=== PATIENT | female | born 1945 | race African-American/Black ===

== ENCOUNTER → 2016-08-07 | Outpatient (CLI) | payer MEDICARE | LOC: WI 11:05 | PROVIDERS: ATTEND Family Medicine | DX: Z12.31 Encounter for screening mammogram for malignant neoplasm of breast (principal) | CPT/HCPCS: 77067; G0202 ==

== ENCOUNTER → 2017-09-06 | Outpatient (CLI) | payer MEDICARE ==
--- NOTE | 2017-09-06 14:35 | WOMENS IMAGING REPORT ---
EXAM DESCRIPTION: 3D SCREENING MAMMO BILAT COMPLETED DATE/TIME: 09/06/2017 10:18 am REASON FOR STUDY: ROUTINE SCREENING;Z12.31 Z12.31 ENCNTR SCREEN MAMMOGRAM FOR MALIGNANT NEOPLASM OF AMRIT COMPARISON: Multiple since 2008 TECHNIQUE: Standard craniocaudal and mediolateral oblique views of each breast recorded using digita l acquisition and breast tomosynthesis. LIMITATIONS: None. FINDINGS: No masses, calcifications or architectural distortion. No areas of suspicion. Read with the assistance of CAD. .[facility] - R2 Cenova Version 1.3 .[facility] - R2 Cenova Version 1.3 .[facility] - R2 Cenova Version 2.4 .[facility] - R2 Cenova Version 2.4 .[facility] - R2 Commercial Teller Version 9.2 IMPRESSION: NORMAL MAMMOGRAM. BIRADS 1. BREAST DENSITY: b. There are scattered areas of fibroglandular density. BIRAD: 1 NEGATIVE RECOMMENDATION: ROUTINE SCREENING Please continue yearly bilateral screening tomosynthesis in September 2018 COMMENT: The patient has been notified of the results by letter per [place] requirements. Additional no tification policies are in place for contacting patient with suspicious or incomplete findings. Quality ID #[id number]: The [employer] recommends an annual screening mammogram for women aged 40 years or over. This facility utilizes a reminder system to ensure that all patients receive reminder letters, and/or direct phone calls for appointments. This includes reminders for routine scr eening mammograms, diagnostic mammograms, or other Breast Imaging Interventions when appropriate. Th is patient will be placed in the appropriate reminder system. The [employer] (ACR) has developed recommendations for screening MRI of the breast s in certain patient populations, to be used in conjunction with mammography. Breast MRI surveillanc e may be appropriate for women with more than 20% lifetime risk of developing breast cancer as deter mined by genetic testing, significant family history of the disease, or history of mantle radiation f or Hodgkins Disease. ACR Practice Guidelines 2008. DBT Technology DBT is a type of tomographic mammography. With conventional mammography, overlapping breast tissue ma y make lesions difficult to detect, even with good compression. DBT uses an x-ray tube that rotates a round the breast, taking images at different angles. These images are then combined to create thin sl ices of the breast that the radiologist can view as a 3D reconstruction. The [employer] unit can perform full-field digital mammograms (2D imaging); or DBT (3D imaging); or both, in a combination mode that quickly performs both the mammogram and the tomosynthesis scan while the breast is still compressed. PQRS 6045F: Fluoroscopic imaging is not utilized for breast tomosynthesis. TECHNICAL DOCUMENTATION: FINDING NUMBER: (1) ASSESSMENT: (1) JOB ID: [id number] [employer]- All Rights Reserved Reading location - IP/workstation name: [facility]
== END ==
LOC: WI 09:33
PROVIDERS: ATTEND Family Medicine
DX: Z12.31 Encounter for screening mammogram for malignant neoplasm of breast (principal)
CPT/HCPCS: 77063; 77067

== ENCOUNTER → 2019-03-25 | Outpatient (CLI) | payer MEDICARE ==
[2019-03-25 12:18] LABS: ABSOLUTE LYMPHOCYTES (AUTO) 0.6 10^3/uL (0.5-4.7); ABSOLUTE MONOCYTES (AUTO) 0.4 10^3/uL (0.1-1.4); ABSOLUTE NEUT (AUTO) 4.4 10^3/uL (1.7-8.2); BASOPHILS % (AUTO) 0.6 % (0-2); EOSINOPHILS % (AUTO) 0.6 % (0-6); HEMATOCRIT 34.8 % (36.0-47.0); HEMOGLOBIN 10.9 g/dL (12.0-15.5); LYMPHOCYTES % (AUTO) 10.6 % (13-45); MEAN CORPUSCULAR HGB CONC 31.2 g/dL (32.0-36.0); MEAN CORPUSCULAR VOLUME 83 fl (80-97); MONOCYTES % (AUTO) 6.9 % (3-13); PLATELET COUNT 210 10^3/uL (150-450); RED BLOOD COUNT 4.18 10^6/uL (3.72-5.28); RED CELL DISTRIBUTION WIDTH 18.7 % (11.5-14.0); SEGMENTED NEUTROPHILS % (AUTO) 81.3 % (42-78); TOTAL CELLS COUNTED % (AUTO) 100 %; WHITE BLOOD COUNT 5.5 10^3/uL (4.0-10.5)
[2019-03-25 12:39] LABS: ALBUMIN 3.3 g/dL (3.5-5.0); ALKALINE PHOSPHATASE 80 U/L (38-126); ANION GAP 12 (5-19); ASPARTATE AMINO TRANSFERASE 21 U/L (14-36); BILIRUBIN,DIRECT 0.4 mg/dL (0.0-0.4); BILIRUBIN,TOTAL 1.1 mg/dL (0.2-1.3); BLOOD UREA NITROGEN 58 mg/dL (7-20); CALCIUM 8.7 mg/dL (8.4-10.2); CARBON DIOXIDE 25 mmol/L (22-30); CHLORIDE 97 mmol/L (98-107); CHOLESTEROL 89.53 mg/dL (0-200); IRON(TIBC) 34.7 ug/dL (37-170); POTASSIUM 4.2 mmol/L (3.6-5.0); TOTAL PROTEIN 7.2 g/dL (6.3-8.2); TRIGLYCERIDES 82 mg/dL (<150)
[2019-03-25 14:09] LABS: GLUCOSE 553 mg/dL (75-110)
[2019-03-25 14:42] LABS: DIRECT LDL 56 mg/dL (<100)
== END ==
LOC: OD 10:43
PROVIDERS: ATTEND Family Medicine
DX: N18.9 Chronic kidney disease, unspecified (principal); E11.9 Type 2 diabetes mellitus without complications; E78.5 Hyperlipidemia, unspecified; D63.1 Anemia in chronic kidney disease
CPT/HCPCS: 36415; 80053; 80061; 82728; 83036; 83540; 83550; 85025

== ENCOUNTER → 2019-03-30 | Outpatient (CLI) | payer MEDICARE ==
[2019-03-30 09:41] LABS: ANION GAP 9 (5-19); BLOOD UREA NITROGEN 61 mg/dL (7-20); CALCIUM 9.1 mg/dL (8.4-10.2); CARBON DIOXIDE 31 mmol/L (22-30); CHLORIDE 103 mmol/L (98-107); GLUCOSE 159 mg/dL (75-110); POTASSIUM 4.5 mmol/L (3.6-5.0)
== END ==
LOC: OD 08:21
PROVIDERS: ATTEND Family Medicine
DX: N18.9 Chronic kidney disease, unspecified (principal)
CPT/HCPCS: 36415; 80048

== ENCOUNTER 2019-05-03 09:57 | Inpatient (IN) | payer MEDICARE ==
--- NOTE | 2019-05-03 10:24 | ER Document Report ---
ED General - General Chief Complaint: Abnormal Lab Results Stated Complaint: ABNORMAL LABS Time Seen by Provider: 05/03/19 10:06 Primary Care Provider: LISA BARON MD [Primary Care Provider] - Follow up as needed Notes: HPI: Patient is a 73-year-old female that presents today by EMS from [facility] secondary to an elevated reported creatinine. They did provide a liter of fluid prior to transfer. Patient herself denies any and all pain including a lack of headache, chest pain, abdominal pain, back pain, or dysuria. No fevers, vomiting, or diarrhea. History of chronic atrial fibrillation. ROS: See HPI All other review of systems reviewed and otherwise negative Reviewed vital signs and nursing note as charted by RN. PHYSICAL EXAM: CONSTITUTIONAL: Alert and oriented and responds appropriately to questions including year month and day. Well-appearing; well-nourished HEAD: Normocephalic; atraumatic EYES: Sclerae non-icteric ENT: Normal nose; no rhinorrhea; moist mucous membranes; pharynx without lesions noted NECK: Supple without meningismus; non-tender; no cervical lymphadenopathy, no masses CARD: Regular rate and rhythm; no murmurs; symmetric distal pulses RESP: Normal chest excursion without splinting or tachypnea; breath sounds clear and equal bilaterally; no wheezes, no rhonchi, no rales ABD/GI: Normal bowel sounds; non-distended; soft, non-tender; no palpable organomegaly or masses BACK: The back appears normal and is non-tender to palpation EXT: Normal ROM in all joints; non-tender to palpation SKIN: Patient has bilateral lower leg blisters/ulcerations without any obvious erythema. 1+ pitting edema to bilateral shins NEURO: CN 2-12 intact; 5/5 bilateral upper and lower extremity strength with sensation intact to light touch PSYCH: The patient's mood and manner are appropriate. Grooming and personal hygiene are appropriate. TRAVEL OUTSIDE OF THE [place] IN LAST 30 DAYS: No - Related Data Allergies/Adverse Reactions: No Known Allergies Allergy (Verified 01/10/12 14:35) Past Medical History - Social History Smoking Status: Unknown if Ever Smoked Family History: Reviewed & Not Pertinent - Past Medical History Cardiac Medical History: Reports: Hx Atrial Fibrillation, Hx Congestive Heart Failure, Hx Coronary Artery Disease, Hx Hypercholesterolemia, Hx Hypertension Pulmonary Medical History: Reports: Hx Pneumonia Endocrine Medical History: Reports: Hx Diabetes Mellitus Type 2 Renal/ Medical History: Reports: Hx Renal Insufficiency GI Medical History: Reports: Hx Colonoscopy Musculoskeletal Medical History: Reports Hx Arthritis Skin Medical History: Reports Hx Cellulitis Psychiatric Medical History: Reports: Hx Anxiety Denies: Hx Depression Past Surgical History: Reports: Hx Appendectomy, Hx Hysterectomy - Immunizations Hx Diphtheria, Pertussis, Tetanus Vaccination: Yes Hx Pneumococcal Vaccination: 02/03/10 Physical Exam - Vital signs Vitals: Resp 17 05/03/19 10:04 Course - Re-evaluation Re-evalutation: 05/03/19 10:23 Given the history and physical we will obtain basic labs including a general chemistry as well as urine analysis. Vital signs as recorded with a heart rate around 110. Heart rate is irregularly irregular. 05/03/19 10:25 It appears that the patient has a baseline creatinine around 2.5. On April 25 it was 3.8 with a BUN of 87. 05/03/19 10:33 During his previous admission around 8 days ago the patient was found to have an elevated creatinine and BUN. Patient has a history of heart failure. She also had bilateral lower extremity ulcers. Cultures grew out MRSA that was sensitive to doxycycline. Patient was diuresed secondary to increasing weight gain. Patient did have a recent echo by Dr. Grant an outpatient with the combined systolic and diastolic heart failure with EF is 40%. 05/03/19 11:27 Labs as recorded. Potassium as recorded. I do not believe that the patient requires transfer for dialysis. Patient will be admitted to the hospitalist service for management of fluid overload and diuretics. Patient supposedly did receive a liter and a half of fluid prior to transfer. - Vital Signs Vital signs: Temp Pulse Resp BP Pulse Ox 98.1 F 16 124/70 99 05/03/19 10:32 05/03/19 10:32 05/03/19 10:32 05/03/19 10:32 - Laboratory Result Diagrams: 05/03/19 10:22 05/03/19 10:22 Laboratory results interpreted by me: 05/03/19 05/03/19 05/03/19 10:22 10:22 10:22 Hgb 10.8 L Hct 34.2 L MCH 25.9 L MCHC 31.5 L RDW 19.9 H Dolores % (Auto) 14.4 H BUN 126 H Creatinine 4.69 H Est GFR ( Amer) 11 L Est GFR (MDRD) Non-Af 9 L Glucose 131 H Direct Bilirubin 0.9 H AST 60 H Albumin 3.2 L Urine Protein 30 H Urine Blood SMALL H Discharge - Discharge Clinical Impression: Acute renal failure Qualifiers: Acute renal failure type: unspecified Qualified Code(s): N17.9 - Acute kidney failure, unspecified Condition: Fair Disposition: ADMITTED INPATIENT Admitting Provider: John Unit Admitted: IMCU Referrals: LISA BARON MD [Primary Care Provider] - Follow up as needed
[2019-05-03 10:43] LABS: ABSOLUTE BASOPHILS # (AUTO) 0.1 10^3/uL (0.0-0.2); ABSOLUTE EOSINOPHILS # (AUTO) 0.1 10^3/uL (0.0-0.6); ABSOLUTE LYMPHOCYTES (AUTO) 0.9 10^3/uL (0.5-4.7); ABSOLUTE MONOCYTES (AUTO) 0.7 10^3/uL (0.1-1.4); ABSOLUTE NEUT (AUTO) 3.3 10^3/uL (1.7-8.2); BASOPHILS % (AUTO) 1.1 % (0-2); EOSINOPHILS % (AUTO) 1.1 % (0-6); HEMATOCRIT 34.2 % (36.0-47.0); HEMOGLOBIN 10.8 g/dL (12.0-15.5); LYMPHOCYTES % (AUTO) 17.2 % (13-45); MEAN CORPUSCULAR HEMOGLOBIN 25.9 pg (27.0-33.4); MEAN CORPUSCULAR HGB CONC 31.5 g/dL (32.0-36.0); MEAN CORPUSCULAR VOLUME 82 fl (80-97); MONOCYTES % (AUTO) 14.4 % (3-13); PLATELET COUNT 166 10^3/uL (150-450); RED BLOOD COUNT 4.17 10^6/uL (3.72-5.28); RED CELL DISTRIBUTION WIDTH 19.9 % (11.5-14.0); SEGMENTED NEUTROPHILS % (AUTO) 66.2 % (42-78); TOTAL CELLS COUNTED % (AUTO) 100 %
[2019-05-03 10:52] LABS: AMORPHOUS SEDIMENT,URINE TRACE /HPF; APPEARANCE,URINE SLIGHTLY-CLOUDY; BILIRUBIN,URINE NEGATIVE (NEGATIVE); COLOR,URINE YELLOW; GLUCOSE, URINE NEGATIVE (NEGATIVE); KETONES,URINE NEGATIVE (NEGATIVE); LEUKOCYTE ESTERASE,URINE NEGATIVE (NEGATIVE); NITRITE,URINE NEGATIVE (NEGATIVE); PROTEIN,URINE 30 mg/dL (NEGATIVE); UROBILINOGEN,URINE NEGATIVE mg/dL (<2.0)
[2019-05-03 10:54] LABS: ALBUMIN 3.2 g/dL (3.5-5.0); ALKALINE PHOSPHATASE 73 U/L (38-126); ANION GAP 13 (5-19); ASPARTATE AMINO TRANSFERASE 60 U/L (14-36); BILIRUBIN,DIRECT 0.9 mg/dL (0.0-0.4); BILIRUBIN,TOTAL 1.1 mg/dL (0.2-1.3); CALCIUM 8.7 mg/dL (8.4-10.2); CARBON DIOXIDE 27 mmol/L (22-30); CHLORIDE 103 mmol/L (98-107); GLUCOSE 131 mg/dL (75-110); POTASSIUM 4.7 mmol/L (3.6-5.0); TOTAL PROTEIN 7.6 g/dL (6.3-8.2)
[2019-05-03 11:03] LABS: BLOOD UREA NITROGEN 126 mg/dL (7-20)
[2019-05-03] MEDS ORDERED: NORMAL SALINE 1000 ML 1,000 ML IV ONE (11:31)
[2019-05-03] MEDS ORDERED: INFLUENZA QUAD (6MOS+) 2019-20 VAC 0.5 ML SYR IM ONE (14:03)
--- NOTE | 2019-05-03 19:11 | PDOC H&P ---
History of Present Illness Admission Date/PCP: 05/03/19 11:35 LISA BARON MD History of Present Illness: NISH NOLAND is a 73 year old female patient of Dr. Baron who was transferred from local SNF to the ED for worsening renal function indices on her recent laboratory test and lack of IV access for hydration. Patient was receiving IV fluid infusion via subcutaneous process as per nursing staff. Patient denied any associated symptoms except expressed needle like discomfort and pain in her feet and legs tonight. She denied any chest pain or difficulty with breathing. No nausea, vomiting, abdominal pain, diarrhea, tarry or bloody stool. No fever, chills, headache, dizziness, nasal or sinus congestion. She was advised hospitalization due to worsening creatinine and BUN level. her morbidities are as listed below. Past Medical History Cardiac Medical History: Reports: Atrial Fibrillation, Congestive Heart Failure, Coronary Artery Disease, Hyperlipidema, Hypertension Pulmonary Medical History: Reports: Pneumonia Endocrine Medical History: Reports: Diabetes Mellitus Type 2 Musculoskeltal Medical History: Reports: Arthritis Psychiatric Medical History: Denies: Depression Hematology: Reports: Anemia Past Surgical History Past Surgical History: Reports: Appendectomy, Hysterectomy Social History Smoking Status: Never Smoker Frequency of Alcohol Use: None Hx Recreational Drug Use: No Drugs: None Hx Prescription Drug Abuse: No - Advance Directive Resuscitation Status: Full Code Family History Family History: Reviewed & Not Pertinent Parental Family History Reviewed: Yes Children Family History Reviewed: Yes Sibling(s) Family History Reviewed.: Yes Medication/Allergy Home Medications: Atorvastatin Calcium [Lipitor 40 mg Tablet] 40 mg PO QHS 04/14/19 Isosorbide Mononitrate [Imdur 30 mg Tablet.er] 30 mg PO DAILY 04/14/19 Lisinopril [Prinivil 5 mg Tablet] 5 mg PO QHS 04/14/19 Omeprazole 40 mg PO DAILY 04/23/19 Apixaban [Eliquis 5 mg Tablet] 5 mg PO BID 05/03/19 Bumetanide 2 mg PO BID 05/03/19 Carvedilol [Coreg 12.5 mg Tablet] 37.5 mg PO Q12 05/03/19 Insulin Glargine,Hum.rec.anlog [Lantus Insulin 100 Unit/mL Insulin Pen] 15 - 20 units SUBCUT QHS 05/03/19 Insulin Lispro Protamin/Lispro [Humalog Mix 50-50 100 unit/mL] 0 unit SUBCUT .SLIDING SCALE 05/03/19 Allergies/Adverse Reactions: No Known Allergies Allergy (Verified 01/10/12 14:35) Review of Systems Constitutional: ABSENT: chills, fever(s), headache(s), weight gain, weight loss Eyes: PRESENT: visual disturbances Ears: PRESENT: hearing changes Nose, Mouth, and Throat: ABSENT: as per HPI, headache(s), mouth pain, sore throat, vertigo, other Cardiovascular: ABSENT: as per HPI, chest pain, dyspnea on exertion, edema, orthropnea, palpitations, other Respiratory: ABSENT: cough, hemoptysis Gastrointestinal: ABSENT: abdominal pain, constipation, diarrhea, hematemesis, hematochezia, nausea, vomiting Genitourinary: ABSENT: dysuria, hematuria Musculoskeletal: ABSENT: joint swelling Neurological: ABSENT: abnormal gait, abnormal speech, confusion, dizziness, focal weakness, syncope Psychiatric: ABSENT: anxiety, depression, homidical ideation, suicidal ideation Endocrine: ABSENT: cold intolerance, heat intolerance, polydipsia, polyuria Hematologic/Lymphatic: ABSENT: easy bleeding, easy bruising, lymphadenopathy Allergic/Immunologic: ABSENT: seasonal rhinorrhea Physical Exam Vital Signs: Temp Pulse Resp BP Pulse Ox 97.9 F 100 18 117/72 100 05/03/19 15:07 05/03/19 15:07 05/03/19 15:07 05/03/19 15:07 05/03/19 15:07 Intake & Output 05/02/19 05/03/19 05/04/19 06:59 06:59 06:59 Weight 90.718 kg General appearance: PRESENT: mild distress - from pain in her legs Head exam: PRESENT: atraumatic, normocephalic Eye exam: PRESENT: conjunctiva pink, EOMI, PERRLA. ABSENT: scleral icterus Ear exam: PRESENT: normal external ear exam Mouth exam: PRESENT: dry mucosa - fairly dry Respiratory exam: PRESENT: clear to auscultation conor, decreased breath sounds - at lung bases Cardiovascular exam: PRESENT: irregular rhythm, +S1, +S2. ABSENT: diastolic murmur, systolic murmur Vascular exam: ABSENT: pallor GI/Abdominal exam: PRESENT: normal bowel sounds, soft. ABSENT: distended, guarding, mass, organolmegaly, rebound, tenderness Rectal exam: PRESENT: deferred Extremities exam: PRESENT: pedal edema - 1+ bilaterally Musculoskeletal exam: PRESENT: deformity Neurological exam: PRESENT: altered - occasional confusion, awake Psychiatric exam: PRESENT: appropriate affect, normal mood. ABSENT: homicidal ideation, suicidal ideation Skin exam: PRESENT: dry, warm, other - multiple superficial ulcers on lower extremities Results Laboratory Results: 05/03/19 10:22 05/03/19 10:22 05/03/19 05/03/19 05/03/19 10:22 10:22 10:22 WBC 5.0 RBC 4.17 Hgb 10.8 L Hct 34.2 L MCV 82 MCH 25.9 L MCHC 31.5 L RDW 19.9 H Plt Count 166 Seg Neutrophils % 66.2 Sodium 143.1 Potassium 4.7 Chloride 103 Carbon Dioxide 27 Anion Gap 13 BUN 126 H Creatinine 4.69 H Est GFR ( Amer) 11 L Glucose 131 H Calcium 8.7 Total Bilirubin 1.1 AST 60 H Alkaline Phosphatase 73 Total Protein 7.6 Albumin 3.2 L Urine Color YELLOW Urine Appearance SLIGHTLY-CLOUDY Urine pH 5.0 Ur Specific [place] 1.010 Urine Protein 30 H Urine Glucose (UA) NEGATIVE Urine Ketones NEGATIVE Urine Blood SMALL H Urine Nitrite NEGATIVE Ur Leukocyte Esterase NEGATIVE Urine WBC (Auto) 5 Urine RBC (Auto) 1 Assessment & Plan - Diagnosis (1) Acute on chronic kidney failure Qualifiers: Acute renal failure type: unspecified Chronic kidney disease stage: stage 4 (severe) Qualified Code(s): N17.9 - Acute kidney failure, unspecified; N18.4 - Chronic kidney disease, stage 4 (severe) Is this a current diagnosis for this admission?: Yes Plan: See covering attending physician orders for details about care plan. (2) Hyponatremia with excess extracellular fluid volume Is this a current diagnosis for this admission?: Yes Plan: See covering attending physician orders for details about care plan. (3) Chronic kidney disease, stage IV (severe) Is this a current diagnosis for this admission?: Yes Plan: See covering attending physician orders for details about care plan. 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 (5) Diabetic neuropathy Qualifiers: Diabetes mellitus type: type 2 Diabetes mellitus complication detail: diabetic polyneuropathy Qualified Code(s): E11.42 - Type 2 diabetes mellitus with diabetic polyneuropathy Is this a current diagnosis for this admission?: Yes Plan: See covering attending physician orders for details about care plan. (6) Hypertension Qualifiers: Hypertension type: essential hypertension Qualified Code(s): I10 - Essential (primary) hypertension Is this a current diagnosis for this admission?: Yes Plan: See covering attending physician orders for details about care plan. (7) Chronic atrial fibrillation Is this a current diagnosis for this admission?: Yes Plan: See covering attending physician orders for details about care plan. - Time Time Spent: 50 to 70 Minutes Medications reviewed and adjusted accordingly: Yes Anticipated discharge: SNF Within: Other - Inpatient Certification Based on my medical assessment, after consideration of the patient's comorbidities, presenting symptoms, or acuity I expect that the services needed warrant INPATIENT care.: Yes I certify that my determination is in accordance with my understanding of Medicare's requirements for reasonable and necessary INPATIENT services [42 CFR 412.3e].: Yes Medical Necessity: Significant Comorbidiites Make Outpatient Treatment Too Risky, Need Close Monitoring Due to Risk of Patient Decompensation, Need For IV Fluids, Need For Continuous Telemetry Monitoring, Risk of Complication if Not Cared For in Hospital, Risk of Diagnosis Which Will Require Inpatient Eval/Care/Monitoring Post Hospital Care: D/C Communications Officer Documentation - Plan Summary Plan Summary: See covering attending physician orders for details about care plan.
[2019-05-03] MEDS ORDERED: INSULIN GLARGINE,HUM.REC.ANLOG 1,000 UNIT/10 ML VIAL (PYX) SUBCUT PRN (19:30)
[2019-05-03] MEDS: ATORVASTATIN CALCIUM 40 MG TABLET PO SCH (21:06)
[2019-05-03] MEDS: ISOSORBIDE MONONITRATE 30 MG TAB.ER.24H PO SCH (21:06)
[2019-05-03] MEDS: CARVEDILOL 12.5 MG TABLET PO SCH (21:06)
[2019-05-03] MEDS: GABAPENTIN 100 MG CAPSULE PO SCH (21:06)
[2019-05-03] MEDS: INSULIN GLARGINE,HUM.REC.ANLOG 1,000 UNIT/10 ML VIAL SUBCUT SCH (22:48)
[2019-05-03] MEDS: DILTIAZEM HCL 30 MG TABLET PO SCH (23:04)
[2019-05-04] MEDS: DILTIAZEM HCL 30 MG TABLET PO SCH ×2 (05:34→11:05)
[2019-05-04 06:35] LABS: ABSOLUTE MONOCYTES (AUTO) 0.7 10^3/uL (0.1-1.4); BASOPHILS % (AUTO) 0.9 % (0-2); EOSINOPHILS % (AUTO) 0.8 % (0-6); HEMATOCRIT 32.4 % (36.0-47.0); HEMOGLOBIN 10.4 g/dL (12.0-15.5); LYMPHOCYTES % (AUTO) 20.7 % (13-45); MEAN CORPUSCULAR HEMOGLOBIN 25.6 pg (27.0-33.4); MEAN CORPUSCULAR HGB CONC 32.1 g/dL (32.0-36.0); MEAN CORPUSCULAR VOLUME 80 fl (80-97); MONOCYTES % (AUTO) 14.4 % (3-13); PLATELET COUNT 146 10^3/uL (150-450); RED BLOOD COUNT 4.06 10^6/uL (3.72-5.28); RED CELL DISTRIBUTION WIDTH 19.8 % (11.5-14.0); SEGMENTED NEUTROPHILS % (AUTO) 63.2 % (42-78); TOTAL CELLS COUNTED % (AUTO) 100 %; WHITE BLOOD COUNT 4.7 10^3/uL (4.0-10.5)
[2019-05-04] MEDS: APIXABAN 5 MG TABLET PO SCH ×2 (09:07→17:29)
[2019-05-04] MEDS: CARVEDILOL 12.5 MG TABLET PO SCH ×2 (09:07→22:20)
[2019-05-04 09:30] LABS: ALBUMIN 2.9 g/dL (3.5-5.0); ALKALINE PHOSPHATASE 77 U/L (38-126); ANION GAP 16 (5-19); ASPARTATE AMINO TRANSFERASE 49 U/L (14-36); BILIRUBIN,DIRECT 0.9 mg/dL (0.0-0.4); BILIRUBIN,TOTAL 1.1 mg/dL (0.2-1.3); CALCIUM 8.3 mg/dL (8.4-10.2); CARBON DIOXIDE 23 mmol/L (22-30); CHLORIDE 102 mmol/L (98-107); GLUCOSE 315 mg/dL (75-110); POTASSIUM 4.3 mmol/L (3.6-5.0); TOTAL PROTEIN 7.1 g/dL (6.3-8.2)
[2019-05-04 09:42] LABS: BLOOD UREA NITROGEN 121 mg/dL (7-20)
[2019-05-04] MEDS ORDERED: GLUCAGON,HUMAN RECOMB 1 MG INJ IM PRN (13:35)
[2019-05-04] MEDS ORDERED: DEXTROSE 50%-WATER 25 GM/50 ML DISP.SYRIN IV PRN ×2 (13:35)
[2019-05-04] MEDS ORDERED: DEXTROSE 40% GEL 15 GM TUBE PO PRN ×2 (13:35)
[2019-05-04] MEDS: DILTIAZEM HCL 60 MG TABLET PO SCH ×2 (14:36→22:19)
[2019-05-04] MEDS: INSULIN LISPRO 100 UNIT/ML 3 ML VIAL SUBCUT SCH ×2 (16:52→22:18)
[2019-05-04] MEDS: ATORVASTATIN CALCIUM 40 MG TABLET PO SCH (22:19)
[2019-05-04] MEDS: GABAPENTIN 100 MG CAPSULE PO SCH (22:19)
[2019-05-04] MEDS: ISOSORBIDE MONONITRATE 30 MG TAB.ER.24H PO SCH (22:19)
[2019-05-04] MEDS: INSULIN GLARGINE,HUM.REC.ANLOG 1,000 UNIT/10 ML VIAL SUBCUT SCH (22:26)
[2019-05-05] MEDS: DILTIAZEM HCL 60 MG TABLET PO SCH ×3 (05:52→22:53)
[2019-05-05] MEDS: CARVEDILOL 12.5 MG TABLET PO SCH ×2 (09:37→22:53)
[2019-05-05] MEDS: INSULIN LISPRO 100 UNIT/ML 3 ML VIAL SUBCUT SCH ×4 (09:37→22:54)
[2019-05-05] MEDS: APIXABAN 5 MG TABLET PO SCH ×2 (09:57→17:15)
--- NOTE | 2019-05-05 10:01 | PDOC PROGRESS REPORT ---
Subjective Progress Note for:: 05/04/19 Subjective:: Patient denied any chest pain or difficulty with breathing. No fever or chills. No nausea, vomiting, or abdominal pain. Reason For Visit: ACUTE RENAL FAILURE Physical Exam Vital Signs: Temp Pulse Resp BP Pulse Ox 97.4 F 91 18 123/66 100 05/04/19 07:05 05/04/19 07:05 05/04/19 07:05 05/04/19 07:05 05/04/19 07:05 Intake & Output 05/03/19 05/04/19 05/05/19 06:59 06:59 06:59 Intake Total 640 1000 Output Total 700 Balance -60 1000 Weight 105.7 kg General appearance: PRESENT: no acute distress, obese Head exam: PRESENT: atraumatic, normocephalic Eye exam: PRESENT: conjunctiva pink, scleral icterus Ear exam: PRESENT: normal external ear exam Mouth exam: PRESENT: moist Respiratory exam: PRESENT: clear to auscultation conor, decreased breath sounds - at lung bases Cardiovascular exam: PRESENT: RRR. ABSENT: diastolic murmur, rubs, systolic murmur Vascular exam: ABSENT: pallor GI/Abdominal exam: PRESENT: normal bowel sounds, soft. ABSENT: distended, guarding, mass, organolmegaly, rebound, tenderness Extremities exam: PRESENT: pedal edema - 1+ Neurological exam: PRESENT: alert, awake, oriented to person, oriented to place, oriented to time, oriented to situation, CN II-XII grossly intact. ABSENT: motor sensory deficit Psychiatric exam: PRESENT: appropriate affect, normal mood. ABSENT: homicidal ideation, suicidal ideation Skin exam: PRESENT: dry, warm, other - multiple dry superficial on legs Results Laboratory Results: 05/04/19 05:43 05/04/19 08:13 05/04/19 05/04/19 05/04/19 05:43 05:43 08:13 WBC 4.7 RBC 4.06 Hgb 10.4 L Hct 32.4 L MCV 80 MCH 25.6 L MCHC 32.1 RDW 19.8 H Plt Count 146 L Seg Neutrophils % 63.2 Sodium Cancelled 141.2 Potassium Cancelled 4.3 Chloride Cancelled 102 Carbon Dioxide Cancelled 23 Anion Gap Cancelled 16 BUN Cancelled 121 H Creatinine Cancelled 4.62 H Est GFR ( Amer) Cancelled 11 L Est GFR (Non-Af Amer) Cancelled Glucose Cancelled 315 H Calcium Cancelled 8.3 L Total Bilirubin Cancelled 1.1 AST Cancelled 49 H Alkaline Phosphatase Cancelled 77 Total Protein Cancelled 7.1 Albumin Cancelled 2.9 L Assessment & Plan - Diagnosis (1) Acute on chronic kidney failure Qualifiers: Acute renal failure type: unspecified Chronic kidney disease stage: stage 4 (severe) Qualified Code(s): N17.9 - Acute kidney failure, unspecified; N18.4 - Chronic kidney disease, stage 4 (severe) Is this a current diagnosis for this admission?: Yes (2) Hyponatremia with excess extracellular fluid volume Is this a current diagnosis for this admission?: Yes (3) Chronic kidney disease, stage IV (severe) Is this a current diagnosis for this admission?: Yes (4) Type 2 diabetes mellitus Qualifiers: Diabetes mellitus ux developer designer insulin use: with ux developer designer use Chronic kidney disease stage: stage 4 (severe) Is this a current diagnosis for this admission?: Yes (5) Diabetic neuropathy Qualifiers: Diabetes mellitus type: type 2 Diabetes mellitus complication detail: diabetic polyneuropathy Qualified Code(s): E11.42 - Type 2 diabetes mellitus with diabetic polyneuropathy Is this a current diagnosis for this admission?: Yes (6) Hypertension Qualifiers: Hypertension type: essential hypertension Qualified Code(s): I10 - Essential (primary) hypertension Is this a current diagnosis for this admission?: Yes (7) Chronic atrial fibrillation Is this a current diagnosis for this admission?: Yes Plan: Increase Cardizem to 60mg p.o q8 hours. Continue beta tess therapy. - Time Time Spent with patient: 35 or more minutes Level of Care: IMCU Medications reviewed and adjusted accordingly: Yes Anticipated discharge: Home with Homehealth Within: Other - Inpatient Certification Based on my medical assessment, after consideration of the patient's comorbidities, presenting symptoms, or acuity I expect that the services needed warrant INPATIENT care.: Yes I certify that my determination is in accordance with my understanding of Medicare's requirements for reasonable and necessary INPATIENT services [42 CFR 412.3e].: Yes Medical Necessity: Significant Comorbidiites Make Outpatient Treatment Too Risky, Need Close Monitoring Due to Risk of Patient Decompensation, Need For IV Fluids, Need For Continuous Telemetry Monitoring, Risk of Complication if Not Cared For in Hospital, Risk of Diagnosis Which Will Require Inpatient E linda/Care/Monitoring Post Hospital Care: D/C Remote Sensing Research Scientist Documentation - Plan Summary Plan Summary: See covering attending physician orders about details of care plan
[2019-05-05] MEDS ORDERED: NORMAL SALINE 1000 ML 1,000 ML IV PRN (10:09)
--- NOTE | 2019-05-05 10:16 | PDOC PROGRESS REPORT ---
Subjective Progress Note for:: 05/05/19 Subjective:: Patient denied any chest pain or difficulty with breathing. No fever or chills. No nausea, vomiting, or abdominal pain. Her cardaic monitor continue to reveal atrial fibrillation with controlled heart rate. Her carvedilol and Cardizem were not administered this morning due to low blood pressure. Reason For Visit: ACUTE RENAL FAILURE Physical Exam Vital Signs: Temp Pulse Resp BP Pulse Ox 97.2 F 82 20 86/60 L 90/60 repeat 98 05/05/19 07:54 05/05/19 07:54 05/05/19 08:00 05/05/19 07:54 05/05/19 07:54 Intake & Output 05/04/19 05/05/19 05/06/19 06:59 06:59 06:59 Intake Total 640 2205 Output Total 700 1025 Balance -60 1180 Weight 105.7 kg 104.8 kg Physical Exam: General appearance: PRESENT: no acute distress, obese Head exam: PRESENT: atraumatic, normocephalic Eye exam: PRESENT: conjunctiva pink, pallor, scleral icterus Ear exam: PRESENT: normal external ear exam Mouth exam: PRESENT: moist Respiratory exam: PRESENT: clear to auscultation conor, decreased breath sounds - at lung bases Cardiovascular exam: PRESENT: Irregularly irregular ABSENT: diastolic murmur, rubs, systolic murmur GI/Abdominal exam: PRESENT: normal bowel sounds, soft. ABSENT: distended, guarding, mass, organomegaly, rebound, tenderness Extremities exam: PRESENT: pedal edema - 1+ Neurological exam: PRESENT: alert, awake, oriented to person, oriented to place, oriented to time, oriented to situation, CN II-XII grossly intact. ABSENT: motor sensory deficit Psychiatric exam: PRESENT: appropriate affect, normal mood. ABSENT: homicidal ideation, suicidal ideation Skin exam: PRESENT: dry, warm, other - multiple dry superficial on legs Results Laboratory Results: 05/04/19 05:43 05/04/19 08:13 Assessment & Plan - Diagnosis (1) Acute on chronic kidney failure Qualifiers: Acute renal failure type: unspecified Chronic kidney disease stage: stage 4 (severe) Qualified Code(s): N17.9 - Acute kidney failure, unspecified; N18.4 - Chronic kidney disease, stage 4 (severe) Is this a current diagnosis for this admission?: Yes (2) Hyponatremia with excess extracellular fluid volume Is this a current diagnosis for this admission?: Yes (3) Chronic kidney disease, stage IV (severe) Is this a current diagnosis for this admission?: Yes (4) Type 2 diabetes mellitus 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 Chronic kidney disease stage: stage 4 (severe) Is this a current diagnosis for this admission?: Yes (5) Diabetic neuropathy Qualifiers: Diabetes mellitus type: type 2 Diabetes mellitus complication detail: diabetic polyneuropathy Qualified Code(s): E11.42 - Type 2 diabetes mellitus with diabetic polyneuropathy Is this a current diagnosis for this admission?: Yes (6) Hypertension Qualifiers: Hypertension type: essential hypertension Qualified Code(s): I10 - Essential (primary) hypertension Is this a current diagnosis for this admission?: Yes (7) Chronic atrial fibrillation Is this a current diagnosis for this admission?: Yes - Time Time Spent with patient: 35 or more minutes Level of Care: IMCU Medications reviewed and adjusted accordingly: Yes Anticipated discharge: SNF Within: Other - Inpatient Certification Based on my medical assessment, after consideration of the patient's comor bidities, presenting symptoms, or acuity I expect that the services needed warrant INPATIENT care.: Yes I certify that my determination is in accordance with my understanding of Medicare's requirements for reasonable and necessary INPATIENT services [42 CFR 412.3e].: Yes Medical Necessity: Significant Comorbidiites Make Outpatient Treatment Too Risky, Need Close Monitoring Due to Risk of Patient Decompensation, Need For IV Fluids, Need For Continuous Telemetry Monitoring, Risk of Complication if Not Cared For in Hospital, Risk of Diagnosis Which Will Require Inpatient Eval/Care/Monitoring Post Hospital Care: D/C Adzing And Boring Machine Feeder Documentation - Plan Summary Plan Summary: Decrease Carvedilol to 25 mg p.o bid. Start on IV N/S at 75 ml / hour x 1 liter. Continue on all other current medication management.
[2019-05-05 11:05] LABS: ABSOLUTE LYMPHOCYTES (AUTO) 0.9 10^3/uL (0.5-4.7); ABSOLUTE MONOCYTES (AUTO) 0.7 10^3/uL (0.1-1.4); ABSOLUTE NEUT (AUTO) 3.1 10^3/uL (1.7-8.2); BASOPHILS % (AUTO) 0.8 % (0-2); EOSINOPHILS % (AUTO) 0.9 % (0-6); HEMATOCRIT 32.4 % (36.0-47.0); HEMOGLOBIN 10.3 g/dL (12.0-15.5); MEAN CORPUSCULAR HEMOGLOBIN 25.3 pg (27.0-33.4); MEAN CORPUSCULAR HGB CONC 31.7 g/dL (32.0-36.0); MEAN CORPUSCULAR VOLUME 80 fl (80-97); MONOCYTES % (AUTO) 15.6 % (3-13); PLATELET COUNT 134 10^3/uL (150-450); RED BLOOD COUNT 4.06 10^6/uL (3.72-5.28); RED CELL DISTRIBUTION WIDTH 19.7 % (11.5-14.0); SEGMENTED NEUTROPHILS % (AUTO) 64.7 % (42-78); TOTAL CELLS COUNTED % (AUTO) 100 %; WHITE BLOOD COUNT 4.7 10^3/uL (4.0-10.5)
[2019-05-05 11:33] LABS: ALBUMIN 2.8 g/dL (3.5-5.0); ALKALINE PHOSPHATASE 75 U/L (38-126); ANION GAP 17 (5-19); ASPARTATE AMINO TRANSFERASE 43 U/L (14-36); BILIRUBIN,DIRECT 0.8 mg/dL (0.0-0.4); CALCIUM 8.4 mg/dL (8.4-10.2); CARBON DIOXIDE 24 mmol/L (22-30); CHLORIDE 101 mmol/L (98-107); GLUCOSE 145 mg/dL (75-110); PHOSPHORUS 5.7 mg/dL (2.5-4.5); POTASSIUM 3.8 mmol/L (3.6-5.0); TOTAL PROTEIN 7.1 g/dL (6.3-8.2)
[2019-05-05 11:40] LABS: BLOOD UREA NITROGEN 125 mg/dL (7-20)
[2019-05-05] MEDS: GABAPENTIN 100 MG CAPSULE PO SCH (22:52)
[2019-05-05] MEDS: ATORVASTATIN CALCIUM 40 MG TABLET PO SCH (22:52)
[2019-05-05] MEDS: ISOSORBIDE MONONITRATE 30 MG TAB.ER.24H PO SCH (22:53)
[2019-05-05] MEDS: INSULIN GLARGINE,HUM.REC.ANLOG 1,000 UNIT/10 ML VIAL SUBCUT SCH (22:54)
[2019-05-06] MEDS: DILTIAZEM HCL 60 MG TABLET PO SCH ×3 (05:41→22:28)
[2019-05-06] MEDS: CARVEDILOL 12.5 MG TABLET PO SCH ×2 (11:01→22:29)
[2019-05-06] MEDS: APIXABAN 5 MG TABLET PO SCH ×2 (11:01→17:07)
[2019-05-06] MEDS: ACETAMINOPHEN 325 MG TABLET PO PRN (15:05)
[2019-05-06] MEDS: INSULIN LISPRO 100 UNIT/ML 3 ML VIAL SUBCUT SCH ×3 (15:07→22:29)
--- NOTE | 2019-05-06 18:35 | PDOC PROGRESS REPORT ---
Subjective Progress Note for:: 05/06/19 Subjective:: No chest pain or difficulty with breathing. No fever or chills. No nausea, vomiting, or abdominal pain. Reason For Visit: ACUTE RENAL FAILURE Physical Exam Vital Signs: Temp Pulse Resp BP Pulse Ox 97.9 F 75 20 110/67 97 05/06/19 16:54 05/06/19 16:54 05/06/19 16:54 05/06/19 16:54 05/06/19 16:54 Intake & Output 05/05/19 05/06/19 05/07/19 06:59 06:59 06:59 Intake Total 2205 1720 358 Output Total 1025 600 150 Balance 1180 1120 208 Weight 104.8 kg 106 kg General appearance: PRESENT: no acute distress Head exam: PRESENT: atraumatic, normocephalic Eye exam: PRESENT: conjunctiva pink. ABSENT: scleral icterus Ear exam: PRESENT: normal external ear exam Mouth exam: PRESENT: moist Respiratory exam: PRESENT: decreased breath sounds - at lung bases Cardiovascular exam: PRESENT: RRR. ABSENT: diastolic murmur, rubs, systolic murmur Vascular exam: ABSENT: pallor GI/Abdominal exam: PRESENT: normal bowel sounds, soft. ABSENT: distended, guarding, mass, organolmegaly, rebound, tenderness Extremities exam: PRESENT: pedal edema Musculoskeletal exam: PRESENT: ambulatory Neurological exam: PRESENT: alert, awake, oriented to person, oriented to place, oriented to time, oriented to situation, CN II-XII grossly intact. ABSENT: motor sensory deficit Psychiatric exam: PRESENT: appropriate affect, normal mood. ABSENT: homicidal ideation, suicidal ideation Skin exam: PRESENT: warm Results Laboratory Results: 05/05/19 10:40 05/05/19 10:40 Assessment & Plan - Diagnosis (1) Acute on chronic kidney failure Qualifiers: Acute renal failure type: unspecified Chronic kidney disease stage: stage 4 (severe) Qualified Code(s): N17.9 - Acute kidney failure, unspecified; N18.4 - Chronic kidney disease, stage 4 (severe) Is this a current diagnosis for this admission?: Yes (2) Hyponatremia with excess extracellular fluid volume Is this a current diagnosis for this admission?: Yes (3) Chronic kidney disease, stage IV (severe) Is this a current diagnosis for this admission?: Yes (4) Type 2 diabetes mellitus Qualifiers: 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 home use Chronic kidney disease stage: stage 4 (severe) Is this a current diagnosis for this admission?: Yes (5) Diabetic neuropathy Qualifiers: Diabetes mellitus type: type 2 Diabetes mellitus complication detail: diabetic polyneuropathy Qualified Code(s): E11.42 - Type 2 diabetes mellitus with diabetic polyneuropathy Is this a current diagnosis for this admission?: Yes (6) Hypertension Qualifiers: Hypertension type: essential hypertension Qualified Code(s): I10 - Essential (primary) hypertension Is this a current diagnosis for this admission?: Yes (7) Chronic atrial fibrillation Is this a current diagnosis for this admission?: Yes - Time Time Spent with patient: 25-34 minutes Level of Care: IMCU Medications reviewed and adjusted accordingly: Yes Anticipated discharge: Home with Homehealth Within: Other - Inpatient Certification I certify that my determination is in accordance with my understanding of Medic are's requirements for reasonable and necessary INPATIENT services [42 CFR 412.3e].: Yes Medical Necessity: Significant Comorbidiites Make Outpatient Treatment Too Risky, Need Close Monitoring Due to Risk of Patient Decompensation, Need For Continuous Telemetry Monitoring, Risk of Complication if Not Cared For in Hospital, Risk of Diagnosis Which Will Require Inpatient Eval/Care/Monitoring Post Hospital Care: D/C Province Archivist Documentation - Plan Summary Plan Summary: Continue on current medication management.
[2019-05-06] MEDS: ATORVASTATIN CALCIUM 40 MG TABLET PO SCH (22:28)
[2019-05-06] MEDS: GABAPENTIN 100 MG CAPSULE PO SCH (22:28)
[2019-05-06] MEDS: INSULIN GLARGINE,HUM.REC.ANLOG 1,000 UNIT/10 ML VIAL SUBCUT SCH (22:29)
[2019-05-06] MEDS: ISOSORBIDE MONONITRATE 30 MG TAB.ER.24H PO SCH (22:29)
[2019-05-07] MEDS: DILTIAZEM HCL 60 MG TABLET PO SCH ×3 (05:12→21:48)
--- NOTE | 2019-05-07 09:16 | PDOC PROGRESS REPORT ---
Subjective Progress Note for:: 05/07/19 Subjective:: Patient was admitted because of the acute renal failure with the most likely worsening due to the diuretics Patient's diuretics currently hold giving 1 L IV fluid Patient's denied any chest pain denied any shortness of the breath Reason For Visit: ACUTE RENAL FAILURE Physical Exam Vital Signs: Temp Pulse Resp BP Pulse Ox 97.3 F 73 16 95/58 L 100 05/07/19 07:47 05/07/19 07:47 05/07/19 07:47 05/07/19 07:47 05/07/19 07:47 Intake & Output 05/06/19 05/07/19 05/08/19 06:59 06:59 06:59 Intake Total 1720 1163 Output Total 600 625 Balance 1120 538 Weight 106 kg 109.1 kg General appearance: PRESENT: no acute distress, well-developed, well-nourished Head exam: PRESENT: atraumatic, normocephalic Eye exam: PRESENT: conjunctiva pink, EOMI, PERRLA. ABSENT: scleral icterus Ear exam: PRESENT: normal external ear exam Mouth exam: PRESENT: moist, tongue midline Neck exam: PRESENT: full ROM. ABSENT: carotid bruit, JVD, lymphadenopathy, thyromegaly Cardiovascular exam: PRESENT: RRR. ABSENT: diastolic murmur, rubs, systolic murmur Pulses: PRESENT: normal dorsalis pedis pul, +2 pedal pulses bilateral Vascular exam: PRESENT: normal capillary refill GI/Abdominal exam: PRESENT: normal bowel sounds, soft. ABSENT: distended, guarding, mass, organolmegaly, rebound, tenderness Rectal exam: PRESENT: deferred Additional comments: Patient have a bilateral mild leg swelling with chronic wound Neurological exam: PRESENT: alert, awake, oriented to person, oriented to place, oriented to time, oriented to situation, CN II-XII grossly intact. ABSENT: motor sensory deficit Psychiatric exam: PRESENT: appropriate affect, normal mood. ABSENT: homicidal ideation, suicidal ideation Skin exam: PRESENT: dry, intact, warm. ABSENT: cyanosis, rash Results Laboratory Results: 05/05/19 10:40 05/05/19 10:40 Assessment & Plan - Diagnosis (1) Acute on chronic kidney failure Qualifiers: Acute renal failure type: unspecified Chronic kidney disease stage: stage 4 (severe) Qualified Code(s): N17.9 - Acute kidney failure, unspecified; N18.4 - Chronic kidney disease, stage 4 (severe) Is this a current diagnosis for this admission?: Yes Plan: Currently hold the diuretics will consult the Dr. Mcclure for further evaluate may be consider the Lasix again (2) Chronic atrial fibrillation Is this a current diagnosis for this admission?: Yes Plan: Due to the chronic kidney disease we will cut down the Eliquis dose 2.5 mg twice a day (3) Congestive heart failure Qualifiers: Heart failure type: combined systolic and diastolic Heart failure chronicity: acute on chronic Qualified Code(s): I50.43 - Acute on chronic combined systolic (congestive) and diastolic (congestive) heart failure Is this a current diagnosis for this admission?: Yes Plan: Consider the Lasix 40 mg twice a day (4) Diabetic neuropathy Qualifiers: Diabetes mellitus type: type 2 Diabetes mellitus complication detail: diabetic polyneuropathy Qualified Code(s): E11.42 - Type 2 diabetes mellitus with diabetic polyneuropathy Is this a current diagnosis for this admission?: Yes (5) Hypertension Qualifiers: Hypertension type: essential hypertension Qualified Code(s): I10 - Es sential (primary) hypertension Is this a current diagnosis for this admission?: Yes Plan: Currently all stable (6) Lower extremity ulceration Qualifiers: Laterality: unspecified laterality Is this a current diagnosis for this admission?: Yes Plan: Continues to local dressing change patient had MRSA in the wound finish the doxycycline (7) Type 2 diabetes mellitus Qualifiers: 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
[2019-05-07] MEDS: APIXABAN 2.5 MG TABLET PO SCH ×2 (10:16→17:12)
[2019-05-07] MEDS: CARVEDILOL 12.5 MG TABLET PO SCH ×2 (10:16→21:48)
[2019-05-07] MEDS: INSULIN LISPRO 100 UNIT/ML 3 ML VIAL SUBCUT SCH ×4 (10:16→21:52)
--- NOTE | 2019-05-07 12:13 | PDOC CONSULTATION ---
Consultation Consult Date: 05/07/19 Provider Consulted: Jose AVENDAÑO Consult reason:: HEIKE on CKD 4 History of Present Illness Admission Date/PCP: 05/03/19 11:35 LISA BARON MD History of Present Illness: NISH NOLAND is a 73 year old female With a past medical history that is significant for complicated diabetes mellitus, hypertension, atrial fibrillation, history of mental retardation of unknown etiology was [facility] and access. She apparently was over diuresed at the [facility] and the plan was to initiate IV fluid hydration but had difficulty to access. Patient currently has been given IV fluids. Patient currently denies any history of chest pain or shortness of breath or abdominal pains. Also got a diagnosis of MRSA ulcers of both lower extremities and apparently has been followed at the wound clinic. There is no apparent history of any diarrhea. She denies orthostasis. She is mentally challenged and unable to answer questions appropriately. Therefore all of her little history I could gather from her was unreliable. Chart review was done and discussions done were done with the treating nurse. Labs and medications were reviewed. Past Medical History Cardiac Medical History: Reports: Atrial Fibrillation, CHF-Diastolic, CHF- Systolic, Coronary Artery Disease, Hyperlipidemia, Hypertension-primary Pulmonary Medical History: Reports: Pneumonia Endocrine Medical History: Reports: Diabetes Mellitus Type 2 Renal/ Medical History: Reports: Chronic Kidney Disease Stage IV Denies: Hematuria Musculoskeltal Medical History: Reports: Arthritis Psychiatric Medical History: Denies: Depression Past Surgical History Past Surgical History: Reports: Appendectomy, Hysterectomy Social History Smoking Status: Never Smoker Frequency of Alcohol Use: None Hx Recreational Drug Use: No Drugs: None Hx Prescription Drug Abuse: No - Advance Directive Resuscitation Status: Full Code Family History Parental Family History Reviewed: No Children Family History Reviewed: No Sibling(s) Family History Reviewed.: No Medication/Allergy Home Medications: Atorvastatin Calcium [Lipitor 40 mg Tablet] 40 mg PO QHS 04/14/19 Isosorbide Mononitrate [Imdur 30 mg Tablet.er] 30 mg PO DAILY 04/14/19 Lisinopril [Prinivil 5 mg Tablet] 5 mg PO QHS 04/14/19 Omeprazole 40 mg PO DAILY 04/23/19 Apixaban [Eliquis 5 mg Tablet] 5 mg PO BID 05/03/19 Bumetanide 2 mg PO BID 05/03/19 Carvedilol [Coreg 12.5 mg Tablet] 37.5 mg PO Q12 05/03/19 Insulin Glargine,Hum.rec.anlog [Lantus Insulin 100 Unit/mL Insulin Pen] 15 - 20 units SUBCUT QHS 05/03/19 Insulin Lispro Protamin/Lispro [Humalog Mix 50-50 100 unit/mL] 0 unit SUBCUT .SLIDING SCALE 05/03/19 Allergies/Adverse Reactions: No Known Allergies Allergy (Verified 01/10/12 14:35) Review of Systems Constitutional: PRESENT: fatigue, weakness. ABSENT: anorexia, chills, fever(s), headache(s), night sweats Nose, Mouth, and Throat: ABSENT: mouth pain, sore throat Cardiovascular: PRESENT: edema. ABSENT: orthropnea, palpitations Gastrointestinal: ABSENT: abdominal pain, bloating, coffee ground emesis, constipation, heartburn, hematemesis, nausea, vomiting Genitourinary: ABSENT: dysuria, hematuria Musculoskeletal: ABSENT: deformity, joint swelling Integumentary: ABSENT: erythema, lesions, pruritus, rash Neurological: ABSENT: abnormal movements, abnormal speech, convulsions, focal weakness, frequent falls, lack of coordination Hematologic/Lymphatic: ABSENT: easy bruising, lymphadenopathy Physical Exam Vital Signs: Temp Pulse Resp BP Pulse Ox 97.3 F 73 16 95/58 L 100 05/07/19 07:47 05/07/19 07:47 05/07/19 07:47 05/07/19 07:47 05/07/19 07:47 Intake & Output 05/06/19 05/07/19 05/08/19 06:59 06:59 06:59 Intake Total 1720 1163 Output Total 600 625 Balance 1120 538 Weight 106 kg 109.1 kg General appearance: PRESENT: no acute distress Eye exam: PRESENT: EOMI, PERRLA. ABSENT: scleral icterus Ear exam: PRESENT: normal external ear exam Mouth exam: PRESENT: moist, neck supple Neck exam: ABSENT: lymphadenopathy, meningismus, tenderness, thyromegaly, tra cheal deviation Respiratory exam: PRESENT: clear to auscultation conor, decreased breath sounds. ABSENT: crackles Cardiovascular exam: PRESENT: +S1, +S2 GI/Abdominal exam: PRESENT: normal bowel sounds, soft. ABSENT: organomegaly, tenderness Extremities exam: PRESENT: +1 edema Neurological exam: PRESENT: alert, awake, other - No asterixis.. ABSENT: oriented to person, oriented to place Psychiatric exam: PRESENT: appropriate affect Skin exam: PRESENT: mottled - Skin of lower both lower extremities indicative of venous stasis along with some covered up ulcers. No erythema around it.. ABSENT: cyanosis, erythema, rash Results Laboratory Results: 05/05/19 10:40 05/05/19 10:40 Assessment & Plan - Diagnosis (1) Acute on chronic kidney failure Qualifiers: Acute renal failure type: unspecified Chronic kidney disease stage: stage 4 (severe) Qualified Code(s): N17.9 - Acute kidney failure, unspecified; N18.4 - Chronic kidney disease, stage 4 (severe) Is this a current diagnosis for this admission?: Yes Plan: Nonoliguric. Patient clinically fluid overloaded. Start IV diuresis. Patient is got underlying diabetic nephropathy. No recent imaging studies done which will order. Apparent indications for initiation of renal replacement therapy. (2) Chronic atrial fibrillation Is this a current diagnosis for this admission?: Yes Plan: Presently rate controlled. (3) Chronic kidney disease, stage IV (severe) Is this a current diagnosis for this admission?: Yes Plan: I believe that her base creatinine is around 3 indicative of CKD stage IV. Underlying diabetic nephropathy. Poorly controlled. Patient has got mental challenges which makes it even more difficult to get everything in order. (4) Congestive heart failure Qualifiers: Heart failure type: combined systolic and diastolic Heart failure chronicity: acute on chronic Qualified Code(s): I50.43 - Acute on chronic combined systolic (congestive) and diastolic (congestive) heart failure Is this a current diagnosis for this admission?: Yes Plan: Looks like she might have some decompensation. However patient unclear about her history. Will initiate diuresis. She might benefit from getting an echocardiogram as she did not see anyone done in the last few years. (5) Hypertension Qualifiers: Hypertension type: essential hypertension Qualified Code(s): I10 - Essential (primary) hypertension Is this a current diagnosis for this admission?: Yes Plan: Currently hypotensive. Will cut back on Coreg. (6) Type 2 diabetes mellitus Qualifiers: Diabetes mellitus half-way insulin use: with director long term care use Chronic kidney disease stage: stage 4 (severe) Is this a current diagnosis for this admission?: Yes Plan: Needs tight control. (7) Proteinuria due to type 2 diabetes mellitus Plan: Secondary to diabetic nephropathy.Last time when I saw her she had nephrotic syndrome but her current urine analysis is not indicative of that. Will re- analyze this. (8) Diabetic foot ulcers Plan: Chronic. History of MRSA. Currently I am not sure if it is actively infected as its all covered up. Her low albumin of 2.8 is also conducive to persistence of these ulcers.
[2019-05-07] MEDS: FUROSEMIDE INJ/PF 20 MG/2 ML SDV IV SCH ×2 (13:59→21:46)
--- NOTE | 2019-05-07 14:20 | RADIOLOGY REPORT (SQ) ---
EXAM DESCRIPTION: U/S RETROPERITON (RENAL/AORTA) COMPLETED DATE/TIME: 05/07/2019 12:53 pm REASON FOR STUDY: HEIKE on CKD 4 COMPARISON: 12/13/2010 TECHNIQUE: Dynamic and static grayscale images acquired of the kidneys and bladder and recorded on P ACS. Additional selected color Doppler and spectral images recorded. LIMITATIONS: None. FINDINGS: RIGHT KIDNEY: Normal size. Normal echogenicity. No solid or suspicious masses. No hydronep hrosis. No calcifications. LEFT KIDNEY: Normal size. Normal echogenicity. No solid or suspicious masses. No hydronephrosis. No calcifications. BLADDER: Decompressed by Contreras catheter. OTHER FINDINGS: No other significant finding. IMPRESSION: No hydronephrosis or significant renal findings. Bladder decompressed by Contreras catheter . TECHNICAL DOCUMENTATION: JOB ID: [id number] [place]-72 2010 [employer]- All Rights Reserved Reading location - IP/workstation name: [email or web address]
[2019-05-07] MEDS: ATORVASTATIN CALCIUM 40 MG TABLET PO SCH (21:47)
[2019-05-07] MEDS: ISOSORBIDE MONONITRATE 30 MG TAB.ER.24H PO SCH (21:48)
[2019-05-07] MEDS: GABAPENTIN 100 MG CAPSULE PO SCH (21:48)
[2019-05-07] MEDS: INSULIN GLARGINE,HUM.REC.ANLOG 1,000 UNIT/10 ML VIAL SUBCUT SCH (21:49)
[2019-05-08] MEDS: DILTIAZEM HCL 60 MG TABLET PO SCH ×3 (05:37→23:39)
[2019-05-08 06:29] LABS: ABSOLUTE BASOPHILS # (AUTO) 0.1 10^3/uL (0.0-0.2); ABSOLUTE EOSINOPHILS # (AUTO) 0.1 10^3/uL (0.0-0.6); ABSOLUTE LYMPHOCYTES (AUTO) 0.8 10^3/uL (0.5-4.7); ABSOLUTE MONOCYTES (AUTO) 0.7 10^3/uL (0.1-1.4); ABSOLUTE NEUT (AUTO) 3.4 10^3/uL (1.7-8.2); BASOPHILS % (AUTO) 2.1 % (0-2); EOSINOPHILS % (AUTO) 1.4 % (0-6); HEMATOCRIT 31.1 % (36.0-47.0); MEAN CORPUSCULAR HEMOGLOBIN 25.4 pg (27.0-33.4); MEAN CORPUSCULAR HGB CONC 32.1 g/dL (32.0-36.0); MEAN CORPUSCULAR VOLUME 79 fl (80-97); MONOCYTES % (AUTO) 13.8 % (3-13); PLATELET COUNT 130 10^3/uL (150-450); RED BLOOD COUNT 3.93 10^6/uL (3.72-5.28); RED CELL DISTRIBUTION WIDTH 19.2 % (11.5-14.0); SEGMENTED NEUTROPHILS % (AUTO) 66.7 % (42-78); TOTAL CELLS COUNTED % (AUTO) 100 %; WHITE BLOOD COUNT 5.1 10^3/uL (4.0-10.5)
[2019-05-08 06:49] LABS: ANION GAP 10 (5-19); CALCIUM 8.3 mg/dL (8.4-10.2); CARBON DIOXIDE 24 mmol/L (22-30); CHLORIDE 107 mmol/L (98-107); POTASSIUM 4.1 mmol/L (3.6-5.0)
[2019-05-08 07:00] LABS: BLOOD UREA NITROGEN 126 mg/dL (7-20)
[2019-05-08 07:02] LABS: GLUCOSE 52 mg/dL (75-110)
--- NOTE | 2019-05-08 09:12 | PDOC PROGRESS REPORT ---
Subjective Progress Note for:: 05/08/19 Subjective:: Patient is currently doing fair Denied any chest pain denied any shortness of the breath Since her urine output is still low started Lasix [address] Mcclure Reason For Visit: ACUTE RENAL FAILURE Physical Exam Vital Signs: Temp Pulse Resp BP Pulse Ox 97.3 F 76 18 91/58 L 98 05/08/19 08:14 05/08/19 08:14 05/08/19 08:14 05/08/19 08:14 05/08/19 08:14 Intake & Output 05/07/19 05/08/19 05/09/19 06:59 06:59 06:59 Intake Total 1163 970 Output Total 625 400 Balance 538 570 Weight 109.1 kg 109.1 kg General appearance: PRESENT: no acute distress, well-developed, well-nourished Head exam: PRESENT: atraumatic, normocephalic Eye exam: PRESENT: conjunctiva pink, EOMI, PERRLA. ABSENT: scleral icterus Ear exam: PRESENT: normal external ear exam Mouth exam: PRESENT: moist, tongue midline Neck exam: PRESENT: full ROM. ABSENT: carotid bruit, JVD, lymphadenopathy, thyromegaly Respiratory exam: PRESENT: clear to auscultation conor Cardiovascular exam: PRESENT: RRR. ABSENT: diastolic murmur, rubs, systolic murmur Pulses: PRESENT: normal dorsalis pedis pul, +2 pedal pulses bilateral Vascular exam: PRESENT: normal capillary refill GI/Abdominal exam: PRESENT: normal bowel sounds, soft. ABSENT: distended, guarding, mass, organolmegaly, rebound, tenderness Rectal exam: PRESENT: deferred Extremities exam: PRESENT: pedal edema Additional comments: Chronic leg ulcers with a dressing is present Neurological exam: PRESENT: alert, awake, oriented to person, oriented to place, oriented to time, oriented to situation, CN II-XII grossly intact. ABSENT: motor sensory deficit Psychiatric exam: PRESENT: appropriate affect, normal mood. ABSENT: homicidal ideation, suicidal ideation Skin exam: PRESENT: dry, intact, warm. ABSENT: cyanosis, rash Results Laboratory Results: 05/08/19 06:18 05/08/19 06:18 05/08/19 05/08/19 05/08/19 06:18 06:18 06:18 WBC 5.1 RBC 3.93 Hgb 10.0 L Hct 31.1 L MCV 79 L MCH 25.4 L MCHC 32.1 RDW 19.2 H Plt Count 130 L Seg Neutrophils % 66.7 Sodium 140.8 Potassium 4.1 Chloride 107 Carbon Dioxide 24 Anion Gap 10 BUN 126 H Creatinine 3.80 H Est GFR ( Amer) 14 L Glucose 52 L Calcium 8.3 L PTH Intact 466.9 H Impressions: Renal Ultrasound 05/07/19 00:00 IMPRESSION: No hydronephrosis or significant renal findings. Bladder decompressed by Contreras catheter. Assessment & Plan - Diagnosis (1) Acute on chronic kidney failure Qualifiers: Acute renal failure type: unspecified Chronic kidney disease stage: stage 4 (severe) Qualified Code(s): N17.9 - Acute kidney failure, unspecified; N18.4 - Chronic kidney disease, stage 4 (severe) Is this a current diagnosis for this admission?: Yes Plan: Currently all stable continues the current medications follow-up with the Dr. Mcclure increase the Lasix 40 mg twice a day (2) Chronic atrial fibrillation Is this a current diagnosis for this admission?: Yes Plan: Continues the Eliquis (3) Congestive heart failure Qualifiers: Heart failure type: combined systolic and diastolic Heart failure ch ronicity: acute on chronic Qualified Code(s): I50.43 - Acute on chronic combined systolic (congestive) and diastolic (congestive) heart failure Is this a current diagnosis for this admission?: Yes Plan: Increase the Lasix 40 mg IV twice a day (4) Diabetic neuropathy Qualifiers: Diabetes mellitus type: type 2 Diabetes mellitus complication detail: diabetic polyneuropathy Qualified Code(s): E11.42 - Type 2 diabetes mellitus with diabetic polyneuropathy Is this a current diagnosis for this admission?: Yes (5) Hypertension Qualifiers: Hypertension type: essential hypertension Qualified Code(s): I10 - E ssential (primary) hypertension Is this a current diagnosis for this admission?: Yes (6) Lower extremity ulceration Qualifiers: Laterality: unspecified laterality Is this a current diagnosis for this admission?: Yes Plan: Continues to local dressing change patient had MRSA in the wound finish the doxycycline (7) Type 2 diabetes mellitus Qualifiers: Diabetes mellitus care home insulin use: with care home use Chronic kidney disease stage: stage 4 (severe) Is this a current diagnosis for this admission?: Yes - Time Time Spent with patient: 15-24 minutes Level of Care: IMCU Medications reviewed and adjusted accordingly: Yes Anticipated discharge: SNF Within: Other - Plan Summary Plan Summary: Increase the Lasix Continues the physical therapy
[2019-05-08] MEDS: INSULIN LISPRO 100 UNIT/ML 3 ML VIAL SUBCUT SCH ×4 (09:36→23:24)
[2019-05-08] MEDS: FUROSEMIDE INJ/PF 20 MG/2 ML SDV IV SCH ×3 (09:52→23:30)
[2019-05-08] MEDS: CARVEDILOL 12.5 MG TABLET PO SCH ×2 (09:53→23:34)
[2019-05-08] MEDS: APIXABAN 2.5 MG TABLET PO SCH ×2 (09:53→17:33)
--- NOTE | 2019-05-08 12:20 | PDOC PROGRESS REPORT ---
Subjective Progress Note for:: 05/08/19 Reason For Visit: Patient seen this morning. She is doing about the same. She denies any history of chest pain or shortness of breath or fever or chills. Labs and medications were reviewed. Discussions were done with Dr. Lopez who tells me that patient has had an outpatient echocardiogram done recently with Dr. Grant/cardiology which had shown she had biventricular failure with an LV ejection fraction around 45%. Physical Exam Vital Signs: Temp Pulse Resp BP Pulse Ox 97.5 F 65 18 115/72 91 L 05/08/19 11:42 05/08/19 11:42 05/08/19 11:42 05/08/19 11:42 05/08/19 11:42 Intake & Output 05/07/19 05/08/19 05/09/19 06:59 06:59 06:59 Intake Total 1163 970 Output Total 625 400 Balance 538 570 Weight 109.1 kg 109.1 kg General appearance: PRESENT: no acute distress Respiratory exam: PRESENT: clear to auscultation conor, decreased breath sounds. ABSENT: crackles Cardiovascular exam: PRESENT: +S1, +S2 GI/Abdominal exam: PRESENT: normal bowel sounds, soft. ABSENT: organomegaly, tenderness Extremities exam: PRESENT: +1 edema Neurological exam: PRESENT: alert, awake, oriented to person, oriented to place Psychiatric exam: PRESENT: depressed Skin exam: PRESENT: mottled - Changes of venous stasis in both lower extremities.. ABSENT: cyanosis, dry, petechiae, rash Results Laboratory Results: 05/08/19 06:18 05/08/19 06:18 05/08/19 05/08/19 05/08/19 06:18 06:18 06:18 WBC 5.1 RBC 3.93 Hgb 10.0 L Hct 31.1 L MCV 79 L MCH 25.4 L MCHC 32.1 RDW 19.2 H Plt Count 130 L Seg Neutrophils % 66.7 Sodium 140.8 Potassium 4.1 Chloride 107 Carbon Dioxide 24 Anion Gap 10 BUN 126 H Creatinine 3.80 H Est GFR ( Amer) 14 L Glucose 52 L Calcium 8.3 L PTH Intact 466.9 H Impressions: Renal Ultrasound 05/07/19 00:00 IMPRESSION: No hydronephrosis or significant renal findings. Bladder decompressed by Contreras catheter. Assessment & Plan - Diagnosis (1) Acute on chronic kidney failure Qualifiers: Acute renal failure type: unspecified Chronic kidney disease stage: stage 4 (severe) Qualified Code(s): N17.9 - Acute kidney failure, unspecified; N18.4 - Chronic kidney disease, stage 4 (severe) Is this a current diagnosis for this admission?: Yes Plan: Today's creatinine is 3.8/4.6 yesterday. Her baseline CKD stage IV is with a creatinine of around 3. She still got signs of fluid overload. Will increase her intravenous diuretic regimen.Also starting on Midodrin. (2) Chronic atrial fibrillation Is this a current diagnosis for this admission?: Yes Plan: Rate controlled. (3) Chronic kidney disease, stage IV (severe) Is this a current diagnosis for this admission?: Yes Plan: Underlying diabetic nephropathy stage IV with base creatinine of 3. Presently she is showing decompensation along with acute on chronic congestive heart failure. Will increase Lasix as mentioned earlier. See other changes mentioned earlier. (4) Congestive heart failure Qualifiers: Heart failure type: combined systolic and diastolic Heart failure chronicity: acute on chronic Qualified Code(s): I50.43 - Acute on chronic combined systolic (congestive) and diastolic (congestive) heart failure Is this a current diagnosis for this admission?: Yes Plan: Decompensated. Increase IV Lasix. Monitor. (5) Hypertension Qualifiers: Hypertension type: essential hypertension Qualified Code(s): I10 - Essential (primary) hypertension Is this a current diagnosis for this admission?: Yes Plan: Presently low normal. However she is on medications for atrial fibrillation in the form of Coreg/Cardizem. Will cut back on Coreg dosing. Monitor. (6) Type 2 diabetes mellitus Qualifiers: Diabetes mellitus half-way insulin use: with half-way use Chronic kidney disease stage: stage 4 (severe) Is this a current diagnosis for this admission?: Yes Plan: Advised tight control. (7) Proteinuria due to type 2 diabetes mellitus Plan: UPC has not yet been done. (8) Diabetic foot ulcers Plan: As per Dr. Lopez.
[2019-05-08] MEDS: MIDODRINE HCL 5 MG TABLET PO SCH ×2 (14:24→17:32)
[2019-05-08] MEDS: ATORVASTATIN CALCIUM 40 MG TABLET PO SCH (23:31)
[2019-05-08] MEDS: GABAPENTIN 100 MG CAPSULE PO SCH (23:31)
[2019-05-08] MEDS: ISOSORBIDE MONONITRATE 30 MG TAB.ER.24H PO SCH (23:31)
[2019-05-08] MEDS: INSULIN GLARGINE,HUM.REC.ANLOG 1,000 UNIT/10 ML VIAL SUBCUT SCH (23:37)
[2019-05-09] MEDS: DILTIAZEM HCL 60 MG TABLET PO SCH ×3 (05:27→22:17)
[2019-05-09 05:46] LABS: ANION GAP 11 (5-19); CALCIUM 8.3 mg/dL (8.4-10.2); CARBON DIOXIDE 25 mmol/L (22-30); CHLORIDE 105 mmol/L (98-107); GLUCOSE 204 mg/dL (75-110); POTASSIUM 4.4 mmol/L (3.6-5.0)
[2019-05-09 05:57] LABS: BLOOD UREA NITROGEN 124 mg/dL (7-20)
[2019-05-09] MEDS: INSULIN LISPRO 100 UNIT/ML 3 ML VIAL SUBCUT SCH ×4 (08:22→22:11)
[2019-05-09] MEDS: MIDODRINE HCL 5 MG TABLET PO SCH ×3 (09:46→17:00)
[2019-05-09] MEDS: FUROSEMIDE INJ/PF 20 MG/2 ML SDV IV SCH ×2 (09:46→22:10)
[2019-05-09] MEDS: CARVEDILOL 12.5 MG TABLET PO SCH ×2 (09:46→22:16)
[2019-05-09] MEDS: APIXABAN 2.5 MG TABLET PO SCH ×2 (09:46→17:01)
--- NOTE | 2019-05-09 10:41 | PDOC PROGRESS REPORT ---
Subjective Progress Note for:: 05/09/19 Subjective:: Patient is currently doing fair Is denied any chest pain no short of breath Urine output is all stable Reason For Visit: ACUTE RENAL FAILURE Physical Exam Vital Signs: Temp Pulse Resp BP Pulse Ox 98.3 F 74 16 114/67 99 05/09/19 08:07 05/09/19 08:07 05/09/19 08:07 05/09/19 08:07 05/09/19 08:07 Intake & Output 05/08/19 05/09/19 05/10/19 06:59 06:59 06:59 Intake Total 970 975 440 Output Total 400 1100 Balance 570 -125 440 Weight 109.1 kg 109 kg General appearance: PRESENT: no acute distress, well-developed, well-nourished Head exam: PRESENT: atraumatic, normocephalic Eye exam: PRESENT: conjunctiva pink, EOMI, PERRLA. ABSENT: scleral icterus Ear exam: PRESENT: normal external ear exam Mouth exam: PRESENT: moist, tongue midline Neck exam: PRESENT: full ROM. ABSENT: carotid bruit, JVD, lymphadenopathy, thyromegaly Respiratory exam: PRESENT: clear to auscultation conor Cardiovascular exam: PRESENT: RRR. ABSENT: diastolic murmur, rubs, systolic murmur Vascular exam: PRESENT: normal capillary refill GI/Abdominal exam: PRESENT: normal bowel sounds, soft. ABSENT: distended, guarding, mass, organolmegaly, rebound, tenderness Rectal exam: PRESENT: deferred Extremities exam: PRESENT: pedal edema Musculoskeletal exam: PRESENT: ambulatory Neurological exam: PRESENT: alert, awake, oriented to person, oriented to place, oriented to time, oriented to situation, CN II-XII grossly intact. ABSENT: motor sensory deficit Psychiatric exam: PRESENT: appropriate affect, normal mood. ABSENT: homicidal ideation, suicidal ideation Skin exam: PRESENT: dry, intact, warm. ABSENT: cyanosis, rash Results Laboratory Results: 05/08/19 06:18 05/09/19 04:28 05/09/19 04:28 Sodium 141.4 Potassium 4.4 Chloride 105 Carbon Dioxide 25 Anion Gap 11 BUN 124 H Creatinine 3.62 H Est GFR ( Amer) 15 L Glucose 204 H Calcium 8.3 L Impressions: Renal Ultrasound 05/07/19 00:00 IMPRESSION: No hydronephrosis or significant renal findings. Bladder decompressed by Contreras catheter. Assessment & Plan - Diagnosis (1) Acute on chronic kidney failure Qualifiers: Acute renal failure type: unspecified Chronic kidney disease stage: stage 4 (severe) Qualified Code(s): N17.9 - Acute kidney failure, unspecified; N18.4 - Chronic kidney disease, stage 4 (severe) Is this a current diagnosis for this admission?: Yes (2) Chronic atrial fibrillation Is this a current diagnosis for this admission?: Yes (3) Congestive heart failure Qualifiers: Heart failure type: combined systolic and diastolic Heart failure chronicity: acute on chronic Qualified Code(s): I50.43 - Acute on chronic combined systolic (congestive) and diastolic (congestive) heart failure Is this a current diagnosis for this admission?: Yes (4) Diabetic neuropathy Qualifiers: Diabetes mellitus type: type 2 Diabetes mellitus complication detail: diabetic polyneuropathy Qualified Code(s): E11.42 - Type 2 diabetes mellitus with diabetic polyneuropathy Is this a current diagnosis for this admission?: Yes (5) Hypertension Qualifiers: Hypertension type: essential hypertension Qualified Code(s): I10 - Essential (primary) hypertension Is this a current diagnosis for this admission?: Yes (6) Lower extremity ulceration Qualifiers: Laterality: unspecified laterality Is this a current diagnosis for this admission?: Yes (7) Type 2 diabetes mellitus Qualifiers: Diabetes mellitus [facility] insulin use: with long goods drier use Chronic kidney disease stage: stage 4 (severe) Is this a current diagnosis for this admission?: Yes - Time Time Spent with patient: 15-24 minutes Level of Care: IMCU Medications reviewed and adjusted accordingly: Yes Anticipated discharge: SNF Within: Other - Plan Summary Plan Summary: Continues to current medications
[2019-05-09] MEDS ORDERED: CARVEDILOL 6.25 MG TABLET ONE (22:14)
[2019-05-09] MEDS: ATORVASTATIN CALCIUM 40 MG TABLET PO SCH (22:17)
[2019-05-09] MEDS: GABAPENTIN 100 MG CAPSULE PO SCH (22:17)
[2019-05-09] MEDS: ISOSORBIDE MONONITRATE 30 MG TAB.ER.24H PO SCH (22:17)
[2019-05-09] MEDS: INSULIN GLARGINE,HUM.REC.ANLOG 1,000 UNIT/10 ML VIAL SUBCUT SCH (23:17)
[2019-05-10 04:32] LABS: ANION GAP 11 (5-19); CALCIUM 8.4 mg/dL (8.4-10.2); CARBON DIOXIDE 26 mmol/L (22-30); CHLORIDE 104 mmol/L (98-107); GLUCOSE 220 mg/dL (75-110); POTASSIUM 4.3 mmol/L (3.6-5.0)
[2019-05-10 04:39] LABS: BLOOD UREA NITROGEN 118 mg/dL (7-20)
[2019-05-10] MEDS: DILTIAZEM HCL 60 MG TABLET PO SCH ×3 (05:29→22:47)
[2019-05-10] MEDS: INSULIN LISPRO 100 UNIT/ML 3 ML VIAL SUBCUT SCH ×4 (09:12→22:47)
[2019-05-10] MEDS: MIDODRINE HCL 5 MG TABLET PO SCH ×3 (09:13→17:07)
[2019-05-10] MEDS: APIXABAN 2.5 MG TABLET PO SCH ×2 (09:13→17:07)
[2019-05-10] MEDS: CARVEDILOL 12.5 MG TABLET PO SCH ×2 (09:13→22:47)
[2019-05-10] MEDS: FUROSEMIDE INJ/PF 20 MG/2 ML SDV IV SCH ×2 (09:13→22:46)
--- NOTE | 2019-05-10 10:07 | PDOC PROGRESS REPORT ---
Subjective Progress Note for:: 05/10/19 Subjective:: Patient is currently doing fair Is denied any chest pain no short of breath Urine output is all stable Reason For Visit: ACUTE RENAL FAILURE Physical Exam Vital Signs: Temp Pulse Resp BP Pulse Ox 98.4 F 79 16 114/40 L 98 05/10/19 07:20 05/10/19 07:20 05/10/19 07:20 05/10/19 07:20 05/10/19 07:20 Intake & Output 05/09/19 05/10/19 05/11/19 06:59 06:59 06:59 Intake Total 975 1155 Output Total 1100 1375 Balance -125 -220 Weight 109 kg 110 kg General appearance: PRESENT: no acute distress, well-developed, well-nourished Head exam: PRESENT: atraumatic, normocephalic Eye exam: PRESENT: conjunctiva pink, EOMI, PERRLA. ABSENT: scleral icterus Ear exam: PRESENT: normal external ear exam Mouth exam: PRESENT: moist, tongue midline Neck exam: PRESENT: full ROM. ABSENT: carotid bruit, JVD, lymphadenopathy, thyromegaly Respiratory exam: PRESENT: clear to auscultation conor Cardiovascular exam: PRESENT: RRR. ABSENT: diastolic murmur, rubs, systolic murmur Pulses: PRESENT: normal dorsalis pedis pul, +2 pedal pulses bilateral Vascular exam: PRESENT: normal capillary refill GI/Abdominal exam: PRESENT: normal bowel sounds, soft. ABSENT: distended, guard ing, mass, organolmegaly, rebound, tenderness Rectal exam: PRESENT: deferred Musculoskeletal exam: PRESENT: ambulatory Neurological exam: PRESENT: alert, awake, oriented to person, oriented to place, oriented to time, oriented to situation, CN II-XII grossly intact. ABSENT: motor sensory deficit Psychiatric exam: PRESENT: appropriate affect, normal mood. ABSENT: homicidal ideation, suicidal ideation Skin exam: PRESENT: dry, intact, warm. ABSENT: cyanosis, rash Results Laboratory Results: 05/08/19 06:18 05/10/19 03:52 05/10/19 03:52 Sodium 141.0 Potassium 4.3 Chloride 104 Carbon Dioxide 26 Anion Gap 11 BUN 118 H Creatinine 3.27 H Est GFR ( Amer) 17 L Glucose 220 H Calcium 8.4 Impressions: Renal Ultrasound 05/07/19 00:00 IMPRESSION: No hydronephrosis or significant renal findings. Bladder decompressed by Contreras catheter. Assessment & Plan - Diagnosis (1) Acute on chronic kidney failure Qualifiers: Acute renal failure type: unspecified Chronic kidney disease stage: stage 4 (severe) Qualified Code(s): N17.9 - Acute kidney failure, unspecified; N18.4 - Chronic kidney disease, stage 4 (severe) Is this a current diagnosis for this admission?: Yes (2) Chronic atrial fibrillation Is this a current diagnosis for this admission?: Yes (3) Congestive heart failure Qualifiers: Heart failure type: combined systolic and diastolic Heart failure chronicity: acute on chronic Qualified Code(s): I50.43 - Acute on chronic combined systolic (congestive) and diastolic (congestive) heart failure Is this a current diagnosis for this admission?: Yes (4) Diabetic neuropathy Qualifiers: Diabetes mellitus type: type 2 Diabetes mellitus complication detail: diabetic polyneuropathy Qualified Code(s): E11.42 - Type 2 diabetes mellitus with diabetic polyneuropathy Is this a current diagnosis for this admission?: Yes (5) Hypertension Qualifiers: Hypertension type: essential hypertension Qualified Code(s): I10 - Essential (primary) hypertension Is this a current diagnosis for this admission?: Yes (6) Lower extremity ulceration Qualifiers: Laterality: unspecified laterality Is this a current diagnosis for this admission?: Yes (7) Type 2 diabetes mellitus Qualifiers: Diabetes mellitus superintendent container terminal insulin use: with chcf use Chronic kidney disease stage: stage 4 (severe) Is this a current diagnosis for this admission?: Yes - Time Time Spent with patient: 15-24 minutes Level of Care: IMCU Medications reviewed and adjusted accordingly: Yes Anticipated discharge: SNF Within: Other - Plan Summary Plan Summary: Continues current medications
[2019-05-10] MEDS: ATORVASTATIN CALCIUM 40 MG TABLET PO SCH (22:47)
[2019-05-10] MEDS: ISOSORBIDE MONONITRATE 30 MG TAB.ER.24H PO SCH (22:47)
[2019-05-10] MEDS: GABAPENTIN 100 MG CAPSULE PO SCH (22:47)
[2019-05-10] MEDS: INSULIN GLARGINE,HUM.REC.ANLOG 1,000 UNIT/10 ML VIAL SUBCUT SCH (22:50)
[2019-05-11] MEDS: DILTIAZEM HCL 60 MG TABLET PO SCH ×3 (05:29→21:04)
[2019-05-11] MEDS: INSULIN LISPRO 100 UNIT/ML 3 ML VIAL SUBCUT SCH ×4 (08:22→22:33)
--- NOTE | 2019-05-11 08:34 | PDOC PROGRESS REPORT ---
Subjective Progress Note for:: 05/11/19 Subjective:: Patient is currently doing fair Patient's denied any chest pain no short of breath Patient's blood pressure is stable currently on midron Reason For Visit: ACUTE RENAL FAILURE Physical Exam Vital Signs: Temp Pulse Resp BP Pulse Ox 98.3 F 79 16 102/63 99 05/11/19 07:53 05/11/19 07:53 05/11/19 07:53 05/11/19 07:53 05/11/19 07:53 Intake & Output 05/10/19 05/11/19 05/12/19 06:59 06:59 06:59 Intake Total 1155 1000 Output Total 1375 1610 Balance -220 -610 Weight 110 kg 109.5 kg General appearance: PRESENT: no acute distress, well-developed, well-nourished Head exam: PRESENT: atraumatic, normocephalic Eye exam: PRESENT: conjunctiva pink, EOMI, PERRLA. ABSENT: scleral icterus Ear exam: PRESENT: normal external ear exam Mouth exam: PRESENT: moist, tongue midline Neck exam: PRESENT: full ROM. ABSENT: carotid bruit, JVD, lymphadenopathy, thyromegaly Respiratory exam: PRESENT: clear to auscultation conor Cardiovascular exam: PRESENT: RRR. ABSENT: diastolic murmur, rubs, systolic murmur Pulses: PRESENT: normal dorsalis pedis pul, +2 pedal pulses bilateral Vascular exam: PRESENT: normal capillary refill GI/Abdominal exam: PRESENT: normal bowel sounds, soft. ABSENT: distended, guarding, mass, organolmegaly, rebound, tenderness Rectal exam: PRESENT: deferred Neurological exam: PRESENT: alert, awake, oriented to person, oriented to place, oriented to time, oriented to situation, CN II-XII grossly intact. ABSENT: motor sensory deficit Psychiatric exam: PRESENT: appropriate affect, normal mood. ABSENT: homicidal ideation, suicidal ideation Skin exam: PRESENT: dry, intact, warm. ABSENT: cyanosis, rash Results Laboratory Results: 05/08/19 06:18 05/10/19 03:52 Impressions: Renal Ultrasound 05/07/19 00:00 IMPRESSION: No hydronephrosis or significant renal findings. Bladder decompressed by Contreras catheter. Assessment & Plan - Diagnosis (1) Acute on chronic kidney failure Qualifiers: Acute renal failure type: unspecified Chronic kidney disease stage: stage 4 (severe) Qualified Code(s): N17.9 - Acute kidney failure, unspecified; N18.4 - Chronic kidney disease, stage 4 (severe) Is this a current diagnosis for this admission?: Yes (2) Chronic atrial fibrillation Is this a current diagnosis for this admission?: Yes (3) Congestive heart failure Qualifiers: Heart failure type: combined systolic and diastolic Heart failure chronicity: acute on chronic Qualified Code(s): I50.43 - Acute on chronic combined systolic (congestive) and diastolic (congestive) heart failure Is this a current diagnosis for this admission?: Yes (4) Diabetic neuropathy Qualifiers: Diabetes mellitus type: type 2 Diabetes mellitus complication detail: diabetic polyneuropathy Qualified Code(s): E11.42 - Type 2 diabetes mellitus with diabetic polyneuropathy Is this a current diagnosis for this admission?: Yes (5) Hypertension Qualifiers: Hypertension type: essential hypertension Qualified Code(s): I10 - Essential (primary) hypertension Is this a current diagnosis for this admission?: Yes (6) Lower extremity ulceration Qualifiers: Laterality: unspecified laterality Is this a current diagnosis for this admission?: Yes (7) Type 2 diabetes mellitus Qualifiers: Diabetes mellitus adjunct faculty for medical terminology insulin use: with adjunct faculty for medical terminology use Chronic kidney disease stage: stage 4 (severe) Is this a current diagnosis for this admission?: Yes - Time Time Spent with patient: 15-24 minutes Level of Care: IMCU Medications reviewed and adjusted accordingly: Yes Anticipated discharge: SNF Within: Other - Plan Summary Plan Summary: Continues to current medications Switch IV to the p.o. Lasix
[2019-05-11 09:32] LABS: ANION GAP 8 (5-19); BLOOD UREA NITROGEN 111 mg/dL (7-20); CALCIUM 8.5 mg/dL (8.4-10.2); CARBON DIOXIDE 29 mmol/L (22-30); CHLORIDE 105 mmol/L (98-107); GLUCOSE 126 mg/dL (75-110); POTASSIUM 3.9 mmol/L (3.6-5.0)
[2019-05-11] MEDS: FUROSEMIDE 40 MG TABLET PO SCH ×2 (10:13→17:26)
[2019-05-11] MEDS: APIXABAN 2.5 MG TABLET PO SCH ×2 (10:13→17:26)
[2019-05-11] MEDS: MIDODRINE HCL 5 MG TABLET PO SCH ×3 (10:13→17:26)
[2019-05-11] MEDS: CARVEDILOL 12.5 MG TABLET PO SCH ×2 (10:13→21:04)
[2019-05-11] MEDS: ACETAMINOPHEN 325 MG TABLET PO PRN (11:09)
--- NOTE | 2019-05-11 18:23 | PDOC PROGRESS REPORT ---
Subjective Progress Note for:: 05/11/19 Subjective:: Patient appears to be doing well. She tells me that she feels good and denies any chest pains no shortness of breath. The only complaint she had is some leg pains which is almost chronic. He is making adequate amount of urine output around 1610 mL for the past 24 hours. She has no other new complaints. Reason For Visit: ACUTE RENAL FAILURE Physical Exam Vital Signs: Temp Pulse Resp BP Pulse Ox 98.3 F 79 16 102/63 99 05/11/19 07:53 05/11/19 07:53 05/11/19 07:53 05/11/19 07:53 05/11/19 07:53 Intake & Output 05/10/19 05/11/19 05/12/19 06:59 06:59 06:59 Intake Total 1155 1000 Output Total 1375 1610 Balance -220 -610 Weight 110 kg 109.5 kg Exam: General appearance: PRESENT: no acute distress, cooperative, well-developed, well-nourished Head exam: PRESENT: atraumatic, normocephalic Eye exam: PRESENT: conjunctiva pink, PERRLA. ABSENT: scleral icterus Neck exam: ABSENT: JVD Respiratory exam: PRESENT: Normal breath sounds. ABSENT: crackles, rales, rhonchi, unlabored, wheezes Cardiovascular exam: PRESENT: Irregularly irregular rate rhythm -+S1, +S2. ABSENT: diastolic murmur, systolic murmur GI/Abdominal exam: PRESENT: normal bowel sounds, soft. ABSENT: guarding, mass, tenderness Extremities exam: Grade 1 bilateral lower extremity pitting edema which seems to be improved Neurological exam: PRESENT: alert, awake, oriented to person, place and time. Skin exam: PRESENT: dry, warm, multiple leg ulcers both small ones and significantly bigger lesions on both lower extremities. Cardiovascular exam: PRESENT: +S1, +S2 GI/Abdominal exam: PRESENT: normal bowel sounds, soft. ABSENT: organomegaly, tenderness Results Laboratory Results: 05/08/19 06:18 05/11/19 08:49 05/11/19 08:49 Sodium 142.3 Potassium 3.9 Chloride 105 Carbon Dioxide 29 Anion Gap 8 BUN 111 H Creatinine 2.83 H Est GFR ( Amer) 20 L Glucose 126 H Calcium 8.5 Impressions: Renal Ultrasound 05/07/19 00:00 IMPRESSION: No hydronephrosis or significant renal findings. Bladder decompressed by Contreras catheter. Assessment & Plan - Diagnosis (1) Acute kidney injury superimposed on chronic kidney disease Is this a current diagnosis for this admission?: Yes Plan: Most likely secondary to acute prerenal factors including CHF decompensation and admission. Patient's kidney function is currently improving with diuresis. She is currently nonoliguric. Diuretics now switched to oral Lasix 40 mg twice daily. Her baseline kidney function of lately is around creatinine of 2.5-2.7 so current creatinine of 2.83 is almost at baseline. No need of renal replacement therapy. Continue current management. (2) Chronic kidney disease, stage IV (severe) Is this a current diagnosis for this admission?: Yes Plan: Likely secondary to a combination of cardiorenal syndrome and diabetic nephropathy. (3) Congestive heart failure Qualifiers: Heart failure type: combined systolic and diastolic Heart failure chronicity: acute on chronic Qualified Code(s): I50.43 - Acute on chronic combined systolic (congestive) and diastolic (congestive) heart failure Is this a current diagnosis for this admission?: Yes Plan: Clinically now improved. Biventricular heart failure. Most recent LVEF was 45% with an echocardiogram done outside the hospital care of Dr. Grant, [employer] lead teacher. (4) Diabetic nephropathy Is this a current diagnosis for this admission?: Yes Plan: Check urine protein/creatinine ratio. (5) Chronic atrial fibrillation Is this a current diagnosis for this admission?: Yes Plan: Rate controlled. (6) Hypertension Qualifiers: Hypertension type: essential hypertension Qualified Code(s): I10 - Essential (primary) hypertension Is this a current diagnosis for this admission?: Yes Plan: Currently controlled. Patient also on midodrine. (7) Lower extremity ulceration Qualifiers: Laterality: unspecified laterality Is this a current diagnosis for this admission?: Yes (8) Type 2 diabetes mellitus Qualifiers: Diabetes mellitus intermediate designer insulin use: with intermediate designer use Chronic kidney disease stage: stage 4 (severe) Is this a current diagnosis for this admission?: Yes - Time Time with patient: 15-25 minutes
[2019-05-11 20:28] LABS: UR PRO/CREAT RATIO RESULT 0.7 mg/mg (0.0-0.2); URINE CREATININE 43.5 mg/dL (15-278); URINE PROTEIN 29.7 mg/dL (<12)
[2019-05-11] MEDS: GABAPENTIN 100 MG CAPSULE PO SCH (21:04)
[2019-05-11] MEDS: ATORVASTATIN CALCIUM 40 MG TABLET PO SCH (21:05)
[2019-05-11] MEDS: ISOSORBIDE MONONITRATE 30 MG TAB.ER.24H PO SCH (21:05)
[2019-05-11] MEDS: INSULIN GLARGINE,HUM.REC.ANLOG 1,000 UNIT/10 ML VIAL SUBCUT SCH (22:34)
[2019-05-12 05:17] LABS: ABSOLUTE EOSINOPHILS # (AUTO) 0.1 10^3/uL (0.0-0.6); ABSOLUTE LYMPHOCYTES (AUTO) 0.8 10^3/uL (0.5-4.7); ABSOLUTE MONOCYTES (AUTO) 0.7 10^3/uL (0.1-1.4); ABSOLUTE NEUT (AUTO) 3.7 10^3/uL (1.7-8.2); BASOPHILS % (AUTO) 0.9 % (0-2); HEMATOCRIT 31.5 % (36.0-47.0); HEMOGLOBIN 10.2 g/dL (12.0-15.5); LYMPHOCYTES % (AUTO) 14.9 % (13-45); MEAN CORPUSCULAR HEMOGLOBIN 25.6 pg (27.0-33.4); MEAN CORPUSCULAR HGB CONC 32.4 g/dL (32.0-36.0); MEAN CORPUSCULAR VOLUME 79 fl (80-97); MONOCYTES % (AUTO) 13.2 % (3-13); PLATELET COUNT 152 10^3/uL (150-450); RED BLOOD COUNT 3.99 10^6/uL (3.72-5.28); RED CELL DISTRIBUTION WIDTH 19.7 % (11.5-14.0); TOTAL CELLS COUNTED % (AUTO) 100 %; WHITE BLOOD COUNT 5.4 10^3/uL (4.0-10.5)
[2019-05-12] MEDS: DILTIAZEM HCL 60 MG TABLET PO SCH (05:37)
[2019-05-12 05:39] LABS: ANION GAP 11 (5-19); BLOOD UREA NITROGEN 109 mg/dL (7-20); CALCIUM 8.6 mg/dL (8.4-10.2); CARBON DIOXIDE 28 mmol/L (22-30); CHLORIDE 105 mmol/L (98-107); GLUCOSE 127 mg/dL (75-110); POTASSIUM 4.2 mmol/L (3.6-5.0)
[2019-05-12] MEDS ORDERED: METOPROLOL TARTRATE 25 MG TABLET PO SCH (08:00)
--- NOTE | 2019-05-12 08:43 | PDOC PROGRESS REPORT ---
Subjective Progress Note for:: 05/12/19 Subjective:: Patient is currently doing better As per discussed with the patient's cardiology and suggested dilitzem is not a good choice for the patient's and suggest borderline low pressure and discontinue dilitezam Patient is otherwise doing well And any chest pain no short of breath Reason For Visit: ACUTE RENAL FAILURE Physical Exam Vital Signs: Temp Pulse Resp BP Pulse Ox 98.1 F 78 12 119/66 98 05/12/19 07:10 05/12/19 07:10 05/12/19 07:10 05/12/19 07:10 05/12/19 07:10 Intake & Output 05/11/19 05/12/19 05/13/19 06:59 06:59 06:59 Intake Total 1000 790 Output Total 1610 1380 Balance -610 -590 Weight 109.5 kg 78.5 kg General appearance: PRESENT: no acute distress, well-developed, well-nourished Head exam: PRESENT: atraumatic, normocephalic Eye exam: PRESENT: conjunctiva pink, EOMI, PERRLA. ABSENT: scleral icterus Ear exam: PRESENT: normal external ear exam Mouth exam: PRESENT: moist, tongue midline Neck exam: PRESENT: full ROM. ABSENT: carotid bruit, JVD, lymphadenopathy, thyromegaly Respiratory exam: PRESENT: clear to auscultation conor Cardiovascular exam: PRESENT: RRR. ABSENT: diastolic murmur, rubs, systolic murmur Pulses: PRESENT: normal dorsalis pedis pul, +2 pedal pulses bilateral Vascular exam: PRESENT: normal capillary refill GI/Abdominal exam: PRESENT: normal bowel sounds, soft. ABSENT: distended, guarding, mass, organolmegaly, rebound, tenderness Rectal exam: PRESENT: deferred Extremities exam: PRESENT: pedal edema Musculoskeletal exam: PRESENT: ambulatory Neurological exam: PRESENT: alert, awake, oriented to person, oriented to place, oriented to time, oriented to situation, CN II-XII grossly intact. ABSENT: motor sensory deficit Psychiatric exam: PRESENT: appropriate affect, normal mood. ABSENT: homicidal ideation, suicidal ideation Skin exam: PRESENT: dry, intact, warm. ABSENT: cyanosis, rash Results Laboratory Results: 05/12/19 05:05 05/12/19 05:05 05/11/19 05/12/19 05/12/19 08:49 05:05 05:05 WBC 5.4 RBC 3.99 Hgb 10.2 L Hct 31.5 L MCV 79 L MCH 25.6 L MCHC 32.4 RDW 19.7 H Plt Count 152 Seg Neutrophils % 69.0 Sodium 142.3 144.1 Potassium 3.9 4.2 Chloride 105 105 Carbon Dioxide 29 28 Anion Gap 8 11 BUN 111 H 109 H Creatinine 2.83 H 2.51 H Est GFR ( Amer) 20 L 23 L Glucose 126 H 127 H Calcium 8.5 8.6 Impressions: Renal Ultrasound 05/07/19 00:00 IMPRESSION: No hydronephrosis or significant renal findings. Bladder decompressed by Contreras catheter. Assessment & Plan - Diagnosis (1) Acute on chronic kidney failure Qualifiers: Acute renal failure type: unspecified Chronic kidney disease stage: stage 4 (severe) Qualified Code(s): N17.9 - Acute kidney failure, unspecified; N18.4 - Chronic kidney disease, stage 4 (severe) Is this a current diagnosis for this admission?: Yes Plan: Currently back to the baseline (2) Chronic atrial fibrillation Is this a current diagnosis for this admission?: Yes Plan: As per discussed with the cardiology will DC the Cardizem start on the low pr essure 25 mg twice a day and discontinues the Coreg (3) Congestive heart failure Qualifiers: Heart failure type: combined systolic and diastolic Heart failure chronicity: acute on chronic Qualified Code(s): I50.43 - Acute on chronic combined systolic (congestive) and diastolic (congestive) heart failure Is this a current diagnosis for this admission?: Yes Plan: Continues to Lasix 40 mg p.o. twice a day (4) Diabetic neuropathy Qualifiers: Diabetes mellitus type: type 2 Diabetes mellitus complication detail: diabetic polyneuropathy Qualified Code(s): E11.42 - Type 2 diabetes mellitus with diabetic polyneuropathy Is this a current diagnosis for this admission?: Yes (5) Hypertension Qualifiers: Hypertension type: essential hypertension Qualified Code(s): I10 - Essential (primary) hypertension Is this a current diagnosis for this admission?: Yes (6) Lower extremity ulceration Qualifiers: Laterality: unspecified laterality Is this a current diagnosis for this admission?: Yes (7) Type 2 diabetes mellitus Qualifiers: Diabetes mellitus alf insulin use: with alf use Chronic kidney disease stage: stage 4 (severe) Is this a current diagnosis for this admission?: Yes - Time Time Spent with patient: 15-24 minutes Level of Care: IMCU Medications reviewed and adjusted accordingly: Yes Anticipated discharge: SNF Within: within 24 hours - Plan Summary Plan Summary: While changing the medications we will watch for next 24 hours and hopefully if he remains stable discharge tomorrow
[2019-05-12] MEDS: INSULIN LISPRO 100 UNIT/ML 3 ML VIAL SUBCUT SCH ×4 (08:48→22:03)
[2019-05-12] MEDS: METOPROLOL TARTRATE 25 MG TABLET PO SCH ×2 (08:55→22:04)
[2019-05-12] MEDS: APIXABAN 2.5 MG TABLET PO SCH ×2 (09:03→17:13)
[2019-05-12] MEDS: FUROSEMIDE 40 MG TABLET PO SCH ×2 (09:03→17:13)
[2019-05-12] MEDS: MIDODRINE HCL 5 MG TABLET PO SCH ×3 (09:51→17:13)
--- NOTE | 2019-05-12 17:19 | PDOC PROGRESS REPORT ---
Subjective Progress Note for:: 05/12/19 Subjective:: Patient continues to do well without any new complaints today. She continues to make adequate amount of urine output. Reason For Visit: ACUTE RENAL FAILURE Physical Exam Vital Signs: Temp Pulse Resp BP Pulse Ox 98.1 F 78 12 119/66 98 05/12/19 07:10 05/12/19 07:10 05/12/19 07:10 05/12/19 07:10 05/12/19 07:10 Intake & Output 05/11/19 05/12/19 05/13/19 06:59 06:59 06:59 Intake Total 1000 790 Output Total 1610 1380 Balance -610 -590 Weight 109.5 kg 78.5 kg Exam: General appearance: PRESENT: no acute distress, cooperative, well-developed, well-nourished Head exam: PRESENT: atraumatic, normocephalic Eye exam: PRESENT: conjunctiva slightly pale, PERRLA. ABSENT: scleral icterus Neck exam: ABSENT: JVD Respiratory exam: PRESENT: Normal breath sounds. ABSENT: crackles, rales, rhonchi, unlabored, wheezes Cardiovascular exam: PRESENT: Regular rate rhythm -+S1, +S2. ABSENT: diastolic murmur, systolic murmur GI/Abdominal exam: PRESENT: normal bowel sounds, soft. ABSENT: guarding, mass, tenderness Extremities exam: Grade 1 bilateral lower extremity pitting edema Neurological exam: PRESENT: alert, awake, oriented to person, place and time. Skin exam: PRESENT: dry, warm, multiple skin ulcers on both lower extremities Cardiovascular exam: PRESENT: +S1, +S2 GI/Abdominal exam: PRESENT: normal bowel sounds, soft. ABSENT: organomegaly, tenderness Results Laboratory Results: 05/12/19 05:05 05/12/19 05:05 05/12/19 05/12/19 05:05 05:05 WBC 5.4 RBC 3.99 Hgb 10.2 L Hct 31.5 L MCV 79 L MCH 25.6 L MCHC 32.4 RDW 19.7 H Plt Count 152 Seg Neutrophils % 69.0 Sodium 144.1 Potassium 4.2 Chloride 105 Carbon Dioxide 28 Anion Gap 11 BUN 109 H Creatinine 2.51 H Est GFR ( Amer) 23 L Glucose 127 H Calcium 8.6 Impressions: Renal Ultrasound 05/07/19 00:00 IMPRESSION: No hydronephrosis or significant renal findings. Bladder decompressed by Contreras catheter. Assessment & Plan - Diagnosis (1) Acute kidney injury superimposed on chronic kidney disease Is this a current diagnosis for this admission?: Yes Plan: Most likely secondary to acute prerenal factors including CHF decompensation on admission. Patient's kidney function is currently improving with diuresis. She is currently nonoliguric. Diuretics now switched to oral Lasix 40 mg twice daily. Her baseline kidney function of lately is around creatinine of 2.5-2.7 so current creatinine of 2.51 is at baseline. No need of renal replacement therapy. Continue current management. (2) Chronic kidney disease, stage IV (severe) Is this a current diagnosis for this admission?: Yes Plan: Likely secondary to a combination of cardiorenal syndrome and diabetic nephropathy. The disproportionate elevation of BUN compared to the creatinine is consistent with cardiorenal syndrome. (3) Congestive heart failure Qualifiers: Heart failure type: combined systolic and diastolic Heart failure chronicity: acute on chronic Qualified Code(s): I50.43 - Acute on chronic combined systolic (congestive) and diastolic (congestive) heart failure Is this a current diagnosis for this admission?: Yes Plan: Clinically now improved. Biventricular heart failure. 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 (4) Diabetic nephropathy Is this a current diagnosis for this admission?: Yes Plan: Urine protein to creatinine ratio is 0.7. (5) Chronic atrial fibrillation Is this a current diagnosis for this admission?: Yes Plan: Rate controlled. (6) Hypertension Qualifiers: Hypertension type: essential hypertension Qualified Code(s): I10 - Essential (primary) hypertension Is this a current diagnosis for this admission?: Yes Plan: Currently controlled. Patient also on midodrine. (7) Lower extremity ulceration Qualifiers: Laterality: unspecified laterality Is this a current diagnosis for this admission?: Yes Plan: Slowly improving. (8) Type 2 diabetes mellitus Qualifiers: Diabetes mellitus long term care pharmacist insulin use: with long-term use Chronic kidney disease stage: stage 4 (severe) Is this a current diagnosis for this admission?: Yes - Notes Notes: No further intervention from nephrology standpoint. I will sign off at this time. Please call us if we can be of additional help. - Time Time with patient: 15-25 minutes
--- NOTE | 2019-05-12 18:11 | PDOC CONSULTATION ---
Consultation Consult Date: 05/12/19 Provider Consulted: NITIN SALDIVAR Consult reason:: CHF History of Present Illness Admission Date/PCP: 05/03/19 11:35 LISA BARON MD History of Present Illness: NISH NOLAND is a 73 year old female 1. CHF systolic 2. Mitral regurgitation 3. Atrial fibrillation 4. CKD 5. Edema 6. Systemic anti-coagulation 73 year old female with CHF know to me and follows in office. Recent hospital stay for [facility] and was treated with IV diuretics and improved. Discharged to SNF. Now admitted back with worsening renal function. No complains this AM-feels better. Denies chest pain. No dyspnea. Past Medical History Cardiac Medical History: Reports: Atrial Fibrillation, Congestive Heart Failure, Coronary Artery Disease, Hyperlipidema, Hypertension Pulmonary Medical History: Reports: Pneumonia Endocrine Medical History: Reports: Diabetes Mellitus Type 2 Musculoskeltal Medical History: Reports: Arthritis Psychiatric Medical History: Denies: Depression Hematology: Reports: Anemia Past Surgical History Past Surgical History: Reports: Appendectomy, Hysterectomy Social History Smoking Status: Never Smoker Frequency of Alcohol Use: None Hx Recreational Drug Use: No Drugs: None Hx Prescription Drug Abuse: No - Advance Directive Resuscitation Status: Full Code Family History Family History: Reviewed & Not Pertinent Parental Family History Reviewed: No Children Family History Reviewed: NA Sibling(s) Family History Reviewed.: NA Medication/Allergy Home Medications: Atorvastatin Calcium [Lipitor 40 mg Tablet] 40 mg PO QHS 04/14/19 Isosorbide Mononitrate [Imdur 30 mg Tablet.er] 30 mg PO DAILY 04/14/19 Lisinopril [Prinivil 5 mg Tablet] 5 mg PO QHS 04/14/19 Omeprazole 40 mg PO DAILY 04/23/19 Apixaban [Eliquis 5 mg Tablet] 5 mg PO BID 05/03/19 Bumetanide 2 mg PO BID 05/03/19 Carvedilol [Coreg 12.5 mg Tablet] 37.5 mg PO Q12 05/03/19 Insulin Glargine,Hum.rec.anlog [Lantus Insulin 100 Unit/mL Insulin Pen] 15 - 20 units SUBCUT QHS 05/03/19 Insulin Lispro Protamin/Lispro [Humalog Mix 50-50 100 unit/mL] 0 unit SUBCUT .SLIDING SCALE 05/03/19 Allergies/Adverse Reactions: No Known Allergies Allergy (Verified 01/10/12 14:35) Review of Systems Ears: PRESENT: as per HPI Cardiovascular: PRESENT: chest pain - None Respiratory: PRESENT: dyspnea - Much improved Physical Exam Vital Signs: Temp Pulse Resp BP Pulse Ox 98.7 F 104 H 18 158/90 H 99 05/12/19 16:00 05/12/19 16:00 05/12/19 16:00 05/12/19 16:00 05/12/19 16:00 Intake & Output 05/11/19 05/12/19 05/13/19 06:59 06:59 06:59 Intake Total 1000 790 Output Total 1610 1380 300 Balance -610 -590 -300 Weight 109.5 kg 78.5 kg 79 kg General appearance: PRESENT: no acute distress, cooperative, obese Head exam: PRESENT: atraumatic, normocephalic Eye exam: PRESENT: conjunctiva pink, EOMI Respiratory exam: PRESENT: crackles, decreased breath sounds, unlabored Cardiovascular exam: PRESENT: irregular rhythm, +S1, +S2 Pulses: PRESENT: normal radial pulses GI/Abdominal exam: PRESENT: soft Rectal exam: PRESENT: deferred Neurological exam: PRESENT: alert, oriented to person, oriented to place, oriented to time, oriented to situation Psychiatric exam: PRESENT: appropriate affect Skin exam: PRESENT: dry, skin tears - Lower extremity edema+ Results Laboratory Results: 05/12/19 05:05 05/12/19 05:05 05/12/19 05/12/19 05:05 05:05 WBC 5.4 RBC 3.99 Hgb 10.2 L Hct 31.5 L MCV 79 L MCH 25.6 L MCHC 32.4 RDW 19.7 H Plt Count 152 Seg Neutrophils % 69.0 Sodium 144.1 Potassium 4.2 Chloride 105 Carbon Dioxide 28 Anion Gap 11 BUN 109 H Creatinine 2.51 H Est GFR ( Amer) 23 L Glucose 127 H Calcium 8.6 Impressions: Renal Ultrasound 05/07/19 00:00 IMPRESSION: No hydronephrosis or significant renal findings. Bladder decompressed by Contreras catheter. 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 she is not overly decompensated Would continue present therapy Would recommend switching to Metoprolol instead of Carvedilol( lower BP) Watch I/O (2) Renal failure (ARF), acute on chronic Qualifiers: Acute renal failure type: unspecified Chronic kidney disease stage: stage 3 (moderate) Qualified Code(s): N17.9 - Acute kidney failure, unspecified; N18.3 - Chronic kidney disease, stage 3 (moderate) Plan: Appreciate nephrology input (3) Atrial fibrillation Qualifiers: Atrial fibrillation type: unspecified chronic Qualified Code(s): I48.20 - Chronic atrial fibrillation, unspecified; I48.2 - Chronic atrial fibrillation Plan: Asymptomatic Rate controlled Continue apixaban rate control strategy
[2019-05-12] MEDS: ATORVASTATIN CALCIUM 40 MG TABLET PO SCH (21:57)
[2019-05-12] MEDS: ISOSORBIDE MONONITRATE 30 MG TAB.ER.24H PO SCH (21:57)
[2019-05-12] MEDS: GABAPENTIN 100 MG CAPSULE PO SCH (21:58)
[2019-05-12] MEDS: INSULIN GLARGINE,HUM.REC.ANLOG 1,000 UNIT/10 ML VIAL SUBCUT SCH (22:04)
[2019-05-13 04:31] LABS: ANION GAP 9 (5-19); BLOOD UREA NITROGEN 100 mg/dL (7-20); CALCIUM 8.6 mg/dL (8.4-10.2); CARBON DIOXIDE 29 mmol/L (22-30); CHLORIDE 107 mmol/L (98-107); GLUCOSE 157 mg/dL (75-110); POTASSIUM 4.2 mmol/L (3.6-5.0)
--- NOTE | 2019-05-13 09:08 | PDOC TRANSFER SUMMARY ---
Impression - Admit/DC Date/PCP Admission Date/Primary Care Provider: 05/03/19 11:35 LISA BARON MD Discharge Date: 05/13/19 - Discharge Diagnosis (1) Acute on chronic kidney failure Is this a current diagnosis for this admission?: Yes (2) Chronic atrial fibrillation Is this a current diagnosis for this admission?: Yes (3) Congestive heart failure Is this a current diagnosis for this admission?: Yes (4) Diabetic neuropathy Is this a current diagnosis for this admission?: Yes (5) Hypertension Is this a current diagnosis for this admission?: Yes (6) Lower extremity ulceration Is this a current diagnosis for this admission?: Yes (7) Type 2 diabetes mellitus Is this a current diagnosis for this admission?: Yes - Additional Information Resuscitation Status: Full Code Discharge Diet: Diabetic Discharge Activity: Activity As Tolerated Referrals: LISA BARON MD [Primary Care Provider] - Follow up as needed (f/u with dr burns in 1 wk) Prescriptions: Apixaban [Eliquis 2.5 mg Tablet] 2.5 mg PO BID #60 tablet Insulin Lispro [Humalog Insulin (Lispro) 100 unit/mL] 0 - 12 unit SUBCUT ACHS #1 unit Insulin Glargine,Hum.rec.anlog [Lantus Insulin 100 Unit/1 ml 10 ml] 20 unit SUBCUT QHS #30 unit Furosemide [Lasix 40 mg Tablet] 40 mg PO BID #60 tablet Metoprolol Tartrate [Lopressor 25 mg Tablet] 25 mg PO Q12 #60 tablet Midodrine HCl [Proamatine 5 mg Tablet] 5 mg PO TID #90 tablet Home Medications: Atorvastatin Calcium [Lipitor 40 mg Tablet] 40 mg PO QHS 04/14/19 Isosorbide Mononitrate [Imdur 30 mg Tablet.er] 30 mg PO DAILY 04/14/19 Omeprazole 40 mg PO DAILY 04/23/19 Apixaban [Eliquis 2.5 mg Tablet] 2.5 mg PO BID #60 tablet 05/13/19 Furosemide [Lasix 40 mg Tablet] 40 mg PO BID #60 tablet 05/13/19 Insulin Glargine,Hum.rec.anlog [Lantus Insulin 100 Unit/1 ml 10 ml] 20 unit SUBCUT QHS #30 unit 05/13/19 Insulin Lispro [Humalog Insulin (Lispro) 100 unit/mL] 0 - 12 unit SUBCUT ACHS #1 unit 05/13/19 Lisinopril [Prinivil 5 mg Tablet] 2.5 mg PO QHS #30 05/13/19 Metoprolol Tartrate [Lopressor 25 mg Tablet] 25 mg PO Q12 #60 tablet 05/13/19 Midodrine HCl [Proamatine 5 mg Tablet] 5 mg PO TID #90 tablet 05/13/19 History of Present Illiness History of Present Illness: NISH NOLAND is a 73 year old female This is a 73-year-old female admitting in the hospital for acute renal failure heart failure's patient's admitting in the IMCU seen by the nephrology and cardiology Hospital Course Hospital Course: This is a 73-year-old female's with a significant history of the type 2 diabetes with nephropathy with a chronic kidney disease stage IV with a congestive heart failure with the combined not a candidate for defibrillator multiple other medical complications from the diabetes developing the cardiorenal syndromes admitted because of the worsening the kidney functions the creatinine goes up to 4 Patient's diuretics was hold given some IV fluid and patient restart the Lasix 40 mg IV twice a day Since responds very well patient's creatinine go to the baseline 2.5 range and patient's BUN is 100 range which suggesting the cardiorenal syndromes Patient readjust some of the medications With the cardiology and nephrology not a very good prognosis due to the ongoing cardiorenal syndromes discuss with the son regarding the patient's current conditions understand very well Continues to dressing changeThe both leg ulcers currently all stable Check the Chem-7 and CBC in 1 week Follow-up with the nephrology and cardiology as scheduled appointment in 2 weeks Check daily weight Physical Exam Vital Signs: Temp Pulse Resp BP Pulse Ox 98.1 F 95 13 147/83 H 99 05/13/19 08:00 05/13/19 08:00 05/13/19 08:00 05/13/19 08:00 05/13/19 08:00 Intake & Output 05/12/19 05/13/19 05/14/19 06:59 06:59 06:59 Intake Total 790 Output Total 1380 1550 Balance -590 -1550 Weight 78.5 kg 107.3 kg General appearance: PRESENT: no acute distress, well-developed, well-nourished Head exam: PRESENT: atraumatic, normocephalic Eye exam: PRESENT: conjunctiva pink, EOMI, PERRLA. ABSENT: scleral icterus Ear exam: PRESENT: normal external ear exam Mouth exam: PRESENT: moist, tongue midline Neck exam: ABSENT: carotid bruit, JVD, lymphadenopathy, thyromegaly Respiratory exam: PRESENT: clear to auscultation conor. ABSENT: rales, rhonchi, wheezes Cardiovascular exam: PRESENT: RRR. ABSENT: diastolic murmur, rubs, systolic murmur Pulses: PRESENT: normal dorsalis pedis pul Vascular exam: PRESENT: normal capillary refill GI/Abdominal exam: PRESENT: normal bowel sounds, soft. ABSENT: distended, guarding, mass, organolmegaly, rebound, tenderness Rectal exam: PRESENT: deferred Extremities exam: PRESENT: full ROM, pedal edema. ABSENT: calf tenderness, clubbing Neurological exam: PRESENT: alert, awake, oriented to person, oriented to place, oriented to time, oriented to situation, CN II-XII grossly intact. ABSENT: motor sensory deficit Psychiatric exam: PRESENT: appropriate affect, normal mood. ABSENT: homicidal ideation, suicidal ideation Skin exam: PRESENT: dry, intact, warm. ABSENT: cyanosis, rash Results Laboratory Results: WBC 5.4 10^3/uL (4.0-10.5) 05/12/19 05:05 RBC 3.99 10^6/uL (3.72-5.28) 05/12/19 05:05 Hgb 10.2 g/dL (12.0-15.5) L 05/12/19 05:05 Hct 31.5 % (36.0-47.0) L 05/12/19 05:05 MCV 79 fl (80-97) L 05/12/19 05:05 MCH 25.6 pg (27.0-33.4) L 05/12/19 05:05 MCHC 32.4 g/dL (32.0-36.0) 05/12/19 05:05 RDW 19.7 % (11.5-14.0) H 05/12/19 05:05 Plt Count 152 10^3/uL (150-450) 05/12/19 05:05 Lymph % (Auto) 14.9 % (13-45) 05/12/19 05:05 [place] % (Auto) 13.2 % (3-13) H 05/12/19 05:05 Eos % (Auto) 2.0 % (0-6) 05/12/19 05:05 Baso % (Auto) 0.9 % (0-2) 05/12/19 05:05 Absolute Neuts (auto) 3.7 10^3/uL (1.7-8.2) 05/12/19 05:05 Absolute Lymphs (auto) 0.8 10^3/uL (0.5-4.7) 05/12/19 05:05 Absolute Monos (auto) 0.7 10^3/uL (0.1-1.4) 05/12/19 05:05 Absolute Eos (auto) 0.1 10^3/uL (0.0-0.6) 05/12/19 05:05 Absolute Basos (auto) 0.0 10^3/uL (0.0-0.2) 05/12/19 05:05 Seg Neutrophils % 69.0 % (42-78) 05/12/19 05:05 Sodium 145.0 mmol/L (137-145) 05/13/19 04:03 Potassium 4.2 mmol/L (3.6-5.0) 05/13/19 04:03 Chloride 107 mmol/L (98-107) 05/13/19 04:03 Carbon Dioxide 29 mmol/L (22-30) 05/13/19 04:03 Anion Gap 9 (5-19) 05/13/19 04:03 BUN 100 mg/dL (7-20) H 05/13/19 04:03 Creatinine 2.28 mg/dL (0.52-1.25) H 05/13/19 04:03 Est GFR ( Amer) 25 (>60) L 05/13/19 04:03 Est GFR (Non-Af Amer) Cancelled 05/04/19 05:43 Est GFR (MDRD) Non-Af 21 (>60) L 05/13/19 04:03 Glucose 157 mg/dL (75-110) H 05/13/19 04:03 POC Glucose 103 mg/dL (70-110) 05/13/19 08:19 Calcium 8.6 mg/dL (8.4-10.2) 05/13/19 04:03 Phosphorus 5.7 mg/dL (2.5-4.5) H 05/05/19 10:40 Magnesium 1.7 mg/dL (1.6-2.3) 05/05/19 10:40 Total Bilirubin 1.0 mg/dL (0.2-1.3) 05/05/19 10:40 Direct Bilirubin 0.8 mg/dL (0.0-0.4) H 05/05/19 10:40 Neonat Total Bilirubin Not Reportable 05/05/19 10:40 Neonat Direct Bilirubin Not Reportable 05/05/19 10:40 Neonat Indirect Bili Not Reportable 05/05/19 10:40 AST 43 U/L (14-36) H 05/05/19 10:40 ALT 29 U/L (<35) 05/05/19 10:40 Alkaline Phosphatase 75 U/L (38-126) 05/05/19 10:40 Total Protein 7.1 g/dL (6.3-8.2) 05/05/19 10:40 Albumin 2.8 g/dL (3.5-5.0) L 05/05/19 10:40 EGFR Cancelled 05/04/19 05:43 PTH Intact 466.9 pg/mL (10.0-65.0) H 05/08/19 06:18 Urine Color YELLOW 05/03/19 10:22 Urine Appearance SLIGHTLY-CLOUDY 05/03/19 10:22 Urine pH 5.0 (5.0-9.0) 05/03/19 10:22 Ur Specific [place] 1.010 05/03/19 10:22 Urine Protein 30 mg/dL (NEGATIVE) H 05/03/19 10:22 Urine Glucose (UA) NEGATIVE mg/dL (NEGATIVE) 05/03/19 10:22 Urine Ketones NEGATIVE mg/dL (NEGATIVE) 05/03/19 10:22 Urine Blood SMALL (NEGATIVE) H 05/03/19 10:22 Urine Nitrite NEGATIVE (NEGATIVE) 05/03/19 10:22 Urine Bilirubin NEGATIVE (NEGATIVE) 05/03/19 10:22 Urine Urobilinogen NEGATIVE mg/dL (<2.0) 05/03/19 10:22 Ur Leukocyte Esterase NEGATIVE (NEGATIVE) 05/03/19 10:22 Urine WBC (Auto) 5 /HPF 05/03/19 10:22 Urine RBC (Auto) 1 /HPF 05/03/19 10:22 Urine Bacteria (Auto) TRACE /HPF 05/03/19 10:22 Squamous Epi Cells Auto 1 /HPF 05/03/19 10:22 Amorphous Sediment Auto TRACE /HPF 05/03/19 10:22 Urine Creatinine 43.5 mg/dL (15-278) 05/11/19 19:10 Protein/Creatinin Ratio 0.7 mg/mg (0.0-0.2) H 05/11/19 19:10 Urine Total Protein 29.7 mg/dL (<12) H 05/11/19 19:10 Urine Ascorbic Acid NEGATIVE (NEGATIVE) 05/03/19 10:22 POC Stool Occult Blood NEGATIVE (NEGATIVE) 05/03/19 12:03 Impressions: Renal Ultrasound 05/07/19 00:00 IMPRESSION: No hydronephrosis or significant renal findings. Bladder decompressed by Contreras catheter. Plan Time Spent: Greater than 30 Minutes - Check daily weight CBC and Chem-7 in 1 week and check the Chem-7 every 2 weeks after that Follow-up with the nephrology and cardiology Stroke Is this a Stroke Patient?: No Acute Heart Failure - Is this a Heart Failure Patient?: No
[2019-05-13] MEDS: INSULIN LISPRO 100 UNIT/ML 3 ML VIAL SUBCUT SCH (10:09)
[2019-05-13] MEDS: METOPROLOL TARTRATE 25 MG TABLET PO SCH (10:10)
[2019-05-13] MEDS: APIXABAN 2.5 MG TABLET PO SCH (10:10)
[2019-05-13] MEDS: MIDODRINE HCL 5 MG TABLET PO SCH (10:10)
[2019-05-13] MEDS: FUROSEMIDE 40 MG TABLET PO SCH (10:10)
[2019-05-13 12:31] VITALS: BP 146/87
== END 2019-05-13 12:30 | DRG 682 ==
LOC: ER 09:57 → EH 11:35 → 3N 14:00 → ICU 05-12 02:27
PROVIDERS: ADMIT Family Medicine; ATTEND Family Medicine
DX: N17.9 Acute kidney failure, unspecified (principal); I50.43 Acute on chronic combined systolic (congestive) and diastolic (congestive) heart failure; I13.0 Hypertensive heart and chronic kidney disease with heart failure and stage 1 through stage 4 chronic kidney disease, or unspecified chronic kidney disease; I48.20 Chronic atrial fibrillation, unspecified; E87.1 Hypo-osmolality and hyponatremia; L97.909 Non-pressure chronic ulcer of unspecified part of unspecified lower leg with unspecified severity; N18.4 Chronic kidney disease, stage 4 (severe); E11.42 Type 2 diabetes mellitus with diabetic polyneuropathy; I25.10 Atherosclerotic heart disease of native coronary artery without angina pectoris; E78.00 Pure hypercholesterolemia, unspecified; E11.621 Type 2 diabetes mellitus with foot ulcer; L97.509 Non-pressure chronic ulcer of other part of unspecified foot with unspecified severity; F41.9 Anxiety disorder, unspecified; Z79.01 Long term (current) use of anticoagulants; Z79.4 Long term (current) use of insulin; Z79.899 Other long term (current) drug therapy
CPT/HCPCS: 36415; 76770; 80048; 80053; 81001; 82570; 82962; 83735; 83970; 84100; 84156; 85025; 99284; J1815; J1940; J3490; J7030

== ENCOUNTER 2019-05-22 16:12 | Inpatient (IN) | payer MEDICARE ==
[2019-05-22] MEDS ORDERED: NORMAL SALINE 1000 ML 1,000 ML IV ONE (18:15)
[2019-05-22] MEDS ORDERED: ONDANSETRON HCL INJ/PF 4 MG/2 ML SDV IV ONE (18:17)
--- NOTE | 2019-05-22 18:19 | ER Document Report ---
ED GI/ - General Chief Complaint: Abdominal Pain Stated Complaint: ABDOMINAL PAIN Time Seen by Provider: 05/22/19 17:31 Primary Care Provider: LISA LOPEZ MD [Primary Care Provider] - Follow up as needed Mode of Arrival: Ambulatory Information source: Patient Notes: 73-year-old woman presents to the emergency department with a complaint of abdominal pain with associated nausea and vomiting and diarrhea which began on Saturday, 2 days ago. She states that her abdomen was swollen yesterday and she is having severe lower abdominal pain at times. Patient was seen by her primary care doctor and told to come to the emergency department because of worsening renal disease. Presently denies nausea, has not eaten today. She denies known fever or hematemesis/hematochezia. TRAVEL OUTSIDE OF THE [place] IN LAST 30 DAYS: No - Related Data Allergies/Adverse Reactions: No Known Allergies Allergy (Verified 01/10/12 14:35) Past Medical History - General Information source: Patient - Fl this is Dr. Garcia and I just called PICU who is someone [place] or [place] he has been - Social History Smoking Status: Never Smoker Family History: Reviewed & Not Pertinent Patient has suicidal ideation: No Patient has homicidal ideation: No - Past Medical History Cardiac Medical History: Reports: Hx Atrial Fibrillation, Hx Congestive Heart Failure, Hx Coronary Artery Disease, Hx Hypercholesterolemia, Hx Hypertension Pulmonary Medical History: Reports: Hx Pneumonia Endocrine Medical History: Reports: Hx Diabetes Mellitus Type 2 Renal/ Medical History: Reports: Hx Renal Insufficiency GI Medical History: Reports: Hx Colonoscopy Musculoskeletal Medical History: Reports Hx Arthritis Skin Medical History: Reports Hx Cellulitis Psychiatric Medical History: Reports: Hx Anxiety Denies: Hx Depression Past Surgical History: Reports: Hx Appendectomy, Hx Hysterectomy - Immunizations Hx Diphtheria, Pertussis, Tetanus Vaccination: Yes Hx Pneumococcal Vaccination: 02/03/10 Review of Systems - Review of Systems Notes: Constitutional: Negative for fever. HENT: Negative for sore throat. Eyes: Negative for visual changes. Cardiovascular: Negative for chest pain. Respiratory: Negative for shortness of breath. Gastrointestinal: + abdominal pain, +vomiting,+diarrhea. Genitourinary: Negative for dysuria. Musculoskeletal: Negative for back pain. Skin: Negative for rash. Neurological: Negative for headaches, weakness or numbness. 10 point ROS negative except as marked above and in HPI. Physical Exam - Vital signs Vitals: Temp Pulse Resp BP Pulse Ox 97.6 F 122 H 20 141/75 H 97 05/22/19 16:24 05/22/19 16:24 05/22/19 16:24 05/22/19 16:24 05/22/19 16:24 - Notes Notes: PHYSICAL EXAMINATION: Physical Exam: General: Overweight female in no acute distress HEENT: NC/AT, pupils equal round and reactive to light, MM moist,nares clear, Neck: supple, no adenopathy, no masses. Lungs: clear, no wheezing, no rales no rhonchi CVS: Regular rate and rhythm no murmur gallop or rub Abdomen: Soft active tenderness in the suprapubic, lower abdominal region, no masses, no hepatosplenomegaly Ext: 2+ edema bilateral lower extremity Neuro: Alert and responsive, moving all 4 extremities on command, cranial nerves intact. Skin: Intact no open lesions, no rash PSYCH: Normal mood, normal affect. Course - Re-evaluation Re-evalutation: 05/23/19 00:40 Patient noted to have significant urinary tract infection and worsening renal function, ceftriaxone 1 g IV, contacted the hospitalist regarding admission, apparently the CT scan had not been dictated by the radiologist. 05/23/19 02:40 CT scan results reveals stranding around the bladder suggestive of cystitis, mild diverticulosis, and ascites and anasarca suggestive of volume overload and one third spacing of fluid. 05/23/19 02:53 Dr. Lincoln, was contacted and will admit the patient to the hospital for fu rther evaluation and treatment. - Vital Signs Vital signs: Temp Pulse Resp BP Pulse Ox 97.6 F 122 H 16 105/73 97 05/22/19 18:24 05/22/19 16:24 05/23/19 02:01 05/23/19 02:01 05/23/19 02:01 - Laboratory Result Diagrams: 05/22/19 19:22 05/22/19 19:22 Laboratory results interpreted by me: 05/22/19 05/22/19 05/23/19 19:22 19:22 00:15 Hgb 11.2 L MCH 25.0 L MCHC 30.9 L RDW 21.7 H BUN 96 H Creatinine 4.47 H Est GFR ( Amer) 12 L Est GFR (MDRD) Non-Af 10 L Total Bilirubin 1.5 H Direct Bilirubin 1.1 H AST 280 H Alkaline Phosphatase 146 H Albumin 3.1 L Lipase 520.4 H Urine Protein 100 H Urine Blood MODERATE H Urine Urobilinogen 2.0 H Ur Leukocyte Esterase MODERATE H I have reviewed laboratory data and used this information for the treatment decisions regarding the patient. I got to cover - Diagnostic Test Radiology reviewed: Pending, Image reviewed, Reports reviewed - CT of the abdomen and pelvis without contrast reveals a small amount of ascites noted in the pelvis there is fat stranding around the bladder raising the question of cystitis, a josie radiologist complete a dictation of that CT scan with the exception of some ascites and some mild amount of anasarca suggested likely volume and stranding around the bladder suggestive of cystitis is also a thin callus septic gram around the left ventricle apex which he thought may represent a old myocardial infarction with 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 Garcia in the emergency department and I need to speak with whoever is covering for Dr. Lopez or Dr. Lopez himself she will hold every minute feels like a year now (she is developed new ST depressions that she did have 1 previous one but there is no ST elevation do not have the old ones Critical Care Note - Critical Care Note Total time excluding time spent on procedures (mins): 60 - Critical care time spent obtaining history from patient or surrogate, discussions with consultants, development of treatment plan with patient or surrogate, evaluation of patient's response to treatment, examination of patient, ordering and performing treatments and interventions, ordering and review of laboratory studies, re- evaluation of patient's condition, ordering and review of radiographic studies and review of old charts Discharge - Discharge Clinical Impression: Acute on chronic kidney failure Qualifiers: Acute renal failure type: unspecified Chronic kidney disease stage: stage 4 (severe) Qualified Code(s): N17.9 - Acute kidney failure, unspecified UTI (urinary tract infection) Qualifiers: Urinary tract infection type: acute cystitis Hematuria presence: with hematuria Qualified Code(s): N30.01 - Acute cystitis with hematuria Condition: Fair Disposition: ADMITTED INPATIENT Admitting Provider: [facility] Unit Admitted: Telemetry Referrals: LISA LOPEZ MD [Primary Care Provider] - Follow up as needed
[2019-05-22 18:54] LABS: C DIFFICILE GDH NEGATIVE (NEGATIVE)
[2019-05-22 19:42] LABS: ABSOLUTE MONOCYTES (AUTO) 0.7 10^3/uL (0.1-1.4); ABSOLUTE NEUT (AUTO) 3.8 10^3/uL (1.7-8.2); BASOPHILS % (AUTO) 0.6 % (0-2); EOSINOPHILS % (AUTO) 0.3 % (0-6); HEMATOCRIT 36.3 % (36.0-47.0); HEMOGLOBIN 11.2 g/dL (12.0-15.5); LYMPHOCYTES % (AUTO) 17.5 % (13-45); MEAN CORPUSCULAR HGB CONC 30.9 g/dL (32.0-36.0); MEAN CORPUSCULAR VOLUME 81 fl (80-97); MONOCYTES % (AUTO) 12.4 % (3-13); PLATELET COUNT 239 10^3/uL (150-450); RED BLOOD COUNT 4.48 10^6/uL (3.72-5.28); RED CELL DISTRIBUTION WIDTH 21.7 % (11.5-14.0); SEGMENTED NEUTROPHILS % (AUTO) 69.2 % (42-78); TOTAL CELLS COUNTED % (AUTO) 100 %; WHITE BLOOD COUNT 5.5 10^3/uL (4.0-10.5)
[2019-05-22 20:17] LABS: ALBUMIN 3.1 g/dL (3.5-5.0); ALKALINE PHOSPHATASE 146 U/L (38-126); ANION GAP 14 (5-19); ASPARTATE AMINO TRANSFERASE 280 U/L (14-36); BILIRUBIN,DIRECT 1.1 mg/dL (0.0-0.4); BILIRUBIN,TOTAL 1.5 mg/dL (0.2-1.3); BLOOD UREA NITROGEN 96 mg/dL (7-20); CALCIUM 9.1 mg/dL (8.4-10.2); CARBON DIOXIDE 22 mmol/L (22-30); CHLORIDE 104 mmol/L (98-107); GLUCOSE 98 mg/dL (75-110); POTASSIUM 4.4 mmol/L (3.6-5.0); TOTAL PROTEIN 7.9 g/dL (6.3-8.2)
[2019-05-23 00:37] LABS: APPEARANCE,URINE TURBID; BILIRUBIN,URINE NEGATIVE (NEGATIVE); COLOR,URINE AMBER; GLUCOSE, URINE NEGATIVE (NEGATIVE); KETONES,URINE NEGATIVE (NEGATIVE); LEUKOCYTE ESTERASE,URINE MODERATE (NEGATIVE); NITRITE,URINE NEGATIVE (NEGATIVE); PROTEIN,URINE 100 mg/dL (NEGATIVE); URINE SPECIFIC GRAVITY 1.012
[2019-05-23] MEDS ORDERED: CEFTRIAXONE INJ 1000 MG VIAL IV ONE (01:01)
[2019-05-23] MEDS ORDERED: FAMOTIDINE INJ/PF 20 MG/2 ML SDV IV ONE (01:03)
[2019-05-23] MEDS ORDERED: NALBUPHINE HCL INJ 10 MG/1 ML AMPULE INJ ONE (01:04)
--- NOTE | 2019-05-23 02:27 | RADIOLOGY REPORT (SQ) ---
CT abdomen and pelvis without contrast on 05/22/2019 at 8:51 PM CLINICAL INDICATION: Left lower quadrant pain TECHNIQUE: Multiple axial images are obtained throughout the abdomen and pelvis without the administration of contrast. This exam was performed according to our departmental dose-optimization program, which includes automated exposure control, adjustment of the mA and/or kV according to patient size and/or use of iterative reconstruction technique. Total DLP is 1074.68 mGy*cm. COMPARISON: CT chest and upper abdomen from 01/10/2012 FINDINGS: Abdomen: There is elevation of the right hemidiaphragm. Cardiomegaly is noted. Anasarca is noted in the subcutaneous tissues. There is minimal bibasilar atelectasis. 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 There are no renal or ureteral stones and no hydronephrosis. Vascular calcifications are noted. The unenhanced solid abdominal organs are unremarkable. There is no abdominal adenopathy. Small amount of ascites is noted in the abdomen. There is relative diffuse stranding in the abdomen likely related to the ascites. There is no free air in the abdomen. The abdominal portion of the GI tract is unremarkable. Pelvis: Small amount of ascites is noted in the pelvis. There is fat stranding around the bladder raising question of cystitis, recommend correlation with urinalysis. There is a rounded air and fluid collection adjacent to the superior bladder seen on axial images 77 through 84 and seen well on sagittal image 54. This could be bladder diverticula containing air. Would recommend follow-up exam with IV contrast with delayed imaging to better evaluate if this communicates with the bladder versus this possibly being a abscess or unusual small bowel diverticulum. The patient is status post hysterectomy. There is no pelvic adenopathy. There is mild diverticulosis. The pelvic portion of the GI tract including the appendix is otherwise unremarkable. Degenerative changes are noted in the spine. IMPRESSION: 1. 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 2. Ascites and anasarca suggesting some volume overload and/or third spacing. 3. Rounded air and fluid collection in the mid pelvis that may communicate with the bladder and could represent a bladder diverticulum but is indeterminate on this exam. Would recommend follow-up enhanced examination to better evaluate this finding as above. 4. Stranding around the bladder suggesting cystitis, recommend correlation with urinalysis. 5. Mild diverticulosis.
[2019-05-23 07:32] LABS: ABSOLUTE BASOPHILS # (AUTO) 0.1 10^3/uL (0.0-0.2); ABSOLUTE LYMPHOCYTES (AUTO) 0.6 10^3/uL (0.5-4.7); ABSOLUTE MONOCYTES (AUTO) 0.5 10^3/uL (0.1-1.4); ABSOLUTE NEUT (AUTO) 2.9 10^3/uL (1.7-8.2); BASOPHILS % (AUTO) 1.9 % (0-2); EOSINOPHILS % (AUTO) 0.3 % (0-6); HEMATOCRIT 35.4 % (36.0-47.0); HEMOGLOBIN 11.2 g/dL (12.0-15.5); LYMPHOCYTES % (AUTO) 15.7 % (13-45); MEAN CORPUSCULAR HEMOGLOBIN 25.5 pg (27.0-33.4); MEAN CORPUSCULAR HGB CONC 31.7 g/dL (32.0-36.0); MEAN CORPUSCULAR VOLUME 81 fl (80-97); MONOCYTES % (AUTO) 11.9 % (3-13); PLATELET COUNT 209 10^3/uL (150-450); RED BLOOD COUNT 4.39 10^6/uL (3.72-5.28); RED CELL DISTRIBUTION WIDTH 21.1 % (11.5-14.0); SEGMENTED NEUTROPHILS % (AUTO) 70.2 % (42-78); TOTAL CELLS COUNTED % (AUTO) 100 %; WHITE BLOOD COUNT 4.1 10^3/uL (4.0-10.5)
[2019-05-23] MEDS: NORMAL SALINE 1000 ML 1,000 ML IV PRN ×2 (08:57→15:23)
[2019-05-23] MEDS ORDERED: INSULIN LISPRO 100 UNIT/ML 3 ML VIAL SUBCUT SCH (13:30)
[2019-05-23] MEDS ORDERED: ONDANSETRON 4 MG TAB.RAPDIS PO PRN (13:30)
[2019-05-23] MEDS: MIDODRINE HCL 5 MG TABLET PO SCH ×2 (13:49→21:52)
[2019-05-23] MEDS: APIXABAN 5 MG TABLET PO SCH ×2 (14:17→17:09)
[2019-05-23] MEDS ORDERED: DEXTROSE 50%-WATER 25 GM/50 ML DISP.SYRIN IV PRN ×2 (14:21)
[2019-05-23] MEDS ORDERED: GLUCAGON,HUMAN RECOMB 1 MG INJ IM PRN (14:21)
[2019-05-23] MEDS ORDERED: DEXTROSE 40% GEL 15 GM TUBE PO PRN ×2 (14:21)
--- NOTE | 2019-05-23 14:44 | PDOC H&P ---
History of Present Illness Admission Date/PCP: 05/23/19 03:02 LISA BARON MD Patient complains of: Abdominal pain, nausea, vomiting History of Present Illness: NISH NOLAND is a 73 year old female patient of Dr.Swetang Baron who presented to the ED with abdominal pain, nausea, vomiting, and intermittent diarrhea. She reported onset of her symptoms about three days prior to her presentation. She was seen at her PCP office earlier in the day and instructed to come to the ED for further evaluation. she reported worsening lower abdominal pain and diarrhea on the day of her presentation. She denied any significant [id number], hematochezia, fever but claimed feeling unusually cold. No diaphoresis. No chest pain, palpitation, or difficulty with breathing. Her initial evaluation in the ED was significant for acute worsening of her renal indices and abnormal CT scan suggestive of cystitis, diverticulosis and excessive body fluid. She was advised hospitalization for further evaluation and management. her morbidities are as listed below. Past Medical History Cardiac Medical History: Reports: Atrial Fibrillation, Congestive Heart Failure, Coronary Artery Disease, Hyperlipidema, Hypertension Pulmonary Medical History: Reports: Pneumonia Endocrine Medical History: Reports: Diabetes Mellitus Type 2 Musculoskeltal Medical History: Reports: Arthritis Psychiatric Medical History: Denies: Depression Hematology: Reports: Anemia Past Surgical History Past Surgical History: Reports: Appendectomy, Hysterectomy Social History Smoking Status: Never Smoker Electronic Cigarette use?: No Frequency of Alcohol Use: None Hx Recreational Drug Use: No Drugs: None Hx Prescription Drug Abuse: No - Advance Directive Resuscitation Status: Full Code Family History Family History: Reviewed & Not Pertinent Parental Family History Reviewed: Yes Children Family History Reviewed: Yes Sibling(s) Family History Reviewed.: Yes Medication/Allergy Home Medications: Atorvastatin Calcium [Lipitor 40 mg Tablet] 40 mg PO QHS 04/14/19 Isosorbide Mononitrate [Imdur 30 mg Tablet.er] 30 mg PO DAILY 04/14/19 Apixaban [Eliquis 5 mg Tablet] 5 mg PO BID 05/23/19 Furosemide [Lasix 40 mg Tablet] 40 mg PO BID 05/23/19 Insulin Glargine,Hum.rec.anlog [Lantus Insulin 100 Unit/1 ml 10 ml] 20 unit SUBCUT QHS 05/23/19 Insulin Lispro [Humalog Insulin 100 Unit/1 ml 3 ml Vial] 0 unit SUBCUT .SLD SCALE 05/23/19 Lisinopril [Prinivil 5 mg Tablet] 2.5 mg PO QHS 05/23/19 Metoprolol Tartrate [Lopressor 25 mg Tablet] 25 mg PO Q12 05/23/19 Midodrine HCl [Proamatine 5 Mg Tablet] 5 mg PO Q8 05/23/19 Omeprazole 40 mg PO DAILY 05/23/19 Ondansetron HCl [Zofran 4 mg Tablet] 4 mg PO Q8HP PRN 05/23/19 Allergies/Adverse Reactions: No Known Allergies Allergy (Verified 01/10/12 14:35) Review of Systems Constitutional: PRESENT: chills Nose, Mouth, and Throat: ABSENT: headache(s), mouth pain, sore throat, vertigo Cardiovascular: ABSENT: chest pain, dyspnea on exertion, edema, orthropnea, palpitations Respiratory: ABSENT: cough, hemoptysis Gastrointestinal: PRESENT: abdominal pain, diarrhea, nausea, vomiting. ABSENT: bloating, dysphagia, hematemesis, hematochezia Genitourinary: ABSENT: dysuria, hematuria Musculoskeletal: ABSENT: joint swelling Integumentary: PRESENT: wounds - multiple chronic nonhealing wounds on legs.. ABSENT: rash Neurological: ABSENT: abnormal gait, abnormal speech, confusion, dizziness, focal weakness, syncope Psychiatric: ABSENT: anxiety, depression, homidical ideation, suicidal ideation Endocrine: ABSENT: cold intolerance, heat intolerance, menstrual abnormalities, polydipsia, polyuria Hematologic/Lymphatic: ABSENT: easy bleeding, easy bruising, lymphadenopathy Allergic/Immunologic: ABSENT: seasonal rhinorrhea Physical Exam Vital Signs: Temp Pulse Resp BP Pulse Ox 98.1 F 95 17 108/66 100 05/23/19 11:01 05/23/19 11:01 05/23/19 11:01 05/23/19 11:01 05/23/19 11:01 Intake & Output 05/22/19 05/23/19 05/24/19 06:59 06:59 06:59 Intake Total 1000 Balance 1000 Weight 111.3 kg General appearance: PRESENT: no acute distress, obese Head exam: PRESENT: atraumatic, normocephalic Eye exam: PRESENT: conjunctiva pink, EOMI, PERRLA. ABSENT: scleral icterus Ear exam: PRESENT: normal external ear exam Mouth exam: PRESENT: moist Respiratory exam: PRESENT: clear to auscultation conor, decreased breath sounds - at lung bases Cardiovascular exam: PRESENT: irregular rhythm, +S1, +S2. ABSENT: diastolic murmur, rubs, systolic murmur Vascular exam: ABSENT: pallor GI/Abdominal exam: PRESENT: tenderness - LLQ and suprapubic regions 6to deep palpation Rectal exam: PRESENT: deferred Extremities exam: ABSENT: pedal edema Neurological exam: PRESENT: alert, awake, oriented to person, oriented to place, oriented to time, oriented to situation, CN II-XII grossly intact. ABSENT: motor sensory deficit Psychiatric exam: PRESENT: appropriate affect, normal mood. ABSENT: homicidal ideation, suicidal ideation Skin exam: PRESENT: dry, warm, other - multiple scab chronic wounds on legs Results Laboratory Results: 05/23/19 07:08 05/22/19 19:22 05/22/19 05/22/19 05/23/19 19:22 19:22 00:15 WBC 5.5 RBC 4.48 Hgb 11.2 L Hct 36.3 MCV 81 MCH 25.0 L MCHC 30.9 L RDW 21.7 H Plt Count 239 Seg Neutrophils % 69.2 Sodium 140.4 Potassium 4.4 Chloride 104 Carbon Dioxide 22 Anion Gap 14 BUN 96 H Creatinine 4.47 H Est GFR ( Amer) 12 L Glucose 98 Calcium 9.1 Total Bilirubin 1.5 H AST 280 H Alkaline Phosphatase 146 H Total Protein 7.9 Albumin 3.1 L Lipase 520.4 H Urine Color CED Urine Appearance TURBID Urine pH 5.0 Ur Specific [place] 1.012 Urine Protein 100 H Urine Glucose (UA) NEGATIVE Urine Ketones NEGATIVE Urine Blood MODERATE H Urine Nitrite NEGATIVE Ur Leukocyte Esterase MODERATE H Urine WBC (Auto) 60 Urine RBC (Auto) >182 05/23/19 07:08 WBC 4.1 RBC 4.39 Hgb 11.2 L Hct 35.4 L MCV 81 MCH 25.5 L MCHC 31.7 L RDW 21.1 H Plt Count 209 Seg Neutrophils % 70.2 Sodium Potassium Chloride Carbon Dioxide Anion Gap BUN Creatinine Est GFR ( Amer) Glucose Calcium Total Bilirubin AST Alkaline Phosphatase Total Protein Albumin Lipase Urine Color Urine Appearance Urine pH Ur Specific [place] Urine Protein Urine Glucose (UA) Urine Ketones Urine Blood Urine Nitrite Ur Leukocyte Esterase Urine WBC (Auto) Urine RBC (Auto) Assessment & Plan - Diagnosis (1) Acute on chronic kidney failure Qualifiers: Acute renal failure type: unspecified Chronic kidney disease stage: stage 4 (severe) Qualified Code(s): N17.9 - Acute kidney failure, unspecified; N18.4 - Chronic kidney disease, stage 4 (severe) Is this a current diagnosis for this admission?: Yes Plan: See covering attending physician orders for details about care plan. (2) UTI (urinary tract infection) Qualifiers: Urinary tract infection type: acute cystitis Hematuria presence: with hematuria Qualified Code(s): N30.01 - Acute cystitis with hematuria Is this a current diagnosis for this admission?: Yes Plan: See covering attending physician orders for details about care plan. (3) Chronic atrial fibrillation Is this a current diagnosis for this admission?: Yes Plan: See covering attending physician orders for details about care plan. (4) Chronic kidney disease, stage IV (severe) Is this a current diagnosis for this admission?: Yes Plan: See covering attending physician orders for details about care plan. (5) Type 2 diabetes mellitus Qualifiers: Diabetes mellitus half-way insulin use: with terminal operations manager use Chronic kidney disease stage: stage 4 (severe) Is this a current diagnosis for this admission?: Yes Plan: See covering attending physician orders for details about care plan. (6) Diabetic foot ulcers Is this a current diagnosis for this admission?: Yes (7) Hypertension Qualifiers: Hypertension type: essential hypertension Qualified Code(s): I10 - Essential (primary) hypertension Is this a current diagnosis for this admission?: Yes - Time Time Spent: 50 to 70 Minutes Medications reviewed and adjusted accordingly: Yes Anticipated discharge: Home with Homehealth Within: Other - Inpatient Certification Based on my medical assessment, after consideration of the patient's comorbidities, presenting symptoms, or acuity I expect that the services needed warrant INPATIENT care.: Yes I certify that my determination is in accordance with my understanding of Medicare's requirements for reasonable and necessary INPATIENT services [42 CFR 412.3e].: Yes Medical Necessity: Significant Comorbidiites Make Outpatient Treatment Too Risky, Need Close Monitoring Due to Risk of Patient Decompensation, Need For IV Fluids, Need For Continuous Telemetry Monitoring, Need for IV Antibiotics, Risk of Complication if Not Cared For in Hospital Post Hospital Care: D/C Hand Carver Documentation - Plan Summary Plan Summary: See covering attending physician orders for details about care plan.
[2019-05-23] MEDS: METOPROLOL TARTRATE 25 MG TABLET PO SCH ×2 (15:22→21:50)
[2019-05-23] MEDS: CEFTRIAXONE 1 GM/D5W RTU 1 GM/50 ML RTUPB IV SCH (15:23)
[2019-05-23] MEDS: INSULIN LISPRO 100 UNIT/ML 3 ML VIAL SUBCUT SCH ×2 (16:54→21:45)
[2019-05-23] MEDS: FUROSEMIDE 40 MG TABLET PO SCH (17:09)
[2019-05-23] MEDS ORDERED: APIXABAN 5 MG TABLET PO SCH (18:00)
[2019-05-23 21:12] LABS: ANION GAP 16 (5-19); BLOOD UREA NITROGEN 95 mg/dL (7-20); CALCIUM 8.5 mg/dL (8.4-10.2); CARBON DIOXIDE 19 mmol/L (22-30); CHLORIDE 104 mmol/L (98-107); GLUCOSE 135 mg/dL (75-110); POTASSIUM 4.5 mmol/L (3.6-5.0)
[2019-05-23] MEDS: INSULIN GLARGINE,HUM.REC.ANLOG 1,000 UNIT/10 ML VIAL SUBCUT SCH (21:48)
[2019-05-23] MEDS: ATORVASTATIN CALCIUM 40 MG TABLET PO SCH (21:50)
[2019-05-23] MEDS ORDERED: LISINOPRIL 5 MG TABLET PO SCH (22:00)
[2019-05-23] MEDS ORDERED: METOPROLOL TARTRATE 25 MG TABLET PO SCH (22:00)
[2019-05-24] MEDS: NORMAL SALINE 1000 ML 1,000 ML IV PRN ×2 (02:40→14:30)
[2019-05-24] MEDS: MIDODRINE HCL 5 MG TABLET PO SCH ×3 (06:40→22:05)
[2019-05-24] MEDS: INSULIN LISPRO 100 UNIT/ML 3 ML VIAL SUBCUT SCH ×4 (08:13→22:06)
[2019-05-24] MEDS: CEFTRIAXONE 1 GM/D5W RTU 1 GM/50 ML RTUPB IV SCH (09:20)
[2019-05-24] MEDS: ISOSORBIDE MONONITRATE 30 MG TAB.ER.24H PO SCH (09:23)
[2019-05-24] MEDS: APIXABAN 5 MG TABLET PO SCH ×2 (09:24→17:32)
[2019-05-24] MEDS: METOPROLOL TARTRATE 25 MG TABLET PO SCH ×2 (09:24→22:04)
[2019-05-24] MEDS: FUROSEMIDE 40 MG TABLET PO SCH (09:24)
[2019-05-24] MEDS: PANTOPRAZOLE SODIUM 40 MG TABLET.DR PO SCH (09:24)
[2019-05-24] MEDS: DILTIAZEM HCL/D5W 125 MG/125 ML RTUINJ IV PRN (11:53)
[2019-05-24] MEDS: DILTIAZEM HCL/D5W 125 MG/125 ML RTUINJ IV ONE ×2 (11:53→12:19)
--- NOTE | 2019-05-24 17:28 | PDOC PROGRESS REPORT ---
Subjective Progress Note for:: 05/24/19 Subjective:: Patient remain in atrial fibrillation with rapid ventricular rate with episodes of short run of V.tach. She is currently on IV Cardizem infusion for rate management. She denied any chest pain or difficulty with breathing. Patient reported ongoing diarrhea and several episodes so far today. No nausea, vomiting, or abdominal pain. Reason For Visit: ACUTE ON CHRONIC KIDNEY FAILURE,UTI Physical Exam Vital Signs: Temp Pulse Resp BP Pulse Ox 97.4 F 84 17 128/82 H 81 L 05/24/19 11:27 05/24/19 16:00 05/24/19 11:27 05/24/19 16:00 05/24/19 15:44 Intake & Output 05/23/19 05/24/19 05/25/19 06:59 06:59 06:59 Intake Total 1000 2673 1670 Output Total 100 Balance 1000 2573 1670 Weight 111.3 kg 114.3 kg Results Laboratory Results: 05/23/19 07:08 05/23/19 20:40 05/23/19 20:40 Sodium 139.0 Potassium 4.5 Chloride 104 Carbon Dioxide 19 L Anion Gap 16 BUN 95 H Creatinine 4.52 H Est GFR ( Amer) 12 L Glucose 135 H Calcium 8.5 Magnesium 2.1 Assessment & Plan - Diagnosis (1) Acute on chronic kidney failure Qualifiers: Acute renal failure type: unspecified Chronic kidney disease stage: stage 4 (severe) Qualified Code(s): N17.9 - Acute kidney failure, unspecified; N18.4 - Chronic kidney disease, stage 4 (severe) Is this a current diagnosis for this admission?: Yes (2) UTI (urinary tract infection) Qualifiers: Urinary tract infection type: acute cystitis Hematuria presence: with hematuria Qualified Code(s): N30.01 - Acute cystitis with hematuria Is this a current diagnosis for this admission?: Yes (3) Chronic atrial fibrillation Is this a current diagnosis for this admission?: Yes (4) Chronic kidney disease, stage IV (severe) Is this a current diagnosis for this admission?: Yes (5) Type 2 diabetes mellitus Qualifiers: Diabetes mellitus snf insulin use: with intermediate teacher use Chronic kidney disease stage: stage 4 (severe) Is this a current diagnosis for this admission?: Yes (6) Diabetic foot ulcers Is this a current diagnosis for this admission?: Yes (7) Hypertension Qualifiers: Hypertension type: essential hypertension Qualified Code(s): I10 - E ssential (primary) hypertension Is this a current diagnosis for this admission?: Yes (8) Diarrhea Qualifiers: Diarrhea type: unspecified type Qualified Code(s): R19.7 - Diarrhea, unspecified Is this a current diagnosis for this admission?: Yes Plan: Obtain stool C.dificile toxin titer if stool character suggest possible colitis in view of her antibiotic therapy. - Time Time Spent with patient: 25-34 minutes Level of Care: IMCU Medications reviewed and adjusted accordingly: Yes Anticipated discharge: Home with Homehealth Within: Other - Inpatient Certification Based on my medical assessment, after consideration of the patient's comorbidities, presenting symptoms, or acuity I expect that the services needed warrant INPATIENT care.: Yes I certify that my determination is in accordance with my understanding of Medicare's requirements for reasonable and necessary INPATIENT services [42 CFR 412.3e].: Yes Medical Necessity: Significant Comorbidiites Make Outpatient Treatment Too Risky, Need Close Monitoring Due to Risk of Patient Decompensation, Need For IV Fluids, Need For Continuous Telemetry Monitoring, Need for IV Antibiotics, Risk of Complication if Not Cared For in Hospital, Risk of Diagnosis Which Will Require Inpatient Eval/Care/Monitoring Post Hospital Care: D/C Stock Controller Documentation - Plan Summary Plan Summary: Continue all current medication management. Obtain urine culture.
[2019-05-24] MEDS: INSULIN GLARGINE,HUM.REC.ANLOG 1,000 UNIT/10 ML VIAL SUBCUT SCH (22:03)
[2019-05-24] MEDS: ATORVASTATIN CALCIUM 40 MG TABLET PO SCH (22:04)
[2019-05-25] MEDS: NORMAL SALINE 1000 ML 1,000 ML IV PRN (02:04)
[2019-05-25] MEDS: MIDODRINE HCL 5 MG TABLET PO SCH ×3 (05:50→21:55)
[2019-05-25 07:01] LABS: ANION GAP 16 (5-19); BLOOD UREA NITROGEN 96 mg/dL (7-20); CALCIUM 8.2 mg/dL (8.4-10.2); CARBON DIOXIDE 20 mmol/L (22-30); CHLORIDE 105 mmol/L (98-107); GLUCOSE 144 mg/dL (75-110); PHOSPHORUS 5.2 mg/dL (2.5-4.5)
[2019-05-25] MEDS: ISOSORBIDE MONONITRATE 30 MG TAB.ER.24H PO SCH (10:44)
[2019-05-25] MEDS: INSULIN LISPRO 100 UNIT/ML 3 ML VIAL SUBCUT SCH ×4 (10:44→21:54)
[2019-05-25] MEDS: APIXABAN 5 MG TABLET PO SCH (10:44)
[2019-05-25] MEDS: PANTOPRAZOLE SODIUM 40 MG TABLET.DR PO SCH (10:44)
[2019-05-25] MEDS: CEFTRIAXONE 1 GM/D5W RTU 1 GM/50 ML RTUPB IV SCH (10:44)
[2019-05-25] MEDS: METOPROLOL TARTRATE 25 MG TABLET PO SCH ×2 (10:45→21:55)
[2019-05-25] MEDS: DILTIAZEM HCL/D5W 125 MG/125 ML RTUINJ IV PRN (10:57)
--- NOTE | 2019-05-25 12:26 | PDOC PROGRESS REPORT ---
Subjective Progress Note for:: 05/25/19 Subjective:: Patient was admitted for the UTI and the CT scan of the abdomen pelvis shows some fluid and some questionable fluid around the left ventricular area Patient have a renal failure on top of chronic kidney disease with a history of the combined systolic and diastolic heart failure with developing the cardiorenal syndromes Patient is feeling better patient was started on IV antibiotics denied any chest pain no short of breath Reason For Visit: ACUTE ON CHRONIC KIDNEY FAILURE,UTI Physical Exam Vital Signs: Temp Pulse Resp BP Pulse Ox 97.9 F 76 18 152/89 H 100 05/25/19 07:52 05/25/19 11:00 05/25/19 07:52 05/25/19 11:00 05/25/19 07:52 Intake & Output 05/24/19 05/25/19 05/26/19 06:59 06:59 06:59 Intake Total 2673 2890 115 Output Total 100 150 Balance 2573 2740 115 Weight 114.3 kg 116 kg General appearance: PRESENT: no acute distress, well-developed, well-nourished Head exam: PRESENT: atraumatic, normocephalic Eye exam: PRESENT: conjunctiva pink, EOMI, PERRLA. ABSENT: scleral icterus Ear exam: PRESENT: normal external ear exam Mouth exam: PRESENT: moist, tongue midline Neck exam: PRESENT: full ROM. ABSENT: carotid bruit, JVD, lymphadenopathy, thyromegaly Respiratory exam: PRESENT: clear to auscultation conor Cardiovascular exam: PRESENT: RRR. ABSENT: diastolic murmur, rubs, systolic murmur Vascular exam: PRESENT: normal capillary refill GI/Abdominal exam: PRESENT: normal bowel sounds, soft. ABSENT: distended, guarding, mass, organolmegaly, rebound, tenderness Rectal exam: PRESENT: deferred Extremities exam: PRESENT: pedal edema Neurological exam: PRESENT: alert, awake, oriented to person, oriented to place, oriented to time, oriented to situation, CN II-XII grossly intact. ABSENT: motor sensory deficit Psychiatric exam: PRESENT: appropriate affect, normal mood. ABSENT: homicidal ideation, suicidal ideation Skin exam: PRESENT: dry, intact, warm. ABSENT: cyanosis, rash Results Laboratory Results: 05/23/19 07:08 05/25/19 06:20 05/25/19 06:20 Sodium 140.5 Potassium 4.0 Chloride 105 Carbon Dioxide 20 L Anion Gap 16 BUN 96 H Creatinine 4.66 H Est GFR ( Amer) 11 L Glucose 144 H Calcium 8.2 L Phosphorus 5.2 H Magnesium 1.9 Assessment & Plan - Diagnosis (1) Acute on chronic kidney failure Qualifiers: Acute renal failure type: unspecified Chronic kidney disease stage: stage 4 (severe) Qualified Code(s): N17.9 - Acute kidney failure, unspecified; N18.4 - Chronic kidney disease, stage 4 (severe) Is this a current diagnosis for this admission?: Yes Plan: We consult the nephrology with ongoing problems with a [id number] with a cardiorenal syndromes (2) Diarrhea Qualifiers: Diarrhea type: unspecified type Qualified Code(s): R19.7 - Diarrhea, unspecified Is this a current diagnosis for this admission?: Yes Plan: We will check the stool for the C. difficile start the patient on probiotics (3) UTI (urinary tract infection) Qualifiers: Urinary tract infection type: acute cystitis Hematuria presence: with hematuria Qualified Code(s): N30.01 - Acute cystitis with hematuria Is this a current diagnosis for this admission?: Yes Plan: Continues to IV antibiotic (4) Atrial fibrillation Qualifiers: Atrial fibrillation type: unspecified chronic Qualified Code(s): I48.20 - Chronic atrial fibrillation, unspecified; I48.2 - Chronic atrial fibrillation Is this a current diagnosis for this admission?: Yes Plan: Patient is currently on metoprolol and Cardizem drips I think will try to wean off from Cardizem drips consult the cardiology (5) Congestive heart failure Qualifiers: Heart failure type: combined systolic and diastolic Heart failure chronicity: acute on chronic Qualified Code(s): I50.43 - Acute on chronic combined systolic (congestive) and diastolic (congestive) heart failure Is this a current diagnosis for this admission?: Yes (6) Diabetic foot ulcers Is this a current diagnosis for this admission?: No (7) Diabetic nephropathy Qualifiers: Diabetes mellitus type: type 2 Qualified Code(s): E11.21 - Type 2 diabetes mellitus with diabetic nephropathy Is this a current diagnosis for this admission?: Yes (8) Hypertension Qualifiers: Hypertension type: essential hypertension Qualified Code(s): I10 - Essential (primary) hypertension Is this a current diagnosis for this admission?: Yes - Time Time Spent with patient: 25-34 minutes Level of Care: IMCU Medications reviewed and adjusted accordingly: Yes Anticipated discharge: Other Within: Other - Plan Summary Plan Summary: With ongoing recurrent admissions will ask nephrology consults for further evaluation also cardiology consult Placed the Contreras catheter in Check stool for C. difficile At the probiotics
[2019-05-25] MEDS ORDERED: APIXABAN 5 MG TABLET PO SCH (18:00)
--- NOTE | 2019-05-25 18:36 | PDOC CONSULTATION ---
Consultation Consult Date: 05/25/19 Provider Consulted: CAROLINE SINGH Consult reason:: I was asked to see te patient due to worseing kidney function. History of Present Illness Admission Date/PCP: 05/23/19 03:02 LISA BARON MD History of Present Illness: NISH NOLAND is a 73 year old -[place] lady with history of chronic kidney disease stage IV, biventricular congestive heart failure, coronary artery disease, paroxysmal atrial fibrillation, diabetes mellitus type 2 who was ad mitted on May 23, 2019 due to 3-day history of abdominal pain, nausea, vomiting and intermittent diarrhea. Patient is currently at [facility] after being transferred there from last hospitalization on May 13, 2019. Initial evaluation in the emergency room revealed a CT scan finding done without contrast on admission showing possibility of left ventricular aneurysm, fat stranding in the bladder with possibility of cystitis, ascites, and bladder diverticula. Patient's labs also showed a BUN of 96, creatinine of 4.47. On May 13, 2019 her kidney function indicate a BUN of 100, creatinine of 2.28 with EGFR of 25. Today she has a BUN of 96, creatinine of 4.66 with EGFR of 11. Her baseline creatinine for the last couple of months ranges anywhere between 2.5-3+. Patient's urine output is not quantified due to the patient being incontinent. Currently the patient is still having intermittent diarrhea, last episode was last night according to the patient. She has decreased oral intake of both solids and fluids. She also has leg swelling which she did not think is worse. She denies any shortness of breath, chest pains, nor dysuria. Currently she is being given IV fluids. She was also started on IV antibiotics. Past Medical History Cardiac Medical History: Reports: Atrial Fibrillation, CHF-Diastolic, CHF- Systolic, Coronary Artery Disease, Hyperlipidemia, Hypertension-primary Pulmonary Medical History: Reports: Pneumonia Endocrine Medical History: Reports: Diabetes Mellitus Type 2 Renal/ Medical History: Reports: Chronic Kidney Disease Stage IV Musculoskeltal Medical History: Reports: Arthritis Infectious Medical History: Reports: Methicillin-resist Staph Aureus Hematology Medical History: Reports Anemia of Chronic Kidney Disease Past Surgical History Past Surgical History: Reports: Appendectomy, Hysterectomy Social History Information Source: Patient, [facility] Records Smoking Status: Never Smoker Electronic Cigarette use?: No Frequency of Alcohol Use: None Hx Recreational Drug Use: No Drugs: None Hx Prescription Drug Abuse: No - Advance Directive Resuscitation Status: Full Code Family History Family History: DM - Paternal and maternal grandmothers., Hypertension - Mother and sister, Malignancy - Breast on mother and sister Parental Family History Reviewed: Yes Children Family History Reviewed: Yes Sibling(s) Family History Reviewed.: Yes Medication/Allergy Home Medications: Atorvastatin Calcium [Lipitor 40 mg Tablet] 40 mg PO QHS 04/14/19 Isosorbide Mononitrate [Imdur 30 mg Tablet.er] 30 mg PO DAILY 04/14/19 Apixaban [Eliquis 5 mg Tablet] 5 mg PO BID 05/23/19 Furosemide [Lasix 40 mg Tablet] 40 mg PO BID 05/23/19 Insulin Glargine,Hum.rec.anlog [Lantus Insulin 100 Unit/1 ml 10 ml] 20 unit SUBCUT QHS 05/23/19 Insulin Lispro [Humalog Insulin 100 Unit/1 ml 3 ml Vial] 0 unit SUBCUT .SLD SCALE 05/23/19 Lisinopril [Prinivil 5 mg Tablet] 2.5 mg PO QHS 05/23/19 Metoprolol Tartrate [Lopressor 25 mg Tablet] 25 mg PO Q12 05/23/19 Midodrine HCl [Proamatine 5 Mg Tablet] 5 mg PO Q8 05/23/19 Omeprazole 40 mg PO DAILY 05/23/19 Ondansetron HCl [Zofran 4 mg Tablet] 4 mg PO Q8HP PRN 05/23/19 Allergies/Adverse Reactions: No Known Allergies Allergy (Verified 01/10/12 14:35) Review of Systems All systems: reviewed and no additional remarkable complaints except as stated Review of Systems: Constitutional: ABSENT: chills, fatigue, fever(s), headache(s), weight gain, weight loss Eyes: ABSENT: visual disturbances Ears: ABSENT: hearing changes Cardiovascular: ABSENT: chest pain, orthropnea, palpitations; dyspnea on exert ion and edema Respiratory: ABSENT: cough, dyspnea, hemoptysis Gastrointestinal: ABSENT: abdominal pain, constipation, hematemesis, hematochezia, nausea, vomiting: Admits diarrhea Genitourinary: ABSENT: dysuria, hematuria Musculoskeletal: ABSENT: joint swelling Integumentary: ABSENT: rash, wounds Neurological: ABSENT: abnormal gait, abnormal speech, confusion, dizziness, focal weakness, numbness, syncope Psychiatric: ABSENT: anxiety, depression Endocrine: ABSENT: cold intolerance, heat intolerance, polydipsia, polyuria Hematologic/Lymphatic: ABSENT: easy bleeding, easy bruising, lymphadenopathy Physical Exam Vital Signs: Temp Pulse Resp BP Pulse Ox 97.9 F 76 18 152/89 H 100 05/25/19 07:52 05/25/19 11:00 05/25/19 07:52 05/25/19 11:00 05/25/19 07:52 Intake & Output 05/24/19 05/25/19 05/26/19 06:59 06:59 06:59 Intake Total 2673 2890 115 Output Total 100 150 Balance 2573 2740 115 Weight 114.3 kg 116 kg Exam: General appearance: No acute distress, cooperative, well-developed, well- nourished Head exam: PRESENT: atraumatic, normocephalic Eye exam: PRESENT: Conjunctiva slightly pale, EOMI, PERRLA. ABSENT: conjunctival injection, scleral icterus Mouth exam: PRESENT: moist, neck supple, tongue midline Neck exam: PRESENT: full ROM. ABSENT: carotid bruit, JVD, lymphadenopathy, thyromegaly Respiratory exam: PRESENT: Diminished to auscultation bilaterally. ABSENT: rales, rhonchi, stridor, wheezes Cardiovascular exam: PRESENT: RRR, +S1, +S2. ABSENT: systolic murmur Pulses: PRESENT: normal radial pulses, normal dorsalis pedis pulses GI/Abdominal exam: PRESENT: normal bowel sounds, soft. ABSENT: guarding, mass, tenderness Rectal exam: Deferred Extremities exam: PRESENT: full ROM. Grade 2 bilateral lower extremity pitting edema ABSENT: calf tenderness Musculoskeletal: PRESENT: full ROM. ABSENT: deformity Neurological exam: PRESENT: alert, Awake, Oriented to person, Oriented to place, Oriented to time, reflexes normal, CN II-XII grossly intact. ABSENT: motor sensory deficit Psychiatric exam: PRESENT: appropriate affect, normal mood. ABSENT: homicidal ideation, suicidal ideation Skin exam: PRESENT: intact, dry, warm. ABSENT: rash Results Laboratory Results: 05/23/19 07:08 05/25/19 06:20 05/25/19 06:20 Sodium 140.5 Potassium 4.0 Chloride 105 Carbon Dioxide 20 L Anion Gap 16 BUN 96 H Creatinine 4.66 H Est GFR ( Amer) 11 L Glucose 144 H Calcium 8.2 L Phosphorus 5.2 H Magnesium 1.9 Assessment & Plan - Diagnosis (1) Acute gastroenteritis Is this a current diagnosis for this admission?: Yes Plan: She has C. difficile negative. She is being cautious IV fluids since admission. (2) Acute cystitis Is this a current diagnosis for this admission?: Yes Plan: CT scan showed bladder fat stranding. On IV ceftriaxone. (3) Acute kidney injury superimposed on chronic kidney disease Is this a current diagnosis for this admission?: Yes Plan: Most likely secondary to acute intravascular volume depletion causing prerenal azotemia on top of her underlying chronic kidney disease. Agree with cautious IV hydration but not to cause fluid overload. Strict I/O by inserting Contreras catheter. Avoid nephrotoxic medications. At this time the patient does not need any urgent acute renal replacement therapy. However as the patient is having these recurrent episodes of acute worsening of kidney function, if her kidney function does not improve she might need to be initiated with renal replacement therapy. I have discussed this with the patient during the last hospitalizations and reiterated to the patient that we may need to do this. Patient indicated that if needed she would agree for dialysis. Continue to monitor kidney function and electrolytes. (4) Anemia in chronic kidney disease (CKD) Is this a current diagnosis for this admission?: Yes (5) Hyperphosphatemia Is this a current diagnosis for this admission?: Yes Plan: Low phosphorus diet. Patient does not require phosphorus binder at this time. (6) Congestive heart failure Qualifiers: Heart failure type: combined systolic and diastolic Heart failure chronicity: acute on chronic Qualified Code(s): I50.43 - Acute on chronic combined systolic (congestive) and diastolic (congestive) heart failure Is this a current diagnosis for this admission?: Yes Plan: Patient appears to be compensated clinically at this point. (7) Chronic atrial fibrillation Is this a current diagnosis for this admission?: Yes (8) Chronic kidney disease, stage IV (severe) Is this a current diagnosis for this admission?: Yes Plan: Secondary to diabetic nephropathy with proteinuria. Patient's kidney function has been progressively declining. 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 (11) Hypertension Qualifiers: Hypertension type: essential hypertension Qualified Code(s): I10 - Mejia schaeffer (primary) hypertension Is this a current diagnosis for this admission?: Yes Plan: Currently controlled. - Notes Notes: Thank you very much for this consultation. We will follow the patient with you. - Time Time Spent: 50 to 70 Minutes
[2019-05-25] MEDS: APIXABAN 2.5 MG TABLET PO SCH (18:46)
[2019-05-25] MEDS: INSULIN GLARGINE,HUM.REC.ANLOG 1,000 UNIT/10 ML VIAL SUBCUT SCH (21:52)
[2019-05-25] MEDS: ATORVASTATIN CALCIUM 40 MG TABLET PO SCH (21:55)
--- NOTE | 2019-05-26 01:52 | Operative Report ---
Bedside Procedure - History of Present Illness History of Present Illness: NISH NOLAND is a 73 year old female admitted with HEIKE on CKD, UTI, and known systolic/diastolic heart failure developing cardiorenal syndrome. She has been on a Diltiazem infusion for management of her A-fib though she has been known to have difficult IV access and the patient herself has reportedly pulled out multiple IV's this admission. The patient needs her IV Diltiazem infusion therapy to be resumed and I have been asked to evaluate for IV access by the RN given the surgeon is not available for central line placement until later in the morning due to operative cases. Procedure: Peripheral IV insertion by Provider Proceduralist: MONTSERRAT Sheridan Anesthesia: none EBL: 3 mL Complications: none Findings: difficult IV access with successful placement of IV utilizing ultrasound While maintaining aseptic technique, ultrasonography was utilized to visualize an 18 gauge angiocatheter enter the left cephalic vein with a flash of blood. The needle was removed from the catheter and a slow drip of non-pulsatile dark blood was observed coming from the catheter. The IV cannula was confirmed to be in the cephalic vein in two views. The tourniquet was released, IV extension tubing with a cap was hooked up directly to the IV, the site was again cleaned with more alcohol solution, and a sterile occlusive transparent dressing was applied by a RN upon the skin drying. The IV aspirates and flushes blood easily. Patient tolerated the procedure well. Recommend soft mitts to bilateral upper extremities to protect IV and avoid further delays in her Diltiazem therapy, though will defer to Hospitalist team managing her care. Discussed this with FLORIDA Magdaleno. CPT code for billin Indication for Procedure: No IV access, difficult IV access Date: 05/26/19 - 00:30 AM Provider: BALDO RANKIN
[2019-05-26] MEDS: MIDODRINE HCL 5 MG TABLET PO SCH ×3 (06:18→22:35)
[2019-05-26 06:27] LABS: ABSOLUTE LYMPHOCYTES (AUTO) 0.7 10^3/uL (0.5-4.7); ABSOLUTE NEUT (AUTO) 4.1 10^3/uL (1.7-8.2); BASOPHILS % (AUTO) 0.5 % (0-2); EOSINOPHILS % (AUTO) 0.3 % (0-6); HEMATOCRIT 33.4 % (36.0-47.0); HEMOGLOBIN 10.5 g/dL (12.0-15.5); LYMPHOCYTES % (AUTO) 11.4 % (13-45); MEAN CORPUSCULAR HGB CONC 31.4 g/dL (32.0-36.0); MEAN CORPUSCULAR VOLUME 80 fl (80-97); MONOCYTES % (AUTO) 17.7 % (3-13); PLATELET COUNT 225 10^3/uL (150-450); RED BLOOD COUNT 4.19 10^6/uL (3.72-5.28); RED CELL DISTRIBUTION WIDTH 21.1 % (11.5-14.0); SEGMENTED NEUTROPHILS % (AUTO) 70.1 % (42-78); TOTAL CELLS COUNTED % (AUTO) 100 %; WHITE BLOOD COUNT 5.9 10^3/uL (4.0-10.5)
[2019-05-26 06:47] LABS: ANION GAP 18 (5-19); BLOOD UREA NITROGEN 92 mg/dL (7-20); CALCIUM 8.3 mg/dL (8.4-10.2); CARBON DIOXIDE 17 mmol/L (22-30); CHLORIDE 105 mmol/L (98-107); GLUCOSE 125 mg/dL (75-110); POTASSIUM 3.9 mmol/L (3.6-5.0)
[2019-05-26] MEDS: INSULIN LISPRO 100 UNIT/ML 3 ML VIAL SUBCUT SCH ×4 (09:40→22:33)
[2019-05-26] MEDS: APIXABAN 2.5 MG TABLET PO SCH ×2 (09:45→17:31)
[2019-05-26] MEDS: SODIUM BICARBONATE 650 MG TABLET PO SCH ×2 (09:45→22:35)
[2019-05-26] MEDS: ISOSORBIDE MONONITRATE 30 MG TAB.ER.24H PO SCH (09:45)
[2019-05-26] MEDS: CEFTRIAXONE 1 GM/D5W RTU 1 GM/50 ML RTUPB IV SCH ×2 (09:45→15:50)
[2019-05-26] MEDS: METOPROLOL TARTRATE 50 MG TABLET PO SCH ×2 (09:45→22:35)
[2019-05-26] MEDS: PANTOPRAZOLE SODIUM 40 MG TABLET.DR PO SCH (09:45)
[2019-05-26] MEDS ORDERED: METOPROLOL TARTRATE 25 MG TABLET PO SCH (10:00)
--- NOTE | 2019-05-26 12:44 | PDOC PROGRESS REPORT ---
Subjective Progress Note for:: 05/26/19 Subjective:: Patient is lying comfortably in her bed. She states that she is doing fine and has no complaints. She made only about 555 mL of urine for the past 24 hours since we placed her Contreras catheter. She does not appear to be short of breath. Her Cardizem drip is been discontinued. Reason For Visit: ACUTE ON CHRONIC KIDNEY FAILURE,UTI Physical Exam Vital Signs: Temp Pulse Resp BP Pulse Ox 98.2 F 106 H 16 125/77 99 05/26/19 09:23 05/26/19 09:23 05/26/19 07:27 05/26/19 09:29 05/26/19 07:27 Intake & Output 05/25/19 05/26/19 05/27/19 06:59 06:59 06:59 Intake Total 2890 1705 125 Output Total 150 555 Balance 2740 1150 125 Weight 116 kg 116.6 kg Exam: General appearance: PRESENT: no acute distress, cooperative, well-developed, well-nourished Head exam: PRESENT: atraumatic, normocephalic Eye exam: PRESENT: conjunctiva slightly pale, PERRLA. ABSENT: scleral icterus Neck exam: ABSENT: JVD Respiratory exam: PRESENT: Diminished breath sounds. ABSENT: crackles, rales, rhonchi, unlabored, wheezes Cardiovascular exam: PRESENT: Regular rate rhythm -+S1, +S2. ABSENT: diastolic murmur, systolic murmur GI/Abdominal exam: PRESENT: normal bowel sounds, soft. ABSENT: guarding, mass, tenderness Extremities exam: Grade 2 bilateral lower extremity pitting edema Neurological exam: PRESENT: alert, awake, oriented to person, place and time. Skin exam: PRESENT: dry, warm, Results Laboratory Results: 05/26/19 05:51 05/26/19 05:51 05/26/19 05/26/19 05:51 05:51 WBC 5.9 RBC 4.19 Hgb 10.5 L Hct 33.4 L MCV 80 MCH 25.0 L MCHC 31.4 L RDW 21.1 H Plt Count 225 Seg Neutrophils % 70.1 Sodium 139.7 Potassium 3.9 Chloride 105 Carbon Dioxide 17 L Anion Gap 18 BUN 92 H Creatinine 4.49 H Est GFR ( Amer) 12 L Glucose 125 H Calcium 8.3 L Assessment & Plan - Diagnosis (1) Acute gastroenteritis Is this a current diagnosis for this admission?: Yes Plan: Resolving. (2) Acute cystitis Is this a current diagnosis for this admission?: Yes Plan: Urine culture is positive for gram-positive cocci in chains. Patient is on ceftriaxone. (3) Acute kidney injury superimposed on chronic kidney disease Is this a current diagnosis for this admission?: Yes Plan: Patient is nonoliguric but urine output is not as much as expected. Her creatinine is slightly better but not significantly improved GFR. There is no indication for urgent renal placement therapy however if we do not see any renal recovery in the next couple of days, we may need to consider diet. Patient has been progressively deteriorating for the last couple of months in terms of her kidney function with difficult to control volume status despite diuretics for the last couple of hospitalizations. Continue to monitor your kidney function. Strict intake and output to be recorded. Continue current management. I will reevaluate for possible initiation of renal replacement therapy the next couple of days. (4) Anemia in chronic kidney disease (CKD) Is this a current diagnosis for this admission?: Yes Plan: I will check the patient's iron panel. (5) Hyperphosphatemia Is this a current diagnosis for this admission?: Yes Plan: Phosphorus is currently 5.2 and does not need phosphorus binders yet. (6) Chronic kidney disease-mineral and bone disorder Is this a current diagnosis for this admission?: Yes Plan: Intact PTH on May 08 was 466.9. Will start calcitriol 0.25 mcg daily. (7) Congestive heart failure Qualifiers: Heart failure type: combined systolic and diastolic Heart failure chronicity: acute on chronic Qualified Code(s): I50.43 - Acute on chronic combined systolic (congestive) and diastolic (congestive) heart failure Is this a current diagnosis for this admission?: Yes Plan: Biventricular heart failure. Currently clinically compensated. (8) Chronic atrial fibrillation Is this a current diagnosis for this admission?: Yes Plan: With controlled ventricular response. On Eliquis. (9) Chronic kidney disease, stage IV (severe) Is this a current diagnosis for this admission?: Yes Plan: Patient has progressive duration of kidney function for the last couple months. She has baseline diabetic nephropathy with proteinuria and cardiorenal syndrome. (10) Diabetic nephropathy Qualifiers: Diabetes mellitus type: type 2 Qualified Code(s): E11.21 - Type 2 diabetes mellitus with diabetic nephropathy Is this a current diagnosis for this admission?: Yes (11) Type 2 diabetes mellitus Qualifiers: Diabetes mellitus prison insulin use: with terminal gauger use Chronic kidney disease stage: stage 4 (severe) Is this a current diagnosis for this admission?: Yes Plan: Currently controlled. (12) Hypertension Qualifiers: Hypertension type: essential hypertension Qualified Code(s): I10 - Essential (primary) hypertension Is this a current diagnosis for this admission?: Yes Plan: Controlled. - Notes Notes: Discussed with Dr. Lopez. - Time Time with patient: Greater than 35 minutes
--- NOTE | 2019-05-26 13:12 | PDOC PROGRESS REPORT ---
Subjective Progress Note for:: 05/26/19 Subjective:: Patient is currently doing fair Is denied any chest pain no short of breath Patient's no diarrhea anymore Reason For Visit: ACUTE ON CHRONIC KIDNEY FAILURE,UTI Physical Exam Vital Signs: Temp Pulse Resp BP Pulse Ox 97.8 F 90 16 148/83 H 98 05/26/19 11:27 05/26/19 11:27 05/26/19 11:27 05/26/19 11:27 05/26/19 11:27 Intake & Output 05/25/19 05/26/19 05/27/19 06:59 06:59 06:59 Intake Total 2890 1705 125 Output Total 150 555 Balance 2740 1150 125 Weight 116 kg 116.6 kg General appearance: PRESENT: no acute distress, well-developed, well-nourished Head exam: PRESENT: atraumatic, normocephalic Eye exam: PRESENT: conjunctiva pink, EOMI, PERRLA. ABSENT: scleral icterus Ear exam: PRESENT: normal external ear exam Mouth exam: PRESENT: moist, tongue midline Neck exam: PRESENT: full ROM. ABSENT: carotid bruit, JVD, lymphadenopathy, thyromegaly Respiratory exam: PRESENT: clear to auscultation conor Cardiovascular exam: PRESENT: RRR. ABSENT: diastolic murmur, rubs, systolic murmur Vascular exam: PRESENT: normal capillary refill GI/Abdominal exam: PRESENT: normal bowel sounds, soft. ABSENT: distended, guarding, mass, organolmegaly, rebound, tenderness Rectal exam: PRESENT: deferred Extremities exam: PRESENT: pedal edema Neurological exam: PRESENT: alert, awake, oriented to person, oriented to place, oriented to time, oriented to situation, CN II-XII grossly intact. ABSENT: motor sensory deficit Psychiatric exam: PRESENT: appropriate affect, normal mood. ABSENT: homicidal ideation, suicidal ideation Skin exam: PRESENT: dry, intact, warm. ABSENT: cyanosis, rash Results Laboratory Results: 05/26/19 05:51 05/26/19 05:51 05/26/19 05/26/19 05:51 05:51 WBC 5.9 RBC 4.19 Hgb 10.5 L Hct 33.4 L MCV 80 MCH 25.0 L MCHC 31.4 L RDW 21.1 H Plt Count 225 Seg Neutrophils % 70.1 Sodium 139.7 Potassium 3.9 Chloride 105 Carbon Dioxide 17 L Anion Gap 18 BUN 92 H Creatinine 4.49 H Est GFR ( Amer) 12 L Glucose 125 H Calcium 8.3 L Assessment & Plan - Diagnosis (1) Acute on chronic kidney failure Qualifiers: Acute renal failure type: unspecified Chronic kidney disease stage: stage 4 (severe) Qualified Code(s): N17.9 - Acute kidney failure, unspecified; N18.4 - Chronic kidney disease, stage 4 (severe) Is this a current diagnosis for this admission?: Yes Plan: Discussed with the nephrology regarding the patient's current conditions with the patient start developing a cardiorenal syndromes as per discussed with the cardiology suggest most likely patient entered with the dialysis Dr. Perkins is been to discussed with the patient and the son (2) Diarrhea Qualifiers: Diarrhea type: unspecified type Qualified Code(s): R19.7 - Diarrhea, unspecified Is this a current diagnosis for this admission?: Yes Plan: Patient's C. difficile is negative's currently all stable (3) UTI (urinary tract infection) Qualifiers: Urinary tract infection type: acute cystitis Hematuria presence: with hematuria Qualified Code(s): N30.01 - Acute cystitis with hematuria Is this a current diagnosis for this admission?: Yes Plan: Continues to IV antibiotic (4) Atrial fibrillation Qualifiers: Atrial fibrillation type: unspecified chronic Qualified Code(s): I48.20 - Chronic atrial fibrillation, unspecified; I48.2 - Chronic atrial fibrillation Is this a current diagnosis for this admission?: Yes Plan: Will increase the metoprolol 50 mg p.o. twice a day as per discussed with the cardiology currently weaned off from the Cardize's (5) Congestive heart failure Qualifiers: Heart failure type: combined systolic and diastolic Heart failure chronicity: acute on chronic Qualified Code(s): I50.43 - Acute on chronic combined systolic (congestive) and diastolic (congestive) heart failure Is this a current diagnosis for this admission?: Yes Plan: Continues to Lasix 40 mg p.o. twice a day with a combined heart failure with a cardiorenal syndromes patients probably end up with the dialysis (6) Diabetic foot ulcers Is this a current diagnosis for this admission?: No (7) Diabetic nephropathy Qualifiers: Diabetes mellitus type: type 2 Qualified Code(s): E11.21 - Type 2 diabetes mellitus with diabetic nephropathy Is this a current diagnosis for this admission?: Yes (8) Hypertension Qualifiers: Hypertension type: essential hypertension Qualified Code(s): I10 - Esse ntial (primary) hypertension Is this a current diagnosis for this admission?: Yes Plan: Currently all stable - Time Time Spent with patient: 15-24 minutes Level of Care: IMCU Medications reviewed and adjusted accordingly: Yes Anticipated discharge: SNF Within: Other - Plan Summary Plan Summary: Continues to current medications see MD orders
[2019-05-26] MEDS: CALCITRIOL 0.25 MCG CAPSULE PO SCH (13:39)
[2019-05-26 14:07] LABS: ABSOLUTE RETICS # 0.077 10^6/uL (0.028-0.122); RETICULOCYTE COUNT (AUTO) 1.88 % (0.66-2.85)
[2019-05-26 14:24] LABS: IRON(TIBC) 23.3 ug/dL (37-170)
--- NOTE | 2019-05-26 15:34 | PDOC CONSULTATION ---
Consultation Consult Date: 05/26/19 Attending physician:: LISA BARON Provider Consulted: NITIN SALDIVAR Consult reason:: Congestive heart failure History of Present Illness Admission Date/PCP: 05/23/19 03:02 LISA BARON MD History of Present Illness: NISH NOLAND is a 73 year old female With the following active problems 1. Congestive heart failure-chronic systolic as well as diastolic 2. Systemic hypertension 3. Coronary artery disease 4. Old myocardial infarction 5. Dyslipidemia 6. Atrial fibrillation 7. Medication noncompliance 8. Chronic kidney disease 9. Systemic anticoagulation-apixaban 73-year-old lady who is known to me from the office and I have been following for chronic congestive heart failure both systolic as well as diastolic. Isidoro ruff has had prior myocardial infarction with mildly to moderately diminished ejection fraction but on most recent echocardiograms patient's ejection fraction was estimated at approximately 40%. She has been continued on medical therapy with suboptimal results. She has had multiple recent hospitalizations for bilateral lower extremity edema and cellulitis as well as decompensated congestive heart failure. For the most part her atrial fibrillation is rate controlled. She is asymptomatic from atrial fibrillation and has been maintained on systemic anticoagulation which she has tolerated pretty well. Lately it appears that she has been getting more refractory to diuretic therapy and has had frequent hospitalizations for decompensated congestive heart failure. I suspect that her renal function is declining. Her urine output is also declined lately. I did review today she reports no symptoms. She had some diarrhea which appears to have gotten better. She does not smoke cigarettes. Past Medical History Cardiac Medical History: Reports: Atrial Fibrillation, Congestive Heart Failure, Coronary Artery Disease, Hyperlipidema, Hypertension Pulmonary Medical History: Reports: Pneumonia Endocrine Medical History: Reports: Diabetes Mellitus Type 2 Musculoskeltal Medical History: Reports: Arthritis Psychiatric Medical History: Denies: Depression Hematology: Reports: Anemia Infectious Medical History: Reports: Methicillin-Resistant Staph Aureus Past Surgical History Past Surgical History: Reports: Appendectomy, Hysterectomy Social History Smoking Status: Never Smoker Electronic Cigarette use?: No Frequency of Alcohol Use: None Hx Recreational Drug Use: No Drugs: None Hx Prescription Drug Abuse: No - Advance Directive Resuscitation Status: Full Code Family History Family History: Reviewed & Not Pertinent Parental Family History Reviewed: No - No familial illnesses Children Family History Reviewed: NA Sibling(s) Family History Reviewed.: NA Medication/Allergy Home Medications: Atorvastatin Calcium [Lipitor 40 mg Tablet] 40 mg PO QHS 04/14/19 Isosorbide Mononitrate [Imdur 30 mg Tablet.er] 30 mg PO DAILY 04/14/19 Apixaban [Eliquis 5 mg Tablet] 5 mg PO BID 05/23/19 Furosemide [Lasix 40 mg Tablet] 40 mg PO BID 05/23/19 Insulin Glargine,Hum.rec.anlog [Lantus Insulin 100 Unit/1 ml 10 ml] 20 unit SUBCUT QHS 05/23/19 Insulin Lispro [Humalog Insulin 100 Unit/1 ml 3 ml Vial] 0 unit SUBCUT .SLD SCALE 05/23/19 Lisinopril [Prinivil 5 mg Tablet] 2.5 mg PO QHS 05/23/19 Metoprolol Tartrate [Lopressor 25 mg Tablet] 25 mg PO Q12 05/23/19 Midodrine HCl [Proamatine 5 Mg Tablet] 5 mg PO Q8 05/23/19 Omeprazole 40 mg PO DAILY 05/23/19 Ondansetron HCl [Zofran 4 mg Tablet] 4 mg PO Q8HP PRN 05/23/19 Allergies/Adverse Reactions: No Known Allergies Allergy (Verified 01/10/12 14:35) Review of Systems Constitutional: PRESENT: as per HPI Cardiovascular: PRESENT: as per HPI, dyspnea on exertion, edema Genitourinary: PRESENT: other - Decrease in urine output Physical Exam Vital Signs: Temp Pulse Resp BP Pulse Ox 97.8 F 89 16 148/83 H 98 05/26/19 11:27 05/26/19 14:00 05/26/19 11:27 05/26/19 11:27 05/26/19 11:27 Intake & Output 05/25/19 05/26/19 05/27/19 06:59 06:59 06:59 Intake Total 2890 1705 125 Output Total 150 555 Balance 2740 1150 125 Weight 116 kg 116.6 kg Results Laboratory Results: 05/26/19 05:51 05/26/19 05:51 05/26/19 05/26/19 05/26/19 05:51 05:51 05:51 WBC 5.9 RBC 4.19 Hgb 10.5 L Hct 33.4 L MCV 80 MCH 25.0 L MCHC 31.4 L RDW 21.1 H Plt Count 225 Seg Neutrophils % 70.1 Retic Count (auto) 1.88 Sodium 139.7 Potassium 3.9 Chloride 105 Carbon Dioxide 17 L Anion Gap 18 BUN 92 H Creatinine 4.49 H Est GFR ( Amer) 12 L Glucose 125 H Calcium 8.3 L Assessment & Plan - Diagnosis (1) Congestive heart failure Qualifiers: Heart failure type: combined systolic and diastolic Heart failure chronicity: acute on chronic Qualified Code(s): I50.43 - Acute on chronic combined systolic (congestive) and diastolic (congestive) heart failure Is this a current diagnosis for this admission?: Yes Plan: Chronic congestive heart failure-mixed systolic as well as diastolic dysfunction. Patient was fairly compensated but lately has had frequent hospitalizations due to decompensated systolic congestive heart failure. Her LV function is mildly reduced. She has been on guideline directed medical t herapy Due to declining renal function diuretic response has been poor Would be reasonable to watch urine output. Appreciate nephrology input and following (2) Atrial fibrillation Qualifiers: Atrial fibrillation type: unspecified chronic Qualified Code(s): I48.20 - Chronic atrial fibrillation, unspecified; I48.2 - Chronic atrial fibrillation Is this a current diagnosis for this admission?: Yes Plan: Rate controlled. Asymptomatic Continue systemic anticoagulation due to increased risk of CVA. (3) Chronic kidney disease, stage IV (severe) Is this a current diagnosis for this admission?: Yes Plan: Appreciate nephrology input Anasarca and volume overload Suboptimal response to diuretic therapy.
[2019-05-26] MEDS: INSULIN GLARGINE,HUM.REC.ANLOG 1,000 UNIT/10 ML VIAL SUBCUT SCH (22:34)
[2019-05-26] MEDS: ATORVASTATIN CALCIUM 40 MG TABLET PO SCH (22:35)
[2019-05-27] MEDS: MIDODRINE HCL 5 MG TABLET PO SCH ×3 (05:17→22:09)
[2019-05-27 05:37] LABS: ABSOLUTE LYMPHOCYTES (AUTO) 0.5 10^3/uL (0.5-4.7); ABSOLUTE MONOCYTES (AUTO) 1.1 10^3/uL (0.1-1.4); ABSOLUTE NEUT (AUTO) 4.5 10^3/uL (1.7-8.2); BASOPHILS % (AUTO) 0.4 % (0-2); EOSINOPHILS % (AUTO) 0.2 % (0-6); HEMATOCRIT 33.2 % (36.0-47.0); HEMOGLOBIN 10.5 g/dL (12.0-15.5); LYMPHOCYTES % (AUTO) 7.9 % (13-45); MEAN CORPUSCULAR HGB CONC 31.5 g/dL (32.0-36.0); MEAN CORPUSCULAR VOLUME 79 fl (80-97); MONOCYTES % (AUTO) 17.9 % (3-13); PLATELET COUNT 224 10^3/uL (150-450); RED BLOOD COUNT 4.19 10^6/uL (3.72-5.28); RED CELL DISTRIBUTION WIDTH 20.9 % (11.5-14.0); SEGMENTED NEUTROPHILS % (AUTO) 73.6 % (42-78); TOTAL CELLS COUNTED % (AUTO) 100 %; WHITE BLOOD COUNT 6.1 10^3/uL (4.0-10.5)
[2019-05-27 05:59] LABS: ANION GAP 14 (5-19); BLOOD UREA NITROGEN 95 mg/dL (7-20); CALCIUM 8.1 mg/dL (8.4-10.2); CARBON DIOXIDE 18 mmol/L (22-30); CHLORIDE 107 mmol/L (98-107); GLUCOSE 155 mg/dL (75-110)
--- NOTE | 2019-05-27 07:50 | XCELERA REPORT ---
[address] [address] Transthoracic Echocardiogram Report Name: NISH NOLAND Age: 73 yrs Gender: Female : 1945 Patient Status: Inpatient Patient Location: [address] [place] [address] Study Date: 05/26/2019 01:59 PM History: CHF Height: 66 in Weight: 255 lb BSA: 2.2 m2 Procedure: A complete two-dimensional transthoracic echocardiogram was performed (2D, M-mode, spectral and color flow Doppler). The study was technically difficult with many images being suboptimal in quality. Reason For Study: CHF History: CHF. Obesity. Diabetes. Dyslipidemia. CAD. Ordering Physician: LISA BARON Performed By: Bernice Ortega Interpretation Summary Study performed by NF and JS The study was technically difficult with many images being suboptimal in quality. Left ventricular systolic function is mildly reduced. The Ejection Fraction estimate is 40-45% Rothsay is thinned akinetic. and echogenic The right ventricular systolic function is mildly reduced. There is a trace amount of mitral regurgitation There is a trace amount of aortic regurgitation There is a mild to moderate amount of tricuspid regurgitation There is mild to moderate pulmonary hypertension by echo There is no pericardial effusion. MMode/2D Measurements & Calculations RVDd: 2.6 cm LVIDd: 4.1 cm FS: 25.1 % Ao root diam: 2.6 cm IVSd: 1.1 cm LVIDs: 3.0 cm EDV(Teich): 72.4 ml Ao root area: 5.2 cm2 LVPWd: 1.0 cm ESV(Teich): 36.1 ml LA dimension: 3.9 cm EF(Teich): 50.1 % Doppler Measurements & Calculations MV E max mode: MV P1/2t max mdoe: Ao V2 max: LV V1 max P.1 cm/sec 89.2 cm/sec 102.8 cm/sec 1.9 mmHg MV P1/2t: 41.1 msec Ao max PG: LV V1 max: MVA(P1/2t): 5.4 cm2 4.2 mmHg 68.3 cm/sec MV dec slope: 635.5 cm/sec2 MV dec time: 0.18 sec PA V2 max: PI end-d mode: TR max mode: RAP systole: 51.7 cm/sec 137.1 cm/sec 263.3 cm/sec 10.0 mmHg PA max P.1 mmHg TR max P.7 mmHg RVSP(TR): 37.7 mmHg MV P1/2t-pr_phl: 41.1 msec Left Ventricle The left ventricle is mildly to moderately dilated. Rothsay is thinned akinetic. and echogenic. There is moderate to severe concentric left ventricular hypertrophy. Left ventricular systolic function is mildly reduced. The Ejection Fraction estimate is 40-45%. LV diastolic function could not be adequately assessed. There is distal anterior wall akinesis. There is distal septal wall akinesis. There is apical wall akinesis. Right Ventricle The right ventricle is moderately dilated. The right ventricular systolic function is mildly reduced. Atria The right atrium is mild to moderately dilated. The left atrium is mildly dilated. Mitral Valve The mitral valve leaflets are sclerotic, but show no functional abnormalities. There is a trace amount of mitral regurgitation. Aortic Valve The aortic valve is calcified. The aortic valve is sclerotic, but shows no functional abnormality. The aortic valve opens well. The aortic valve is trileaflet. There is no aortic valve stenosis. There is a trace amount of aortic regurgitation. Tricuspid Valve The tricuspid valve is not well visualized, but is grossly normal. There is no tricuspid stenosis. There is a mild to moderate amount of tricuspid regurgitation. There is mild to moderate pulmonary hypertension by echo. Pulmonic Valve The pulmonic valve is not well visualized. There is a mild amount of pulmonic regurgitation. Great Vessels The aortic root is normal size. The inferior vena cava appeared dilated and decreased < 50% with respiration (RAP 15-20 mmHg). Effusions There is no pericardial effusion. : LISA BARON Anil
[2019-05-27] MEDS: INSULIN LISPRO 100 UNIT/ML 3 ML VIAL SUBCUT SCH ×4 (08:43→22:00)
--- NOTE | 2019-05-27 09:39 | PDOC PROGRESS REPORT ---
Subjective Progress Note for:: 05/27/19 Subjective:: Patient is currently doing fair Patient's denied any chest pain no short of breath Patient is probably need a dialysis and discussed with the son and waiting for the nephrology to evaluate Reason For Visit: ACUTE ON CHRONIC KIDNEY FAILURE,UTI Physical Exam Vital Signs: Temp Pulse Resp BP Pulse Ox 98.1 F 84 18 121/57 L 100 05/27/19 07:08 05/27/19 07:08 05/27/19 07:08 05/27/19 07:08 05/27/19 07:08 Intake & Output 05/26/19 05/27/19 05/28/19 06:59 06:59 06:59 Intake Total 1705 707 Output Total 555 475 Balance 1150 232 Weight 116.6 kg 118.9 kg General appearance: PRESENT: no acute distress, well-developed, well-nourished Head exam: PRESENT: atraumatic, normocephalic Eye exam: PRESENT: conjunctiva pink, EOMI, PERRLA. ABSENT: scleral icterus Ear exam: PRESENT: normal external ear exam Mouth exam: PRESENT: moist, tongue midline Neck exam: PRESENT: full ROM. ABSENT: carotid bruit, JVD, lymphadenopathy, thyromegaly Respiratory exam: PRESENT: clear to auscultation conor Cardiovascular exam: PRESENT: RRR. ABSENT: diastolic murmur, rubs, systolic murmur Pulses: PRESENT: normal dorsalis pedis pul, +2 pedal pulses bilateral Vascular exam: PRESENT: normal capillary refill GI/Abdominal exam: PRESENT: normal bowel sounds, soft. ABSENT: distended, g uarding, mass, organolmegaly, rebound, tenderness Rectal exam: PRESENT: deferred Extremities exam: PRESENT: pedal edema Neurological exam: PRESENT: alert, awake, oriented to person, oriented to place, oriented to time, oriented to situation, CN II-XII grossly intact. ABSENT: motor sensory deficit Psychiatric exam: PRESENT: appropriate affect, normal mood. ABSENT: homicidal ideation, suicidal ideation Skin exam: PRESENT: dry, intact, warm. ABSENT: cyanosis, rash Results Laboratory Results: 05/27/19 05:12 05/27/19 05:12 05/26/19 05/26/19 05/27/19 05:51 05:51 05:12 WBC RBC Hgb Hct MCV MCH MCHC RDW Plt Count Seg Neutrophils % Retic Count (auto) 1.88 Sodium 138.5 Potassium 4.0 Chloride 107 Carbon Dioxide 18 L Anion Gap 14 BUN 95 H Creatinine 4.59 H Est GFR ( Amer) 11 L Glucose 155 H Calcium 8.1 L Iron 23.3 L TIBC 297 % Saturation 8 Ferritin 51.00 Vitamin B12 > 1000.0 H Folate 14.10 05/27/19 05:12 WBC 6.1 RBC 4.19 Hgb 10.5 L Hct 33.2 L MCV 79 L MCH 25.0 L MCHC 31.5 L RDW 20.9 H Plt Count 224 Seg Neutrophils % 73.6 Retic Count (auto) Sodium Potassium Chloride Carbon Dioxide Anion Gap BUN Creatinine Est GFR ( Amer) Glucose Calcium Iron TIBC % Saturation Ferritin Vitamin B12 Folate 05/25/19 17:50 Contreras Catheter Urine Culture - Final Enterococcus Faecium (Group D) Assessment & Plan - Diagnosis (1) Acute on chronic kidney failure Qualifiers: Acute renal failure type: unspecified Chronic kidney disease stage: stage 4 (severe) Qualified Code(s): N17.9 - Acute kidney failure, unspecified; N18.4 - Chronic kidney disease, stage 4 (severe) Is this a current diagnosis for this admission?: Yes (2) Diarrhea Qualifiers: Diarrhea type: unspecified type Qualified Code(s): R19.7 - Diarrhea, unspecified Is this a current diagnosis for this admission?: Yes (3) UTI (urinary tract infection) Qualifiers: Urinary tract infection type: acute cystitis Hematuria presence: with hematuria Qualified Code(s): N30.01 - Acute cystitis with hematuria Is this a current diagnosis for this admission?: Yes (4) Atrial fibrillation Qualifiers: Atrial fibrillation type: unspecified chronic Qualified Code(s): I48.20 - Chronic atrial fibrillation, unspecified; I48.2 - Chronic atrial fibrillation Is this a current diagnosis for this admission?: Yes (5) Congestive heart failure Qualifiers: Heart failure type: combined systolic and diastolic Heart failure chronicity: acute on chronic Qualified Code(s): I50.43 - Acute on chronic combined systolic (congestive) and diastolic (congestive) heart failure Is this a current diagnosis for this admission?: Yes (6) Diabetic foot ulcers Is this a current diagnosis for this admission?: No (7) Diabetic nephropathy Qualifiers: Diabetes mellitus type: type 2 Qualified Code(s): E11.21 - Type 2 diabetes mellitus with diabetic nephropathy Is this a current diagnosis for this admission?: Yes (8) Hypertension Qualifiers: Hypertension type: essential hypertension Qualified Code(s): I10 - Essential (primary) hypertension Is this a current diagnosis for this admission?: Yes - Time Time Spent with patient: 15-24 minutes Level of Care: IMCU Medications reviewed and adjusted accordingly: Yes Anticipated discharge: SNF Within: Other - Plan Summary Plan Summary: Will waiting for the nephrology for the dialysis as per discussed with the patient understand very well Patient's urine cultures enterococcus which is sensitive to the vancomycin and Zyvox will discuss with the nephrology about that
[2019-05-27] MEDS: CEFTRIAXONE 1 GM/D5W RTU 1 GM/50 ML RTUPB IV SCH (10:06)
[2019-05-27] MEDS: APIXABAN 2.5 MG TABLET PO SCH ×2 (10:12→17:45)
[2019-05-27] MEDS ORDERED: NORMAL SALINE 1000 ML 1,000 ML IV PRN (10:12)
[2019-05-27] MEDS ORDERED: IRON SUCROSE COMPLEX INJ/PF 100 MG/5 ML SDV IV PRN (10:12)
[2019-05-27] MEDS ORDERED: TUBERCULIN,PURIF.PROT.DERIV. 5 TU/0.1 ML TEST 1 ML VIAL ID ONE ×2 (10:12→12:00)
[2019-05-27] MEDS ORDERED: HEPARIN SOD (PORCINE) 1,000 UNIT/ML 10 ML VIAL IV PRN (10:12)
[2019-05-27] MEDS: PANTOPRAZOLE SODIUM 40 MG TABLET.DR PO SCH (10:41)
[2019-05-27] MEDS: CALCITRIOL 0.25 MCG CAPSULE PO SCH (10:41)
[2019-05-27] MEDS: METOPROLOL TARTRATE 50 MG TABLET PO SCH ×2 (10:41→22:08)
[2019-05-27] MEDS: SODIUM BICARBONATE 650 MG TABLET PO SCH ×2 (10:41→22:09)
[2019-05-27] MEDS: ISOSORBIDE MONONITRATE 30 MG TAB.ER.24H PO SCH (10:41)
--- NOTE | 2019-05-27 10:59 | PDOC PROGRESS REPORT ---
Subjective Progress Note for:: 05/27/19 Subjective:: 10:20 AM. Patient is clinically not improving. She still has some shortness of breath. She complains of some cough with some frothy sputum. She also has a little bit of nausea this morning but denies any more diarrhea. She said she is eating good though. Her urine output remains to be minimal with urine output of 475 mL for the past 24 hours. Patient's kidney function is not showing any renal recovery as well. She remains to have mild metabolic acidosis. She has generalized fluid retention including persistent lower extremity edema, subcutaneous edema and ascites. Due to the above I think the patient warrants initiation of renal replacement therapy. I discussed again with the patient the benefits and risk of doing hemodialysis treatment today. The risks include but not limited to infection, bleeding, arrhythmia and cardiac arrest during dialysis treatment. Patient understood and agreed to proceeding. I also called and spoke to her son Mr. Nura Vaughn at [phone] today. Discussed the above and the need for initiation of renal replacement therapy and he indicates that if his mother is agreeable to undergo the procedure that he is also agreeing with it. He will also inform his other brother Pankaj regarding the plan. I called and spoke to Dr. Lopez as well and he is agreeable with the plan. I then went ahead and called Dr. Wilkinson to place a temporary trialysis catheter for dialysis today which he agreed to do. 1:28PM. Patient has successful placement of temporary dialysis catheter by Dr. Wilkinson this noon time. Her daughter came this afternoon so I discussed with her again the plan for dialysis treatment and the future plan for possibly chronic dialysis as an outpatient. She is in agreement with the plan as well. I am seeing the patient during initiation of dialysis this afternoon. Patient is very comfortable. Her vitals are acceptable. She will be monitored throughout dialysis treatment. Reason For Visit: ACUTE ON CHRONIC KIDNEY FAILURE,UTI Physical Exam Vital Signs: Temp Pulse Resp BP Pulse Ox 98.1 F 84 18 121/57 L 100 05/27/19 07:08 05/27/19 07:08 05/27/19 07:08 05/27/19 07:08 05/27/19 07:08 Intake & Output 05/26/19 05/27/19 05/28/19 06:59 06:59 06:59 Intake Total 1705 707 Output Total 555 475 Balance 1150 232 Weight 116.6 kg 118.9 kg Vitals currently at initiation of dialysis: Blood pressure 155/78, heart rate of 89. Exam: General appearance: PRESENT: no acute distress, cooperative, well-developed, well-nourished Head exam: PRESENT: atraumatic, normocephalic, face appears bloated Eye exam: PRESENT: conjunctiva pale, PERRLA. ABSENT: scleral icterus Neck exam: ABSENT: JVD Respiratory exam: PRESENT: Diminished breath sounds. ABSENT: crackles, rales, rhonchi, unlabored, wheezes Cardiovascular exam: PRESENT: Irregularly irregular rate rhythm -+S1, +S2. ABSENT: diastolic murmur, systolic murmur GI/Abdominal exam: PRESENT: normal bowel sounds, soft. Mild subcutaneous edema ABSENT: guarding, mass, tenderness Extremities exam: Persistent grade 2 bilateral lower extremity tight pitting edema Neurological exam: PRESENT: alert, awake, oriented to person, place and time. Skin exam: PRESENT: dry, warm, Results Laboratory Results: 05/27/19 05:12 05/27/19 05:12 05/26/19 05/26/19 05/27/19 05:51 05:51 05:12 WBC RBC Hgb Hct MCV MCH MCHC RDW Plt Count Seg Neutrophils % Retic Count (auto) 1.88 Sodium 138.5 Potassium 4.0 Chloride 107 Carbon Dioxide 18 L Anion Gap 14 BUN 95 H Creatinine 4.59 H Est GFR ( Amer) 11 L Glucose 155 H Calcium 8.1 L Iron 23.3 L TIBC 297 % Saturation 8 Ferritin 51.00 Vitamin B12 > 1000.0 H Folate 14.10 05/27/19 05:12 WBC 6.1 RBC 4.19 Hgb 10.5 L Hct 33.2 L MCV 79 L MCH 25.0 L MCHC 31.5 L RDW 20.9 H Plt Count 224 Seg Neutrophils % 73.6 Retic Count (auto) Sodium Potassium Chloride Carbon Dioxide Anion Gap BUN Creatinine Est GFR ( Amer) Glucose Calcium Iron TIBC % Saturation Ferritin Vitamin B12 Folate 05/25/19 17:50 Contreras Catheter Urine Culture - Final Enterococcus Faecium (Group D) Assessment & Plan - Diagnosis (1) Acute kidney injury superimposed on chronic kidney disease Is this a current diagnosis for this admission?: Yes Plan: Patient is nonoliguric but urine output is not as much as expected. Her kidney function is not showing any renal recovery at all. Patient has been progressively deteriorating for the last couple of months in terms of her kidney function with difficult to control volume status despite diuretics for the last couple of hospitalizations. As a stated above I think the patient needs to be initiated on renal replacement therapy. Benefits and risks explained to the patient and she agreed to proceed. I consulted Dr. Wilkinson, vascular surgery to place a temporary dialysis catheter today. I am arranging for her first dialysis treatment today. We will do dialysis today for 2.0 hours, using the patient's temporary dialysis catheter, with 2 potassium bath, blood flow rate of 250 mL per minute, dialysate flow rate of 500 mL per minute, ultrafiltration 1 to 1.5 L as tolerated, no heparin and no Procrit. Patient desk monitor throughout dialysis treatment. Adjust treatment accordingly. Discussed treatment plan with our fito lysis nurse. (2) Acute cystitis Is this a current diagnosis for this admission?: Yes Plan: Urine culture is showing Enterococcus faecium sensitive to only vancomycin and linezolid and resistant to ceftriaxone. Discontinue ceftriaxone. Will start IV vancomycin post hemodialysis. (3) Anemia in chronic kidney disease (CKD) Is this a current diagnosis for this admission?: Yes Plan: Patient's iron indicis also revealed iron deficiency anemia. (4) Iron deficiency anemia Is this a current diagnosis for this admission?: Yes Plan: Her iron is 23.3, T sat of 8 and ferritin of only 51. Vitamin B12 is greater than thousand. We will start the patient on IV Venofer during dialysis treatment. (5) Acute gastroenteritis Is this a current diagnosis for this admission?: Yes Plan: Resolved. (6) Hyperphosphatemia Is this a current diagnosis for this admission?: Yes Plan: Phosphorus is currently 5.2 and does not need phosphorus binders yet. (7) Chronic kidney disease-mineral and bone disorder Is this a current diagnosis for this admission?: Yes Plan: Intact PTH on May 08 was 466.9. Will start calcitriol 0.25 mcg daily. (8) Congestive heart failure Qualifiers: Heart failure type: combined systolic and diastolic Heart failure chronicity: acute on chronic Qualified Code(s): I50.43 - Acute on chronic combined systolic (congestive) and diastolic (congestive) heart failure Is this a current diagnosis for this admission?: Yes Plan: Biventricular heart failure. Currently clinically compensated. (9) Chronic atrial fibrillation Is this a current diagnosis for this admission?: Yes Plan: With controlled ventricular response. On Eliquis. (10) Chronic kidney disease, stage IV (severe) Is this a current diagnosis for this admission?: Yes Plan: Patient has progressive duration of kidney function for the last couple months. She has baseline diabetic nephropathy with proteinuria and cardiorenal syndrome. Ideally the patient is most likely going to be now at CKD stage V requiring dialysis so virtually end-stage renal disease. We will continue to monitor kidney function but most likely the patient will need chronic outpatient dialysis treatment after this hospitalization. (11) Diabetic nephropathy Qualifiers: Diabetes mellitus type: type 2 Qualified Code(s): E11.21 - Type 2 diabetes mellitus with diabetic nephropathy Is this a current diagnosis for this admission?: Yes (12) Type 2 diabetes mellitus Qualifiers: Diabetes mellitus fci insulin use: with rodent exterminator use Chronic kidney disease stage: stage 4 (severe) Is this a current diagnosis for this admission?: Yes Plan: Currently controlled. (13) Hypertension Qualifiers: Hypertension type: essential hypertension Qualified Code(s): I10 - Essential (primary) hypertension Is this a current diagnosis for this admission?: Yes Plan: Controlled. - Time Time with patient: Greater than 35 minutes
--- NOTE | 2019-05-27 11:58 | Operative Report ---
Operative Report DATE OF SURGERY: 05/27/19 PREOPERATIVE DIAGNOSIS: 1. Renal failure. 2. Diabetes mellitus. 3. Hyperte nsion. POSTOPERATIVE DIAGNOSIS: 1. Renal failure. 2. Diabetes mellitus. 3. Hypertension. OPERATION: Ultrasound evaluation of the right femoral vein. Insertion of temporary hemodialysis catheter via real-time access in the right femoral vein. SURGEON: RONEY RANGEL CARPENTER BRIDGE: None. ANESTHESIA: Local TISSUE REMOVED OR ALTERED: Applicable. COMPLICATIONS: None. ESTIMATED BLOOD LOSS: 5 mL. INTRAOPERATIVE FINDINGS: Although very deeply placed femoral system in this patient with a thick layer of adiposity. Ultrasound was of great value in obtaining safe access. Good apparent position with easy egress of dark, venous looking blood and ingress of heparinized solution through all 3 ports. PROCEDURE: After obtaining informed consent, the patient was positioned supine at bedside. The[ left groin] and adjacent areas were prepared with chlorhexidine and draped out with sterile linen. After the universal timeout the procedure commenced. A steriley sheathed ultrasound probe was used to evaluate the [right femoral vein]. Local anesthesia was infiltrated adjacent to the probe. Access into the right femoral was accomplished using a micropuncture needle followed, by micropuncture wire and then with a micropuncture catheter. This was followed by introduction of a 0.035 guidewire, the skin opening was enlarged slightly, serially larger dilators were now placed followed by introduction of a triaysis catheter. All of these transitions were smooth. Each lumen was aspirated of blood and irrigated with heparinized solution. The catheter was now sutured to the skin using 3-0 nylon. A Bio A patch was now applied, followed by sterile dressings. Caps were placed on the end of the each of the lumens. The procedure concluded. Copies dictated operative report to Dr. Roney Wilkinson MD.
--- NOTE | 2019-05-27 12:36 | RADIOLOGY REPORT (SQ) ---
EXAM DESCRIPTION: NON-TUNNEL CV CATH COMPLETED DATE/TIME: 05/27/2019 12:13 pm REASON FOR STUDY: NEED FOR VASCULAR ACCESS COMPARISON: None. TECHNIQUE: Ultrasound was provided for guidance only. LIMITATIONS: None. FINDINGS: None. IMPRESSION: Ultrasound provided for venous access. 1 image was acquired. TECHNICAL DOCUMENTATION: JOB ID: [id number] [employer]- All Rights Reserved Reading location - IP/workstation name: [email or web address]
[2019-05-27] MEDS: FUROSEMIDE 40 MG TABLET PO SCH (17:45)
[2019-05-27] MEDS: VANCOMYCIN HCL 1,500 MG in DEXTROSE 5%-WATER 250 ML IV SCH ×2 (17:45→18:17)
[2019-05-27] MEDS ORDERED: VANCOMYCIN HCL 1,000 MG in DEXTROSE 5%-WATER 250 ML IV SCH (18:00)
[2019-05-27] MEDS: ATORVASTATIN CALCIUM 40 MG TABLET PO SCH (22:08)
[2019-05-27] MEDS: INSULIN GLARGINE,HUM.REC.ANLOG 1,000 UNIT/10 ML VIAL SUBCUT SCH (22:08)
[2019-05-28] MEDS: MIDODRINE HCL 5 MG TABLET PO SCH ×3 (05:46→21:37)
[2019-05-28 06:36] LABS: HEPATITS B SURFACE ANTIGEN Negative (Negative)
[2019-05-28 06:52] LABS: ANION GAP 11 (5-19); BLOOD UREA NITROGEN 73 mg/dL (7-20); CALCIUM 7.9 mg/dL (8.4-10.2); CARBON DIOXIDE 23 mmol/L (22-30); CHLORIDE 105 mmol/L (98-107); GLUCOSE 150 mg/dL (75-110); POTASSIUM 3.8 mmol/L (3.6-5.0)
[2019-05-28] MEDS: INSULIN LISPRO 100 UNIT/ML 3 ML VIAL SUBCUT SCH ×4 (07:42→21:38)
--- NOTE | 2019-05-28 08:27 | PDOC PROGRESS REPORT ---
Subjective Progress Note for:: 05/28/19 Subjective:: Patient is currently doing fair Hemodialysis done yesterday Denied any chest pain no short of breath No abdominal pain no nausea no vomiting Reason For Visit: ACUTE ON CHRONIC KIDNEY FAILURE,UTI Physical Exam Vital Signs: Temp Pulse Resp BP Pulse Ox 98.3 F 90 20 113/62 100 05/28/19 03:53 05/28/19 07:00 05/28/19 03:53 05/28/19 03:53 05/28/19 03:53 Intake & Output 05/27/19 05/28/19 05/29/19 06:59 06:59 06:59 Intake Total 707 807 Output Total 475 2275 Balance 232 -1468 Weight 118.9 kg 117.5 kg General appearance: PRESENT: no acute distress, well-developed, well-nourished Head exam: PRESENT: atraumatic, normocephalic Eye exam: PRESENT: conjunctiva pink, EOMI, PERRLA. ABSENT: scleral icterus Ear exam: PRESENT: normal external ear exam Mouth exam: PRESENT: moist, tongue midline Neck exam: PRESENT: full ROM. ABSENT: carotid bruit, JVD, lymphadenopathy, thyromegaly Respiratory exam: PRESENT: clear to auscultation conor Cardiovascular exam: PRESENT: RRR. ABSENT: diastolic murmur, rubs, systolic murmur Vascular exam: PRESENT: normal capillary refill GI/Abdominal exam: PRESENT: normal bowel sounds, soft. ABSENT: distended, guarding, mass, organolmegaly, rebound, tenderness Rectal exam: PRESENT: deferred Extremities exam: PRESENT: pedal edema Neurological exam: PRESENT: alert, awake, oriented to person, oriented to place, oriented to time, oriented to situation, CN II-XII grossly intact. ABSENT: motor sensory deficit Psychiatric exam: PRESENT: appropriate affect, normal mood. ABSENT: homicidal ideation, suicidal ideation Skin exam: PRESENT: dry, intact, warm. ABSENT: cyanosis, rash Results Laboratory Results: 05/27/19 05:12 05/28/19 05:45 05/28/19 05/28/19 05:45 05:45 Sodium 138.8 Potassium 3.8 Chloride 105 Carbon Dioxide 23 Anion Gap 11 BUN 73 H Creatinine 3.93 H Est GFR ( Amer) 14 L Glucose 150 H Calcium 7.9 L Magnesium 1.9 05/25/19 17:50 Contreras Catheter Urine Culture - Final Enterococcus Faecium (Group D) Impressions: Interventional Vascular Procedure 05/27/19 00:00 IMPRESSION: Ultrasound provided for venous access. 1 image was acquired. Assessment & Plan - Diagnosis (1) Acute on chronic kidney failure Qualifiers: Acute renal failure type: unspecified Chronic kidney disease stage: stage 4 (severe) Qualified Code(s): N17.9 - Acute kidney failure, unspecified; N18.4 - Chronic kidney disease, stage 4 (severe) Is this a current diagnosis for this admission?: Yes (2) Diarrhea Qualifiers: Diarrhea type: unspecified type Qualified Code(s): R19.7 - Diarrhea, unspecified Is this a current diagnosis for this admission?: Yes (3) UTI (urinary tract infection) Qualifiers: Urinary tract infection type: acute cystitis Hematuria presence: with hematuria Qualified Code(s): N30.01 - Acute cystitis with hematuria Is this a current diagnosis for this admission?: Yes (4) Atrial fibrillation Qualifiers: Atrial fibrillation type: unspecified chronic Qualified Code(s): I48.20 - Chronic atrial fibrillation, unspecified; I48.2 - Chronic atrial fibrillation Is this a current diagnosis for this admission?: Yes (5) Congestive heart failure Qualifiers: Heart failure type: combined systolic and diastolic Heart failure chronicity: acute on chronic Qualified Code(s): I50.43 - Acute on chronic combined systolic (congestive) and diastolic (congestive) heart failure Is this a current diagnosis for this admission?: Yes (6) Diabetic foot ulcers Is this a current diagnosis for this admission?: No (7) Diabetic nephropathy Qualifiers: Diabetes mellitus type: type 2 Qualified Code(s): E11.21 - Type 2 diabetes mellitus with diabetic nephropathy Is this a current diagnosis for this admission?: Yes (8) Hypertension Qualifiers: Hypertension type: essential hypertension Qualified Code(s): I10 - Essenti al (primary) hypertension Is this a current diagnosis for this admission?: Yes - Time Time Spent with patient: 15-24 minutes Level of Care: IMCU Medications reviewed and adjusted accordingly: Yes Anticipated discharge: SNF Within: Other - Plan Summary Plan Summary: Continues to current medications
[2019-05-28 10:18] LABS: HEPATITIS B CORE AB TOT Negative (Negative)
[2019-05-28] MEDS: METOPROLOL TARTRATE 50 MG TABLET PO SCH ×2 (11:06→21:37)
[2019-05-28] MEDS: ISOSORBIDE MONONITRATE 30 MG TAB.ER.24H PO SCH (11:06)
[2019-05-28] MEDS: PANTOPRAZOLE SODIUM 40 MG TABLET.DR PO SCH (11:06)
[2019-05-28] MEDS: APIXABAN 2.5 MG TABLET PO SCH ×2 (11:06→18:14)
[2019-05-28] MEDS: FUROSEMIDE 40 MG TABLET PO SCH ×2 (11:06→18:14)
[2019-05-28] MEDS: CALCITRIOL 0.25 MCG CAPSULE PO SCH (11:06)
[2019-05-28] MEDS: SODIUM BICARBONATE 650 MG TABLET PO SCH ×2 (11:06→21:37)
--- NOTE | 2019-05-28 13:15 | PDOC PROGRESS REPORT ---
Subjective Progress Note for:: 05/28/19 Subjective:: Patient states she is doing fine. She did not verbalize any complaints. Daughter, Yady is at bedside and helping her wash up today. She denies any shortness of breath at this time. She tolerated dialysis yesterday without any problems. I explained to her and the daughter that she is probably going to be benefited with chronic dialysis treatment. We will arrange chronic outpatient dialysis treatment. She will also need a PermCath prior to discharge. Reason For Visit: ACUTE ON CHRONIC KIDNEY FAILURE,UTI Physical Exam Vital Signs: Temp Pulse Resp BP Pulse Ox 97.9 F 93 18 145/83 H 100 05/28/19 10:43 05/28/19 10:43 05/28/19 10:43 05/28/19 10:43 05/28/19 10:43 Intake & Output 05/27/19 05/28/19 05/29/19 06:59 06:59 06:59 Intake Total 707 807 Output Total 475 2275 Balance 232 -1468 Weight 118.9 kg 117.5 kg Exam: General appearance: PRESENT: no acute distress, cooperative, well-developed, well-nourished Head exam: PRESENT: atraumatic, normocephalic Eye exam: PRESENT: conjunctiva pale, PERRLA. ABSENT: scleral icterus Neck exam: ABSENT: JVD Respiratory exam: PRESENT: Diminished breath sounds. ABSENT: crackles, rales, rhonchi, unlabored, wheezes Cardiovascular exam: PRESENT: Regular rate rhythm -+S1, +S2. ABSENT: diastolic murmur, systolic murmur GI/Abdominal exam: PRESENT: normal bowel sounds, soft. ABSENT: guarding, mass, tenderness Extremities exam: Grade 2 bilateral lower extremity pitting edema Neurological exam: PRESENT: alert, awake, oriented to person, place and time. Skin exam: PRESENT: dry, warm, bilateral leg ulcers unchanged. Results Laboratory Results: 05/27/19 05:12 05/28/19 05:45 05/28/19 05/28/19 05:45 05:45 Sodium 138.8 Potassium 3.8 Chloride 105 Carbon Dioxide 23 Anion Gap 11 BUN 73 H Creatinine 3.93 H Est GFR ( Amer) 14 L Glucose 150 H Calcium 7.9 L Magnesium 1.9 05/25/19 17:50 Contreras Catheter Urine Culture - Final Enterococcus Faecium (Group D) Impressions: Interventional Vascular Procedure 05/27/19 00:00 IMPRESSION: Ultrasound provided for venous access. 1 image was acquired. Assessment & Plan - Diagnosis (1) Acute kidney injury superimposed on chronic kidney disease Is this a current diagnosis for this admission?: Yes Plan: Patient is nonoliguric but urine output is not as much as expected. Her kidney function is not showing any renal recovery at all. Patient has been progressively deteriorating for the last couple of months in terms of her kidney function with difficult to control volume status despite diuretics for the last couple of hospitalizations. Patient was initiated on renal replacement therapy which I think she would need chronically moving forward. Next dialysis will be tomorrow. We will arrange for her to have a PermCath placed by Dr. Wilkinson. operations planner also arranging chronic outpatient dialysis treatment with [facility]. (2) Acute cystitis Is this a current diagnosis for this admission?: Yes Plan: Urine culture is showing Enterococcus faecium sensitive to only vancomycin and linezolid and resistant to ceftriaxone. Discontinued ceftriaxone. Continue IV vancomycin post hemodialysis started 05/27/2019. (3) Anemia in chronic kidney disease (CKD) Is this a current diagnosis for this admission?: Yes Plan: Patient's iron indicis also revealed iron deficiency anemia. We will give IV Venofer during dialysis treatment. (4) Iron deficiency anemia Is this a current diagnosis for this admission?: Yes Plan: Her iron is 23.3, T sat of 8 and ferritin of only 51. Vitamin B12 is greater than thousand. We will continue to give IV Venofer during dialysis treatment. (5) Acute gastroenteritis Is this a current diagnosis for this admission?: Yes Plan: Resolved. (6) Hyperphosphatemia Is this a current diagnosis for this admission?: Yes Plan: Phosphorus is currently 5.2 and does not need phosphorus binders yet. (7) Chronic kidney disease-mineral and bone disorder Is this a current diagnosis for this admission?: Yes Plan: Intact PTH on May 08 was 466.9. On calcitriol 0.25 mcg daily. (8) Congestive heart failure Qualifiers: Heart failure type: combined systolic and diastolic Heart failure chronicity: acute on chronic Qualified Code(s): I50.43 - Acute on chronic combined systolic (congestive) and diastolic (congestive) heart failure Is this a current diagnosis for this admission?: Yes Plan: Biventricular heart failure. Currently clinically compensated. (9) Chronic atrial fibrillation Is this a current diagnosis for this admission?: Yes Plan: With controlled ventricular response. On Eliquis. (10) Chronic kidney disease, stage IV (severe) Is this a current diagnosis for this admission?: Yes Plan: Patient has progressive duration of kidney function for the last couple months. She has baseline diabetic nephropathy with proteinuria and cardiorenal syndrome. Patient is most likely going to be now at CKD stage V requiring dialysis so virtually end-stage renal disease. We will continue to monitor kidney function but most likely the patient will need chronic outpatient dialysis treatment after this hospitalization. (11) Diabetic nephropathy Qualifiers: Diabetes mellitus type: type 2 Qualified Code(s): E11.21 - Type 2 diabetes mellitus with diabetic nephropathy Is this a current diagnosis for this admission?: Yes (12) Type 2 diabetes mellitus Qualifiers: Diabetes mellitus residential insulin use: with signal tester use Chronic kidney disease stage: stage 4 (severe) Is this a current diagnosis for this admission?: Yes Plan: Currently controlled. (13) Hypertension Qualifiers: Hypertension type: essential hypertension Qualified Code(s): I10 - Essential (primary) hypertension Is this a current diagnosis for this admission?: Yes Plan: Controlled. - Time Time with patient: 15-25 minutes
[2019-05-28] MEDS: ATORVASTATIN CALCIUM 40 MG TABLET PO SCH (21:37)
[2019-05-28] MEDS: INSULIN GLARGINE,HUM.REC.ANLOG 1,000 UNIT/10 ML VIAL SUBCUT SCH (21:39)
[2019-05-29 00:36] LABS: HEPATITIS C QUANTITATION HCV Not Detected IU/mL (.)
[2019-05-29] MEDS ORDERED: HEPARIN SOD (PORCINE) 1,000 UNIT/ML 10 ML VIAL IV PRN (05:00)
[2019-05-29] MEDS ORDERED: NORMAL SALINE 1000 ML 1,000 ML IV PRN (05:00)
[2019-05-29] MEDS ORDERED: IRON SUCROSE COMPLEX INJ/PF 100 MG/5 ML SDV IV PRN (05:00)
[2019-05-29] MEDS: MIDODRINE HCL 5 MG TABLET PO SCH ×3 (05:31→21:46)
[2019-05-29 05:45] LABS: ABSOLUTE LYMPHOCYTES (AUTO) 0.5 10^3/uL (0.5-4.7); ABSOLUTE MONOCYTES (AUTO) 1.1 10^3/uL (0.1-1.4); ABSOLUTE NEUT (AUTO) 4.4 10^3/uL (1.7-8.2); BASOPHILS % (AUTO) 0.5 % (0-2); EOSINOPHILS % (AUTO) 0.1 % (0-6); HEMATOCRIT 31.4 % (36.0-47.0); HEMOGLOBIN 10.3 g/dL (12.0-15.5); LYMPHOCYTES % (AUTO) 8.8 % (13-45); MEAN CORPUSCULAR HEMOGLOBIN 25.4 pg (27.0-33.4); MEAN CORPUSCULAR HGB CONC 32.9 g/dL (32.0-36.0); MEAN CORPUSCULAR VOLUME 77 fl (80-97); MONOCYTES % (AUTO) 17.7 % (3-13); PLATELET COUNT 216 10^3/uL (150-450); RED BLOOD COUNT 4.07 10^6/uL (3.72-5.28); RED CELL DISTRIBUTION WIDTH 21.1 % (11.5-14.0); SEGMENTED NEUTROPHILS % (AUTO) 72.9 % (42-78); TOTAL CELLS COUNTED % (AUTO) 100 %; WHITE BLOOD COUNT 6.1 10^3/uL (4.0-10.5)
[2019-05-29 06:10] LABS: ANION GAP 12 (5-19); BLOOD UREA NITROGEN 82 mg/dL (7-20); CALCIUM 8.3 mg/dL (8.4-10.2); CARBON DIOXIDE 21 mmol/L (22-30); CHLORIDE 105 mmol/L (98-107); GLUCOSE 149 mg/dL (75-110); PHOSPHORUS 4.3 mg/dL (2.5-4.5); POTASSIUM 4.1 mmol/L (3.6-5.0)
[2019-05-29] MEDS: INSULIN LISPRO 100 UNIT/ML 3 ML VIAL SUBCUT SCH ×4 (07:35→21:50)
--- NOTE | 2019-05-29 09:49 | PDOC PROGRESS REPORT ---
Subjective Progress Note for:: 05/29/19 Subjective:: I am seeing the patient is morning during dialysis treatment. She is lying down comfortably and receiving dialysis without any problems no complaints. She denies any shortness of breath. For the past 24 hours she only made 350 mL of urine. She is otherwise hemodynamically stable currently. Reason For Visit: ACUTE ON CHRONIC KIDNEY FAILURE,UTI Physical Exam Vital Signs: Temp Pulse Resp BP Pulse Ox 98.1 F 110 H 16 138/73 H 100 05/29/19 03:08 05/29/19 07:00 05/29/19 03:08 05/29/19 03:08 05/29/19 03:08 Intake & Output 05/28/19 05/29/19 05/30/19 06:59 06:59 06:59 Intake Total 807 1154 Output Total 2275 350 Balance -1468 804 Weight 117.5 kg 118.3 kg Vitals during dialysis: Blood pressure 158/86, heart rate of 100, blood flow rate of 250 mL/min and dialysate flow rate of 500 mL/min. Exam: General appearance: PRESENT: no acute distress, cooperative, well-developed, well-nourished Head exam: PRESENT: atraumatic, normocephalic Eye exam: PRESENT: conjunctiva slightly pale, PERRLA. ABSENT: scleral icterus Neck exam: ABSENT: JVD Respiratory exam: PRESENT: Diminished breath sounds. ABSENT: crackles, rales, rhonchi, unlabored, wheezes Cardiovascular exam: PRESENT: Irregularly irregular rate rhythm -+S1, +S2. ABSENT: diastolic murmur, systolic murmur GI/Abdominal exam: PRESENT: normal bowel sounds, soft. ABSENT: guarding, mass, tenderness Extremities exam: Grade 1 bilateral lower extremity pitting edema Neurological exam: PRESENT: alert, awake, oriented to person, place and time. Skin exam: PRESENT: dry, warm, Results Laboratory Results: 05/29/19 05:16 05/29/19 05:16 05/29/19 05/29/19 05:16 05:16 WBC 6.1 RBC 4.07 Hgb 10.3 L Hct 31.4 L MCV 77 L MCH 25.4 L MCHC 32.9 RDW 21.1 H Plt Count 216 Seg Neutrophils % 72.9 Sodium 138.1 Potassium 4.1 Chloride 105 Carbon Dioxide 21 L Anion Gap 12 BUN 82 H Creatinine 4.23 H Est GFR ( Amer) 12 L Glucose 149 H Calcium 8.3 L Phosphorus 4.3 Magnesium 1.9 Impressions: Interventional Vascular Procedure 05/27/19 00:00 IMPRESSION: Ultrasound provided for venous access. 1 image was acquired. Assessment & Plan - Diagnosis (1) End stage renal disease on dialysis Is this a current diagnosis for this admission?: Yes Plan: Patient has diabetic nephropathy with proteinuria and cardiorenal syndrome. Patient's urine output remains to be diminished and inadequate despite diuretics. Patient's kidney function has continuously deteriorated for the last couple of months requiring hospitalizations and difficult volume control. Patient has not shown any renal recovery and I believe the patient has now reached end-stage renal disease that would require chronic dialysis treatment. We will do dialysis today for 2.5 hours, using the patient's dialysis catheter, with 2 potassium bath, blood flow rate of 250 mL per minute, dialysate flow rate of 500 mL per minute, ultrafiltration 2.5 to 3 L as tolerated, no heparin and no Procrit. Patient will be monitored throughout dialysis treatment and adjust therapy as needed. I spoke to Dr. Wilkinson yesterday for her to be scheduled for a PermCath placement sometime early next week hopefully. materials planner/production planner also arranging chronic outpatient dialysis treatment at [facility]. (2) Acute kidney injury superimposed on chronic kidney disease Is this a current diagnosis for this admission?: Yes Plan: Her kidney function is not showing any renal recovery at all. Patient has been progressively deteriorating for the last couple of months in terms of her kidney function with difficult to control volume status despite diuretics for the last couple of hospitalizations. Patient was initiated on renal replacement therapy which I think she would need chronically moving forward. (3) Acute cystitis Is this a current diagnosis for this admission?: Yes Plan: Urine culture is showing Enterococcus faecium sensitive to only vancomycin and linezolid and resistant to ceftriaxone. Discontinued ceftriaxone. Continue IV vancomycin post hemodialysis started 05/27/2019. (4) Anemia in chronic kidney disease (CKD) Is this a current diagnosis for this admission?: Yes Plan: Patient's iron indicis also revealed iron deficiency anemia. We will give IV Venofer during dialysis treatment. (5) Iron deficiency anemia Is this a current diagnosis for this admission?: Yes Plan: Her iron is 23.3, T sat of 8 and ferritin of only 51. Vitamin B12 is greater than thousand. We will continue to give IV Venofer during dialysis treatment. (6) Acute gastroenteritis Is this a current diagnosis for this admission?: Yes Plan: Resolved. (7) Hyperphosphatemia Is this a current diagnosis for this admission?: Yes Plan: Phosphorus is currently improved to 4.3 from 5.2 and does not need phosphorus binders yet. (8) Chronic kidney disease-mineral and bone disorder Is this a current diagnosis for this admission?: Yes Plan: Intact PTH on May 08 was 466.9. On calcitriol 0.25 mcg daily. (9) Congestive heart failure Qualifiers: Heart failure type: combined systolic and diastolic Heart failure chronicity: acute on chronic Qualified Code(s): I50.43 - Acute on chronic combined systolic (congestive) and diastolic (congestive) heart failure Is this a current diagnosis for this admission?: Yes Plan: Biventricular heart failure. Currently clinically compensated. (10) Chronic atrial fibrillation Is this a current diagnosis for this admission?: Yes Plan: With controlled ventricular response. On Eliquis. (11) Diabetic nephropathy Qualifiers: Diabetes mellitus type: type 2 Qualified Code(s): E11.21 - Type 2 diabetes mellitus with diabetic nephropathy Is this a current diagnosis for this admission?: Yes (12) Type 2 diabetes mellitus Qualifiers: Diabetes mellitus intermediate card tender insulin use: with assisted use Chronic kidney disease stage: stage 4 (severe) Is this a current diagnosis for this admission?: Yes Plan: Currently controlled. (13) Hypertension Qualifiers: Hypertension type: essential hypertension Qualified Code(s): I10 - Essential (primary) hypertension Is this a current diagnosis for this admission?: Yes Plan: Controlled. - Time Time with patient: 15-25 minutes
--- NOTE | 2019-05-29 09:51 | PDOC PROGRESS REPORT ---
Subjective Progress Note for:: 05/29/19 Subjective:: Patient is currently doing well currently on a hemodialysis today denied any complaints Reason For Visit: ACUTE ON CHRONIC KIDNEY FAILURE,UTI Physical Exam Vital Signs: Temp Pulse Resp BP Pulse Ox 98.1 F 110 H 16 138/73 H 100 05/29/19 03:08 05/29/19 07:00 05/29/19 03:08 05/29/19 03:08 05/29/19 03:08 Intake & Output 05/28/19 05/29/19 05/30/19 06:59 06:59 06:59 Intake Total 807 1154 Output Total 2275 350 Balance -1468 804 Weight 117.5 kg 118.3 kg General appearance: PRESENT: no acute distress, well-developed, well-nourished Head exam: PRESENT: atraumatic, normocephalic Eye exam: PRESENT: conjunctiva pink, EOMI, PERRLA. ABSENT: scleral icterus Ear exam: PRESENT: normal external ear exam Mouth exam: PRESENT: moist, tongue midline Neck exam: PRESENT: full ROM. ABSENT: carotid bruit, JVD, lymphadenopathy, thyromegaly Respiratory exam: PRESENT: clear to auscultation conor Cardiovascular exam: PRESENT: RRR. ABSENT: diastolic murmur, rubs, systolic murmur Pulses: PRESENT: normal dorsalis pedis pul, +2 pedal pulses bilateral Vascular exam: PRESENT: normal capillary refill GI/Abdominal exam: PRESENT: normal bowel sounds, soft. ABSENT: distended, guarding, mass, organolmegaly, rebound, tenderness Rectal exam: PRESENT: deferred Neurological exam: PRESENT: alert, awake, oriented to person, oriented to place, oriented to time, oriented to situation, CN II-XII grossly intact. ABSENT: motor sensory deficit Psychiatric exam: PRESENT: appropriate affect, normal mood. ABSENT: homicidal ideation, suicidal ideation Skin exam: PRESENT: dry, intact, warm. ABSENT: cyanosis, rash Results Laboratory Results: 05/29/19 05:16 05/29/19 05:16 05/29/19 05/29/19 05:16 05:16 WBC 6.1 RBC 4.07 Hgb 10.3 L Hct 31.4 L MCV 77 L MCH 25.4 L MCHC 32.9 RDW 21.1 H Plt Count 216 Seg Neutrophils % 72.9 Sodium 138.1 Potassium 4.1 Chloride 105 Carbon Dioxide 21 L Anion Gap 12 BUN 82 H Creatinine 4.23 H Est GFR ( Amer) 12 L Glucose 149 H Calcium 8.3 L Phosphorus 4.3 Magnesium 1.9 Impressions: Interventional Vascular Procedure 05/27/19 00:00 IMPRESSION: Ultrasound provided for venous access. 1 image was acquired. Assessment & Plan - Diagnosis (1) Acute on chronic kidney failure Qualifiers: Acute renal failure type: unspecified Chronic kidney disease stage: stage 4 (severe) Qualified Code(s): N17.9 - Acute kidney failure, unspecified; N18.4 - Chronic kidney disease, stage 4 (severe) Is this a current diagnosis for this admission?: Yes (2) Diarrhea Qualifiers: Diarrhea type: unspecified type Qualified Code(s): R19.7 - Diarrhea, unspecified Is this a current diagnosis for this admission?: Yes (3) UTI (urinary tract infection) Qualifiers: Urinary tract infection type: acute cystitis Hematuria presence: with hematuria Qualified Code(s): N30.01 - Acute cystitis with hematuria Is this a current diagnosis for this admission?: Yes (4) Atrial fibrillation Qualifiers: Atrial fibrillation type: unspecified chronic Qualified Code(s): I48.20 - Chronic atrial fibrillation, unspecified; I48.2 - Chronic atrial fibrillation Is this a current diagnosis for this admission?: Yes (5) Congestive heart failure Qualifiers: Heart failure type: combined systolic and diastolic Heart failure chronicity: acute on chronic Qualified Code(s): I50.43 - Acute on chronic combined systolic (congestive) and diastolic (congestive) heart failure Is this a current diagnosis for this admission?: Yes (6) Diabetic foot ulcers Is this a current diagnosis for this admission?: No (7) Diabetic nephropathy Qualifiers: Diabetes mellitus type: type 2 Qualified Code(s): E11.21 - Type 2 diabetes mellitus with diabetic nephropathy Is this a current diagnosis for this admission?: Yes (8) Hypertension Qualifiers: Hypertension type: essential hypertension Qualified Code(s): I10 - Essential (primary) hypertension Is this a current diagnosis for this admission?: Yes - Time Time Spent with patient: 15-24 minutes Level of Care: TELE Medications reviewed and adjusted accordingly: Yes Anticipated discharge: SNF, Other Within: Other - Plan Summary Plan Summary: Continues on hemodialysis patient scheduled for the cath placements for dialysis next week continue staying the weekend
[2019-05-29] MEDS: IRON SUCROSE COMPLEX INJ/PF 100 MG/5 ML SDV IV PRN (10:06)
[2019-05-29] MEDS: ISOSORBIDE MONONITRATE 30 MG TAB.ER.24H PO SCH (11:07)
[2019-05-29] MEDS: FUROSEMIDE 40 MG TABLET PO SCH ×2 (11:07→18:16)
[2019-05-29] MEDS: PANTOPRAZOLE SODIUM 40 MG TABLET.DR PO SCH (11:07)
[2019-05-29] MEDS: METOPROLOL TARTRATE 50 MG TABLET PO SCH ×2 (11:07→21:46)
[2019-05-29] MEDS: SODIUM BICARBONATE 650 MG TABLET PO SCH ×2 (11:07→21:44)
[2019-05-29] MEDS: CALCITRIOL 0.25 MCG CAPSULE PO SCH (11:08)
[2019-05-29] MEDS: APIXABAN 2.5 MG TABLET PO SCH ×2 (11:08→18:16)
[2019-05-29] MEDS ORDERED: VANCOMYCIN HCL 750 MG in DEXTROSE 5%-WATER 250 ML IV SCH (18:00)
[2019-05-29] MEDS: ATORVASTATIN CALCIUM 40 MG TABLET PO SCH (21:46)
[2019-05-29] MEDS: INSULIN GLARGINE,HUM.REC.ANLOG 1,000 UNIT/10 ML VIAL SUBCUT SCH (21:46)
[2019-05-30] MEDS: MIDODRINE HCL 5 MG TABLET PO SCH ×3 (06:39→23:05)
[2019-05-30] MEDS: INSULIN LISPRO 100 UNIT/ML 3 ML VIAL SUBCUT SCH ×4 (08:55→23:07)
[2019-05-30] MEDS: SODIUM BICARBONATE 650 MG TABLET PO SCH ×2 (11:11→23:06)
[2019-05-30] MEDS: PANTOPRAZOLE SODIUM 40 MG TABLET.DR PO SCH (11:11)
[2019-05-30] MEDS: APIXABAN 2.5 MG TABLET PO SCH ×2 (11:11→18:21)
[2019-05-30] MEDS: METOPROLOL TARTRATE 50 MG TABLET PO SCH ×2 (11:11→23:05)
[2019-05-30] MEDS: FUROSEMIDE 40 MG TABLET PO SCH ×2 (11:11→18:21)
[2019-05-30] MEDS: ISOSORBIDE MONONITRATE 30 MG TAB.ER.24H PO SCH (11:11)
[2019-05-30] MEDS: CALCITRIOL 0.25 MCG CAPSULE PO SCH (11:11)
--- NOTE | 2019-05-30 17:43 | PDOC PROGRESS REPORT ---
Subjective Progress Note for:: 05/30/19 Subjective:: Patient seen by the bedside, she presently on hemodialysis initiated on this admission Reason For Visit: ACUTE ON CHRONIC KIDNEY FAILURE,UTI Physical Exam Vital Signs: Temp Pulse Resp BP Pulse Ox 97.9 F 105 H 16 125/62 100 05/30/19 11:16 05/30/19 14:00 05/30/19 11:16 05/30/19 11:16 05/30/19 11:16 Intake & Output 05/29/19 05/30/19 05/31/19 06:59 06:59 06:59 Intake Total 1154 650 220 Output Total 350 2520 50 Balance 804 -1870 170 Weight 118.3 kg 117.2 kg General appearance: PRESENT: no acute distress Eye exam: PRESENT: PERRLA Respiratory exam: PRESENT: clear to auscultation conor Cardiovascular exam: PRESENT: +S1, +S2 GI/Abdominal exam: PRESENT: soft Results Laboratory Results: 05/29/19 05:16 05/29/19 05:16 Impressions: Interventional Vascular Procedure 05/27/19 00:00 IMPRESSION: Ultrasound provided for venous access. 1 image was acquired. Assessment & Plan - Diagnosis (1) Acute kidney injury superimposed on chronic kidney disease Is this a current diagnosis for this admission?: Yes Plan: Continue present treatment (2) Acute gastroenteritis Is this a current diagnosis for this admission?: Yes - Time Time Spent with patient: 25-34 minutes
[2019-05-30] MEDS: ACETAMINOPHEN 325 MG TABLET PO PRN ×2 (18:21→23:07)
[2019-05-30] MEDS: ATORVASTATIN CALCIUM 40 MG TABLET PO SCH (23:06)
[2019-05-30] MEDS: INSULIN GLARGINE,HUM.REC.ANLOG 1,000 UNIT/10 ML VIAL SUBCUT SCH (23:07)
[2019-05-31] MEDS: MIDODRINE HCL 5 MG TABLET PO SCH ×3 (06:00→23:00)
[2019-05-31] MEDS: INSULIN LISPRO 100 UNIT/ML 3 ML VIAL SUBCUT SCH ×4 (08:36→23:02)
[2019-05-31] MEDS: SODIUM BICARBONATE 650 MG TABLET PO SCH ×2 (09:50→23:00)
[2019-05-31] MEDS: APIXABAN 2.5 MG TABLET PO SCH ×2 (09:51→18:25)
[2019-05-31] MEDS: FUROSEMIDE 40 MG TABLET PO SCH ×2 (09:51→18:24)
[2019-05-31] MEDS: ISOSORBIDE MONONITRATE 30 MG TAB.ER.24H PO SCH (09:51)
[2019-05-31] MEDS: CALCITRIOL 0.25 MCG CAPSULE PO SCH (09:51)
[2019-05-31] MEDS: METOPROLOL TARTRATE 50 MG TABLET PO SCH ×2 (09:51→23:00)
[2019-05-31] MEDS: PANTOPRAZOLE SODIUM 40 MG TABLET.DR PO SCH (09:51)
--- NOTE | 2019-05-31 16:00 | PDOC PROGRESS REPORT ---
Subjective Progress Note for:: 05/31/19 Subjective:: There is no new complaints Reason For Visit: ACUTE ON CHRONIC KIDNEY FAILURE,UTI Physical Exam Vital Signs: Temp Pulse Resp BP Pulse Ox 97.2 F 94 16 120/92 H 99 05/31/19 12:36 05/31/19 13:57 05/31/19 12:36 05/31/19 12:36 05/31/19 12:36 Intake & Output 05/30/19 05/31/19 06/01/19 06:59 06:59 06:59 Intake Total 650 220 Output Total 2520 100 Balance -1870 120 Weight 117.2 kg 116 kg General appearance: PRESENT: no acute distress Eye exam: PRESENT: PERRLA Respiratory exam: PRESENT: clear to auscultation conor Cardiovascular exam: PRESENT: +S1, +S2 GI/Abdominal exam: PRESENT: soft Results Laboratory Results: 05/29/19 05:16 05/29/19 05:16 Impressions: Interventional Vascular Procedure 05/27/19 00:00 IMPRESSION: Ultrasound provided for venous access. 1 image was acquired. Assessment & Plan - Diagnosis (1) Acute kidney injury superimposed on chronic kidney disease Is this a current diagnosis for this admission?: Yes Plan: Continue present treatment (2) Acute gastroenteritis Is this a current diagnosis for this admission?: Yes - Time Time Spent with patient: 15-24 minutes
[2019-05-31] MEDS: INSULIN GLARGINE,HUM.REC.ANLOG 1,000 UNIT/10 ML VIAL SUBCUT SCH (23:00)
[2019-05-31] MEDS: ATORVASTATIN CALCIUM 40 MG TABLET PO SCH (23:00)
[2019-06-01] MEDS ORDERED: NORMAL SALINE 1000 ML 1,000 ML IV PRN (05:00)
[2019-06-01] MEDS ORDERED: IRON SUCROSE COMPLEX INJ/PF 100 MG/5 ML SDV IV PRN (05:00)
[2019-06-01] MEDS ORDERED: HEPARIN SOD (PORCINE) 1,000 UNIT/ML 10 ML VIAL IV PRN (05:00)
[2019-06-01] MEDS: MIDODRINE HCL 5 MG TABLET PO SCH ×2 (05:52→17:52)
[2019-06-01 06:24] LABS: ABSOLUTE LYMPHOCYTES (AUTO) 0.9 10^3/uL (0.5-4.7); ABSOLUTE MONOCYTES (AUTO) 0.9 10^3/uL (0.1-1.4); ABSOLUTE NEUT (AUTO) 5.8 10^3/uL (1.7-8.2); BASOPHILS % (AUTO) 0.4 % (0-2); EOSINOPHILS % (AUTO) 0.1 % (0-6); HEMATOCRIT 32.9 % (36.0-47.0); HEMOGLOBIN 10.5 g/dL (12.0-15.5); MEAN CORPUSCULAR HEMOGLOBIN 25.3 pg (27.0-33.4); MEAN CORPUSCULAR HGB CONC 31.8 g/dL (32.0-36.0); MEAN CORPUSCULAR VOLUME 79 fl (80-97); MONOCYTES % (AUTO) 12.1 % (3-13); PLATELET COUNT 214 10^3/uL (150-450); RED BLOOD COUNT 4.15 10^6/uL (3.72-5.28); RED CELL DISTRIBUTION WIDTH 21.2 % (11.5-14.0); SEGMENTED NEUTROPHILS % (AUTO) 75.4 % (42-78); TOTAL CELLS COUNTED % (AUTO) 100 %; WHITE BLOOD COUNT 7.7 10^3/uL (4.0-10.5)
[2019-06-01 06:45] LABS: ANION GAP 12 (5-19); BLOOD UREA NITROGEN 69 mg/dL (7-20); CALCIUM 8.8 mg/dL (8.4-10.2); CARBON DIOXIDE 25 mmol/L (22-30); CHLORIDE 103 mmol/L (98-107); GLUCOSE 204 mg/dL (75-110); POTASSIUM 4.3 mmol/L (3.6-5.0)
[2019-06-01 06:48] LABS: VANCOMYCIN,TROUGH 12.5 ug/mL (5.0-20.0)
[2019-06-01] MEDS: IRON SUCROSE COMPLEX INJ/PF 100 MG/5 ML SDV IV PRN (08:13)
[2019-06-01] MEDS: INSULIN LISPRO 100 UNIT/ML 3 ML VIAL SUBCUT SCH ×2 (08:26→14:19)
--- NOTE | 2019-06-01 09:43 | PDOC PROGRESS REPORT ---
Subjective Progress Note for:: 06/01/19 Subjective:: Patient is currently doing well Patient is scheduled for dialysis today No chest pain no short of breath No fever Reason For Visit: ACUTE ON CHRONIC KIDNEY FAILURE,UTI Physical Exam Vital Signs: Temp Pulse Resp BP Pulse Ox 98.0 F 108 H 17 139/98 H 100 05/31/19 23:54 06/01/19 07:00 06/01/19 03:25 06/01/19 03:25 06/01/19 03:25 Intake & Output 05/31/19 06/01/19 06/02/19 06:59 06:59 06:59 Intake Total 220 460 Output Total 100 25 Balance 120 435 Weight 116 kg 116.5 kg General appearance: PRESENT: no acute distress, well-developed, well-nourished Head exam: PRESENT: atraumatic, normocephalic Eye exam: PRESENT: conjunctiva pink, EOMI, PERRLA. ABSENT: scleral icterus Ear exam: PRESENT: normal external ear exam Mouth exam: PRESENT: moist, tongue midline Neck exam: PRESENT: full ROM. ABSENT: carotid bruit, JVD, lymphadenopathy, thyromegaly Respiratory exam: PRESENT: clear to auscultation conor Cardiovascular exam: PRESENT: RRR. ABSENT: diastolic murmur, rubs, systolic murmur Pulses: PRESENT: normal dorsalis pedis pul, +2 pedal pulses bilateral Vascular exam: PRESENT: normal capillary refill GI/Abdominal exam: PRESENT: normal bowel sounds, soft. ABSENT: distended, guarding, mass, organolmegaly, rebound, tenderness Rectal exam: PRESENT: deferred Musculoskeletal exam: PRESENT: ambulatory Neurological exam: PRESENT: alert, awake, oriented to person, oriented to place, oriented to time, oriented to situation, CN II-XII grossly intact. ABSENT: motor sensory deficit Psychiatric exam: PRESENT: appropriate affect, normal mood. ABSENT: homicidal ideation, suicidal ideation Skin exam: PRESENT: dry, intact, warm. ABSENT: cyanosis, rash Results Laboratory Results: 06/01/19 05:54 06/01/19 05:54 06/01/19 06/01/19 05:54 05:54 WBC 7.7 RBC 4.15 Hgb 10.5 L Hct 32.9 L MCV 79 L MCH 25.3 L MCHC 31.8 L RDW 21.2 H Plt Count 214 Seg Neutrophils % 75.4 Sodium 139.8 Potassium 4.3 Chloride 103 Carbon Dioxide 25 Anion Gap 12 BUN 69 H Creatinine 5.08 H Est GFR ( Amer) 10 L Glucose 204 H Calcium 8.8 Impressions: Interventional Vascular Procedure 05/27/19 00:00 IMPRESSION: Ultrasound provided for venous access. 1 image was acquired. Assessment & Plan - Diagnosis (1) Acute on chronic kidney failure Qualifiers: Acute renal failure type: unspecified Chronic kidney disease stage: stage 4 (severe) Qualified Code(s): N17.9 - Acute kidney failure, unspecified; N18.4 - Chronic kidney disease, stage 4 (severe) Is this a current diagnosis for this admission?: Yes Plan: Currently on hemodialysis (2) Diarrhea Qualifiers: Diarrhea type: unspecified type Qualified Code(s): R19.7 - Diarrhea, unspecified Is this a current diagnosis for this admission?: Yes Plan: Clinically resolved (3) UTI (urinary tract infection) Qualifiers: Urinary tract infection type: acute cystitis Hematuria presence: with hematuria Qualified Code(s): N30.01 - Acute cystitis with hematuria Is this a current diagnosis for this admission?: Yes Plan: Currently on vancomycin's through the dialysis (4) Atrial fibrillation Qualifiers: Atrial fibrillation type: unspecified chronic Qualified Code(s): I48.20 - Chronic atrial fibrillation, unspecified; I48.2 - Chronic atrial fibrillation Is this a current diagnosis for this admission?: Yes Plan: Currently on Eliquis (5) Congestive heart failure Qualifiers: Heart failure type: combined systolic and diastolic Heart failure chronicity: acute on chronic Qualified Code(s): I50.43 - Acute on chronic combined systolic (congestive) and diastolic (congestive) heart failure Is this a current diagnosis for this admission?: Yes Plan: Currently on hemodialysis (6) Diabetic foot ulcers Is this a current diagnosis for this admission?: No (7) Diabetic nephropathy Qualifiers: Diabetes mellitus type: type 2 Qualified Code(s): E11.21 - Type 2 diabetes mellitus with diabetic nephropathy Is this a current diagnosis for this admission?: Yes (8) Hypertension Qualifiers: Hypertension type: essential hypertension Qualified Code(s): I10 - Essential (primary) hypertension Is this a current diagnosis for this admission?: Yes Plan: Currently all stable - Time Time Spent with patient: 15-24 minutes Level of Care: IMCU Medications reviewed and adjusted accordingly: Yes Anticipated discharge: SNF Within: Other - Plan Summary Plan Summary: Continues to current medications
--- NOTE | 2019-06-01 13:34 | PDOC PROGRESS REPORT ---
Subjective Progress Note for:: 06/01/19 Reason For Visit: Patient currently being seen while undergoing dialysis. New patient just begun on dialysis through a temporary femoral trial assist catheter and awaiting PermCath placement soon. She is undergoing dialysis without any issues. Vital signs are stable. She denies any specific complaints of abdominal pains or chest pains. Labs and medications were reviewed. Dialysis orders were reviewed with the treating dialysis nurse. Physical Exam Vital Signs: Temp Pulse Resp BP Pulse Ox 98.0 F 108 H 17 139/98 H 100 05/31/19 23:54 06/01/19 07:00 06/01/19 03:25 06/01/19 03:25 06/01/19 03:25 Intake & Output 05/31/19 06/01/19 06/02/19 06:59 06:59 06:59 Intake Total 220 460 Output Total 433 83 6201 Balance 120 435 -2500 Weight 116 kg 116.5 kg General appearance: PRESENT: no acute distress Respiratory exam: PRESENT: clear to auscultation conor. ABSENT: crackles Cardiovascular exam: PRESENT: +S1, +S2 GI/Abdominal exam: PRESENT: normal bowel sounds, soft. ABSENT: organomegaly, tenderness Extremities exam: PRESENT: pedal edema Neurological exam: PRESENT: alert, awake, oriented to person, oriented to place Psychiatric exam: PRESENT: appropriate affect Results Laboratory Results: 06/01/19 05:54 06/01/19 05:54 06/01/19 06/01/19 05:54 05:54 WBC 7.7 RBC 4.15 Hgb 10.5 L Hct 32.9 L MCV 79 L MCH 25.3 L MCHC 31.8 L RDW 21.2 H Plt Count 214 Seg Neutrophils % 75.4 Sodium 139.8 Potassium 4.3 Chloride 103 Carbon Dioxide 25 Anion Gap 12 BUN 69 H Creatinine 5.08 H Est GFR ( Amer) 10 L Glucose 204 H Calcium 8.8 Impressions: Interventional Vascular Procedure 05/27/19 00:00 IMPRESSION: Ultrasound provided for venous access. 1 image was acquired. Assessment & Plan - Diagnosis (1) Acute on chronic kidney failure Qualifiers: Acute renal failure type: unspecified Chronic kidney disease stage: stage 4 (severe) Qualified Code(s): N17.9 - Acute kidney failure, unspecified; N18.4 - Chronic kidney disease, stage 4 (severe) Is this a current diagnosis for this admission?: Yes Plan: Patient has not shown any signs of recovery from acute on chronic CKD stage IV now oliguric and has been deemed ESRD and currently undergoing dialysis. Has a temporary femoral catheter. Awaiting IJ catheter being placed prior to discharging. (2) End stage renal disease on dialysis Is this a current diagnosis for this admission?: Yes Plan: Patient was seen undergoing dialysis. She is comfortable and in no distress. Vital signs are stable. Dialysis being supervised to ensure safe and smooth procedure. Plan to remove approximately 2 L as tolerated. Dialysis orders were reviewed with the treating dialysis nurse. (3) UTI (urinary tract infection) Qualifiers: Urinary tract infection type: acute cystitis Hematuria presence: with hematuria Qualified Code(s): N30.01 - Acute cystitis with hematuria Is this a current diagnosis for this admission?: Yes Plan: Enterococcus UTI on antibiotics. (4) Congestive heart failure Qualifiers: Heart failure type: combined systolic and diastolic Heart failure chronicity: acute on chronic Qualified Code(s): I50.43 - Acute on chronic combined systolic (congestive) and diastolic (congestive) heart failure Is this a current diagnosis for this admission?: Yes Plan: Presently resolved and stable. (5) Hypertension Qualifiers: Hypertension type: essential hypertension Qualified Code(s): I10 - Essential (primary) hypertension Is this a current diagnosis for this admission?: Yes Plan: Controlled. 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
[2019-06-01] MEDS: APIXABAN 2.5 MG TABLET PO SCH ×2 (14:03→17:51)
[2019-06-01] MEDS: ISOSORBIDE MONONITRATE 30 MG TAB.ER.24H PO SCH (14:04)
[2019-06-01] MEDS: FUROSEMIDE 40 MG TABLET PO SCH ×2 (14:05→17:51)
[2019-06-01] MEDS: METOPROLOL TARTRATE 50 MG TABLET PO SCH (14:05)
[2019-06-01] MEDS: CALCITRIOL 0.25 MCG CAPSULE PO SCH (14:06)
[2019-06-01] MEDS: PANTOPRAZOLE SODIUM 40 MG TABLET.DR PO SCH (14:06)
[2019-06-01] MEDS: SODIUM BICARBONATE 650 MG TABLET PO SCH (14:09)
[2019-06-01] MEDS: VANCOMYCIN HCL 1,000 MG in DEXTROSE 5%-WATER 250 ML IV SCH (17:52)
[2019-06-02] MEDS: MIDODRINE HCL 5 MG TABLET PO SCH ×4 (00:49→22:14)
[2019-06-02] MEDS: ATORVASTATIN CALCIUM 40 MG TABLET PO SCH ×2 (00:49→22:14)
[2019-06-02] MEDS: METOPROLOL TARTRATE 50 MG TABLET PO SCH ×3 (00:49→22:14)
[2019-06-02] MEDS: INSULIN GLARGINE,HUM.REC.ANLOG 1,000 UNIT/10 ML VIAL SUBCUT SCH ×2 (00:49→22:09)
[2019-06-02] MEDS: SODIUM BICARBONATE 650 MG TABLET PO SCH ×2 (00:49→09:06)
[2019-06-02] MEDS: INSULIN LISPRO 100 UNIT/ML 3 ML VIAL SUBCUT SCH ×6 (00:50→22:09)
--- NOTE | 2019-06-02 05:50 | PDOC PROGRESS REPORT ---
Subjective Progress Note for:: 06/01/19 Subjective:: Patient seen resting in bed. Has been initiated on hemodialysis via temporary hemodialysis catheter. Continues to make urine Reason For Visit: ACUTE ON CHRONIC KIDNEY FAILURE,UTI Physical Exam Vital Signs: Temp Pulse Resp BP Pulse Ox 97.9 F 93 19 103/57 L 100 06/02/19 04:49 06/02/19 04:49 06/02/19 04:49 06/02/19 04:49 06/02/19 04:49 Intake & Output 05/31/19 06/01/19 06/02/19 06:59 06:59 06:59 Intake Total 220 460 470 Output Total 477 04 2900 Balance 120 435 -2090 Weight 116 kg 116.5 kg General appearance: PRESENT: no acute distress Head exam: PRESENT: atraumatic, normocephalic Mouth exam: PRESENT: moist Rectal exam: PRESENT: deferred Musculoskeletal exam: PRESENT: normal inspection Skin exam: PRESENT: dry, intact Results Laboratory Results: 06/01/19 05:54 06/01/19 05:54 06/01/19 06/01/19 05:54 05:54 WBC 7.7 RBC 4.15 Hgb 10.5 L Hct 32.9 L MCV 79 L MCH 25.3 L MCHC 31.8 L RDW 21.2 H Plt Count 214 Seg Neutrophils % 75.4 Sodium 139.8 Potassium 4.3 Chloride 103 Carbon Dioxide 25 Anion Gap 12 BUN 69 H Creatinine 5.08 H Est GFR ( Amer) 10 L Glucose 204 H Calcium 8.8 Impressions: Interventional Vascular Procedure 05/27/19 00:00 IMPRESSION: Ultrasound provided for venous access. 1 image was acquired. 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 Left ventricular dysfunction with ejection fraction estimated at approximately 40% Volume overload situation which is improved since initiation of renal replacement therapy. Continue guideline directed medical therapy for congestive heart failure and LV dysfunction (2) Atrial fibrillation Qualifiers: Atrial fibrillation type: unspecified chronic Qualified Code(s): I48.20 - Chronic atrial fibrillation, unspecified; I48.2 - Chronic atrial fibrillation Is this a current diagnosis for this admission?: Yes Plan: Asymptomatic. Rate controlled Continue systemic anticoagulation (3) Chronic kidney disease, stage IV (severe) Is this a current diagnosis for this admission?: Yes Plan: Initiated on renal replacement therapy Appreciate nephrology input Heart failure symptoms of improved
[2019-06-02] MEDS: ISOSORBIDE MONONITRATE 30 MG TAB.ER.24H PO SCH (09:06)
[2019-06-02] MEDS: PANTOPRAZOLE SODIUM 40 MG TABLET.DR PO SCH (09:06)
[2019-06-02] MEDS: FUROSEMIDE 40 MG TABLET PO SCH ×2 (09:06→17:21)
[2019-06-02] MEDS: APIXABAN 2.5 MG TABLET PO SCH ×2 (09:06→17:04)
[2019-06-02] MEDS: CALCITRIOL 0.25 MCG CAPSULE PO SCH (09:06)
--- NOTE | 2019-06-02 10:04 | PDOC PROGRESS REPORT ---
Subjective Progress Note for:: 06/02/19 Subjective:: Patient is currently doing well Patient's denied any chest pain no short of breath Patient supposed to get the cath placement for the dialysis today Reason For Visit: ACUTE ON CHRONIC KIDNEY FAILURE,UTI Physical Exam Vital Signs: Temp Pulse Resp BP Pulse Ox 97.9 F 89 19 103/57 L 100 06/02/19 04:49 06/02/19 06:42 06/02/19 04:49 06/02/19 04:49 06/02/19 04:49 Intake & Output 06/01/19 06/02/19 06/03/19 06:59 06:59 06:59 Intake Total 460 470 Output Total 25 2580 Balance 435 -2110 Weight 116.5 kg 115.2 kg General appearance: PRESENT: no acute distress, well-developed, well-nourished Head exam: PRESENT: atraumatic, normocephalic Eye exam: PRESENT: conjunctiva pink, EOMI, PERRLA. ABSENT: scleral icterus Ear exam: PRESENT: normal external ear exam Mouth exam: PRESENT: moist, tongue midline Neck exam: PRESENT: full ROM. ABSENT: carotid bruit, JVD, lymphadenopathy, thyromegaly Respiratory exam: PRESENT: clear to auscultation conor Cardiovascular exam: PRESENT: RRR. ABSENT: diastolic murmur, rubs, systolic murmur Pulses: PRESENT: normal dorsalis pedis pul, +2 pedal pulses bilateral Vascular exam: PRESENT: normal capillary refill GI/Abdominal exam: PRESENT: normal bowel sounds, soft. ABSENT: distended, guarding, mass, organolmegaly, rebound, tenderness Rectal exam: PRESENT: deferred Extremities exam: PRESENT: pedal edema Neurological exam: PRESENT: alert, awake, oriented to person, oriented to place, oriented to time, oriented to situation, CN II-XII grossly intact. ABSENT: motor sensory deficit Psychiatric exam: PRESENT: appropriate affect, normal mood. ABSENT: homicidal ideation, suicidal ideation Skin exam: PRESENT: dry, intact, warm. ABSENT: cyanosis, rash Results Laboratory Results: 06/01/19 05:54 06/01/19 05:54 Impressions: Interventional Vascular Procedure 05/27/19 00:00 IMPRESSION: Ultrasound provided for venous access. 1 image was acquired. Assessment & Plan - Diagnosis (1) Acute on chronic kidney failure Qualifiers: Acute renal failure type: unspecified Chronic kidney disease stage: stage 4 (severe) Qualified Code(s): N17.9 - Acute kidney failure, unspecified; N18.4 - Chronic kidney disease, stage 4 (severe) Is this a current diagnosis for this admission?: Yes (2) Diarrhea Qualifiers: Diarrhea type: unspecified type Qualified Code(s): R19.7 - Diarrhea, unspecified Is this a current diagnosis for this admission?: Yes (3) UTI (urinary tract infection) Qualifiers: Urinary tract infection type: acute cystitis Hematuria presence: with hematuria Qualified Code(s): N30.01 - Acute cystitis with hematuria Is this a current diagnosis for this admission?: Yes (4) Atrial fibrillation Qualifiers: Atrial fibrillation type: unspecified chronic Qualified Code(s): I48.20 - Chronic atrial fibrillation, unspecified; I48.2 - Chronic atrial fibrillation Is this a current diagnosis for this admission?: Yes (5) Congestive heart failure Qualifiers: Heart failure type: combined systolic and diastolic Heart failure chronicity: acute on chronic Qualified Code(s): I50.43 - Acute on chronic combined systolic (congestive) and diastolic (congestive) heart failure Is this a current diagnosis for this admission?: Yes (6) Diabetic foot ulcers Is this a current diagnosis for this admission?: No (7) Diabetic nephropathy Qualifiers: Diabetes mellitus type: type 2 Qualified Code(s): E11.21 - Type 2 diabetes mellitus with diabetic nephropathy Is this a current diagnosis for this admission?: Yes (8) Hypertension Qualifiers: Hypertension type: essential hypertension Qualified Code(s): I10 - Es sential (primary) hypertension Is this a current diagnosis for this admission?: Yes - Time Time Spent with patient: 15-24 minutes Level of Care: IMCU Medications reviewed and adjusted accordingly: Yes Anticipated discharge: SNF Within: Other - Plan Summary Plan Summary: Continues to current medications
[2019-06-02] MEDS ORDERED: VANCOMYCIN HCL 500 MG in DEXTROSE 5%-WATER 100 ML IV PRN (10:38)
[2019-06-03] MEDS: MIDODRINE HCL 5 MG TABLET PO SCH ×3 (05:50→22:54)
[2019-06-03 06:19] LABS: HEMATOCRIT 32.7 % (36.0-47.0); HEMOGLOBIN 10.4 g/dL (12.0-15.5); MEAN CORPUSCULAR HEMOGLOBIN 25.5 pg (27.0-33.4); MEAN CORPUSCULAR HGB CONC 31.8 g/dL (32.0-36.0); MEAN CORPUSCULAR VOLUME 80 fl (80-97); PLATELET COUNT 188 10^3/uL (150-450); RED BLOOD COUNT 4.08 10^6/uL (3.72-5.28); RED CELL DISTRIBUTION WIDTH 20.7 % (11.5-14.0); WHITE BLOOD COUNT 7.6 10^3/uL (4.0-10.5)
[2019-06-03 06:46] LABS: ANION GAP 13 (5-19); BLOOD UREA NITROGEN 57 mg/dL (7-20); CALCIUM 8.8 mg/dL (8.4-10.2); CARBON DIOXIDE 25 mmol/L (22-30); CHLORIDE 102 mmol/L (98-107); GLUCOSE 198 mg/dL (75-110)
[2019-06-03 06:48] LABS: VANCOMYCIN,TROUGH 17.4 ug/mL (5.0-20.0)
[2019-06-03] MEDS: INSULIN LISPRO 100 UNIT/ML 3 ML VIAL SUBCUT SCH ×4 (08:10→23:00)
[2019-06-03] MEDS ORDERED: MIDODRINE HCL 5 MG TABLET PO ONE (09:00)
[2019-06-03] MEDS: IRON SUCROSE COMPLEX INJ/PF 100 MG/5 ML SDV IV PRN (09:01)
[2019-06-03] MEDS: ISOSORBIDE MONONITRATE 30 MG TAB.ER.24H PO SCH (09:30)
[2019-06-03] MEDS: FUROSEMIDE 40 MG TABLET PO SCH ×2 (09:30→17:05)
[2019-06-03] MEDS: METOPROLOL TARTRATE 50 MG TABLET PO SCH ×2 (09:30→22:57)
[2019-06-03] MEDS: PANTOPRAZOLE SODIUM 40 MG TABLET.DR PO SCH (09:30)
[2019-06-03] MEDS: APIXABAN 2.5 MG TABLET PO SCH ×2 (09:30→17:05)
[2019-06-03] MEDS: CALCITRIOL 0.25 MCG CAPSULE PO SCH (09:31)
[2019-06-03] MEDS ORDERED: HEPARIN SOD (PORCINE) 1,000 UNIT/ML 10 ML VIAL IV PRN (10:21)
[2019-06-03] MEDS ORDERED: LIDOCAINE 0.5% INJ-PF (5 MG/ML) 50 ML SDV ONE ×3 (10:51→11:50)
[2019-06-03] MEDS ORDERED: BACITRACIN INJ 50,000 UNIT VIAL ONE (10:51)
[2019-06-03] MEDS ORDERED: FENTANYL CITRATE INJ/PF 100 MCG/2 ML AMPUL ONE (10:52)
[2019-06-03] MEDS ORDERED: MIDAZOLAM 2 MG/2 ML INJ ONE (10:52)
--- NOTE | 2019-06-03 11:17 | PDOC PROGRESS REPORT ---
Subjective Progress Note for:: 06/03/19 Reason For Visit: Patient seen today on dialysis. She is undergoing dialysis without any issues. Has a temporary femoral dialysis catheter. Vital signs are stable. She denies any history of chest pain or shortness of breath. Labs and medications were reviewed. She is awaiting a PermCath placement later today. Physical Exam Vital Signs: Temp Pulse Resp BP Pulse Ox 98.0 F 96 18 138/87 H 100 06/03/19 07:00 06/03/19 07:00 06/03/19 07:00 06/03/19 07:00 06/03/19 07:00 Intake & Output 06/02/19 06/03/19 06/04/19 06:59 06:59 06:59 Intake Total 470 236 Output Total 2580 85 Balance -2110 151 Weight 115.2 kg 115.9 kg General appearance: PRESENT: no acute distress Respiratory exam: PRESENT: clear to auscultation conor, decreased breath sounds. ABSENT: crackles Cardiovascular exam: PRESENT: +S1, +S2 GI/Abdominal exam: PRESENT: normal bowel sounds, soft. ABSENT: organomegaly, tenderness Extremities exam: PRESENT: pedal edema Neurological exam: PRESENT: alert, awake, oriented to person, oriented to place Psychiatric exam: PRESENT: appropriate affect Results Laboratory Results: 06/03/19 05:50 06/03/19 05:50 06/03/19 06/03/19 05:50 05:50 WBC 7.6 RBC 4.08 Hgb 10.4 L Hct 32.7 L MCV 80 MCH 25.5 L MCHC 31.8 L RDW 20.7 H Plt Count 188 Sodium 140.3 Potassium 4.0 Chloride 102 Carbon Dioxide 25 Anion Gap 13 BUN 57 H Creatinine 4.63 H Est GFR ( Amer) 11 L Glucose 198 H Calcium 8.8 Impressions: Interventional Vascular Procedure 05/27/19 00:00 IMPRESSION: Ultrasound provided for venous access. 1 image was acquired. Assessment & Plan - Diagnosis (1) Acute on chronic kidney failure Qualifiers: Acute renal failure type: unspecified Chronic kidney disease stage: stage 4 (severe) Qualified Code(s): N17.9 - Acute kidney failure, unspecified; N18.4 - Chronic kidney disease, stage 4 (severe) Is this a current diagnosis for this admission?: Yes Plan: Patient has not shown any signs of recovery from acute on chronic CKD stage IV now oliguric and has been deemed ESRD and currently undergoing dialysis. Has a temporary femoral catheter. Awaiting IJ catheter being placed later today prior to discharging. (2) End stage renal disease on dialysis Is this a current diagnosis for this admission?: Yes Plan: Patient was seen undergoing dialysis. She is comfortable and in no distress. Vital signs are stable. Dialysis being supervised to ensure safe and smooth procedure. Plan to remove approximately 2 L as tolerated. Dialysis orders were reviewed with the treating dialysis nurse. (3) UTI (urinary tract infection) Qualifiers: Urinary tract infection type: acute cystitis Hematuria presence: with hematuria Qualified Code(s): N30.01 - Acute cystitis with hematuria Is this a current diagnosis for this admission?: Yes Plan: Enterococcus UTI on antibiotics. (4) Congestive heart failure Qualifiers: Heart failure type: combined systolic and diastolic Heart failure chronicity: acute on chronic Qualified Code(s): I50.43 - Acute on chronic combined systolic (congestive) and diastolic (congestive) heart failure Is this a current diagnosis for this admission?: Yes Plan: Presently resolved and stable. (5) Hypertension Qualifiers: Hypertension type: essential hypertension Qualified Code(s): I10 - Essential (primary) hypertension Is this a current diagnosis for this admission?: Yes Plan: Controlled. (6) Type 2 diabetes mellitus Qualifiers: Diabetes mellitus alf insulin use: with alf use Chronic kidney disease stage: stage 4 (severe) Is this a current diagnosis for this admission?: Yes Plan: As per primary care.
--- NOTE | 2019-06-03 12:16 | Operative Report ---
Operative Report DATE OF SURGERY: 06/03/19 PREOPERATIVE DIAGNOSIS: 1. End-stage renal disease requiring hemodialysis. 2. Multiple comorbidities. POSTOPERATIVE DIAGNOSIS: 1. End-stage renal disease requiring hemodialysis. 2. Multiple comorbidities. OPERATION: 1. Ultrasound evaluation of the right internal jugular vein. 2. Insertion of PermCath. Access of the right internal jugular vein. 3. Angiogram and interpretation. SURGEON: RONEY RANGEL FLOTATION TENDER HELPER: None. ANESTHESIA: Moderate Sedation TISSUE REMOVED OR ALTERED: Not applicable. COMPLICATIONS: None. ESTIMATED BLOOD LOSS: 2 mL. INTRAOPERATIVE FINDINGS: Of a satisfactory although somewhat deeply placed right internal jugular vein. Safe access obtained with a micropuncture needle under real-time ultrasound guidance. Satisfactory position of permacatheter with the tip in the right atrial pool. Easy egress of blood and ingress of heparinized solution through both lumens. Smooth flow of contrast through the right atrium, ventricle and pulmonary outflow tract. Post procedure x-ray showed satisfactory hardware position, no untoward findings. PROCEDURE: After obtaining informed consent, the patient was taken to the [Finisher Map And Chart] and positioned supine. The [right neck] and chest were prepared with chlorhexidine and draped out with sterile linen. After the " universal timeout", in which it was verified that the patient continued to receive antibiotic, the procedure commenced. A steriley sheathed ultrasound probe was used to evaluate the [right internal jugular] vein. Local anesthesia was infiltrated adjacent to the probe. Access into the [right internal jugular] vein was obtained using a micropuncture needle, followed by micropuncture wire and then a micropuncture catheter. This was followed by introduction of a 0.035 guidewire the tip of which was placed down into the inferior vena cava . A 23 cm long [split catheter] was now positioned over the chest and an exit site marked and locally anesthetized ,the catheter was placed between the 2 incisions. Proximally, the catheter was now positioned using a peel-away sheath, after dilation. Easy ingress of heparinized solution and egress of blood obtained through both ports. A completion angiogram was done by injecting contrast. The findings were as dictated. The neck incision was now closed using interrupted 3-0 PDS to the subcutaneous tissues, the catheter was anchored at the exit site using 3-0 PDS. A Biopatch device was now placed adjacent to the catheter. Dressings were applied and the procedure concluded. Exposure time: [0.4 minutes]. Exposure: 7.9 mGy. Contrast amount: [5 mL] of [id number] low osmolality. Copies of the dictated operative report for Dr. Roney Wilkinson MD.concluded. Copies of the dictated operative report for Dr. Roney Wilkinson MD.
--- NOTE | 2019-06-03 12:30 | RADIOLOGY REPORT (SQ) ---
EXAM DESCRIPTION: TUNNELED CENTRAL LINE COMPLETED DATE/TIME: 06/03/2019 12:08 pm REASON FOR STUDY: NEED FOR VASCULAR ACCESS, ACUTE CHRONIC KIDNEY FAILURE COMPARISON: None. FLUOROSCOPY TIME: 0.4 minute 2 images saved to PACS. TECHNIQUE: Intra-operative images acquired during surgical procedure to evaluate progress. NUMBER OF IMAGES: 2 LIMITATIONS: None. FINDINGS: Limited fluoroscopic images demonstrate evidence of right internal jugular central venous catheter placement. Please see operative report for detailed description IMPRESSION: IMAGE(S) OBTAINED DURING PROCEDURE. COMMENT: Quality ID [id number]: Final reports for procedures using fluoroscopy that document radiation exp osure indices, or exposure time and number of fluorographic images (if radiation exposure indices are not available) Please consult full operative report of the attending physician for description of the procedure. TECHNICAL DOCUMENTATION: JOB ID: [id number] [employer]- All Rights Reserved Reading location - IP/workstation name: [email or web address]
--- NOTE | 2019-06-03 12:54 | PDOC PROGRESS REPORT ---
Subjective Progress Note for:: 06/03/19 Subjective:: Patient is currently doing well Is scheduled for the dialysis catheter placement today No chest pain no short of breath Reason For Visit: ACUTE ON CHRONIC KIDNEY FAILURE,UTI Physical Exam Vital Signs: Temp Pulse Resp BP Pulse Ox 97.2 F 126 H 18 134/58 H 93 06/03/19 12:38 06/03/19 12:38 06/03/19 07:00 06/03/19 12:38 06/03/19 12:38 Intake & Output 06/02/19 06/03/19 06/04/19 06:59 06:59 06:59 Intake Total 470 236 Output Total 2580 85 Balance -2110 151 Weight 115.2 kg 115.9 kg General appearance: PRESENT: no acute distress, well-developed, well-nourished Head exam: PRESENT: atraumatic, normocephalic Eye exam: PRESENT: conjunctiva pink, EOMI, PERRLA. ABSENT: scleral icterus Ear exam: PRESENT: normal external ear exam Mouth exam: PRESENT: moist, tongue midline Neck exam: PRESENT: full ROM. ABSENT: carotid bruit, JVD, lymphadenopathy, thyromegaly Respiratory exam: PRESENT: clear to auscultation conor Cardiovascular exam: PRESENT: RRR. ABSENT: diastolic murmur, rubs, systolic murmur Pulses: PRESENT: normal dorsalis pedis pul, +2 pedal pulses bilateral Vascular exam: PRESENT: normal capillary refill GI/Abdominal exam: PRESENT: normal bowel sounds, soft. ABSENT: distended, guarding, mass, organolmegaly, rebound, tenderness Rectal exam: PRESENT: deferred Neurological exam: PRESENT: alert, awake, oriented to person, oriented to place, oriented to time, oriented to situation, CN II-XII grossly intact. ABSENT: motor sensory deficit Psychiatric exam: PRESENT: appropriate affect, normal mood. ABSENT: homicidal ideation, suicidal ideation Skin exam: PRESENT: dry, intact, warm. ABSENT: cyanosis, rash Results Laboratory Results: 06/03/19 05:50 06/03/19 05:50 06/03/19 06/03/19 05:50 05:50 WBC 7.6 RBC 4.08 Hgb 10.4 L Hct 32.7 L MCV 80 MCH 25.5 L MCHC 31.8 L RDW 20.7 H Plt Count 188 Sodium 140.3 Potassium 4.0 Chloride 102 Carbon Dioxide 25 Anion Gap 13 BUN 57 H Creatinine 4.63 H Est GFR ( Amer) 11 L Glucose 198 H Calcium 8.8 Impressions: Interventional Vascular Procedure 05/27/19 00:00 IMPRESSION: Ultrasound provided for venous access. 1 image was acquired. Central Venous Line 06/03/19 00:00 IMPRESSION: IMAGE(S) OBTAINED DURING PROCEDURE. Assessment & Plan - Diagnosis (1) Acute on chronic kidney failure Qualifiers: Acute renal failure type: unspecified Chronic kidney disease stage: stage 4 (severe) Qualified Code(s): N17.9 - Acute kidney failure, unspecified; N18.4 - Chronic kidney disease, stage 4 (severe) Is this a current diagnosis for this admission?: Yes (2) Diarrhea Qualifiers: Diarrhea type: unspecified type Qualified Code(s): R19.7 - Diarrhea, unspecified Is this a current diagnosis for this admission?: Yes (3) UTI (urinary tract infection) Qualifiers: Urinary tract infection type: acute cystitis Hematuria presence: with hematuria Qualified Code(s): N30.01 - Acute cystitis with hematuria Is this a current diagnosis for this admission?: Yes (4) Atrial fibrillation Qualifiers: Atrial fibrillation type: unspecified chronic Qualified Code(s): I48.20 - Chronic atrial fibrillation, unspecified; I48.2 - Chronic atrial fibrillation Is this a current diagnosis for this admission?: Yes (5) Congestive heart failure Qualifiers: Heart failure type: combined systolic and diastolic Heart failure chronicity: acute on chronic Qualified Code(s): I50.43 - Acute on chronic combined systolic (congestive) and diastolic (congestive) heart failure Is this a current diagnosis for this admission?: Yes (6) Diabetic foot ulcers Is this a current diagnosis for this admission?: No (7) Diabetic nephropathy Qualifiers: Diabetes mellitus type: type 2 Qualified Code(s): E11.21 - Type 2 diabetes mellitus with diabetic nephropathy Is this a current diagnosis for this admission?: Yes (8) Hypertension Qualifiers: Hypertension type: essential hypertension Qualified Code(s): I10 - Essential (primary) hypertension Is this a current diagnosis for this admission?: Yes - Time Time Spent with patient: 15-24 minutes Level of Care: IMCU Medications reviewed and adjusted accordingly: Yes Anticipated discharge: SNF Within: Other - Plan Summary Plan Summary: Continues to current medications
[2019-06-03] MEDS: VANCOMYCIN HCL 1,000 MG in DEXTROSE 5%-WATER 250 ML IV SCH (17:06)
[2019-06-03] MEDS: ATORVASTATIN CALCIUM 40 MG TABLET PO SCH (22:57)
[2019-06-03] MEDS: INSULIN GLARGINE,HUM.REC.ANLOG 1,000 UNIT/10 ML VIAL SUBCUT SCH (22:59)
[2019-06-04] MEDS: MIDODRINE HCL 5 MG TABLET PO SCH ×3 (06:04→23:28)
[2019-06-04] MEDS: INSULIN LISPRO 100 UNIT/ML 3 ML VIAL SUBCUT SCH ×4 (08:28→23:24)
--- NOTE | 2019-06-04 09:14 | PDOC PROGRESS REPORT ---
Subjective Progress Note for:: 06/04/19 Subjective:: Patient underwent for the dialysis catheter placement yesterday. Doing well no other events happens Reason For Visit: ACUTE ON CHRONIC KIDNEY FAILURE,UTI Physical Exam Vital Signs: Temp Pulse Resp BP Pulse Ox 98.2 F 90 18 119/56 L 92 06/04/19 07:16 06/04/19 07:16 06/04/19 07:16 06/04/19 07:16 06/04/19 07:16 Intake & Output 06/03/19 06/04/19 06/05/19 06:59 06:59 06:59 Intake Total 236 240 Output Total 85 2830 Balance 151 -2590 Weight 115.9 kg 113.3 kg General appearance: PRESENT: no acute distress, well-developed, well-nourished Head exam: PRESENT: atraumatic, normocephalic Eye exam: PRESENT: conjunctiva pink, EOMI, PERRLA. ABSENT: scleral icterus Ear exam: PRESENT: normal external ear exam Mouth exam: PRESENT: moist, tongue midline Neck exam: PRESENT: full ROM. ABSENT: carotid bruit, JVD, lymphadenopathy, thyromegaly Respiratory exam: PRESENT: clear to auscultation conor Cardiovascular exam: PRESENT: RRR. ABSENT: diastolic murmur, rubs, systolic murmur Pulses: PRESENT: normal dorsalis pedis pul, +2 pedal pulses bilateral Vascular exam: PRESENT: normal capillary refill GI/Abdominal exam: PRESENT: normal bowel sounds, soft. ABSENT: distended, guarding, mass, organolmegaly, rebound, tenderness Rectal exam: PRESENT: deferred Extremities exam: PRESENT: pedal edema Musculoskeletal exam: PRESENT: ambulatory Neurological exam: PRESENT: alert, awake, oriented to person, oriented to place, oriented to time, oriented to situation, CN II-XII grossly intact. ABSENT: motor sensory deficit Psychiatric exam: PRESENT: appropriate affect, normal mood. ABSENT: homicidal ideation, suicidal ideation Skin exam: PRESENT: dry, intact, warm. ABSENT: cyanosis, rash Results Laboratory Results: 06/03/19 05:50 06/03/19 05:50 Impressions: Interventional Vascular Procedure 05/27/19 00:00 IMPRESSION: Ultrasound provided for venous access. 1 image was acquired. Central Venous Line 06/03/19 00:00 IMPRESSION: IMAGE(S) OBTAINED DURING PROCEDURE. Assessment & Plan - Diagnosis (1) Acute on chronic kidney failure Qualifiers: Acute renal failure type: unspecified Chronic kidney disease stage: stage 4 (severe) Qualified Code(s): N17.9 - Acute kidney failure, unspecified; N18.4 - Chronic kidney disease, stage 4 (severe) Is this a current diagnosis for this admission?: Yes (2) Diarrhea Qualifiers: Diarrhea type: unspecified type Qualified Code(s): R19.7 - Diarrhea, unspecified Is this a current diagnosis for this admission?: Yes (3) UTI (urinary tract infection) Qualifiers: Urinary tract infection type: acute cystitis Hematuria presence: with hematuria Qualified Code(s): N30.01 - Acute cystitis with hematuria Is this a current diagnosis for this admission?: Yes (4) Atrial fibrillation Qualifiers: Atrial fibrillation type: unspecified chronic Qualified Code(s): I48.20 - Chronic atrial fibrillation, unspecified; I48.2 - Chronic atrial fibrillation Is this a current diagnosis for this admission?: Yes (5) Congestive heart failure Qualifiers: Heart failure type: combined systolic and diastolic Heart failure chronicity: acute on chronic Qualified Code(s): I50.43 - Acute on chronic combined systolic (congestive) and diastolic (congestive) heart failure Is this a current diagnosis for this admission?: Yes (6) Diabetic foot ulcers Is this a current diagnosis for this admission?: No (7) Diabetic nephropathy Qualifiers: Diabetes mellitus type: type 2 Qualified Code(s): E11.21 - Type 2 diabetes mellitus with diabetic nephropathy Is this a current diagnosis for this admission?: Yes (8) Hypertension Qualifiers: Hypertension type: essential hypertension Qualified Code(s): I10 - Essential (primary) hypertension Is this a current diagnosis for this admission?: Yes - Time Time Spent with patient: 15-24 minutes Level of Care: IMCU Medications reviewed and adjusted accordingly: Yes Anticipated discharge: SNF Within: Other - Plan Summary Plan Summary: Continues to current medications
[2019-06-04] MEDS: ISOSORBIDE MONONITRATE 30 MG TAB.ER.24H PO SCH (09:19)
[2019-06-04] MEDS: PANTOPRAZOLE SODIUM 40 MG TABLET.DR PO SCH (09:19)
[2019-06-04] MEDS: METOPROLOL TARTRATE 50 MG TABLET PO SCH ×2 (09:19→23:29)
[2019-06-04] MEDS: FUROSEMIDE 40 MG TABLET PO SCH ×2 (09:19→17:06)
[2019-06-04] MEDS: CALCITRIOL 0.25 MCG CAPSULE PO SCH (09:19)
[2019-06-04] MEDS: APIXABAN 2.5 MG TABLET PO SCH ×2 (09:19→17:06)
[2019-06-04] MEDS: ATORVASTATIN CALCIUM 40 MG TABLET PO SCH (23:29)
[2019-06-04] MEDS: INSULIN GLARGINE,HUM.REC.ANLOG 1,000 UNIT/10 ML VIAL SUBCUT SCH (23:29)
[2019-06-05] MEDS: MIDODRINE HCL 5 MG TABLET PO SCH ×3 (06:01→22:51)
[2019-06-05] MEDS ORDERED: HEPARIN SOD (PORCINE) 1,000 UNIT/ML 10 ML VIAL IV PRN (07:34)
[2019-06-05] MEDS: INSULIN LISPRO 100 UNIT/ML 3 ML VIAL SUBCUT SCH ×4 (07:57→22:52)
[2019-06-05 08:21] LABS: ANION GAP 11 (5-19); BLOOD UREA NITROGEN 49 mg/dL (7-20); CALCIUM 8.6 mg/dL (8.4-10.2); CARBON DIOXIDE 28 mmol/L (22-30); CHLORIDE 101 mmol/L (98-107); GLUCOSE 110 mg/dL (75-110)
[2019-06-05 08:22] LABS: HEMATOCRIT 33.1 % (36.0-47.0); HEMOGLOBIN 10.6 g/dL (12.0-15.5); MEAN CORPUSCULAR HGB CONC 31.9 g/dL (32.0-36.0); MEAN CORPUSCULAR VOLUME 82 fl (80-97); PLATELET COUNT 170 10^3/uL (150-450); RED BLOOD COUNT 4.07 10^6/uL (3.72-5.28); WHITE BLOOD COUNT 6.4 10^3/uL (4.0-10.5)
[2019-06-05 08:44] LABS: ABSOLUTE LYMPHOCYTES# (MANUAL) 0.7 10^3/uL (0.5-4.7); ABSOLUTE MONOCYTES # (MANUAL) 0.3 10^3/uL (0.1-1.4); BASOPHILS % (MANUAL) 0 % (0-2); EOSINOPHILS % (MANUAL) 0 % (0-6); LYMPHOCYTES % (MANUAL) 11 % (13-45); MONOCYTES % (MANUAL) 4 % (3-13); NUCLEATED RED BLOOD CELLS 3 /100 WBC (0); SEGMENTED NEUTROPHILS % (MAN) 85 % (42-78); TOTAL CELLS COUNTED 100
[2019-06-05 08:46] LABS: ANISOCYTOSIS 3+; BURR CELLS 1+; OVALOCYTES 1+; POIKILOCYTOSIS 2+; POLYCHROMASIA SLIGHT; SCHISTOCYTES SLIGHT; TARGET CELLS 1+
[2019-06-05 08:47] LABS: PLATELET COMMENT ADEQUATE
--- NOTE | 2019-06-05 09:50 | PDOC PROGRESS REPORT ---
Subjective Progress Note for:: 06/05/19 Subjective:: Patient is currently doing better Denied any chest pain no short of breath Scheduled for dialysis today Reason For Visit: ACUTE ON CHRONIC KIDNEY FAILURE,UTI Physical Exam Vital Signs: Temp Pulse Resp BP Pulse Ox 97.8 F 94 16 130/86 H 100 06/05/19 07:44 06/05/19 07:44 06/05/19 07:44 06/05/19 07:44 06/05/19 07:44 Intake & Output 06/04/19 06/05/19 06/06/19 06:59 06:59 06:59 Intake Total 240 580 Output Total 2830 105 Balance -2590 475 Weight 113.3 kg 113 kg General appearance: PRESENT: no acute distress, well-developed, well-nourished Head exam: PRESENT: atraumatic, normocephalic Eye exam: PRESENT: conjunctiva pink, EOMI, PERRLA. ABSENT: scleral icterus Ear exam: PRESENT: normal external ear exam Mouth exam: PRESENT: moist, tongue midline Neck exam: PRESENT: full ROM. ABSENT: carotid bruit, JVD, lymphadenopathy, thyromegaly Respiratory exam: PRESENT: clear to auscultation conor Cardiovascular exam: PRESENT: RRR. ABSENT: diastolic murmur, rubs, systolic murmur Vascular exam: PRESENT: normal capillary refill GI/Abdominal exam: PRESENT: normal bowel sounds, soft. ABSENT: distended, guarding, mass, organolmegaly, rebound, tenderness Rectal exam: PRESENT: deferred Extremities exam: PRESENT: pedal edema Musculoskeletal exam: PRESENT: ambulatory Neurological exam: PRESENT: alert, awake, oriented to person, oriented to place, oriented to time, oriented to situation, CN II-XII grossly intact. ABSENT: motor sensory deficit Psychiatric exam: PRESENT: appropriate affect, normal mood. ABSENT: homicidal ideation, suicidal ideation Skin exam: PRESENT: dry, intact, warm. ABSENT: cyanosis, rash Results Laboratory Results: 06/05/19 06:57 06/05/19 07:46 06/05/19 06/05/19 06/05/19 05:35 06:57 07:46 WBC 6.4 RBC 4.07 Hgb 10.6 L Hct 33.1 L MCV 82 MCH 26.0 L MCHC 31.9 L RDW 21.0 H Plt Count 170 Seg Neutrophils % Not Reportable Sodium 139.6 Potassium 4.0 Chloride 101 Carbon Dioxide 28 Anion Gap 11 BUN 49 H Creatinine 4.24 H 4.50 H Est GFR ( Amer) 12 L 12 L Glucose 110 Calcium 8.6 Impressions: Interventional Vascular Procedure 05/27/19 00:00 IMPRESSION: Ultrasound provided for venous access. 1 image was acquired. Central Venous Line 06/03/19 00:00 IMPRESSION: IMAGE(S) OBTAINED DURING PROCEDURE. Assessment & Plan - Diagnosis (1) Acute on chronic kidney failure Qualifiers: Acute renal failure type: unspecified Chronic kidney disease stage: stage 4 (severe) Qualified Code(s): N17.9 - Acute kidney failure, unspecified; N18.4 - Chronic kidney disease, stage 4 (severe) Is this a current diagnosis for this admission?: Yes (2) Diarrhea Qualifiers: Diarrhea type: unspecified type Qualified Code(s): R19.7 - Diarrhea, unspecified Is this a current diagnosis for this admission?: Yes (3) UTI (urinary tract infection) Qualifiers: Urinary tract infection type: acute cystitis Hematuria presence: with hematuria Qualified Code(s): N30.01 - Acute cystitis with hematuria Is this a current diagnosis for this admission?: Yes (4) Atrial fibrillation Qualifiers: Atrial fibrillation type: unspecified chronic Qualified Code(s): I48.20 - Chronic atrial fibrillation, unspecified; I48.2 - Chronic atrial fibrillation Is this a current diagnosis for this admission?: Yes (5) Congestive heart failure Qualifiers: Heart failure type: combined systolic and diastolic Heart failure chronicity: acute on chronic Qualified Code(s): I50.43 - Acute on chronic combined systolic (congestive) and diastolic (congestive) heart failure Is this a current diagnosis for this admission?: Yes (6) Diabetic foot ulcers Is this a current diagnosis for this admission?: No (7) Diabetic nephropathy Qualifiers: Diabetes mellitus type: type 2 Qualified Code(s): E11.21 - Type 2 diabetes mellitus with diabetic nephropathy Is this a current diagnosis for this admission?: Yes (8) Hypertension Qualifiers: Hypertension type: essential hypertension Qualified Code(s): I10 - Essential (primary) hypertension Is this a current diagnosis for this admission?: Yes - Time Time Spent with patient: 15-24 minutes Level of Care: IMCU Anticipated discharge: SNF Within: Other - Plan Summary Plan Summary: Continues Current medications
[2019-06-05] MEDS: APIXABAN 2.5 MG TABLET PO SCH ×2 (10:06→17:19)
[2019-06-05] MEDS: PANTOPRAZOLE SODIUM 40 MG TABLET.DR PO SCH (10:06)
[2019-06-05] MEDS: FUROSEMIDE 40 MG TABLET PO SCH ×2 (10:06→17:19)
[2019-06-05] MEDS: ISOSORBIDE MONONITRATE 30 MG TAB.ER.24H PO SCH (10:06)
[2019-06-05] MEDS: METOPROLOL TARTRATE 50 MG TABLET PO SCH ×2 (10:06→22:50)
[2019-06-05] MEDS: CALCITRIOL 0.25 MCG CAPSULE PO SCH (10:06)
--- NOTE | 2019-06-05 18:24 | PDOC PROGRESS REPORT ---
Subjective Progress Note for:: 06/05/19 Reason For Visit: Patient seen today on dialysis. She is undergoing dialysis without any issues. Vital signs are stable. She denies any history of chest pain shortness of breath. Labs and medications were reviewed. Dialysis orders were reviewed the treating dialysis nurse. Physical Exam Vital Signs: Temp Pulse Resp BP Pulse Ox 97.8 F 104 H 16 130/86 H 100 06/05/19 07:44 06/05/19 14:00 06/05/19 07:44 06/05/19 07:44 06/05/19 07:44 Intake & Output 06/04/19 06/05/19 06/06/19 06:59 06:59 06:59 Intake Total 240 580 240 Output Total 2830 105 2400 Balance -2590 475 -2160 Weight 113.3 kg 113 kg 113 kg General appearance: PRESENT: no acute distress Respiratory exam: PRESENT: clear to auscultation conor. ABSENT: crackles Cardiovascular exam: PRESENT: +S1, +S2 GI/Abdominal exam: PRESENT: normal bowel sounds, soft. ABSENT: organomegaly, tenderness Extremities exam: ABSENT: pedal edema Neurological exam: PRESENT: alert, awake, oriented to person Results Laboratory Results: 06/05/19 06:57 06/05/19 07:46 06/05/19 06/05/19 06/05/19 05:35 06:57 07:46 WBC 6.4 RBC 4.07 Hgb 10.6 L Hct 33.1 L MCV 82 MCH 26.0 L MCHC 31.9 L RDW 21.0 H Plt Count 170 Seg Neutrophils % Not Reportable Sodium 139.6 Potassium 4.0 Chloride 101 Carbon Dioxide 28 Anion Gap 11 BUN 49 H Creatinine 4.24 H 4.50 H Est GFR ( Amer) 12 L 12 L Glucose 110 Calcium 8.6 Impressions: Interventional Vascular Procedure 05/27/19 00:00 IMPRESSION: Ultrasound provided for venous access. 1 image was acquired. Central Venous Line 06/03/19 00:00 IMPRESSION: IMAGE(S) OBTAINED DURING PROCEDURE. Assessment & Plan - Diagnosis (1) Acute on chronic kidney failure Qualifiers: Acute renal failure type: unspecified Chronic kidney disease stage: stage 4 (severe) Qualified Code(s): N17.9 - Acute kidney failure, unspecified; N18.4 - Chronic kidney disease, stage 4 (severe) Is this a current diagnosis for this admission?: Yes Plan: Patient has not shown any signs of recovery from acute on chronic CKD stage IV now oliguric and has been deemed ESRD and currently undergoing dialysis. She has had IJ perm catheter placed and undergoing dialysis with this without any issues.From a renal point of view she can be discharged to outpatient [facility] dialysis. Please make sure that her temporary femoral dialysis catheter is removed before she is discharged. I am not covering the hospital on the weekend and will be back on Saturday. (2) End stage renal disease on dialysis Is this a current diagnosis for this admission?: Yes Plan: Patient was seen undergoing dialysis. She is comfortable and in no distress. Vital signs are stable. Dialysis being supervised to ensure safe and smooth procedure. Plan to remove approximately 2 L as tolerated. Dialysis orders were reviewed with the treating dialysis nurse. (3) UTI (urinary tract infection) Qualifiers: Urinary tract infection type: acute cystitis Hematuria presence: with hematuria Qualified Code(s): N30.01 - Acute cystitis with hematuria Is this a current diagnosis for this admission?: Yes Plan: Enterococcus UTI and completed antibiotics. (4) Congestive heart failure Qualifiers: Heart failure type: combined systolic and diastolic Heart failure chronicity: acute on chronic Qualified Code(s): I50.43 - Acute on chronic combined systolic (congestive) and diastolic (congestive) heart failure Is this a current diagnosis for this admission?: Yes Plan: Presently resolved and stable. (5) Hypertension Qualifiers: Hypertension type: essential hypertension Qualified Code(s): I10 - Essential (primary) hypertension Is this a current diagnosis for this admission?: Yes Plan: Controlled. (6) Type 2 diabetes mellitus Qualifiers: Diabetes mellitus [employer] insulin use: with retirement use Chronic kidney disease stage: stage 4 (severe) Is this a current diagnosis for this admission?: Yes Plan: As per primary care.
[2019-06-05] MEDS: ATORVASTATIN CALCIUM 40 MG TABLET PO SCH (22:50)
[2019-06-05] MEDS: INSULIN GLARGINE,HUM.REC.ANLOG 1,000 UNIT/10 ML VIAL SUBCUT SCH (22:52)
[2019-06-06] MEDS: MIDODRINE HCL 5 MG TABLET PO SCH ×3 (06:32→22:33)
[2019-06-06] MEDS: INSULIN LISPRO 100 UNIT/ML 3 ML VIAL SUBCUT SCH ×4 (09:00→22:28)
[2019-06-06] MEDS: METOPROLOL TARTRATE 50 MG TABLET PO SCH ×2 (09:44→22:34)
[2019-06-06] MEDS: ISOSORBIDE MONONITRATE 30 MG TAB.ER.24H PO SCH (09:44)
[2019-06-06] MEDS: PANTOPRAZOLE SODIUM 40 MG TABLET.DR PO SCH (09:45)
[2019-06-06] MEDS: FUROSEMIDE 40 MG TABLET PO SCH ×2 (09:45→18:11)
[2019-06-06] MEDS: CALCITRIOL 0.25 MCG CAPSULE PO SCH (09:45)
[2019-06-06] MEDS: APIXABAN 2.5 MG TABLET PO SCH ×2 (09:45→18:11)
--- NOTE | 2019-06-06 12:04 | PDOC PROGRESS REPORT ---
Subjective Progress Note for:: 06/06/19 Subjective:: Patient is currently doing better Denied any chest pain no short of breath Scheduled for dialysis yesterday Reason For Visit: ACUTE ON CHRONIC KIDNEY FAILURE,UTI Physical Exam Vital Signs: Temp Pulse Resp BP Pulse Ox 97.6 F 74 18 141/74 H 79 L 06/06/19 07:43 06/06/19 07:43 06/06/19 07:43 06/06/19 07:43 06/06/19 07:43 Intake & Output 06/05/19 06/06/19 06/07/19 06:59 06:59 06:59 Intake Total 580 630 Output Total 105 2700 Balance 475 -2070 Weight 113 kg 113 kg General appearance: PRESENT: no acute distress, well-developed, well-nourished Head exam: PRESENT: atraumatic, normocephalic Eye exam: PRESENT: conjunctiva pink, EOMI, PERRLA. ABSENT: scleral icterus Ear exam: PRESENT: normal external ear exam Mouth exam: PRESENT: moist, tongue midline Neck exam: PRESENT: full ROM. ABSENT: carotid bruit, JVD, lymphadenopathy, thyromegaly Respiratory exam: PRESENT: clear to auscultation conor Cardiovascular exam: PRESENT: RRR. ABSENT: diastolic murmur, rubs, systolic murmur Pulses: PRESENT: normal dorsalis pedis pul, +2 pedal pulses bilateral Vascular exam: PRESENT: normal capillary refill GI/Abdominal exam: PRESENT: normal bowel sounds, soft. ABSENT: distended, guarding, mass, organolmegaly, rebound, tenderness Rectal exam: PRESENT: deferred Neurological exam: PRESENT: alert, awake, oriented to person, oriented to place, oriented to time, oriented to situation, CN II-XII grossly intact. ABSENT: motor sensory deficit Psychiatric exam: PRESENT: appropriate affect, normal mood. ABSENT: homicidal ideation, suicidal ideation Skin exam: PRESENT: dry, intact, warm. ABSENT: cyanosis, rash Results Laboratory Results: 06/05/19 06:57 06/05/19 07:46 Impressions: Interventional Vascular Procedure 05/27/19 00:00 IMPRESSION: Ultrasound provided for venous access. 1 image was acquired. Central Venous Line 06/03/19 00:00 IMPRESSION: IMAGE(S) OBTAINED DURING PROCEDURE. Assessment & Plan - Diagnosis (1) Acute on chronic kidney failure Qualifiers: Acute renal failure type: unspecified Chronic kidney disease stage: stage 4 (severe) Qualified Code(s): N17.9 - Acute kidney failure, unspecified; N18.4 - Chronic kidney disease, stage 4 (severe) Is this a current diagnosis for this admission?: Yes (2) Diarrhea Qualifiers: Diarrhea type: unspecified type Qualified Code(s): R19.7 - Diarrhea, unspecified Is this a current diagnosis for this admission?: Yes (3) UTI (urinary tract infection) Qualifiers: Urinary tract infection type: acute cystitis Hematuria presence: with hematuria Qualified Code(s): N30.01 - Acute cystitis with hematuria Is this a current diagnosis for this admission?: Yes (4) Atrial fibrillation Qualifiers: Atrial fibrillation type: unspecified chronic Qualified Code(s): I48.20 - Chronic atrial fibrillation, unspecified; I48.2 - Chronic atrial fibrillation Is this a current diagnosis for this admission?: Yes (5) Congestive heart failure Qualifiers: Heart failure type: combined systolic and diastolic Heart failure chronicity: acute on chronic Qualified Code(s): I50.43 - Acute on chronic combined systolic (congestive) and diastolic (congestive) heart failure Is this a current diagnosis for this admission?: Yes (6) Diabetic foot ulcers Is this a current diagnosis for this admission?: No (7) Diabetic nephropathy Qualifiers: Diabetes mellitus type: type 2 Qualified Code(s): E11.21 - Type 2 diabetes mellitus with diabetic nephropathy Is this a current diagnosis for this admission?: Yes (8) Hypertension Qualifiers: Hypertension type: essential hypertension Qualified Code(s): I10 - Essential (primary) hypertension Is this a current diagnosis for this admission?: Yes - Time Time Spent with patient: 15-24 minutes Level of Care: IMCU Medications reviewed and adjusted accordingly: Yes Anticipated discharge: Other Within: Other - Plan Summary Plan Summary: Continues current medications
[2019-06-06] MEDS: INSULIN GLARGINE,HUM.REC.ANLOG 1,000 UNIT/10 ML VIAL SUBCUT SCH (22:34)
[2019-06-06] MEDS: ATORVASTATIN CALCIUM 40 MG TABLET PO SCH (22:34)
[2019-06-07] MEDS: MIDODRINE HCL 5 MG TABLET PO SCH ×3 (05:54→21:49)
[2019-06-07] MEDS: INSULIN LISPRO 100 UNIT/ML 3 ML VIAL SUBCUT SCH ×4 (07:42→21:28)
[2019-06-07] MEDS: METOPROLOL TARTRATE 50 MG TABLET PO SCH ×2 (11:14→21:47)
[2019-06-07] MEDS: ISOSORBIDE MONONITRATE 30 MG TAB.ER.24H PO SCH (11:14)
[2019-06-07] MEDS: PANTOPRAZOLE SODIUM 40 MG TABLET.DR PO SCH (11:14)
[2019-06-07] MEDS: FUROSEMIDE 40 MG TABLET PO SCH ×2 (11:14→17:34)
[2019-06-07] MEDS: APIXABAN 2.5 MG TABLET PO SCH ×2 (11:14→17:34)
[2019-06-07] MEDS: CALCITRIOL 0.25 MCG CAPSULE PO SCH (11:14)
--- NOTE | 2019-06-07 11:20 | PDOC PROGRESS REPORT ---
Subjective Progress Note for:: 06/07/19 Subjective:: Patient is currently doing better Denied any chest pain no short of breath Scheduled for dialysis yesterday Reason For Visit: ACUTE ON CHRONIC KIDNEY FAILURE,UTI Physical Exam Vital Signs: Temp Pulse Resp BP Pulse Ox 97.5 F 98 16 110/69 100 06/07/19 07:41 06/07/19 07:41 06/07/19 07:41 06/07/19 07:41 06/07/19 07:41 Intake & Output 06/06/19 06/07/19 06/08/19 06:59 06:59 06:59 Intake Total 630 576 150 Output Total 2700 150 Balance -2070 426 150 Weight 113 kg 110.2 kg General appearance: PRESENT: no acute distress, well-developed, well-nourished Head exam: PRESENT: atraumatic, normocephalic Eye exam: PRESENT: conjunctiva pink, EOMI, PERRLA. ABSENT: scleral icterus Ear exam: PRESENT: normal external ear exam Mouth exam: PRESENT: moist, tongue midline Neck exam: PRESENT: full ROM. ABSENT: carotid bruit, JVD, lymphadenopathy, thyromegaly Respiratory exam: PRESENT: clear to auscultation conor Cardiovascular exam: PRESENT: RRR. ABSENT: diastolic murmur, rubs, systolic murmur Pulses: PRESENT: normal dorsalis pedis pul, +2 pedal pulses bilateral Vascular exam: PRESENT: normal capillary refill GI/Abdominal exam: PRESENT: normal bowel sounds, soft. ABSENT: distended, guarding, mass, organolmegaly, rebound, tenderness Rectal exam: PRESENT: deferred Musculoskeletal exam: PRESENT: ambulatory Neurological exam: PRESENT: alert, awake, oriented to person, oriented to place, oriented to time, oriented to situation, CN II-XII grossly intact. ABSENT: motor sensory deficit Psychiatric exam: PRESENT: appropriate affect, normal mood. ABSENT: homicidal ideation, suicidal ideation Skin exam: PRESENT: dry, intact, warm. ABSENT: cyanosis, rash Results Laboratory Results: 06/05/19 06:57 06/05/19 07:46 Impressions: Interventional Vascular Procedure 05/27/19 00:00 IMPRESSION: Ultrasound provided for venous access. 1 image was acquired. Central Venous Line 06/03/19 00:00 IMPRESSION: IMAGE(S) OBTAINED DURING PROCEDURE. Assessment & Plan - Diagnosis (1) Acute on chronic kidney failure Qualifiers: Acute renal failure type: unspecified Chronic kidney disease stage: stage 4 (severe) Qualified Code(s): N17.9 - Acute kidney failure, unspecified; N18.4 - Chronic kidney disease, stage 4 (severe) Is this a current diagnosis for this admission?: Yes (2) Diarrhea Qualifiers: Diarrhea type: unspecified type Qualified Code(s): R19.7 - Diarrhea, unspecified Is this a current diagnosis for this admission?: Yes (3) UTI (urinary tract infection) Qualifiers: Urinary tract infection type: acute cystitis Hematuria presence: with hematuria Qualified Code(s): N30.01 - Acute cystitis with hematuria Is this a current diagnosis for this admission?: Yes (4) Atrial fibrillation Qualifiers: Atrial fibrillation type: unspecified chronic Qualified Code(s): I48.20 - Chronic atrial fibrillation, unspecified; I48.2 - Chronic atrial fibrillation Is this a current diagnosis for this admission?: Yes (5) Congestive heart failure Qualifiers: Heart failure type: combined systolic and diastolic Heart failure chronicity: acute on chronic Qualified Code(s): I50.43 - Acute on chronic combined systolic (congestive) and diastolic (congestive) heart failure Is this a current diagnosis for this admission?: Yes (6) Diabetic foot ulcers Is this a current diagnosis for this admission?: No (7) Diabetic nephropathy Qualifiers: Diabetes mellitus type: type 2 Qualified Code(s): E11.21 - Type 2 diabetes mellitus with diabetic nephropathy Is this a current diagnosis for this admission?: Yes (8) Hypertension Qualifiers: Hypertension type: essential hypertension Qualified Code(s): I10 - Essential (primary) hypertension Is this a current diagnosis for this admission?: Yes - Time Time Spent with patient: 15-24 minutes Level of Care: IMCU Medications reviewed and adjusted accordingly: Yes Anticipated discharge: SNF Within: Other - Plan Summary Plan Summary: Continues current medications
[2019-06-07 20:56] LABS: C DIFFICILE GDH NEGATIVE (NEGATIVE)
[2019-06-07] MEDS: ATORVASTATIN CALCIUM 40 MG TABLET PO SCH (21:44)
[2019-06-07] MEDS: INSULIN GLARGINE,HUM.REC.ANLOG 1,000 UNIT/10 ML VIAL SUBCUT SCH (21:48)
[2019-06-08] MEDS ORDERED: HEPARIN SOD (PORCINE) 1,000 UNIT/ML 10 ML VIAL IV PRN (05:00)
[2019-06-08 05:40] LABS: HEMATOCRIT 32.7 % (36.0-47.0); HEMOGLOBIN 10.6 g/dL (12.0-15.5); MEAN CORPUSCULAR HEMOGLOBIN 26.5 pg (27.0-33.4); MEAN CORPUSCULAR HGB CONC 32.5 g/dL (32.0-36.0); MEAN CORPUSCULAR VOLUME 82 fl (80-97); PLATELET COUNT 139 10^3/uL (150-450); RED CELL DISTRIBUTION WIDTH 20.7 % (11.5-14.0); WHITE BLOOD COUNT 5.7 10^3/uL (4.0-10.5)
[2019-06-08 06:05] LABS: ANION GAP 9 (5-19); BLOOD UREA NITROGEN 47 mg/dL (7-20); CALCIUM 8.6 mg/dL (8.4-10.2); CARBON DIOXIDE 26 mmol/L (22-30); CHLORIDE 101 mmol/L (98-107); GLUCOSE 130 mg/dL (75-110); POTASSIUM 3.9 mmol/L (3.6-5.0)
[2019-06-08] MEDS: MIDODRINE HCL 5 MG TABLET PO SCH ×3 (06:08→22:00)
[2019-06-08] MEDS: INSULIN LISPRO 100 UNIT/ML 3 ML VIAL SUBCUT SCH ×4 (10:41→21:26)
[2019-06-08] MEDS: APIXABAN 2.5 MG TABLET PO SCH ×2 (10:44→18:45)
[2019-06-08] MEDS: FUROSEMIDE 40 MG TABLET PO SCH ×2 (10:44→18:45)
[2019-06-08] MEDS: METOPROLOL TARTRATE 50 MG TABLET PO SCH ×2 (10:44→22:42)
[2019-06-08] MEDS: PANTOPRAZOLE SODIUM 40 MG TABLET.DR PO SCH (10:44)
[2019-06-08] MEDS: CALCITRIOL 0.25 MCG CAPSULE PO SCH (10:44)
[2019-06-08] MEDS: ISOSORBIDE MONONITRATE 30 MG TAB.ER.24H PO SCH (10:45)
--- NOTE | 2019-06-08 13:58 | PDOC PROGRESS REPORT ---
Subjective Progress Note for:: 06/08/19 Subjective:: Patient is currently doing well She is denied any chest pain denied any shortness of the breath Discussed with the nephrology and suggest to remove the catheter from the groin area and repeat the urinalysis and culture and patients can go to the nursing facility tomorrow and follow outpatients dialysis Reason For Visit: ACUTE ON CHRONIC KIDNEY FAILURE,UTI Physical Exam Vital Signs: Temp Pulse Resp BP Pulse Ox 97.6 F 80 15 162/73 H 97 06/08/19 10:36 06/08/19 10:36 06/08/19 10:36 06/08/19 10:36 06/08/19 10:36 Intake & Output 06/07/19 06/08/19 06/09/19 06:59 06:59 06:59 Intake Total 576 810 120 Output Total 150 103 50 Balance 426 707 70 Weight 110.2 kg 110.5 kg General appearance: PRESENT: no acute distress, well-developed, well-nourished Head exam: PRESENT: atraumatic, normocephalic Eye exam: PRESENT: conjunctiva pink, EOMI, PERRLA. ABSENT: scleral icterus Ear exam: PRESENT: normal external ear exam Mouth exam: PRESENT: moist, tongue midline Neck exam: PRESENT: full ROM. ABSENT: carotid bruit, JVD, lymphadenopathy, thyromegaly Respiratory exam: PRESENT: clear to auscultation conor Cardiovascular exam: PRESENT: RRR. ABSENT: diastolic murmur, rubs, systolic murmur Pulses: PRESENT: normal dorsalis pedis pul, +2 pedal pulses bilateral Vascular exam: PRESENT: normal capillary refill GI/Abdominal exam: PRESENT: normal bowel sounds, soft. ABSENT: distended, guarding, mass, organolmegaly, rebound, tenderness Rectal exam: PRESENT: deferred Musculoskeletal exam: PRESENT: ambulatory Neurological exam: PRESENT: alert, awake, oriented to person, oriented to place, oriented to time, oriented to situation, CN II-XII grossly intact. ABSENT: motor sensory deficit Psychiatric exam: PRESENT: appropriate affect, normal mood. ABSENT: homicidal ideation, suicidal ideation Skin exam: PRESENT: dry, intact, warm. ABSENT: cyanosis, rash Results Laboratory Results: 06/08/19 05:00 06/08/19 05:00 06/08/19 06/08/19 05:00 05:00 WBC 5.7 RBC 4.00 Hgb 10.6 L Hct 32.7 L MCV 82 MCH 26.5 L MCHC 32.5 RDW 20.7 H Plt Count 139 L Sodium 136.4 L Potassium 3.9 Chloride 101 Carbon Dioxide 26 Anion Gap 9 BUN 47 H Creatinine 4.60 H Est GFR ( Amer) 11 L Glucose 130 H Calcium 8.6 Impressions: Interventional Vascular Procedure 05/27/19 00:00 IMPRESSION: Ultrasound provided for venous access. 1 image was acquired. Central Venous Line 06/03/19 00:00 IMPRESSION: IMAGE(S) OBTAINED DURING PROCEDURE. Assessment & Plan - Diagnosis (1) Acute on chronic kidney failure Qualifiers: Acute renal failure type: unspecified Chronic kidney disease stage: stage 4 (severe) Qualified Code(s): N17.9 - Acute kidney failure, unspecified; N18.4 - Chronic kidney disease, stage 4 (severe) Is this a current diagnosis for this admission?: Yes (2) Diarrhea Qualifiers: Diarrhea type: unspecified type Qualified Code(s): R19.7 - Diarrhea, unspecified Is this a current diagnosis for this admission?: Yes (3) UTI (urinary tract infection) Qualifiers: Urinary tract infection type: acute cystitis Hematuria presence: with hematuria Qualified Code(s): N30.01 - Acute cystitis with hematuria Is this a current diagnosis for this admission?: Yes (4) Atrial fibrillation Qualifiers: Atrial fibrillation type: unspecified chronic Qualified Code(s): I48.20 - Chronic atrial fibrillation, unspecified; I48.2 - Chronic atrial fibrillation Is this a current diagnosis for this admission?: Yes (5) Congestive heart failure Qualifiers: Heart failure type: combined systolic and diastolic Heart failure chronicity: acute on chronic Qualified Code(s): I50.43 - Acute on chronic combined systolic (congestive) and diastolic (congestive) heart failure Is this a current diagnosis for this admission?: Yes (6) Diabetic foot ulcers Is this a current diagnosis for this admission?: No (7) Diabetic nephropathy Qualifiers: Diabetes mellitus type: type 2 Qualified Code(s): E11.21 - Type 2 diabetes mellitus with diabetic nephropathy Is this a current diagnosis for this admission?: Yes (8) Hypertension Qualifiers: Hypertension type: essential hypertension Qualified Code(s): I10 - Essential (primary) hypertension Is this a current diagnosis for this admission?: Yes - Time Time Spent with patient: 15-24 minutes Level of Care: IMCU Medications reviewed and adjusted accordingly: Yes Anticipated discharge: SNF Within: within 24 hours - Plan Summary Plan Summary: Continues to current medications discharge tomorrow nursing [facility]
--- NOTE | 2019-06-08 17:55 | PDOC PROGRESS REPORT ---
Subjective Progress Note for:: 06/08/19 Reason For Visit: Patient seen today on dialysis. She is undergoing dialysis without any issues. She denies any specific complaints of chest pain shortness of breath, fever or chills. No abdominal pains. Labs and medications were reviewed. Dialysis orders were reviewed with the treating dialysis nurse. Physical Exam Vital Signs: Temp Pulse Resp BP Pulse Ox 97.6 F 101 H 15 162/73 H 97 06/08/19 10:36 06/08/19 14:00 06/08/19 10:36 06/08/19 10:36 06/08/19 10:36 Intake & Output 06/07/19 06/08/19 06/09/19 06:59 06:59 06:59 Intake Total 576 810 120 Output Total 150 103 50 Balance 426 707 70 Weight 110.2 kg 110.5 kg General appearance: PRESENT: no acute distress Respiratory exam: PRESENT: clear to auscultation conor. ABSENT: crackles Cardiovascular exam: PRESENT: +S1, +S2 GI/Abdominal exam: PRESENT: normal bowel sounds, soft. ABSENT: organomegaly, tenderness Extremities exam: ABSENT: pedal edema Neurological exam: PRESENT: alert, awake, oriented to person, oriented to place Skin exam: ABSENT: cyanosis, erythema, mottled Results Laboratory Results: 06/08/19 05:00 06/08/19 05:00 06/08/19 06/08/19 05:00 05:00 WBC 5.7 RBC 4.00 Hgb 10.6 L Hct 32.7 L MCV 82 MCH 26.5 L MCHC 32.5 RDW 20.7 H Plt Count 139 L Sodium 136.4 L Potassium 3.9 Chloride 101 Carbon Dioxide 26 Anion Gap 9 BUN 47 H Creatinine 4.60 H Est GFR ( Amer) 11 L Glucose 130 H Calcium 8.6 Impressions: Interventional Vascular Procedure 05/27/19 00:00 IMPRESSION: Ultrasound provided for venous access. 1 image was acquired. Central Venous Line 06/03/19 00:00 IMPRESSION: IMAGE(S) OBTAINED DURING PROCEDURE. Assessment & Plan - Diagnosis (1) Acute on chronic kidney failure Qualifiers: Acute renal failure type: unspecified Chronic kidney disease stage: stage 4 (severe) Qualified Code(s): N17.9 - Acute kidney failure, unspecified; N18.4 - Chronic kidney disease, stage 4 (severe) Is this a current diagnosis for this admission?: Yes Plan: Patient has not shown any signs of recovery from acute on chronic CKD stage IV now oliguric and has been deemed ESRD and currently undergoing dialysis. She has had IJ perm catheter placed and undergoing dialysis with this without any issues.From a renal point of view she can be discharged to outpatient [facility] dialysis. Please make sure that her temporary femoral dialysis catheter is removed before she is discharged. (2) End stage renal disease on dialysis Is this a current diagnosis for this admission?: Yes Plan: Patient was seen undergoing dialysis. She is comfortable and in no distress. V ital signs are stable. Dialysis being supervised to ensure safe and smooth procedure. Plan to remove approximately 1-2 L as tolerated. Dialysis orders were reviewed with the treating dialysis nurse. (3) UTI (urinary tract infection) Qualifiers: Urinary tract infection type: acute cystitis Hematuria presence: with hematuria Qualified Code(s): N30.01 - Acute cystitis with hematuria Is this a current diagnosis for this admission?: Yes Plan: Enterococcus UTI and completed antibiotics. (4) Congestive heart failure Qualifiers: Heart failure type: combined systolic and diastolic Heart failure chronicity: acute on chronic Qualified Code(s): I50.43 - Acute on chronic combined systolic (congestive) and diastolic (congestive) heart failure Is this a current diagnosis for this admission?: Yes Plan: Presently resolved and stable. (5) Hypertension Qualifiers: Hypertension type: essential hypertension Qualified Code(s): I10 - Essential (primary) hypertension Is this a current diagnosis for this admission?: Yes Plan: Controlled. (6) Type 2 diabetes mellitus Qualifiers: Diabetes mellitus [facility] insulin use: with [facility] use Chronic kidney disease stage: stage 4 (severe) Is this a current diagnosis for this admission?: Yes Plan: As per primary care.
[2019-06-08] MEDS: INSULIN GLARGINE,HUM.REC.ANLOG 1,000 UNIT/10 ML VIAL SUBCUT SCH (22:42)
[2019-06-08] MEDS: ATORVASTATIN CALCIUM 40 MG TABLET PO SCH (22:42)
[2019-06-09] MEDS: MIDODRINE HCL 5 MG TABLET PO SCH (05:38)
[2019-06-09 05:44] LABS: APPEARANCE,URINE TURBID; BILIRUBIN,URINE SMALL (NEGATIVE); COLOR,URINE YELLOW; GLUCOSE, URINE NEGATIVE (NEGATIVE); KETONES,URINE TRACE mg/dL (NEGATIVE); LEUKOCYTE ESTERASE,URINE MODERATE (NEGATIVE); NITRITE,URINE NEGATIVE (NEGATIVE); PROTEIN,URINE 100 mg/dL (NEGATIVE)
[2019-06-09] MEDS: INSULIN LISPRO 100 UNIT/ML 3 ML VIAL SUBCUT SCH (10:28)
[2019-06-09] MEDS: PANTOPRAZOLE SODIUM 40 MG TABLET.DR PO SCH (10:35)
[2019-06-09] MEDS: CALCITRIOL 0.25 MCG CAPSULE PO SCH (10:35)
[2019-06-09] MEDS: APIXABAN 2.5 MG TABLET PO SCH (10:35)
[2019-06-09] MEDS: FUROSEMIDE 40 MG TABLET PO SCH (10:35)
[2019-06-09] MEDS: METOPROLOL TARTRATE 50 MG TABLET PO SCH (10:35)
[2019-06-09] MEDS: ISOSORBIDE MONONITRATE 30 MG TAB.ER.24H PO SCH (10:35)
--- NOTE | 2019-06-09 10:38 | PDOC TRANSFER SUMMARY ---
Impression - Admit/DC Date/PCP Admission Date/Primary Care Provider: 05/23/19 03:02 LISA BARON MD Discharge Date: 06/09/19 - Discharge Diagnosis (1) Acute on chronic kidney failure Is this a current diagnosis for this admission?: Yes (2) Diarrhea Is this a current diagnosis for this admission?: Yes (3) UTI (urinary tract infection) Is this a current diagnosis for this admission?: Yes (4) Atrial fibrillation Is this a current diagnosis for this admission?: Yes (5) Congestive heart failure Is this a current diagnosis for this admission?: Yes (6) Diabetic foot ulcers Is this a current diagnosis for this admission?: No (7) Diabetic nephropathy Is this a current diagnosis for this admission?: Yes (8) Hypertension Is this a current diagnosis for this admission?: Yes - Additional Information Resuscitation Status: Full Code Discharge Diet: Diabetic Discharge Activity: Activity As Tolerated Referrals: [facility] [Outside] LISA BARON MD [Primary Care Provider] - 06/18/19 3:30 pm Prescriptions: Furosemide [Lasix 40 mg Tablet] 40 mg PO BID #60 tablet Home Medications: Atorvastatin Calcium [Lipitor 40 mg Tablet] 40 mg PO QHS 04/14/19 Isosorbide Mononitrate [Imdur 30 mg Tablet.er] 30 mg PO DAILY 04/14/19 Apixaban [Eliquis 5 mg Tablet] 5 mg PO BID 05/23/19 Furosemide [Lasix 40 mg Tablet] 40 mg PO BID 05/23/19 Insulin Glargine,Hum.rec.anlog [Lantus Insulin 100 Unit/1 ml 10 ml] 20 unit SUBCUT QHS 05/23/19 Insulin Lispro [Humalog Insulin (Lispro) 100 unit/mL] 0 unit SUBCUT .SLD SCALE 05/23/19 Lisinopril [Prinivil 5 mg Tablet] 2.5 mg PO QHS 05/23/19 Metoprolol Tartrate [Lopressor 25 mg Tablet] 25 mg PO Q12 05/23/19 Midodrine HCl [Proamatine 5 mg Tablet] 5 mg PO Q8 05/23/19 Omeprazole 40 mg PO DAILY 05/23/19 Ondansetron HCl [Zofran 4 mg Tablet] 4 mg PO Q8HP PRN 01/18/20 Furosemide [Lasix 40 mg Tablet] 40 mg PO BID #60 tablet 06/09/19 History of Present Illiness History of Present Illness: NISH NOLAND is a 73 year old female This is a 73-year-old female's with a multiple medical problem as above admitting in the hospital because of the acute renal failure heart failure's and enterococcus UTI Patient is treated with the IV Lasix and consult the cardiology and nephrology Hospital Course Hospital Course: This is a 73-year-old female's with a history of type 2 diabetes history of the hypertension hyperlipidemia chronic kidney disease chronic combined congestive heart failure's top of that noncompliance worsening the condition for the last several months came to the emergency department from the nursing facility because of worsening the kidney functions and not feeling well patient at this points admitting in the hospital and started on IV medications IV antibiotics Patient seen by nephrology cardiology By using the IV Lasix patient is not getting better kidney function is get more worsening patient have a more symptomatic finally the nephrology decided and the patient and family agree to underwent further hemodialysis Patient's also underwent with the permacath placement Patient is responded very well with the hemodialysis and patient symptom is pretty much all resolved and better Patient have enterococcus UTI treated with the vancomycin patient is remained afebrile doing better and at this point patient is discharged back to the nursing facility as per discussed with the nephrology repeat the urine cultures if is positive with the nephrology will take care through the dialysis Patient is otherwise discussed with the patient's son regarding the patient's current conditions multiple comorbidity Physical Exam Vital Signs: Temp Pulse Resp BP Pulse Ox 97.7 F 81 16 125/61 92 06/09/19 07:43 06/09/19 07:43 06/09/19 07:43 06/09/19 07:43 06/09/19 07:43 Intake & Output 06/08/19 06/09/19 06/10/19 06:59 06:59 06:59 Intake Total 810 260 Output Total 103 3250 Balance 707 -2990 Weight 110.5 kg 109.1 kg General appearance: PRESENT: no acute distress, well-developed, well-nourished Head exam: PRESENT: atraumatic, normocephalic Eye exam: PRESENT: conjunctiva pink, EOMI, PERRLA. ABSENT: scleral icterus Ear exam: PRESENT: normal external ear exam Mouth exam: PRESENT: moist, tongue midline Neck exam: ABSENT: carotid bruit, JVD, lymphadenopathy, thyromegaly Respiratory exam: PRESENT: clear to auscultation conor. ABSENT: rales, rhonchi, wheezes Cardiovascular exam: PRESENT: RRR. ABSENT: diastolic murmur, rubs, systolic murmur Pulses: PRESENT: normal dorsalis pedis pul Vascular exam: PRESENT: normal capillary refill GI/Abdominal exam: PRESENT: normal bowel sounds, soft. ABSENT: distended, guarding, mass, organolmegaly, rebound, tenderness Rectal exam: PRESENT: deferred Extremities exam: PRESENT: full ROM. ABSENT: calf tenderness, clubbing, pedal edema Neurological exam: PRESENT: alert, awake, oriented to person, oriented to place, oriented to time, oriented to situation, CN II-XII grossly intact. ABSENT: motor sensory deficit Psychiatric exam: PRESENT: appropriate affect, normal mood. ABSENT: homicidal ideation, suicidal ideation Skin exam: PRESENT: dry, intact, warm. ABSENT: cyanosis, rash Results Laboratory Results: WBC 5.7 10^3/uL (4.0-10.5) 06/08/19 05:00 RBC 4.00 10^6/uL (3.72-5.28) 06/08/19 05:00 Hgb 10.6 g/dL (12.0-15.5) L 06/08/19 05:00 Hct 32.7 % (36.0-47.0) L 06/08/19 05:00 MCV 82 fl (80-97) 06/08/19 05:00 MCH 26.5 pg (27.0-33.4) L 06/08/19 05:00 MCHC 32.5 g/dL (32.0-36.0) 06/08/19 05:00 RDW 20.7 % (11.5-14.0) H 06/08/19 05:00 Plt Count 139 10^3/uL (150-450) L 06/08/19 05:00 Lymph % (Auto) Not Reportable 06/05/19 06:57 [place] % (Auto) Not Reportable 06/05/19 06:57 Eos % (Auto) Not Reportable 06/05/19 06:57 Baso % (Auto) Not Reportable 06/05/19 06:57 Reticulocyte # 0.077 10^6/uL (0.028-0.122) 05/26/19 05:51 Absolute Neuts (auto) Not Reportable 06/05/19 06:57 Absolute Lymphs (auto) Not Reportable 06/05/19 06:57 Absolute Monos (auto) Not Reportable 06/05/19 06:57 Absolute Eos (auto) Not Reportable 06/05/19 06:57 Absolute Basos (auto) Not Reportable 06/05/19 06:57 Total Counted 100 06/05/19 06:57 Seg Neutrophils % Not Reportable 06/05/19 06:57 Seg Neuts % (Manual) 85 % (42-78) H 06/05/19 06:57 Lymphocytes % (Manual) 11 % (13-45) L 06/05/19 06:57 Monocytes % (Manual) 4 % (3-13) 06/05/19 06:57 Eosinophils % (Manual) 0 % (0-6) 06/05/19 06:57 Basophils % (Manual) 0 % (0-2) 06/05/19 06:57 Abs Neuts (Manual) 5.4 10^3/uL (1.7-8.2) 06/05/19 06:57 Abs Lymphs (Manual) 0.7 10^3/uL (0.5-4.7) 06/05/19 06:57 Abs Monocytes (Manual) 0.3 10^3/uL (0.1-1.4) 06/05/19 06:57 Absolute Eos (Manual) 0.0 10^3/uL (0.0-0.6) 06/05/19 06:57 Abs Basophils (Manual) 0.0 10^3/uL (0.0-0.2) 06/05/19 06:57 Nucleated RBCs 3 /100 WBC (0) 06/05/19 06:57 Platelet Comment ADEQUATE 06/05/19 06:57 Polychromasia SLIGHT 06/05/19 06:57 Poikilocytosis 2+ 06/05/19 06:57 Anisocytosis 3+ 06/05/19 06:57 Target Cells 1+ 06/05/19 06:57 Ovalocytes 1+ 06/05/19 06:57 Ap Cells 1+ 06/05/19 06:57 Schistocytes SLIGHT 06/05/19 06:57 Retic Count (auto) 1.88 % (0.66-2.85) 05/26/19 05:51 Sodium 136.4 mmol/L (137-145) L 06/08/19 05:00 Potassium 3.9 mmol/L (3.6-5.0) 06/08/19 05:00 Chloride 101 mmol/L (98-107) 06/08/19 05:00 Carbon Dioxide 26 mmol/L (22-30) 06/08/19 05:00 Anion Gap 9 (5-19) 06/08/19 05:00 BUN 47 mg/dL (7-20) H 06/08/19 05:00 Creatinine 4.60 mg/dL (0.52-1.25) H 06/08/19 05:00 Est GFR ( Amer) 11 (>60) L 06/08/19 05:00 Est GFR (MDRD) Non-Af 9 (>60) L 06/08/19 05:00 Glucose 130 mg/dL (75-110) H 06/08/19 05:00 POC Glucose 135 mg/dL (70-110) H 06/09/19 07:39 Calcium 8.6 mg/dL (8.4-10.2) 06/08/19 05:00 Phosphorus 4.3 mg/dL (2.5-4.5) 05/29/19 05:16 Magnesium 1.9 mg/dL (1.6-2.3) 05/29/19 05:16 Iron 23.3 ug/dL (37-170) L 05/26/19 05:51 TIBC 297 ug/dL (250-450) 05/26/19 05:51 % Saturation 8 % 05/26/19 05:51 Ferritin 51.00 ng/mL (11.1-264.0) 05/26/19 05:51 Total Bilirubin 1.5 mg/dL (0.2-1.3) H 05/22/19 19:22 Direct Bilirubin 1.1 mg/dL (0.0-0.4) H 05/22/19 19:22 Neonat Total Bilirubin Not Reportable 05/22/19 19:22 Neonat Direct Bilirubin Not Reportable 05/22/19 19:22 Neonat Indirect Bili Not Reportable 05/22/19 19:22 AST 280 U/L (14-36) H 05/22/19 19:22 ALT 93 U/L (<35) 05/22/19 19:22 Alkaline Phosphatase 146 U/L (38-126) H 05/22/19 19:22 Total Protein 7.9 g/dL (6.3-8.2) 05/22/19 19:22 Albumin 3.1 g/dL (3.5-5.0) L 05/22/19 19:22 Lipase 520.4 U/L (23-300) H 05/22/19 19:22 Vitamin B12 > 1000.0 pg/mL (239-931) H 05/26/19 05:51 Folate 14.10 ng/mL (>2.76) 05/26/19 05:51 Urine Color YELLOW 06/09/19 05:10 Urine Appearance TURBID 06/09/19 05:10 Urine pH 5.0 (5.0-9.0) 06/09/19 05:10 Ur Specific [place] 1.020 06/09/19 05:10 Urine Protein 100 mg/dL (NEGATIVE) H 06/09/19 05:10 Urine Glucose (UA) NEGATIVE mg/dL (NEGATIVE) 06/09/19 05:10 Urine Ketones TRACE mg/dL (NEGATIVE) H 06/09/19 05:10 Urine Blood LARGE (NEGATIVE) H 06/09/19 05:10 Urine Nitrite NEGATIVE (NEGATIVE) 06/09/19 05:10 Urine Bilirubin SMALL (NEGATIVE) H 06/09/19 05:10 Urine Urobilinogen 4.0 mg/dL (<2.0) H 06/09/19 05:10 Ur Leukocyte Esterase MODERATE (NEGATIVE) H 06/09/19 05:10 Urine WBC (Auto) >182 /HPF 06/09/19 05:10 Urine RBC (Auto) 141 /HPF 06/09/19 05:10 Urine Bacteria (Auto) 3+ /HPF 06/09/19 05:10 Urine WBC Clumps MANY /HPF 06/09/19 05:10 Squamous Epi Cells Auto 14 /HPF 06/09/19 05:10 U Non-Squamous Epis Auto 2 /HPF 06/09/19 05:10 Urine Mucus (Auto) RARE /LPF 05/23/19 00:15 Urine Yeast (Budding) PRESENT /HPF 06/09/19 05:10 Urine Ascorbic Acid NEGATIVE (NEGATIVE) 06/09/19 05:10 Stl C. Difficile GDH Ag NEGATIVE (NEGATIVE) 06/07/19 16:19 Stl C.difficile Tox A&B NEGATIVE (NEGATIVE) 06/07/19 16:19 Time Trough Drawn 0535 06/05/19 05:35 Vancomycin Trough 21.0 ug/mL (5.0-20.0) H 06/05/19 05:35 Hep Bs Antigen Negative (Negative) 05/27/19 11:13 Hep Bs Antibody, Quant <3.1 mIU/mL (Immunity>9) L 05/27/19 11:13 Hep B Core Total Ab Negative (Negative) 05/27/19 11:13 HCV Quantitation HCV Not Detected IU/mL (.) 05/27/19 11:13 HCV RNA PCR Test Info Comment (.) 05/27/19 11:13 Impressions: Abdomen/Pelvis CT 05/22/19 00:00 IMPRESSION: 1. 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 2. Ascites and anasarca suggesting some volume overload and/or third spacing. 3. Rounded air and fluid collection in the mid pelvis that may communicate with the bladder and could represent a bladder diverticulum but is indeterminate on this exam. Would recommend follow-up enhanced examination to better evaluate this finding as above. 4. Stranding around the bladder suggesting cystitis, recommend correlation with urinalysis. 5. Mild diverticulosis. Interventional Vascular Procedure 05/27/19 00:00 IMPRESSION: Ultrasound provided for venous access. 1 image was acquired. Central Venous Line 06/03/19 00:00 IMPRESSION: IMAGE(S) OBTAINED DURING PROCEDURE. Plan Time Spent: Greater than 30 Minutes - Patient's needs to follow-up with the as outpatients dialysis schedule Stroke Is this a Stroke Patient?: No Acute Heart Failure - Is this a Heart Failure Patient?: No
[2019-06-09 12:44] VITALS: BP 115/74
== END 2019-06-09 12:37 | DRG 682 ==
LOC: ER 16:12 → EH 05-23 03:02 → 5 05-23 05:56 → 3S 05-24 01:32
PROVIDERS: ADMIT Internal Medicine Geriatric Medicine; ATTEND Family Medicine
PROC: 5A1D70Z Performance of Urinary Filtration, Intermittent, Less than 6 Hours Per Day (ICD-10-PCS; principal; 2019-05-27)
PROC: 02HV33Z Insertion of Infusion Device into Superior Vena Cava, Percutaneous Approach (ICD-10-PCS; 2019-05-27)
PROC: 06H033Z Insertion of Infusion Device into Inferior Vena Cava, Percutaneous Approach (ICD-10-PCS; 2019-06-03)
PROC: B5181ZA Fluoroscopy of Superior Vena Cava using Low Osmolar Contrast, Guidance (ICD-10-PCS; 2019-06-03)
DX: N17.9 Acute kidney failure, unspecified (principal); I50.43 Acute on chronic combined systolic (congestive) and diastolic (congestive) heart failure; I13.0 Hypertensive heart and chronic kidney disease with heart failure and stage 1 through stage 4 chronic kidney disease, or unspecified chronic kidney disease; I48.20 Chronic atrial fibrillation, unspecified; N30.01 Acute cystitis with hematuria; E87.2 Acidosis; D63.1 Anemia in chronic kidney disease; E83.39 Other disorders of phosphorus metabolism; E11.21 Type 2 diabetes mellitus with diabetic nephropathy; E11.22 Type 2 diabetes mellitus with diabetic chronic kidney disease; E11.621 Type 2 diabetes mellitus with foot ulcer; B95.2 Enterococcus as the cause of diseases classified elsewhere; E78.5 Hyperlipidemia, unspecified; I25.10 Atherosclerotic heart disease of native coronary artery without angina pectoris; M19.90 Unspecified osteoarthritis, unspecified site; N18.4 Chronic kidney disease, stage 4 (severe); R32 Unspecified urinary incontinence; K52.9 Noninfective gastroenteritis and colitis, unspecified; D50.9 Iron deficiency anemia, unspecified; Z79.01 Long term (current) use of anticoagulants; Z79.4 Long term (current) use of insulin; I25.2 Old myocardial infarction; Z91.19 Patient's noncompliance with other medical treatment and regimen; Z86.14 Personal history of Methicillin resistant Staphylococcus aureus infection; Z83.3 Family history of diabetes mellitus; Z82.49 Family history of ischemic heart disease and other diseases of the circulatory system
CPT/HCPCS: 36415; 36556; 36558; 74176; 76937; 77001; 80048; 80053; 80202; 81001; 82565; 82607; 82728; 82746; 82962; 83540; 83550; 83690; 83735; 83970; 84100; 85025; 85027; 85045; 86317; 86704; 87070; 87086; 87088; 87186; 87324; 87340; 87449; 87522; 93306; 96361; 96365; 96375; 99291; C1713; C1752; J0696; J1644; J1756; J1815; J2250; J2405; J3010; J3370; J3490; J7030; J7060; Q9967

== ENCOUNTER → 2019-05-22 | Outpatient (CLI) | payer MEDICARE ==
[2019-05-22 12:03] LABS: ABSOLUTE LYMPHOCYTES (AUTO) 0.7 10^3/uL (0.5-4.7); ABSOLUTE MONOCYTES (AUTO) 0.7 10^3/uL (0.1-1.4); ABSOLUTE NEUT (AUTO) 3.7 10^3/uL (1.7-8.2); BASOPHILS % (AUTO) 0.5 % (0-2); EOSINOPHILS % (AUTO) 0.2 % (0-6); HEMATOCRIT 36.2 % (36.0-47.0); HEMOGLOBIN 11.4 g/dL (12.0-15.5); MEAN CORPUSCULAR HEMOGLOBIN 25.3 pg (27.0-33.4); MEAN CORPUSCULAR HGB CONC 31.4 g/dL (32.0-36.0); MEAN CORPUSCULAR VOLUME 81 fl (80-97); MONOCYTES % (AUTO) 13.9 % (3-13); PLATELET COUNT 241 10^3/uL (150-450); RED CELL DISTRIBUTION WIDTH 21.2 % (11.5-14.0); SEGMENTED NEUTROPHILS % (AUTO) 71.4 % (42-78); TOTAL CELLS COUNTED % (AUTO) 100 %; WHITE BLOOD COUNT 5.1 10^3/uL (4.0-10.5)
[2019-05-22 12:28] LABS: ALBUMIN 3.3 g/dL (3.5-5.0); ALKALINE PHOSPHATASE 144 U/L (38-126); ANION GAP 15 (5-19); ASPARTATE AMINO TRANSFERASE 256 U/L (14-36); BILIRUBIN,DIRECT 1.2 mg/dL (0.0-0.4); BILIRUBIN,TOTAL 1.5 mg/dL (0.2-1.3); BLOOD UREA NITROGEN 100 mg/dL (7-20); CALCIUM 9.2 mg/dL (8.4-10.2); CARBON DIOXIDE 21 mmol/L (22-30); CHLORIDE 105 mmol/L (98-107); GLUCOSE 108 mg/dL (75-110); PHOSPHORUS 4.8 mg/dL (2.5-4.5); POTASSIUM 4.5 mmol/L (3.6-5.0); TOTAL PROTEIN 7.8 g/dL (6.3-8.2)
== END ==
LOC: OD 11:31
PROVIDERS: ATTEND Physician Assistant Medical
DX: I12.9 Hypertensive chronic kidney disease with stage 1 through stage 4 chronic kidney disease, or unspecified chronic kidney disease (principal); E11.22 Type 2 diabetes mellitus with diabetic chronic kidney disease; N18.3 Chronic kidney disease, stage 3 (moderate); D64.9 Anemia, unspecified; R80.9 Proteinuria, unspecified; R60.9 Edema, unspecified
CPT/HCPCS: 36415; 80053; 83970; 84100; 85025

== ENCOUNTER 2019-06-22 16:33 | Emergency (ER) | payer MEDICARE ==
[2019-06-22] MEDS ORDERED: LIDOCAINE 1% INJ-PF (10 MG/ML) 30 ML SDV INJ ONE (18:21)
[2019-06-22 19:03] LABS: INTERNATIONAL RATION (INR) 2.12
[2019-06-22 19:04] LABS: PARTIAL THROMBOPLASTIN TIME 49.1 SEC (23.5-35.8)
[2019-06-22 19:14] LABS: ALBUMIN 2.9 g/dL (3.5-5.0); ALKALINE PHOSPHATASE 100 U/L (38-126); ANION GAP 7 (5-19); ASPARTATE AMINO TRANSFERASE 77 U/L (14-36); BILIRUBIN,DIRECT 1.8 mg/dL (0.0-0.4); BILIRUBIN,TOTAL 2.5 mg/dL (0.2-1.3); BLOOD UREA NITROGEN 30 mg/dL (7-20); CALCIUM 8.2 mg/dL (8.4-10.2); CARBON DIOXIDE 29 mmol/L (22-30); CHLORIDE 101 mmol/L (98-107); GLUCOSE 174 mg/dL (75-110); POTASSIUM 3.6 mmol/L (3.6-5.0); TOTAL PROTEIN 7.6 g/dL (6.3-8.2)
[2019-06-22 20:11] LABS: ABSOLUTE BASOPHILS # (AUTO) 0.1 10^3/uL (0.0-0.2); ABSOLUTE LYMPHOCYTES (AUTO) 0.7 10^3/uL (0.5-4.7); ABSOLUTE MONOCYTES (AUTO) 0.6 10^3/uL (0.1-1.4); ABSOLUTE NEUT (AUTO) 4.2 10^3/uL (1.7-8.2); BASOPHILS % (AUTO) 1.1 % (0-2); EOSINOPHILS % (AUTO) 0.4 % (0-6); HEMATOCRIT 33.5 % (36.0-47.0); HEMOGLOBIN 10.8 g/dL (12.0-15.5); LYMPHOCYTES % (AUTO) 12.4 % (13-45); MEAN CORPUSCULAR HEMOGLOBIN 28.6 pg (27.0-33.4); MEAN CORPUSCULAR HGB CONC 32.3 g/dL (32.0-36.0); MONOCYTES % (AUTO) 11.5 % (3-13); PLATELET COUNT 207 10^3/uL (150-450); RED BLOOD COUNT 3.79 10^6/uL (3.72-5.28); RED CELL DISTRIBUTION WIDTH 31.9 % (11.5-14.0); SEGMENTED NEUTROPHILS % (AUTO) 74.6 % (42-78); TOTAL CELLS COUNTED % (AUTO) 100 %; WHITE BLOOD COUNT 5.6 10^3/uL (4.0-10.5)
[2019-06-22 20:35] LABS: MEAN CORPUSCULAR VOLUME 88 fl (80-97)
[2019-06-22 20:46] LABS: ANISOCYTOSIS 4+; BURR CELLS 2+; OVALOCYTES 3+; POIKILOCYTOSIS 4+; SCHISTOCYTES 3+; TARGET CELLS 2+; TEAR DROP CELLS 2+; TOXIC GRANULATION 1+; TOXIC VACUOLATION PRESENT
[2019-06-22 20:47] LABS: PLATELET COMMENT ADEQUATE
--- NOTE | 2019-06-22 21:50 | ER Document Report ---
Entered by ANGELICA DURAN SCRIBE 06/22/19 [id number] Acting as scribe for:JOE DEWEY MD ED General - General Chief Complaint: Post Surgical Pain Stated Complaint: PORT REPLACEMENT Time Seen by Provider: 06/22/19 17:08 Primary Care Provider: LISA BARON MD [Primary Care Provider] - Follow up as needed Information source: Patient Notes: 74-year-old female presents to the emergency department complaining of bleeding around her perma-cath. Patient reports that after she went to exercise today, she laid down and she noticed the bleeding. Patient states that the perma-cath has been in for 3 weeks. Patient reports that "the cap" was bleeding at the office "the other day" and they told her that she is going to have to "remove it and move it to another location". Patient reports that she has not had dialysis yet since the placement. TRAVEL OUTSIDE OF THE [place] IN LAST 30 DAYS: No - Related Data Allergies/Adverse Reactions: No Known Allergies Allergy (Verified 01/10/12 14:35) Past Medical History - General Information source: Patient - Social History Smoking Status: Never Smoker Cigarette use (# per day): No Chew tobacco use (# tins/day): No Frequency of alcohol use: None Drug Abuse: None Lives with: [facility] Family History: Reviewed & Not Pertinent Patient has suicidal ideation: No Patient has homicidal ideation: No - Past Medical History Cardiac Medical History: Reports: Hx Atrial Fibrillation, Hx Congestive Heart Failure, Hx Coronary Artery Disease, Hx Hypercholesterolemia, Hx Hypertension Pulmonary Medical History: Reports: Hx Pneumonia Neurological Medical History: Endocrine Medical History: Reports: Hx Diabetes Mellitus Type 2 Renal/ Medical History: Reports: Hx End Stage Renal Disease, Hx Renal Insufficiency GI Medical History: Reports: Hx Colonoscopy Musculoskeletal Medical History: Reports Hx Arthritis Skin Medical History: Reports Hx Cellulitis Psychiatric Medical History: Reports: Hx Anxiety Infectious Medical History: Reports: Hx MRSA Past Surgical History: Reports: Hx Appendectomy, Hx Hysterectomy - Immunizations Hx Diphtheria, Pertussis, Tetanus Vaccination: Yes Hx Pneumococcal Vaccination: 02/03/10 Review of Systems - Review of Systems Constitutional: No symptoms reported EENT: No symptoms reported Cardiovascular: No symptoms reported Respiratory: denies: Hurts to breathe Gastrointestinal: No symptoms reported Genitourinary: No symptoms reported Female Genitourinary: No symptoms reported Musculoskeletal: No symptoms reported Skin: No symptoms reported Hematologic/Lymphatic: See HPI, Other - Bleeding around permacath Neurological/Psychological: No symptoms reported -: Yes All other systems reviewed and negative Physical Exam - Vital signs Vitals: Temp Pulse Resp BP Pulse Ox 98.4 F 106 H 18 114/68 98 06/22/19 16:55 06/22/19 16:55 06/22/19 16:55 06/22/19 16:55 06/22/19 16:55 - Notes Notes: Physical Exam: General: Alert, appears well. Perma-cath has been pulled out and the cuff is not exposed. No active bleeding at permacath. HEENT: Normocephalic. Atraumatic. PERRL. Extraocular movements intact. Oropharynx clear. Neck: Supple. Non-tender. Respiratory: No respiratory distress. Clear and equal breath sounds bilaterally. Cardiovascular: Regular rate and rhythm. Abdominal: Normal Inspection. Non-tender. No distension. Normal Bowel Sounds. Back: No gross abnormalities. Extremities: Moves all four extremities. Upper extremities: Normal inspection. Normal ROM. Lower extremities: No edema. Normal ROM. Chronic venous skin ulcers. Neurological: Normal cognition. AAOx4. Normal speech. Psychological: Normal affect. Normal Mood. Skin: Warm. Dry. Normal color. Course - Re-evaluation Re-evalutation: 06/22/19 21:43 Patient resting comfortably waiting lab results. Patient had a procedure of suturing anchor to hold permacath in place. - Vital Signs Vital signs: Temp Pulse Resp BP Pulse Ox 98.4 F 106 H 17 116/72 97 06/22/19 16:55 06/22/19 16:55 06/22/19 20:42 06/22/19 20:42 06/22/19 20:42 - Laboratory Result Diagrams: 06/22/19 20:00 06/22/19 18:30 Laboratory results interpreted by me: 06/22/19 06/22/19 06/22/19 18:30 18:30 20:00 Hgb 10.8 L Hct 33.5 L RDW 31.9 H Lymph % (Auto) 12.4 L PT 24.0 H APTT 49.1 H BUN 30 H Creatinine 3.70 H Est GFR ( Amer) 14 L Est GFR (MDRD) Non-Af 12 L Glucose 174 H Calcium 8.2 L Total Bilirubin 2.5 H Direct Bilirubin 1.8 H AST 77 H ALT 40 H Albumin 2.9 L Patient has chronic renal failure and no acute process noted in the laboratories. Procedures - Laceration/Wound Repair Right Upper Time completed: 08:30 Wound length (cm): 0 Wound's Depth, Shape: Other - Permacath had pulled out from sutured anchored site therefore required new sutures applied. - Additional Procedures suture Additional Procedures: Other Discharge - Discharge Clinical Impression: Malfunction of peripheral inserted central catheter, Acute on chronic kidney failure Condition: Stable Disposition: HOME, SELF-CARE Referrals: LISA BARON MD [Primary Care Provider] - Follow up as needed I personally performed the services described in the documentation, reviewed and edited the documentation which was dictated to the scribe in my presence, and it accurately records my words and actions.
[2019-06-22 23:14] VITALS: BP 162/101
== END 2019-06-22 23:27 | disposition home or self-care (01) ==
LOC: ER 16:33
DX: T82.41XA Breakdown (mechanical) of vascular dialysis catheter, initial encounter (principal); Y82.8 Other medical devices associated with adverse incidents; I12.0 Hypertensive chronic kidney disease with stage 5 chronic kidney disease or end stage renal disease; E11.22 Type 2 diabetes mellitus with diabetic chronic kidney disease; N18.6 End stage renal disease; N17.9 Acute kidney failure, unspecified; I25.10 Atherosclerotic heart disease of native coronary artery without angina pectoris
CPT/HCPCS: 36415; 87040; 85025; 85610; 85730; 80053; J3490; 99283

== ENCOUNTER → 2019-07-17 | Outpatient (CLI) | payer MEDICARE ==
--- NOTE | 2019-07-17 12:10 | RADIOLOGY REPORT (SQ) ---
EXAM DESCRIPTION: U/S ABDOMEN LIMITED W/O DOP COMPLETED DATE/TIME: 07/17/2019 11:35 am REASON FOR STUDY: NAUSEA, ABNORMAL RESULTS OF LIVER FUNCTION STUDIES (R94.5) R94.5 ABNORMAL RESULTS OF LIVER FUNCTION STUDIES COMPARISON: 05/22/2019 CT TECHNIQUE: Dynamic and static grayscale images acquired of the abdomen and recorded on PACS. Additio nal selected color Doppler and spectral images recorded. LIMITATIONS: None. FINDINGS: PANCREAS: No masses. Visualized pancreatic duct normal caliber. LIVER: No focal lesions. No intrahepatic ductal dilation. Increased echogenicity. LIVER VASCULATURE: Normal directional flow of the main portal vein and hepatic veins. GALLBLADDER: 6 mm echogenic focus, likely stone. No wall thickening. No pericholecystic fluid. ULTRASOUND-DETECTED MONTES'S SIGN: Negative. INTRAHEPATIC DUCTS AND COMMON DUCT: CBD and intrahepatic ducts normal caliber. No filling defects. INFERIOR VENA CAVA: Normal flow. AORTA: No aneurysm. RIGHT KIDNEY: Normal size measuring 9.0 cm. Normal echogenicity. No solid or suspicious masses. No h ydronephrosis. No calcifications. PERITONEAL AND RIGHT PLEURAL SPACE: No ascites or effusions. OTHER: No other significant findings. IMPRESSION: 1. Hepatic steatosis. 2. 6 mm echogenic focus, likely gallstone. No secondary evidence of acute cholecystitis. TECHNICAL DOCUMENTATION: JOB ID: [id number] 2010 [employer]- All Rights Reserved Reading location - IP/workstation name: [email or web address]
== END ==
LOC: RAD 11:01
PROVIDERS: ATTEND Nurse Practitioner Family
DX: K76.0 Fatty (change of) liver, not elsewhere classified (principal); R94.5 Abnormal results of liver function studies
CPT/HCPCS: 76705

== ENCOUNTER 2019-07-20 16:56 | Emergency (ER) | payer MEDICARE ==
[2019-07-20] MEDS ORDERED: ACETAMINOPHEN 325 MG TABLET PO ONE (17:54)
--- NOTE | 2019-07-20 17:54 | ER Document Report ---
ED Medical Screen (RME) - General Chief Complaint: Leg Pain Stated Complaint: LEG PAIN Time Seen by Provider: 07/20/19 17:46 Primary Care Provider: ELIZABETH WALLS NP [Primary Care Provider] - Follow up as needed Mode of Arrival: Wheelchair Information source: Patient, Relative Notes: 74-year-old female with history of diabetes and dialysis presents emergency depa rtment with left lower leg foot infection. Patient has bilateral ulcers to both legs. Reports home health nurse came out today the area is erythemic warm. She was sent here for an infection. Denies fever vomiting diarrhea. Patient reports dialysis on Saturday and Saturday. She did have dialysis this past Saturday. I have greeted and performed a rapid initial assessment of this patient. A comprehensive ED assessment and evaluation of the patient, analysis of test results and completion of the medical decision making process will be conducted by additional ED providers. TRAVEL OUTSIDE OF THE [place] IN LAST 30 DAYS: No - Related Data Allergies/Adverse Reactions: No Known Allergies Allergy (Verified 01/10/12 14:35) Past Medical History - Social History Family history: Reviewed & Not Pertinent - Past Medical History Cardiac Medical History: Reports: Hx Atrial Fibrillation, Hx Congestive Heart Failure, Hx Coronary Artery Disease, Hx Hypercholesterolemia, Hx Hypertension Pulmonary Medical History: Reports: Hx Pneumonia Neurological Medical History: Endocrine Medical History: Reports: Hx Diabetes Mellitus Type 2 Renal/ Medical History: Reports: Hx End Stage Renal Disease, Hx Renal Insufficiency GI Medical History: Reports: Hx Colonoscopy Musculoskeltal Medical History: Reports Hx Arthritis Skin Medical History: Reports Hx Cellulitis Psychiatric Medical History: Reports: Hx Anxiety Denies: Hx Depression Infectious Medical History: Reports: Hx MRSA Past Surgical History: Reports: Hx Appendectomy, Hx Hysterectomy - Immunizations Hx Diphtheria, Pertussis, Tetanus Vaccination: Yes Physical Exam - Vital signs Vitals: Temp Pulse Resp BP Pulse Ox 98.7 F 79 20 123/67 100 07/20/19 17:22 07/20/19 17:22 07/20/19 17:22 07/20/19 17:22 07/20/19 17:22 Course - Vital Signs Vital signs: Temp Pulse Resp BP Pulse Ox 98.7 F 79 20 123/67 100 07/20/19 17:22 07/20/19 17:22 07/20/19 17:22 07/20/19 17:22 07/20/19 17:22 Doctor's Discharge - Discharge Referrals: ELIZABETH WALLS NP [Primary Care Provider] - Follow up as needed
[2019-07-20 19:40] LABS: HEMATOCRIT 33.4 % (36.0-47.0); HEMOGLOBIN 11.2 g/dL (12.0-15.5); MEAN CORPUSCULAR HEMOGLOBIN 31.6 pg (27.0-33.4); MEAN CORPUSCULAR HGB CONC 33.5 g/dL (32.0-36.0); PLATELET COUNT 195 10^3/uL (150-450); RED BLOOD COUNT 3.54 10^6/uL (3.72-5.28); RED CELL DISTRIBUTION WIDTH 29.1 % (11.5-14.0); WHITE BLOOD COUNT 11.3 10^3/uL (4.0-10.5)
[2019-07-20 19:46] LABS: MEAN CORPUSCULAR VOLUME 95 fl (80-97)
[2019-07-20 19:56] LABS: ABSOLUTE LYMPHOCYTES# (MANUAL) 0.5 10^3/uL (0.5-4.7); ABSOLUTE MONOCYTES # (MANUAL) 0.8 10^3/uL (0.1-1.4); BASOPHILS % (MANUAL) 0 % (0-2); EOSINOPHILS % (MANUAL) 0 % (0-6); LYMPHOCYTES % (MANUAL) 4 % (13-45); MONOCYTES % (MANUAL) 7 % (3-13); SEGMENTED NEUTROPHILS % (MAN) 89 % (42-78); TOTAL CELLS COUNTED 100
[2019-07-20 19:57] LABS: ALBUMIN 3.3 g/dL (3.5-5.0); ALKALINE PHOSPHATASE 117 U/L (38-126); ANION GAP 12 (5-19); ASPARTATE AMINO TRANSFERASE 57 U/L (14-36); BILIRUBIN,DIRECT 2.3 mg/dL (0.0-0.4); BILIRUBIN,TOTAL 3.3 mg/dL (0.2-1.3); BLOOD UREA NITROGEN 43 mg/dL (7-20); CALCIUM 9.1 mg/dL (8.4-10.2); CARBON DIOXIDE 25 mmol/L (22-30); CHLORIDE 101 mmol/L (98-107); GLUCOSE 204 mg/dL (75-110); POTASSIUM 4.5 mmol/L (3.6-5.0); TOTAL PROTEIN 8.6 g/dL (6.3-8.2)
[2019-07-20 19:58] LABS: ANISOCYTOSIS 4+; POLYCHROMASIA SLIGHT
[2019-07-20 19:59] LABS: BURR CELLS SLIGHT; OVALOCYTES SLIGHT; PLATELET COMMENT ADEQUATE; POIKILOCYTOSIS 1+; SCHISTOCYTES SLIGHT
[2019-07-20 20:01] LABS: TARGET CELLS 1+
--- NOTE | 2019-07-20 22:58 | ER Document Report ---
ED General - General Chief Complaint: Leg Pain Stated Complaint: LEG PAIN Time Seen by Provider: 07/20/19 17:46 Primary Care Provider: NAHED SCOTT NP [ALLIED HEALTH PROFESSIONAL] - Follow up as needed ELIZABETH WALLS NP [Primary Care Provider] - Follow up as needed LISA BARON MD [ACTIVE STAFF] - Follow up as needed Mode of Arrival: Wheelchair Information source: Patient TRAVEL OUTSIDE OF THE [place] IN LAST 30 DAYS: No - HPI Onset: Other - over the last week Onset/Duration: Gradual Quality of pain: Burning, Throbbing Severity: Moderate Pain Level: 3 Associated symptoms: Other - redness and swelling of left lower leg and foot and skin break down in same areas. Mild drainage. Exacerbated by: Other - palpation of left lower leg and foot Relieved by: Denies Similar symptoms previously: No Recently seen / treated by doctor: Yes - patient was recently admitted for a UTI Notes: 74 year old female with a history of ESRD, AFib, CHF, CAD, HTN, HLD, DM, MRSA, Arthritis, Anxiety, chronic lower leg and foot ulcers here for left lower leg and foot redness, swelling, wound drainage, and worsening pain for the last week. The patient was recently admitted for a UTI and complications of DM in June 2019. The patient denies fevers, chills, sweats, nausea, vomiting. The patient came to the ER since her home health nurse did not like the way her left lower leg and foot looked. The patient says the redness, swelling, wound drainage, and worsening pain are new for her. - Related Data Allergies/Adverse Reactions: No Known Allergies Allergy (Verified 01/10/12 14:35) Past Medical History - General Information source: Patient, Relative - Social History Smoking Status: Never Smoker Frequency of alcohol use: None Drug Abuse: None Family History: Reviewed & Not Pertinent Patient has suicidal ideation: No Patient has homicidal ideation: No - Past Medical History Cardiac Medical History: Reports: Hx Atrial Fibrillation, Hx Congestive Heart Failure, Hx Coronary Artery Disease, Hx Hypercholesterolemia, Hx Hypertension Pulmonary Medical History: Reports: Hx Pneumonia Neurological Medical History: Endocrine Medical History: Reports: Hx Diabetes Mellitus Type 2 Renal/ Medical History: Reports: Hx End Stage Renal Disease, Hx Renal Insufficiency GI Medical History: Reports: Hx Colonoscopy Musculoskeletal Medical History: Reports Hx Arthritis Skin Medical History: Reports Hx Cellulitis Psychiatric Medical History: Reports: Hx Anxiety Denies: Hx Depression Infectious Medical History: Reports: Hx MRSA Past Surgical History: Reports: Hx Appendectomy, Hx Hysterectomy - Immunizations Hx Diphtheria, Pertussis, Tetanus Vaccination: Yes Hx Pneumococcal Vaccination: 02/03/10 Review of Systems - Review of Systems Constitutional: No symptoms reported EENT: No symptoms reported Cardiovascular: No symptoms reported Respiratory: No symptoms reported Gastrointestinal: No symptoms reported Genitourinary: No symptoms reported Female Genitourinary: No symptoms reported Musculoskeletal: No symptoms reported Skin: Other - redness, swelling, skin breakdown and wound drainage of left lower leg and foot. Hematologic/Lymphatic: No symptoms reported -: Yes All other systems reviewed and negative Physical Exam - Vital signs Vitals: Temp Pulse Resp BP Pulse Ox 98.7 F 79 20 123/67 100 07/20/19 17:22 07/20/19 17:22 07/20/19 17:22 07/20/19 17:22 07/20/19 17:22 - Notes Notes: GENERAL: Well-appearing, well-nourished and in no acute distress. HEAD: Atraumatic, normocephalic. EYES: Pupils equal round and reactive to light, extraocular movements intact, sclera anicteric, conjunctiva are normal. ENT: TMs normal, nares patent, oropharynx clear without exudates. Moist mucous membranes. NECK: Normal range of motion, supple without lymphadenopathy or JVD. LUNGS: Breath sounds clear to auscultation bilaterally and equal. No wheezes rales or rhonchi. HEART: Regular rate and rhythm without murmurs, rubs or gallops. ABDOMEN: Soft, nontender, normoactive bowel sounds. No guarding, no rebound. No masses appreciated. EXTREMITIES: Normal range of motion, no pitting or edema. No clubbing or cyanosis. NEUROLOGICAL: Cranial nerves II through XII grossly intact. Normal speech, normal gait. PSYCH: Normal mood, normal affect. SKIN: Chronic Ulcers of Lower Legs, erythema and skin breakdown around of left lower leg and left foot with clear drainage. Left lower leg and foot are not warm to touch. 2+ pitting Edema of left lower leg and foot noted. No palpable DP or PT pulses but Dopplerable PT pulses noted in left foot (no Dopplerable DP pulses noted). Course - Re-evaluation Re-evalutation: 07/20/19 23:03 The patient came to the ER for a painful, swollen, red left lower leg and foot with skin breakdown. Her lower leg and foot are not warm to touch. Patient has no palpable pulses in this foot but she has a Dopplerable PT pulse (no Doppl erable DP pulse). Patient's foot is somewhat cool to touch but no cooler then her other foot. Patient has diffuse poorly healing leg ulcers bilaterally. The patient has multiple reasons to not heal leg and foot wounds well. I spoke with the patient's PCP (Dr. Baron) and the patient will follow up in his clinic and likely with wound clinic and Vascular Surgery. Patient could not have vascular imaging of her leg done in this ER given the night time hours she was evaluated during so will defer imaging to outpatient providers. Will prescribe Clindamycin for treatment of possible cellulitis although it is possible her skin changes are due to vascular issues primarily. - Vital Signs Vital signs: Temp Pulse Resp BP Pulse Ox 97.9 F 101 H 16 99/46 L 98 07/20/19 23:13 07/20/19 23:13 07/20/19 23:13 07/20/19 23:13 07/20/19 23:13 - Laboratory Result Diagrams: 07/20/19 19:24 07/20/19 19:24 Laboratory results interpreted by me: 07/20/19 07/20/19 19:24 19:24 WBC 11.3 H RBC 3.54 L Hgb 11.2 L Hct 33.4 L RDW 29.1 H Seg Neuts % (Manual) 89 H Lymphocytes % (Manual) 4 L Abs Neuts (Manual) 10.1 H BUN 43 H Creatinine 5.29 H Est GFR ( Amer) 10 L Est GFR (MDRD) Non-Af 8 L Glucose 204 H Total Bilirubin 3.3 H Direct Bilirubin 2.3 H AST 57 H Total Protein 8.6 H Albumin 3.3 L Discharge - Discharge Clinical Impression: Cellulitis of foot, Peripheral vascular complications Condition: Stable Disposition: HOME, SELF-CARE Instructions: Cellulitis ([facility]) Additional Instructions: Take antibiotics (Clindamycin) as prescribed. Follow up with your Primary Care Doctor, the Wound Clinic, and with a Vascular Surgeon for management of your left leg wounds. Prescriptions: Clindamycin HCl [Cleocin 150 mg Capsule] 450 mg PO TID 7 Days #63 capsule Referrals: ELIZABETH WALLS NP [Primary Care Provider] - Follow up as needed LISA BARON MD [ACTIVE STAFF] - Follow up as needed [facility] [ALLIED HEALTH PROFESSIONAL] - Follow up as needed
[2019-07-20] MEDS ORDERED: CLINDAMYCIN HCL 150 MG CAPSULE PO ONE (23:00)
[2019-07-21 00:37] VITALS: BP 99/46
== END 2019-07-20 23:20 | disposition home or self-care (01) ==
LOC: ER 16:56
DX: L03.116 Cellulitis of left lower limb (principal); I73.9 Peripheral vascular disease, unspecified; M79.605 Pain in left leg; M79.672 Pain in left foot; I13.2 Hypertensive heart and chronic kidney disease with heart failure and with stage 5 chronic kidney disease, or end stage renal disease; E11.22 Type 2 diabetes mellitus with diabetic chronic kidney disease; N18.6 End stage renal disease; I50.9 Heart failure, unspecified; I48.91 Unspecified atrial fibrillation; I25.10 Atherosclerotic heart disease of native coronary artery without angina pectoris; E78.5 Hyperlipidemia, unspecified; F41.9 Anxiety disorder, unspecified
CPT/HCPCS: 99283; 36415; 87040; 85025; 80053; A9270 ×2

== ENCOUNTER 2019-07-30 17:06 | Emergency (ER) | payer MEDICARE ==
--- NOTE | 2019-07-30 17:21 | ER Document Report ---
ED Medical Screen (RME) - General Stated Complaint: URINARY ISSUES Primary Care Provider: ELIZABETH WALLS NP [Primary Care Provider] - Follow up as needed Notes: Patient is a 74-year-old -[place] female who presents via EMS from dialysis who received a full dialysis today with complaints of questionable PICC line displacement the right upper chest wall status post dialysis. Report from EMS is that the center was unable to draw blood from the dialysis port after completion of dialysis, concern for PICC line she was sent. The patient's son also advised that she has had diabetic ulcers in the lower extremities for quite some time now and would like them evaluated as well. The patient is very anxious and does not provide much history. I have treated and performed a rapid initial assessment of this patient. A comprehensive ED assessment and evaluation of the patient, analysis of test results and completion of medical decision making process will be conducted by additional ED providers. PHYSICAL EXAMINATION: GENERAL: Anxious. Awake and alert. PICC line noted right upper chest wall. Multiple ulcerations to the lower extremities bilaterally. TRAVEL OUTSIDE OF THE [place] IN LAST 30 DAYS: No - Related Data Allergies/Adverse Reactions: No Known Allergies Allergy (Verified 01/10/12 14:35) Past Medical History - Social History Family history: Reviewed & Not Pertinent - Past Medical History Cardiac Medical History: Reports: Hx Atrial Fibrillation, Hx Congestive Heart Failure, Hx Coronary Artery Disease, Hx Hypercholesterolemia, Hx Hypertension Pulmonary Medical History: Reports: Hx Pneumonia Neurological Medical History: Endocrine Medical History: Reports: Hx Diabetes Mellitus Type 2 Renal/ Medical History: Reports: Hx End Stage Renal Disease, Hx Renal Insufficiency GI Medical History: Reports: Hx Colonoscopy Musculoskeltal Medical History: Reports Hx Arthritis Skin Medical History: Reports Hx Cellulitis Psychiatric Medical History: Reports: Hx Anxiety Denies: Hx Depression Infectious Medical History: Reports: Hx MRSA Past Surgical History: Reports: Hx Appendectomy, Hx Hysterectomy - Immunizations Hx Diphtheria, Pertussis, Tetanus Vaccination: Yes Doctor's Discharge - Discharge Referrals: ELIZABETH WALLS NP [Primary Care Provider] - Follow up as needed
[2019-07-30] MEDS ORDERED: FENTANYL CITRATE INJ/PF 100 MCG/2 ML AMPUL IV ONE (17:43)
[2019-07-30 18:15] LABS: ABSOLUTE EOSINOPHILS # (AUTO) 0.1 10^3/uL (0.0-0.6); ABSOLUTE LYMPHOCYTES (AUTO) 0.8 10^3/uL (0.5-4.7); ABSOLUTE MONOCYTES (AUTO) 0.8 10^3/uL (0.1-1.4); ABSOLUTE NEUT (AUTO) 7.1 10^3/uL (1.7-8.2); BASOPHILS % (AUTO) 0.5 % (0-2); EOSINOPHILS % (AUTO) 0.9 % (0-6); HEMATOCRIT 33.4 % (36.0-47.0); LYMPHOCYTES % (AUTO) 9.4 % (13-45); MEAN CORPUSCULAR HEMOGLOBIN 31.2 pg (27.0-33.4); MEAN CORPUSCULAR HGB CONC 32.9 g/dL (32.0-36.0); MEAN CORPUSCULAR VOLUME 95 fl (80-97); MONOCYTES % (AUTO) 9.6 % (3-13); PLATELET COUNT 287 10^3/uL (150-450); RED BLOOD COUNT 3.52 10^6/uL (3.72-5.28); RED CELL DISTRIBUTION WIDTH 24.8 % (11.5-14.0); SEGMENTED NEUTROPHILS % (AUTO) 79.6 % (42-78); TOTAL CELLS COUNTED % (AUTO) 100 %; WHITE BLOOD COUNT 8.9 10^3/uL (4.0-10.5)
[2019-07-30 18:27] LABS: ALBUMIN 3.1 g/dL (3.5-5.0); ALKALINE PHOSPHATASE 115 U/L (38-126); ANION GAP 8 (5-19); ASPARTATE AMINO TRANSFERASE 42 U/L (14-36); BILIRUBIN,DIRECT 1.3 mg/dL (0.0-0.4); BILIRUBIN,TOTAL 1.8 mg/dL (0.2-1.3); BLOOD UREA NITROGEN 16 mg/dL (7-20); CALCIUM 7.9 mg/dL (8.4-10.2); CARBON DIOXIDE 28 mmol/L (22-30); CHLORIDE 99 mmol/L (98-107); GLUCOSE 86 mg/dL (75-110); POTASSIUM 3.4 mmol/L (3.6-5.0); TOTAL PROTEIN 8.2 g/dL (6.3-8.2)
[2019-07-30] MEDS ORDERED: NORMAL SALINE 1000 ML 1,000 ML IV ONE (18:28)
--- NOTE | 2019-07-30 18:36 | RADIOLOGY REPORT (SQ) ---
EXAM DESCRIPTION: FOOT LEFT COMPLETE COMPLETED DATE/TIME: 07/30/2019 6:16 pm REASON FOR STUDY: infection, gas? COMPARISON: None. NUMBER OF VIEWS: Three views. TECHNIQUE: AP, lateral and oblique radiographic images acquired of the left foot. LIMITATIONS: None. FINDINGS: MINERALIZATION: Normal. BONES: No acute fracture or dislocation. No worrisome bone lesions. JOINTS: No effusions. SOFT TISSUES: Dorsal soft tissue swelling. No gas in the tissues. OTHER: No other significant finding. IMPRESSION: Soft tissue swelling. No gas present in the tissues. TECHNICAL DOCUMENTATION: JOB ID: [id number] 2010 [employer]- All Rights Reserved Reading location - IP/workstation name: [email or web address]
[2019-07-30 18:44] LABS: ANISOCYTOSIS 3+; POIKILOCYTOSIS 2+; POLYCHROMASIA SLIGHT; TARGET CELLS 1+; TEAR DROP CELLS SLIGHT
[2019-07-30 18:45] LABS: PLATELET COMMENT ADEQUATE
--- NOTE | 2019-07-30 18:51 | RADIOLOGY REPORT (SQ) ---
EXAM DESCRIPTION: CHEST SINGLE VIEW COMPLETED DATE/TIME: 07/30/2019 6:42 pm REASON FOR STUDY: eval line placement COMPARISON: None. EXAM PARAMETERS: NUMBER OF VIEWS: One view. TECHNIQUE: Single frontal radiographic view of the chest acquired. RADIATION DOSE: NA LIMITATIONS: None. FINDINGS: LUNGS AND PLEURA: No opacities, masses or pneumothorax. No pleural effusion. MEDIASTINUM AND HILAR STRUCTURES: No masses. Contour normal. HEART AND VASCULAR STRUCTURES: Heart size is borderline. There is no pulmonary edema. BONES: No acute findings. HARDWARE: Dual-lumen catheter has its tip in the superior vena cava. OTHER: No other significant finding. IMPRESSION: Borderline cardiomegaly without pulmonary edema. Catheter placement as described. TECHNICAL DOCUMENTATION: JOB ID: [id number] 2010 [employer]- All Rights Reserved Reading location - IP/workstation name: [email or web address]
[2019-07-30 19:05] LABS: VENOUS BLOOD BASE EXCESS -0.2 mmol/L; VENOUS BLOOD HCO3 24.9 mmol/L (20-32); VENOUS BLOOD PCO2 42.4 mmHg (35-63); VENOUS BLOOD PH 7.39 (7.30-7.42)
--- NOTE | 2019-07-30 20:00 | EKG REPORT ---
SEVERITY:- ABNORMAL ECG - ATRIAL FIBRILLATION RUN OF VENTRICULAR PREMATURE COMPLEXES LEFT ANTERIOR FASCICULAR BLOCK ANTEROLATERAL INFARCT, OLD BORDERLINE PROLONGED QT INTERVAL : Confirmed by: Hardy Du MD 30-Jul-2019 19:59:32
--- NOTE | 2019-07-30 20:38 | ER Document Report ---
ED General - General Chief Complaint: Leg Pain Stated Complaint: URINARY ISSUES Time Seen by Provider: 07/30/19 17:56 Primary Care Provider: ELIZABETH WALLS NP [Primary Care Provider] - Follow up as needed TRAVEL OUTSIDE OF THE [place] IN LAST 30 DAYS: No - HPI Notes: Patient is a 74-year-old female who presents to the emergency department for evaluation. Overall she is an extremely poor historian. I was able to talk to her son, who was able to offer more information. The patient has a history of "poor circulation" and ulcerations on her legs and feet. She was seen here about a week ago for a possible cellulitis in her left foot. She was started on antibiotics. I home health nurse, who comes 2 or 3 times a week, came today and stated that it did not "look any better" and thought she should be evaluated. No fevers. No nausea or vomiting. The patient had just a sock covering the wounds on her foot at the time of arrival. There was also some concern in regards to her permacath. She has a permacath in her right chest. Evidently there was some concern about it possibly being infected or displaced. The patient was able to be dialyzed through it today. Again she has not had any fevers. There was concerned that she had displaced it because she is "const antly fiddling with it." - Related Data Allergies/Adverse Reactions: No Known Allergies Allergy (Verified 01/10/12 14:35) Past Medical History - General Information source: Patient, Relative - Son - Social History Smoking Status: Never Smoker Family History: Reviewed & Not Pertinent Patient has suicidal ideation: No Patient has homicidal ideation: No - Past Medical History Cardiac Medical History: Reports: Hx Atrial Fibrillation, Hx Congestive Heart Failure, Hx Coronary Artery Disease, Hx Hypercholesterolemia, Hx Hypertension Pulmonary Medical History: Reports: Hx Pneumonia Neurological Medical History: Endocrine Medical History: Reports: Hx Diabetes Mellitus Type 2 Renal/ Medical History: Reports: Hx End Stage Renal Disease, Hx Renal Insufficiency GI Medical History: Reports: Hx Colonoscopy Musculoskeletal Medical History: Reports Hx Arthritis Skin Medical History: Reports Hx Cellulitis Psychiatric Medical History: Reports: Hx Anxiety Denies: Hx Depression Infectious Medical History: Reports: Hx MRSA Past Surgical History: Reports: Hx Appendectomy, Hx Hysterectomy - Immunizations Hx Diphtheria, Pertussis, Tetanus Vaccination: Yes Hx Pneumococcal Vaccination: 02/03/10 Review of Systems - Review of Systems Skin: See HPI -: Yes All other systems reviewed and negative Physical Exam - Vital signs Vitals: Temp Pulse Resp BP Pulse Ox 98.3 F 120 H 24 H 102/66 100 07/30/19 17:26 07/30/19 17:26 07/30/19 17:26 07/30/19 17:26 07/30/19 17:26 - Notes Notes: This is a 74-year-old female who appears her stated age in a mild to moderate distress. She is complaining of pain from where her sock was removed. Again she has multiple open wounds on her left foot and had no dressings in place. Head is normocephalic and atraumatic, pupils are equal round, active to light. Oral mucosa is moist. Heart is irregularly irregular, lungs are clear to station bilaterally. Patient has permacath in place in the right chest, with tape overlying. No sutures to hold in place. There is no evidence of surrounding erythema or induration. Abdomen soft, nontender, normoactive bowel sounds. Examination of bilateral lower extremities yields extensive chronic appearing wounds and ulcerations. Focus on the left foot yields a moderate amount of edema with diminished sensation. She has what appeared to be open b ullae overlying the entire distal foot. No active bleeding. No induration, no abscess is appreciated. Course - Re-evaluation Re-evalutation: 07/30/19 20:39 Patient presents emergency department for evaluation. She had concerns about her permacath as well as about her feet. Her laboratory investigations were obtained and she was found to have no leukocytosis, no significant left shift. Her metabolic panel is unremarkable for a dialysis patient. The patient's heart rate was elevated, but after talking to the son, it was verified that the patient has not taken her afternoon or evening meds, has not had any medications since before dialysis. She is on metoprolol for her atrial fibrillation, that is likely the etiology of her mild tachycardia. In regards to her wounds, they do appear chronic. I do not see any signs of active infection. But she does need his wound care. Evidently her appointment with wound care has been postponed secondary to her current pandemic situation. I spoke with Dr. Lopez in regards to this patient. He states that patient could also follow-up at the surgical clinic, she has seen Dr. Heart in the past. I will encourage patient and son to seek out follow-up with him as well. Otherwise, the wounds on her feet will be dressed with nonadherent dressing, antibiotic ointment, and gauze. I am not inclined to evaluate the permacath any further than the chest x-ray. The chest x-ray showed the tip of the permacath in the superior vena cava. There are no overlying signs of infection on exam. She was dialyzed through without difficulty today. We will leave further evaluation of this catheter to nephrology or vascular. Otherwise she is to return to the ED with worsening or new concerning symptoms of any sort. - Vital Signs Vital signs: Temp Pulse Resp BP Pulse Ox 98.3 F 120 H 21 H 112/56 L 100 07/30/19 17:26 07/30/19 17:26 07/30/19 22:00 07/30/19 21:58 07/30/19 22:00 - Laboratory Result Diagrams: 07/30/19 17:36 07/30/19 17:36 Laboratory results interpreted by me: 07/30/19 07/30/19 17:36 17:36 RBC 3.52 L Hgb 11.0 L Hct 33.4 L RDW 24.8 H Lymph % (Auto) 9.4 L Seg Neutrophils % 79.6 H Sodium 135.4 L Potassium 3.4 L Creatinine 2.59 H Est GFR ( Amer) 22 L Est GFR (MDRD) Non-Af 18 L Calcium 7.9 L Total Bilirubin 1.8 H Direct Bilirubin 1.3 H AST 42 H Albumin 3.1 L Discharge - Discharge Clinical Impression: Lower extremity ulceration, Open wound of both legs with complication Condition: Stable Disposition: HOME, SELF-CARE Instructions: Dressing Instructions for Open Wounds ([facility]) Additional Instructions: Keep wounds clean. Follow-up with primary care in 2 weeks. Seek out appoi ntment with wound care, or the surgical clinic for further care of lower extremity wounds. Return to the emergency department for fever, vomiting, or any other new or concerning symptoms. Referrals: ELIZABETH WALLS NP [Primary Care Provider] - Follow up as needed
[2019-07-30 22:26] VITALS: BP 112/56
== END 2019-07-30 22:26 | disposition home or self-care (01) ==
LOC: ER 17:06
DX: S81.802A Unspecified open wound, left lower leg, initial encounter (principal); S81.801A Unspecified open wound, right lower leg, initial encounter; L97.929 Non-pressure chronic ulcer of unspecified part of left lower leg with unspecified severity; M79.605 Pain in left leg; R39.198 Other difficulties with micturition; X58.XXXA Exposure to other specified factors, initial encounter; Z95.9 Presence of cardiac and vascular implant and graft, unspecified; I48.91 Unspecified atrial fibrillation; I50.9 Heart failure, unspecified; I25.10 Atherosclerotic heart disease of native coronary artery without angina pectoris; I11.0 Hypertensive heart disease with heart failure; E11.9 Type 2 diabetes mellitus without complications
CPT/HCPCS: 93005; 99284; 96361; 96374; 36415; 87040; 83605; 85025; 80053; 82803; 71045; 73630; 93010; J3010; J7030

== ENCOUNTER 2019-07-31 00:38 | Inpatient (IN) | payer MEDICARE ==
[2019-07-31] MEDS ORDERED: DILTIAZEM HCL INJ 25 MG/5 ML VIAL IV ONE (00:47)
[2019-07-31] MEDS ORDERED: MORPHINE SULFATE 10 MG/ML INJ IV ONE (00:57)
--- NOTE | 2019-07-31 01:02 | ER Document Report ---
ED General - General Chief Complaint: Medical Complaint Stated Complaint: CHEST PAIN Time Seen by Provider: 07/31/19 00:47 Primary Care Provider: ELIZABETH WALLS NP [Primary Care Provider] - Follow up as needed TRAVEL OUTSIDE OF THE [place] IN LAST 30 DAYS: No - HPI Notes: Patient is a 74-year-old female who presents to the emergency department for evaluation. She was actually seen here earlier during my shift. There was concerned about her permacath. According to the son, whom I spoke with on the telephone, she "messes with it" and they were concerned about it being loose. Evidently, according to the patient, it just "fell out." She did have some blood loss at the scene. She is on blood thinners. The patient states she has pain in her legs, from her chronic wounds. She states this is stable. - Related Data Allergies/Adverse Reactions: No Known Allergies Allergy (Verified 01/10/12 14:35) Past Medical History - General Information source: Patient - Social History Smoking Status: Never Smoker Family History: Reviewed & Not Pertinent - Past Medical History Cardiac Medical History: Reports: Hx Atrial Fibrillation, Hx Congestive Heart Failure, Hx Coronary Artery Disease, Hx Hypercholesterolemia, Hx Hypertension Pulmonary Medical History: Reports: Hx Pneumonia Neurological Medical History: Endocrine Medical History: Reports: Hx Diabetes Mellitus Type 2 Renal/ Medical History: Reports: Hx End Stage Renal Disease, Hx Hemodialysis, Hx Renal Insufficiency GI Medical History: Reports: Hx Colonoscopy Musculoskeletal Medical History: Reports Hx Arthritis Skin Medical History: Reports Hx Cellulitis Psychiatric Medical History: Reports: Hx Anxiety Denies: Hx Depression Infectious Medical History: Reports: Hx MRSA Past Surgical History: Reports: Hx Appendectomy, Hx Hysterectomy - Immunizations Hx Diphtheria, Pertussis, Tetanus Vaccination: Yes Hx Pneumococcal Vaccination: 02/03/10 Review of Systems - Review of Systems Skin: See HPI Physical Exam - Vital signs Vitals: Temp Pulse Resp BP Pulse Ox 97.8 F 145 H 21 H 96/64 L 93 07/31/19 00:49 07/31/19 00:49 07/31/19 00:49 07/31/19 00:49 07/31/19 00:49 - Notes Notes: This is a 74-year-old female who appears her stated age in no acute distress. Vital signs reviewed, please refer to chart. Head is normocephalic, atraumatic. Pupils equal round, reactive to light. Neck is supple without meningismus. Heart is irregularly irregular and tachycardic. Lungs are clear to auscultation bilaterally. Patient has a large chest occlusive dressing in place over the right chest without any signs of active bleeding. Abdomen is soft, nontender, normoactive bowel sounds throughout. Extremities without cyanosis, clubbing. Posterior calves are nontender. Peripheral pulses are equal. Bandages in place as placed earlier on the left foot. No signs of active bleeding noted. Patient is awake, alert, neurological exam is nonfocal. Course - Re-evaluation Re-evalutation: 07/31/19 01:04 Patient presents emergency department for evaluation. She is lost her permacath. The patient is a Saturday dialysis patient. Alba arnold is also in rapid atrial fibrillation. It was noted that she had taken her medications earlier today upon being discharged. I did go ahead and order Cardizem 20 mg IV push. The patient's heart rate came down to between 95 and 110 following this medication. Otherwise she has been stable. She was given morphine for her foot pain. I spoke with Dr. Lopez and he asked that lab work be drawn. I spoke with Dr. Ornelas. He states that 1 of the surgeons will be able to place dialysis access in the patient tomorrow. Dr. Lopez been called back and asked that I contact Dr. Mcclure to be sure that the patient will be able to be dialyzed on Saturday. Awaiting phone call from Dr. Mcclure at this time. - Vital Signs Vital signs: Temp Pulse Resp BP Pulse Ox 97.8 F 145 H 21 H 96/64 L 93 07/31/19 00:49 07/31/19 00:49 07/31/19 00:49 07/31/19 00:49 07/31/19 00:49 - Laboratory Result Diagrams: 07/31/19 01:01 07/31/19 01:01 Discharge - Discharge Clinical Impression: End stage renal disease on dialysis, Rapid atrial fibrillation Problem with dialysis access Qualifiers: Encounter type: initial encounter Qualified Code(s): T82.898A - Other specified complication of vascular prosthetic devices, implants and grafts, initial encounter Condition: Stable Disposition: ADMITTED INPATIENT Admitting Provider: John Unit Admitted: IMCU Referrals: WALLS,ELIZABETH, GEOTECHNICIAL PROPERTIES TECHNICIAN [Primary Care Provider] - Follow up as needed
[2019-07-31 01:16] LABS: ABSOLUTE BASOPHILS # (AUTO) 0.1 10^3/uL (0.0-0.2); ABSOLUTE EOSINOPHILS # (AUTO) 0.1 10^3/uL (0.0-0.6); ABSOLUTE LYMPHOCYTES (AUTO) 0.6 10^3/uL (0.5-4.7); ABSOLUTE MONOCYTES (AUTO) 0.7 10^3/uL (0.1-1.4); ABSOLUTE NEUT (AUTO) 7.1 10^3/uL (1.7-8.2); BASOPHILS % (AUTO) 1.2 % (0-2); EOSINOPHILS % (AUTO) 0.7 % (0-6); HEMATOCRIT 31.4 % (36.0-47.0); HEMOGLOBIN 10.6 g/dL (12.0-15.5); LYMPHOCYTES % (AUTO) 6.7 % (13-45); MEAN CORPUSCULAR HGB CONC 33.7 g/dL (32.0-36.0); MEAN CORPUSCULAR VOLUME 95 fl (80-97); MONOCYTES % (AUTO) 7.9 % (3-13); PLATELET COUNT 297 10^3/uL (150-450); RED CELL DISTRIBUTION WIDTH 24.6 % (11.5-14.0); SEGMENTED NEUTROPHILS % (AUTO) 83.5 % (42-78); TOTAL CELLS COUNTED % (AUTO) 100 %; WHITE BLOOD COUNT 8.4 10^3/uL (4.0-10.5)
[2019-07-31 01:37] LABS: ANISOCYTOSIS 3+; POLYCHROMASIA SLIGHT
[2019-07-31 01:38] LABS: OVALOCYTES SLIGHT; TARGET CELLS 1+
[2019-07-31 01:39] LABS: PLATELET COMMENT ADEQUATE; TEAR DROP CELLS SLIGHT
[2019-07-31] MEDS ORDERED: DEXTROSE 50%-WATER 25 GM/50 ML DISP.SYRIN IV PRN ×2 (01:44)
[2019-07-31] MEDS ORDERED: GLUCAGON,HUMAN RECOMB 1 MG INJ IM PRN (01:44)
[2019-07-31] MEDS ORDERED: DEXTROSE 40% GEL 15 GM TUBE PO PRN ×2 (01:44)
[2019-07-31 01:53] LABS: ALBUMIN 2.6 g/dL (3.5-5.0); ALKALINE PHOSPHATASE 96 U/L (38-126); ANION GAP 8 (5-19); ASPARTATE AMINO TRANSFERASE 34 U/L (14-36); BILIRUBIN,TOTAL 1.8 mg/dL (0.2-1.3); BLOOD UREA NITROGEN 18 mg/dL (7-20); CALCIUM 7.7 mg/dL (8.4-10.2); CARBON DIOXIDE 26 mmol/L (22-30); CHLORIDE 103 mmol/L (98-107); GLUCOSE 132 mg/dL (75-110); POTASSIUM 3.8 mmol/L (3.6-5.0); TOTAL PROTEIN 6.9 g/dL (6.3-8.2)
[2019-07-31] MEDS: INSULIN LISPRO 100 UNIT/ML 3 ML VIAL SUBCUT SCH ×3 (08:59→18:15)
[2019-07-31] MEDS ORDERED: CEFAZOLIN 1 GM/D5W RTU 1 GM/50 ML RTUPB IV PRN (09:56)
[2019-07-31] MEDS ORDERED: COLLAGENASE CLOSTRIDIUM HIST. OINT 30 GM TOP SCH (10:30)
[2019-07-31] MEDS ORDERED: BUPIVACAINE HCL 0.25 % INJ/PF (2.5 MG/1 ML) 30 ML VIAL ONE (10:39)
[2019-07-31] MEDS ORDERED: LIDOCAINE 0.5% INJ-PF (5 MG/ML) 50 ML SDV ONE (10:40)
[2019-07-31] MEDS ORDERED: FENTANYL CITRATE INJ/PF 100 MCG/2 ML AMPUL ONE (10:56)
[2019-07-31] MEDS ORDERED: ONDANSETRON HCL INJ/PF 4 MG/2 ML SDV ONE (10:57)
[2019-07-31] MEDS ORDERED: PROPOFOL INJ 200 MG/20 ML VIAL IV ONE (10:57)
[2019-07-31] MEDS ORDERED: LIDOCAINE 2% INJ-PF (20 MG/ML) 10 ML AMPUL ONE (10:57)
--- NOTE | 2019-07-31 11:00 | PDOC H&P ---
History of Present Illness Admission Date/PCP: 07/31/19 01:42 LISA BARON MD Patient complains of: A. 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 multiple other complication history of the end-stage renal disease on hemodialysis history of the combined congestive heart failure due to the above conditions hypertension hyperlipidemia multiple other comorbidityWith the multiple hospital admissions recently initially came to the ER because of the patient have a chronic wound on the leg which supposed to go and see a wound care clinic but wound care clinic is curre ntly not working due to the current going on with the community virus brought to the emergency department because of the home health nurses suggest the needs to go and evaluate Initial ER evaluations patient's blood work is all stable is patient having no fever no chills neck wound at the time patient's discharge home in the ER physicians also noticed the permacath catheter was a little dressings was change but after 2 hours patients came to the ER because the permacath was come out and patient also have A. fib with a rapid ventricular response In the emergency department patient is received the Cardizem bolus and heart rate coming down in ER physicians call me to further evaluate because of the catheter was out and patient scheduled for dialysis on Saturday At this point decided to admit the patient in the hospital for the further work- up for the dialysis catheter and A. fib Patient is currently doing well when I saw the patient in the IMCU denied any chest pain no short of breath No fever no chills Discussed with the nephrology Dr. Mcclure and suggest the temporary put the groin catheter and dialyze today and patients will schedule for the permacath because patient is currently on Eliquis last wasGiven yesterday Patient's other than that no other concerns no other issues Past Medical History Cardiac Medical History: Reports: Atrial Fibrillation, Congestive Heart Failure, Coronary Artery Disease, Hyperlipidema, Hypertension Pulmonary Medical History: Reports: Pneumonia Endocrine Medical History: Reports: Diabetes Mellitus Type 2 Renal/ Medical History: Reports: End Stage Renal Disease Musculoskeltal Medical History: Reports: Arthritis Psychiatric Medical History: Denies: Depression Hematology: Reports: Anemia Infectious Medical History: Reports: Methicillin-Resistant Staph Aureus Past Surgical History Past Surgical History: Reports: Appendectomy, Hysterectomy Social History Information Source: Patient Smoking Status: Never Smoker Frequency of Alcohol Use: None Hx Recreational Drug Use: No Drugs: None Hx Prescription Drug Abuse: No Family History Family History: Reviewed & Not Pertinent Parental Family History Reviewed: Yes Children Family History Reviewed: Yes Sibling(s) Family History Reviewed.: Yes Medication/Allergy Home Medications: Atorvastatin Calcium [Lipitor 40 mg Tablet] 40 mg PO QHS 04/14/19 Isosorbide Mononitrate [Imdur 30 mg Tablet.er] 30 mg PO DAILY 04/14/19 Apixaban [Eliquis 5 mg Tablet] 5 mg PO BID 05/23/19 Furosemide [Lasix 40 mg Tablet] 40 mg PO BID 05/23/19 Insulin Glargine,Hum.rec.anlog [Lantus Insulin 100 Unit/1 ml 10 ml] 20 unit SUBCUT QHS 05/23/19 Insulin Lispro [Humalog Insulin (Lispro) 100 unit/mL] 0 unit SUBCUT .SLD SCALE 05/23/19 Lisinopril [Prinivil 5 mg Tablet] 2.5 mg PO QHS 05/23/19 Metoprolol Tartrate [Lopressor 25 mg Tablet] 25 mg PO Q12 05/23/19 Midodrine HCl [Proamatine 5 mg Tablet] 5 mg PO Q8 05/23/19 Omeprazole 40 mg PO DAILY 05/23/19 Ondansetron HCl [Zofran 4 mg Tablet] 4 mg PO Q8HP PRN 05/23/19 Furosemide [Lasix 40 mg Tablet] 40 mg PO BID #60 tablet 06/09/19 Clindamycin HCl [Cleocin 150 mg Capsule] 450 mg PO TID 7 Days #63 capsule 07/20/19 Allergies/Adverse Reactions: No Known Allergies Allergy (Verified 01/10/12 14:35) Review of Systems Constitutional: ABSENT: chills, fever(s), headache(s), weight gain, weight loss Eyes: ABSENT: visual disturbances Ears: ABSENT: hearing changes Cardiovascular: ABSENT: chest pain, dyspnea on exertion, edema, orthropnea, pa lpitations Respiratory: ABSENT: cough, hemoptysis Gastrointestinal: ABSENT: abdominal pain, constipation, diarrhea, hematemesis, hematochezia, nausea, vomiting Genitourinary: ABSENT: dysuria, hematuria Musculoskeletal: ABSENT: joint swelling Integumentary: ABSENT: rash, wounds Neurological: ABSENT: abnormal gait, abnormal speech, confusion, dizziness, focal weakness, syncope Psychiatric: ABSENT: anxiety, depression, homidical ideation, suicidal ideation Endocrine: ABSENT: cold intolerance, heat intolerance, menstrual abnormalities, polydipsia, polyuria Hematologic/Lymphatic: ABSENT: easy bleeding, easy bruising, lymphadenopathy Physical Exam Vital Signs: Temp Pulse Resp BP Pulse Ox 98.7 F 107 H 17 119/58 L 91 L 07/31/19 07:24 07/31/19 07:24 07/31/19 07:24 07/31/19 07:24 07/31/19 03:14 Intake & Output 07/30/19 07/31/19 08/01/19 06:59 06:59 06:59 Weight 101.8 kg General appearance: PRESENT: no acute distress, well-developed, well-nourished Head exam: PRESENT: atraumatic, normocephalic Eye exam: PRESENT: conjunctiva pink, EOMI, PERRLA. ABSENT: scleral icterus Ear exam: PRESENT: normal external ear exam Mouth exam: PRESENT: moist, tongue midline Neck exam: PRESENT: full ROM. ABSENT: carotid bruit, JVD, lymphadenopathy, thyromegaly Respiratory exam: PRESENT: clear to auscultation conor Cardiovascular exam: PRESENT: RRR. ABSENT: diastolic murmur, rubs, systolic murmur Vascular exam: PRESENT: normal capillary refill GI/Abdominal exam: PRESENT: normal bowel sounds, soft. ABSENT: distended, guarding, mass, organolmegaly, rebound, tenderness Rectal exam: PRESENT: deferred Extremities exam: PRESENT: pedal edema Additional comments: Left lower extremities chronic wound is present Right lower extremities a dressing is intact Neurological exam: PRESENT: alert, awake, oriented to person, oriented to place, oriented to time, oriented to situation, CN II-XII grossly intact. ABSENT: motor sensory deficit Psychiatric exam: PRESENT: appropriate affect, normal mood. ABSENT: homicidal ideation, suicidal ideation Skin exam: PRESENT: dry, intact, warm. ABSENT: cyanosis, rash Results Laboratory Results: 07/31/19 01:01 07/31/19 01:01 07/31/19 07/31/19 01:01 01:01 WBC 8.4 RBC 3.30 L Hgb 10.6 L Hct 31.4 L MCV 95 MCH 32.0 MCHC 33.7 RDW 24.6 H Plt Count 297 Seg Neutrophils % 83.5 H Sodium 137.2 Potassium 3.8 Chloride 103 Carbon Dioxide 26 Anion Gap 8 BUN 18 Creatinine 3.11 H Est GFR ( Amer) 18 L Glucose 132 H Calcium 7.7 L Total Bilirubin 1.8 H AST 34 Alkaline Phosphatase 96 Total Protein 6.9 Albumin 2.6 L 07/31/19 01:01 Troponin I 0.037 Assessment & Plan - Diagnosis (1) End stage renal disease on dialysis Is this a current diagnosis for this admission?: Yes Plan: We consulted Dr. Mcclure for further continues dialysis This patient scheduled on a Saturday for dialysis but currently no IV access will put the groin catheter and dialyze today (2) Problem with dialysis access Qualifiers: Encounter type: initial encounter Qualified Code(s): T82.898A - Other specified complication of vascular prosthetic devices, implants and grafts, initial encounter Is this a current diagnosis for this admission?: Yes Plan: Discussed with the Dr. Venegas general surgery he will put that dialysis catheter temporary and a groin area then he will schedule for the permacath placement (3) Rapid atrial fibrillation Is this a current diagnosis for this admission?: Yes Plan: Currently all better continues the current medications (4) Anemia in chronic kidney disease (CKD) Qualifiers: Chronic kidney disease stage: on chronic dialysis Qualified Code(s): N18.6 - End stage renal disease; D63.1 - Anemia in chronic kidney disease; Z99.2 - Dependence on renal dialysis Is this a current diagnosis for this admission?: Yes (5) Congestive heart failure Qualifiers: Heart failure type: combined systolic and diastolic Heart failure chronicit y: acute on chronic Qualified Code(s): I50.43 - Acute on chronic combined systolic (congestive) and diastolic (congestive) heart failure Is this a current diagnosis for this admission?: Yes Plan: Consult to Dr. Grant (6) Diabetic foot ulcers Qualifiers: Diabetic foot ulcer location: unspecified part of foot Diabetes mellitus type: type 2 Is this a current diagnosis for this admission?: Yes Plan: We consult the general surgery for the evaluate (7) Diabetic neuropathy Qualifiers: Diabetes mellitus type: type 2 Diabetes mellitus complication detail: diabetic polyneuropathy Qualified Code(s): E11.42 - Type 2 diabetes mellitus with diabetic polyneuropathy (8) Open wound of both legs with complication Qualifiers: Encounter type: initial encounter Qualified Code(s): S81.801A - Unspecified open wound, right lower leg, initial encounter; S81.802A - Unspecified open wound, left lower leg, initial encounter Is this a current diagnosis for this admission?: Yes Plan: Continues to dressing change (9) Type 2 diabetes mellitus Qualifiers: Diabetes mellitus [facility] insulin use: with [facility] use Chronic kidney disease stage: stage 4 (severe) Is this a current diagnosis for this admission?: Yes Plan: Continues to current medication on a sliding scale (10) Chronic anticoagulation Is this a current diagnosis for this admission?: Yes Plan: Is currently Eliquis 2.5 mg twice a day due to the A. fib currently hold it until the patient have a permacath placement - Time Time Spent: 50 to 70 Minutes Medications reviewed and adjusted accordingly: Yes Anticipated discharge: Home Within: Other - Inpatient Certification Based on my medical assessment, after consideration of the patient's comorbidities, presenting symptoms, or acuity I expect that the services needed warrant INPATIENT care.: Yes Medical Necessity: Significant Comorbidiites Make Outpatient Treatment Too Risky, Need Close Monitoring Due to Risk of Patient Decompensation, Need For Continuous Telemetry Monitoring, Need for Surgery 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
[2019-07-31 11:58] LABS: APPEARANCE,URINE CLOUDY; BILIRUBIN,URINE NEGATIVE (NEGATIVE); COLOR,URINE AMBER; GLUCOSE, URINE NEGATIVE (NEGATIVE); KETONES,URINE NEGATIVE (NEGATIVE); LEUKOCYTE ESTERASE,URINE LARGE (NEGATIVE); NITRITE,URINE NEGATIVE (NEGATIVE); PROTEIN,URINE 100 mg/dL (NEGATIVE); URINE SPECIFIC GRAVITY 1.017
--- NOTE | 2019-07-31 11:59 | PDOC CONSULTATION ---
Consultation Consult Date: 07/31/19 Provider Consulted: [facility] History of Present Illness Admission Date/PCP: 07/31/19 01:42 LISA BARON MD History of Present Illness: NISH NOLAND is a 74 year old female end-stage renal disease patient hemodialysis dependent who had a right IJ PermCath placed a few weeks ago but it accidentally got pulled out. Consult now being obtained for another permacath placement. Patient is on Eliquis for atrial fib which she has last taken about 2:00 yesterday. No anticoagulation since that time. Patient also has chronic bilateral leg ulcers. The right ones have dried up but the left side is active along with blistering of the dorsum of her left foot. Patient is able to ambulate but she has pain in her left foot. She does not know of any prior vascular intervention of her lower extremities. Past Medical History Cardiac Medical History: Reports: Atrial Fibrillation, Congestive Heart Failure, Coronary Artery Disease, Hyperlipidema, Hypertension Pulmonary Medical History: Reports: Pneumonia Endocrine Medical History: Reports: Diabetes Mellitus Type 2 Renal/ Medical History: Reports: End Stage Renal Disease Musculoskeltal Medical History: Reports: Arthritis Psychiatric Medical History: Denies: Depression Hematology: Reports: Anemia Infectious Medical History: Reports: Methicillin-Resistant Staph Aureus Past Surgical History Past Surgical History: Reports: Appendectomy, Hysterectomy Social History Smoking Status: Never Smoker Frequency of Alcohol Use: None Hx Recreational Drug Use: No Drugs: None Hx Prescription Drug Abuse: No Family History Family History: Reviewed & Not Pertinent Parental Family History Reviewed: No Children Family History Reviewed: No Sibling(s) Family History Reviewed.: No Medication/Allergy Home Medications: Apixaban [Eliquis 5 mg Tablet] 2.5 mg PO BID 05/23/19 Insulin Glargine,Hum.rec.anlog [Lantus Insulin 100 Unit/1 ml 10 ml] 20 unit SUBCUT QHS 05/23/19 Insulin Lispro [Humalog Insulin (Lispro) 100 unit/mL] 0 unit SUBCUT .SLD SCALE 05/23/19 Lisinopril [Prinivil 5 mg Tablet] 5 mg PO QHS 05/23/19 Omeprazole 20 mg PO DAILY 05/23/19 Ondansetron HCl [Zofran 4 mg Tablet] 4 mg PO Q12HP PRN 05/23/19 Furosemide [Lasix 40 mg Tablet] 40 mg PO BID #60 tablet 06/09/19 Clindamycin HCl [Cleocin 150 mg Capsule] 450 mg PO TID 7 Days #63 capsule 07/20/19 Sodium Polystyrene Sulfonate [Kayexalate 15 Gm/60 Ml Susp 60 Ml] 15 gm PO DAILY 07/31/19 Allergies/Adverse Reactions: No Known Allergies Allergy (Verified 01/10/12 14:35) Physical Exam Vital Signs: Temp Pulse Resp BP Pulse Ox 98.7 F 107 H 17 119/58 L 91 L 07/31/19 07:24 07/31/19 07:24 07/31/19 07:24 07/31/19 07:24 07/31/19 03:14 Intake & Output 07/30/19 07/31/19 08/01/19 06:59 06:59 06:59 Weight 101.8 kg General appearance: PRESENT: no acute distress, cooperative Respiratory exam: PRESENT: clear to auscultation conor, other - Patient has a PermCath site scar on her right upper chest that appears clean with no active bleeding. There is no surrounding erythema. Cardiovascular exam: PRESENT: irregular rhythm Extremities exam: PRESENT: other - Patient's bilateral feet are cool but not cold. She has palpable femoral pulses but no pedal pulses she has bilateral lower leg dark discoloration with dried anterior shallow ulcers on the right side that appears clean with no surrounding erythema. On the left side she has an approximately 5 cm deeper seeded ulcer with exposed dermis but no necrotic tissue and no surrounding erythema. She is able to move her left foot there is a large decompressed blister overlying the dorsum of her distal left foot but no purulent drainage and no surrounding erythema and no crepitus. Results Laboratory Results: 07/31/19 01:01 07/31/19 01:01 07/31/19 07/31/19 01:01 01:01 WBC 8.4 RBC 3.30 L Hgb 10.6 L Hct 31.4 L MCV 95 MCH 32.0 MCHC 33.7 RDW 24.6 H Plt Count 297 Seg Neutrophils % 83.5 H Sodium 137.2 Potassium 3.8 Chloride 103 Carbon Dioxide 26 Anion Gap 8 BUN 18 Creatinine 3.11 H Est GFR ( Amer) 18 L Glucose 132 H Calcium 7.7 L Total Bilirubin 1.8 H AST 34 Alkaline Phosphatase 96 Total Protein 6.9 Albumin 2.6 L 07/31/19 01:01 Troponin I 0.037 Assessment & Plan - Diagnosis (1) End stage renal disease on dialysis Is this a current diagnosis for this admission?: Yes Plan: Patient has lost access for hemodialysis. The left internal jugular vein appear s to be the appropriate target for a new PermCath. Would rather avoid femoral PermCath in this patient with bilateral lower extremity ulcer problems. Dr. Curran has agreed to place a left internal jugular PermCath later today. I have had a discussion with the patient concerning the risk and benefits of the procedure including risk of vascular injury, bleeding, infection. Patient understands and agrees to proceed. (2) Leg ulcer, left Plan: The lower leg ulcer appears very clean and can be managed with the Santyl ointment dressing changes. Follow-up at the wound care clinic. (3) Ischemia of left lower extremity Is this a current diagnosis for this admission?: Yes Plan: Patient likely with chronic left lower extremity ischemia. Will obtain noninvasive arterial studies. If the studies in fact confirm diagnosis of significant ischemia patient may benefit from referral to vascular surgery for intervention.
[2019-07-31] MEDS ORDERED: CEFAZOLIN INJ 1 GM VIAL ONE (12:05)
[2019-07-31 12:07] LABS: ADD MANUAL MICROSCOPIC YES
[2019-07-31 12:08] LABS: BACTERIA,URINE 1+ /HPF
[2019-07-31 12:09] LABS: WBC,URINE >100 /HPF
[2019-07-31] MEDS ORDERED: EPOETIN ALFA-EPBX 2,000 UNIT, EPOETIN ALFA-EPBX 3,000 UNIT in SYRINGE, DISPOSABLE, 1 EACH IV PRN (12:41)
[2019-07-31] MEDS ORDERED: DIPHENHYDRAMINE HCL 50 MG/ML VIAL IV PRN (12:45)
[2019-07-31] MEDS ORDERED: MEPERIDINE HCL/PF INJ 25 MG/1 ML DISP.SYRIN IV PRN (12:45)
[2019-07-31] MEDS ORDERED: OXYCODONE-ACETAMINOPHEN 5-325 MG TABLET PO PRN ×2 (12:45)
[2019-07-31] MEDS ORDERED: PROMETHAZINE HCL INJ 25 MG/1 ML VIAL IV PRN ×2 (12:45)
[2019-07-31] MEDS ORDERED: FENTANYL CITRATE INJ/PF 100 MCG/2 ML AMPUL IV PRN ×3 (12:45)
[2019-07-31] MEDS ORDERED: (PENDING PHARMACY ID) (Ondansetron Hcl [Zofran 4 Mg Tablet] 4 MG) PO PRN (13:26)
[2019-07-31] MEDS ORDERED: METOPROLOL TARTRATE 25 MG TABLET PO SCH ×2 (13:30→22:00)
--- NOTE | 2019-07-31 13:41 | RADIOLOGY REPORT (SQ) ---
EXAM DESCRIPTION: FLUORO/CV PLACEMENT COMPLETED DATE/TIME: 07/31/2019 1:24 pm REASON FOR STUDY: PERM CATH PLACEMENT COMPARISON: None. FLUOROSCOPY TIME: 1.0 minutes Spot images saved to PACS. TECHNIQUE: Intra-operative images acquired during surgical procedure to evaluate progress. NUMBER OF IMAGES: 3 LIMITATIONS: None. FINDINGS: Fluoroscopy was provided for intraoperative procedure. Please refer to the operative repo rt further discussion. IMPRESSION: IMAGE(S) OBTAINED DURING PROCEDURE. COMMENT: Quality ID [id number]: Final reports for procedures using fluoroscopy that document radiation exp osure indices, or exposure time and number of fluorographic images (if radiation exposure indices are not available) Please consult full operative report of the attending physician for description of the procedure. TECHNICAL DOCUMENTATION: JOB ID: [id number] 2010 [employer]- All Rights Reserved Reading location - IP/workstation name: [email or web address]
--- NOTE | 2019-07-31 13:48 | Operative Report ---
Nonrecallable Operative Report DATE OF SURGERY: 07/31/19 PREOPERATIVE DIAGNOSIS: Renal failure POSTOPERATIVE DIAGNOSIS: Renal failure OPERATION: Permacath placement left internal jugular vein SURGEON: DRAGAN LINO ANESTHESIA: Moderate Sedation TISSUE REMOVED OR ALTERED: None COMPLICATIONS: None ESTIMATED BLOOD LOSS: 25 cc INTRAOPERATIVE FINDINGS: See note PROCEDURE: Procedure note after appropriate timeout and site verification the procedure commenced. The left neck and chest were prepped and draped in usual sterile fashion. Using a 22-gauge needle the area over the left internal normal jugular vein was anesthetized with that needle and then a finder needle was utilized to identify the left internal jugular vein. Then when the vein was localized with a finder needle a 16-gauge needle was placed into the left internal jugular vein and through that needle a wire was placed into the superior vena cava confirmed on fluoroscopy. Once the wire was in place we turned attention to the left chest a skin small skin wheal was raised over the left chest wall skin with 1% lidocaine. Once this was done a small incision was made with a 11 blade approximately a half a centimeter long and a 15-1/2 gauge 32 mm Dura max hemodialysis catheter was tunneled from that point to the internal jugular vein stick site on the left neck. Subsequent to this the dilators that were supplied with the kit were utilized to pass over the wire into the internal jugular vein. Once the tract was dilated the dilator introducer combination was placed over the wire into the superior vena cava Through the introducer the catheter was placed and the introducer was torn away. This was all done under fluoroscopy. Once this was accomplished the catheter was pulled on the anterior chest wall to allow the cuff to abut the exit site. We then flushed the catheter and withdrew easily and then it was heparinized with a heparinized saline solution. We then closed the skin incision on the left neck with 3-0 Vicryl in the subcutaneous tissue and 4-0 Monocryl in the skin. Steri-Strips completed that p ortion of the procedure. The end of the catheter on the chest wall was then fixed in place with 2 stitches of 3-0 nylon suture. A sterile dressing was then applied. This completed the procedure estimated blood loss was less than 25 cc sponge needle counts were correct x2 the patient was then transferred recovery in stable condition
[2019-07-31] MEDS ORDERED: ONDANSETRON 4 MG TAB.RAPDIS PO PRN (13:50)
--- NOTE | 2019-07-31 14:54 | RADIOLOGY REPORT (SQ) ---
EXAM DESCRIPTION: CHEST SINGLE VIEW IMAGES COMPLETED DATE/TIME: 07/31/2019 2:41 pm REASON FOR STUDY: post op cath COMPARISON: Intraoperative imaging, prior chest dated 07/30/2019 EXAM PARAMETERS: NUMBER OF VIEWS: One view. TECHNIQUE: Single frontal radiographic view of the chest acquired. RADIATION DOSE: NA LIMITATIONS: None. FINDINGS: LUNGS AND PLEURA: No pneumothorax following left-sided dialysis catheter placement. No co nsolidation. No effusions. MEDIASTINUM AND HILAR STRUCTURES: No masses. Contour normal. HEART AND VASCULAR STRUCTURES: Heart remains enlarged. No failure. BONES: No acute findings. HARDWARE: Dialysis catheters in place. The catheter has been partially retracted and the tip lies in a horizontal position in the innominate vein. OTHER: No other significant finding. IMPRESSION: No pneumothorax. Catheter has artery been retracted compared to the intraoperative film . TECHNICAL DOCUMENTATION: JOB ID: [id number] 2010 [employer]- All Rights Reserved Reading location - IP/workstation name: [email or web address]
[2019-07-31] MEDS ORDERED: HEPARIN SOD (PORCINE) 1,000 UNIT/ML 10 ML VIAL IV PRN (15:26)
[2019-07-31 15:55] LABS: ABSOLUTE BASOPHILS # (AUTO) 0.1 10^3/uL (0.0-0.2); ABSOLUTE EOSINOPHILS # (AUTO) 0.1 10^3/uL (0.0-0.6); ABSOLUTE LYMPHOCYTES (AUTO) 0.6 10^3/uL (0.5-4.7); ABSOLUTE MONOCYTES (AUTO) 0.7 10^3/uL (0.1-1.4); ABSOLUTE NEUT (AUTO) 8.1 10^3/uL (1.7-8.2); EOSINOPHILS % (AUTO) 0.6 % (0-6); HEMATOCRIT 30.9 % (36.0-47.0); HEMOGLOBIN 9.9 g/dL (12.0-15.5); LYMPHOCYTES % (AUTO) 6.7 % (13-45); MEAN CORPUSCULAR HEMOGLOBIN 30.8 pg (27.0-33.4); MEAN CORPUSCULAR VOLUME 96 fl (80-97); MONOCYTES % (AUTO) 7.6 % (3-13); PLATELET COUNT 254 10^3/uL (150-450); RED BLOOD COUNT 3.22 10^6/uL (3.72-5.28); RED CELL DISTRIBUTION WIDTH 24.7 % (11.5-14.0); SEGMENTED NEUTROPHILS % (AUTO) 84.1 % (42-78); TOTAL CELLS COUNTED % (AUTO) 100 %; WHITE BLOOD COUNT 9.6 10^3/uL (4.0-10.5)
[2019-07-31] MEDS ORDERED: MIDODRINE HCL 5 MG TABLET PO SCH (16:00)
--- NOTE | 2019-07-31 16:15 | PDOC TRANSFER SUMMARY ---
General Admission Date/PCP: 07/31/19 01:42 LISA BARON MD Resuscitation Status: Full Code - Transfer Diagnosis (1) End stage renal disease on dialysis Is this a current diagnosis for this admission?: Yes (2) Problem with dialysis access Is this a current diagnosis for this admission?: Yes (3) Rapid atrial fibrillation Is this a current diagnosis for this admission?: Yes (4) Anemia in chronic kidney disease (CKD) Is this a current diagnosis for this admission?: Yes (5) Congestive heart failure Is this a current diagnosis for this admission?: Yes (6) Diabetic foot ulcers Is this a current diagnosis for this admission?: Yes (8) Open wound of both legs with complication Is this a current diagnosis for this admission?: Yes (9) Type 2 diabetes mellitus Is this a current diagnosis for this admission?: Yes (10) Chronic anticoagulation Is this a current diagnosis for this admission?: Yes (11) Ischemia of left lower extremity Is this a current diagnosis for this admission?: Yes (12) Leg ulcer, left Is this a current diagnosis for this admission?: Yes - Transfer Medications Home Medications: Apixaban [Eliquis 5 mg Tablet] 2.5 mg PO BID 05/23/19 Insulin Glargine,Hum.rec.anlog [Lantus Insulin 100 Unit/1 ml 10 ml] 20 unit SUBCUT QHS 05/23/19 Insulin Lispro [Humalog Insulin (Lispro) 100 unit/mL] 0 unit SUBCUT .SLD SCALE 05/23/19 Lisinopril [Prinivil 5 mg Tablet] 5 mg PO QHS 05/23/19 Omeprazole 20 mg PO DAILY 05/23/19 Ondansetron HCl [Zofran 4 mg Tablet] 4 mg PO Q12HP PRN 05/23/19 Sodium Polystyrene Sulfonate [Kayexalate 15 Gm/60 Ml Susp 60 Ml] 15 gm PO DAILY 07/31/19 Transfer Medications: Current Medications Collagenase (Santyl Ointment 30 Gm) 1 applic TOP DAILY GRZEGORZ Stop: 08/30/19 10:29 Last Admin: 07/31/19 11:23 Dose: 1 applic Documented by: Dextrose (Dextrose Inj 50% Syringe (25 Gm/50 Ml)) 12.5 gm IV PRN PRN; Protocol PRN Reason: FOR BG 50-69 IN ALERT PATIENT Stop: 08/30/19 01:43 Dextrose (Dextrose Inj 50% Syringe (25 Gm/50 Ml)) 25 gm IV PRN PRN; Protocol PRN Reason: PER PROTOCOL Stop: 08/30/19 01:43 Furosemide (Lasix 40 Mg Tablet) 40 mg PO BID GRZEGORZ Stop: 08/30/19 17:59 Glucagon (Glucagen Inj 1 Mg Vial) 1 mg IM PRN PRN; Protocol PRN Reason: Evaluate for BG < 70 Stop: 08/30/19 01:43 Glucose (Glutose 40% Gel 15 Gm Tube) 15 gm PO PRN PRN; Protocol PRN Reason: FOR BG 50-69 IN ALERT PATIENT Stop: 08/30/19 01:43 Glucose (Glutose 40% Gel 15 Gm Tube) 30 gm PO PRN PRN; Protocol PRN Reason: FOR BG < 50 IN ALERT PATIENT Stop: 08/30/19 01:43 Heparin Sodium (Porcine) (Heparin Inj 1,000 Unit/Ml 10 Ml Vial) 4,600 unit IV .SPLIT B/N CATHETERS PRN PRN Reason: THIS MED IS NOT "PRN" Stop: 07/31/19 23:59 Cefazolin Sodium/Dextrose (Ancef Rtu 1 Gm/D5w 50 Ml Premix Bag) 1 gm in 50 mls @ 100 mls/hr IV PREOP PRN PRN Reason: THIS MED IS NOT "PRN" Epoetin Santino-epbx 2,000 unit/Epoetin Santino-epbx 3,000 unit/Syringe 2 mls @ 0 mls/hr IV .DIALYSIS PRN PRN Reason: THIS MED IS NOT "PRN" Stop: 07/31/19 23:59 Last Admin: 07/31/19 15:15 Dose: 5,000 mls/hr Documented by: Cefepime HCl (Maxipime Rtu 1 Gm/D5w 50 Ml Premix Bag) 1 gm in 50 mls @ 100 mls/hr IV Q12 [facility] Stop: 08/07/19 21:59 Vancomycin HCl 2,000 mg/ (Dextrose) 500 mls @ 250 mls/hr IV .POST-DIALYSIS ONE Stop: 07/31/19 19:59 Insulin Glargine (Lantus Insulin 100 Unit/1 Ml 10 Ml) 20 unit SUBCUT QHS [facility] Stop: 08/30/19 21:59 Insulin Human Lispro (Humalog Insulin 100 Unit/1 Ml 3 Ml Vial) 0 - 12 unit SUBCUT ACHS [facility]; Protocol Stop: 08/30/19 07:59 Last Admin: 07/31/19 12:48 Dose: Not Given Documented by: Metoprolol Tartrate (Lopressor 25 Mg Tablet) 12.5 mg PO Q12 [facility] Stop: 08/30/19 21:59 Midodrine (Proamatine 5 Mg Tablet) 5 mg PO Q8 [facility] Stop: 08/30/19 15:59 Last Admin: 07/31/19 15:55 Dose: 5 mg Documented by: Ondansetron HCl (Zofran Odt 4 Mg Tablet) 4 mg PO Q12HP PRN PRN Reason: FOR NAUSEA/VOMITING Stop: 08/30/19 13:49 Pantoprazole Sodium (Protonix [address] Tablet) 20 mg PO Q6AM [facility] Stop: 08/31/19 05:59 - Allergies Allergies/Adverse Reactions: No Known Allergies Allergy (Verified 01/10/12 14:35) Hospital Course Hospital Course: This is a 74-year-old female with a type 2 diabetes with a significant periphera l vascular disease hypertension's hyperlipidemiaWith end-stage renal disease on hemodialysis presented the emergency department with the dialysis catheter is not working and ongoing leg ulcers Also found the A. fib with a rapid ventricular response patient's giving IV Cardizem in the ER patient initial blood work was all stable Patient's admitting in the hospital for further evaluations and consult the general surgery for the dialysis catheter and also consult for the leg ulcers Since underwent for the permacath placements and underwent further dialysis today Currently on Eliquis 2.5 mg twice a day currently hold today due to the procedures Seen by general surgery for the left lower extremity pain and also and suggest the patient have ischemic leg and patient is to transfer to the vascular surgery for further evaluations for emergency procedures Physical Exam Vital Signs: Temp Pulse Resp BP Pulse Ox 98.0 F 109 H 16 110/54 L 97 07/31/19 13:47 07/31/19 14:00 07/31/19 13:47 07/31/19 13:47 07/31/19 13:47 Intake & Output 07/30/19 07/31/19 08/01/19 06:59 06:59 06:59 Intake Total 350 Output Total 10 Balance 340 Weight 101.8 kg General appearance: PRESENT: no acute distress, well-developed, well-nourished Head exam: PRESENT: atraumatic, normocephalic Eye exam: PRESENT: conjunctiva pink, EOMI, PERRLA. ABSENT: scleral icterus Ear exam: PRESENT: normal external ear exam Mouth exam: PRESENT: moist, tongue midline Neck exam: ABSENT: carotid bruit, JVD, lymphadenopathy, thyromegaly Respiratory exam: PRESENT: clear to auscultation conor. ABSENT: rales, rhonchi, wheezes Cardiovascular exam: PRESENT: RRR. ABSENT: diastolic murmur, rubs, systolic murmur GI/Abdominal exam: PRESENT: normal bowel sounds, soft. ABSENT: distended, guarding, mass, organolmegaly, rebound, tenderness Rectal exam: PRESENT: deferred Extremities exam: PRESENT: full ROM. ABSENT: calf tenderness, clubbing, pedal edema Neurological exam: PRESENT: alert, awake, oriented to person, oriented to place, oriented to time, oriented to situation, CN II-XII grossly intact. ABSENT: motor sensory deficit Psychiatric exam: PRESENT: appropriate affect, normal mood. ABSENT: homicidal ideation, suicidal ideation Skin exam: PRESENT: dry, intact, warm. ABSENT: cyanosis, rash Results Laboratory Results: 07/31/19 01:01 07/31/19 07/31/19 07/31/19 01:01 01:01 11:10 WBC 8.4 RBC 3.30 L Hgb 10.6 L Hct 31.4 L MCV 95 MCH 32.0 MCHC 33.7 RDW 24.6 H Plt Count 297 Seg Neutrophils % 83.5 H Sodium 137.2 Potassium 3.8 Chloride 103 Carbon Dioxide 26 Anion Gap 8 BUN 18 Creatinine 3.11 H Est GFR ( Amer) 18 L Glucose 132 H Lactic Acid Calcium 7.7 L Total Bilirubin 1.8 H AST 34 Alkaline Phosphatase 96 Total Protein 6.9 Albumin 2.6 L Urine Color CED Urine Appearance CLOUDY Urine pH 5.0 Ur Specific [place] 1.017 Urine Protein 100 H Urine Glucose (UA) NEGATIVE Urine Ketones NEGATIVE Urine Blood MODERATE H Urine Nitrite NEGATIVE Ur Leukocyte Esterase LARGE H Ur Squamous Epith Cells RARE 07/31/19 15:40 WBC RBC Hgb Hct MCV MCH MCHC RDW Plt Count Seg Neutrophils % Sodium Potassium Chloride Carbon Dioxide Anion Gap BUN Creatinine Est GFR ( Amer) Glucose Lactic Acid 1.3 Calcium Total Bilirubin AST Alkaline Phosphatase Total Protein Albumin Urine Color Urine Appearance Urine pH Ur Specific [place] Urine Protein Urine Glucose (UA) Urine Ketones Urine Blood Urine Nitrite Ur Leukocyte Esterase Ur Squamous Epith Cells 07/31/19 01:01 Troponin I 0.037 Impressions: Chest X-Ray 07/31/19 00:00 IMPRESSION: No pneumothorax. Catheter has artery been retracted compared to the intraoperative film. Guidance Fluoroscopy 07/31/19 00:00 IMPRESSION: IMAGE(S) OBTAINED DURING PROCEDURE. Plan Time Spent: Greater than 30 Minutes
[2019-07-31 16:17] LABS: ANISOCYTOSIS 3+; POLYCHROMASIA SLIGHT
[2019-07-31 16:18] LABS: BURR CELLS SLIGHT; OVALOCYTES SLIGHT; PLATELET COMMENT ADEQUATE; POIKILOCYTOSIS 1+; TARGET CELLS SLIGHT
[2019-07-31] MEDS ORDERED: WATER IV ONE (18:00)
[2019-07-31] MEDS ORDERED: DEXTROSE 5% IV ONE (18:00)
[2019-07-31] MEDS ORDERED: VANCOMYCIN HCL IV ONE (18:00)
[2019-07-31] MEDS ORDERED: CEFEPIME 1 GM/D5W RTU 1 GM/50 ML RTUPB IV SCH ×2 (18:00→22:00)
[2019-07-31] MEDS ORDERED: VANCOMYCIN HCL 2,000 MG in DEXTROSE 5%-WATER 500 ML IV ONE (18:00)
[2019-07-31] MEDS ORDERED: FUROSEMIDE 40 MG TABLET PO SCH (18:00)
--- NOTE | 2019-07-31 18:01 | PDOC PROGRESS REPORT ---
Subjective Reason For Visit: AFIB Physical Exam Vital Signs: Temp Pulse Resp BP Pulse Ox 98.0 F 109 H 16 110/54 L 97 07/31/19 13:47 07/31/19 14:00 07/31/19 13:47 07/31/19 13:47 07/31/19 13:47 Intake & Output 07/30/19 07/31/19 08/01/19 06:59 06:59 06:59 Intake Total 350 Output Total 810 Balance -460 Weight 101.8 kg Results Laboratory Results: 07/31/19 15:40 07/31/19 01:01 07/31/19 07/31/19 07/31/19 01:01 01:01 11:10 WBC 8.4 RBC 3.30 L Hgb 10.6 L Hct 31.4 L MCV 95 MCH 32.0 MCHC 33.7 RDW 24.6 H Plt Count 297 Seg Neutrophils % 83.5 H Sodium 137.2 Potassium 3.8 Chloride 103 Carbon Dioxide 26 Anion Gap 8 BUN 18 Creatinine 3.11 H Est GFR ( Amer) 18 L Glucose 132 H Lactic Acid Calcium 7.7 L Total Bilirubin 1.8 H AST 34 Alkaline Phosphatase 96 Total Protein 6.9 Albumin 2.6 L Urine Color CED Urine Appearance CLOUDY Urine pH 5.0 Ur Specific [place] 1.017 Urine Protein 100 H Urine Glucose (UA) NEGATIVE Urine Ketones NEGATIVE Urine Blood MODERATE H Urine Nitrite NEGATIVE Ur Leukocyte Esterase LARGE H Ur Squamous Epith Cells RARE 07/31/19 07/31/19 15:40 15:40 WBC 9.6 RBC 3.22 L Hgb 9.9 L Hct 30.9 L MCV 96 MCH 30.8 MCHC 32.0 RDW 24.7 H Plt Count 254 Seg Neutrophils % 84.1 H Sodium Potassium Chloride Carbon Dioxide Anion Gap BUN Creatinine Est GFR ( Amer) Glucose Lactic Acid 1.3 Calcium Total Bilirubin AST Alkaline Phosphatase Total Protein Albumin Urine Color Urine Appearance Urine pH Ur Specific [place] Urine Protein Urine Glucose (UA) Urine Ketones Urine Blood Urine Nitrite Ur Leukocyte Esterase Ur Squamous Epith Cells 07/31/19 01:01 Troponin I 0.037 Impressions: Chest X-Ray 07/31/19 00:00 IMPRESSION: No pneumothorax. Catheter has artery been retracted compared to the intraoperative film. Guidance Fluoroscopy 07/31/19 00:00 IMPRESSION: IMAGE(S) OBTAINED DURING PROCEDURE. Assessment & Plan - Diagnosis (1) End stage renal disease on dialysis Is this a current diagnosis for this admission?: Yes (2) Leg ulcer, left Is this a current diagnosis for this admission?: Yes (3) Ischemia of left lower extremity Is this a current diagnosis for this admission?: Yes Plan: Noninvasive studies demonstrate severe left lower extremity peripheral vascular disease. She has a threatened left lower extremity and would highly benefit from vascular surgery input and possible intervention. I have discussed her case with Dr. Lopez who will arrange transfer to tertiary care center with vascular surgery.
--- NOTE | 2019-07-31 18:09 | PDOC CONSULTATION ---
Consultation Consult Date: 07/31/19 Provider Consulted: Jose AVENDAÑO Consult reason:: ESRD for hemodialysis in the setting of peripheral vascular disease with open wounds especially worse on her left leg. Associated problems also included displaced IJ catheter and the need for new catheter prior to her being on dialysis. History of Present Illness Admission Date/PCP: 07/31/19 01:42 LISA BARON MD History of Present Illness: INSH NOLAND is a 74 year old female with history of complicated multiple medical problems including ESRD on hemodialysis through an IJ catheter, diabetes mellitus with multiple complications including severe peripheral vascular disease with open wounds especially worse on her left leg, hypertension, atrial fibrillation was admitted with history of falling out of IJ catheter. She was recently seen in the ER for worsening peripheral vascular disease and ulcerations of her legs but was deemed stable enough to be seen in the wound clinic. However wound clinic is being discontinued temporarily because of the coronavirus and patient was seen by the [facility] dialysis nurses where she underwent dialysis but during the process the catheter fell out and she was then transferred to the hospital for placement of a new IJ catheter for dialysis as well as further evaluation of her worsening leg ulcers from peripheral vascular disease. Patient has had new IJ PermCath placed by Dr. Curran which initially gave some problems but repositioning her and the catheter is working. I am currently seeing about undergoing dialysis. Vital signs shows that the systolic is dropped to 90 even though she started around 90 but went up to around 120 with 200 cc of normal saline. Leg ulcers on her legs are pretty bad with associated gangrene of both the feet but much worse on the left leg. Labs and medications were reviewed. Dialysis orders were reviewed with the treating dialysis nurse. Past Medical History Cardiac Medical History: Reports: Atrial Fibrillation, CHF-Diastolic, CHF- Systolic, Coronary Artery Disease, Hyperlipidemia, Hypertension-primary Pulmonary Medical History: Reports: Pneumonia Endocrine Medical History: Reports: Diabetes Mellitus Type 2 Renal/ Medical History: Reports: End Stage Renal Disease, Secondary Hyperparathyroidism Musculoskeltal Medical History: Reports: Arthritis Psychiatric Medical History: Denies: Depression Infectious Medical History: Reports: Methicillin-resist Staph Aureus Hematology Medical History: Reports Anemia of Chronic Kidney Disease Past Surgical History Past Surgical History: Reports: Appendectomy, Hysterectomy Social History Smoking Status: Never Smoker Frequency of Alcohol Use: None Hx Recreational Drug Use: No Drugs: None Hx Prescription Drug Abuse: No - Advance Directive Resuscitation Status: Full Code Family History Parental Family History Reviewed: No Children Family History Reviewed: No Sibling(s) Family History Reviewed.: No Medication/Allergy Home Medications: Apixaban [Eliquis 5 mg Tablet] 2.5 mg PO BID 05/23/19 Insulin Glargine,Hum.rec.anlog [Lantus Insulin 100 Unit/1 ml 10 ml] 20 unit SUBCUT QHS 05/23/19 Insulin Lispro [Humalog Insulin (Lispro) 100 unit/mL] 0 unit SUBCUT .SLD SCALE 05/23/19 Lisinopril [Prinivil 5 mg Tablet] 5 mg PO QHS 05/23/19 Omeprazole 20 mg PO DAILY 05/23/19 Ondansetron HCl [Zofran 4 mg Tablet] 4 mg PO Q12HP PRN 05/23/19 Furosemide [Lasix 40 mg Tablet] 40 mg PO BID #60 tablet 06/09/19 Clindamycin HCl [Cleocin 150 mg Capsule] 450 mg PO TID 7 Days #63 capsule 07/20/19 Sodium Polystyrene Sulfonate [Kayexalate 15 Gm/60 Ml Susp 60 Ml] 15 gm PO DAILY 07/31/19 Allergies/Adverse Reactions: No Known Allergies Allergy (Verified 01/10/12 14:35) Review of Systems Constitutional: PRESENT: anorexia, fatigue, weakness. ABSENT: chills, fever(s), headache(s), night sweats Nose, Mouth, and Throat: ABSENT: mouth pain Cardiovascular: PRESENT: dyspnea on exertion, edema. ABSENT: chest pain, orthropnea, palpitations Respiratory: ABSENT: dyspnea, hemoptysis Gastrointestinal: ABSENT: abdominal pain, bloating, coffee ground emesis, diarrhea, dysphagia, heartburn, hematemesis, hematochezia Genitourinary: ABSENT: dysuria, hematuria Musculoskeletal: ABSENT: deformity, joint swelling Integumentary: PRESENT: lesions. ABSENT: pruritus Neurological: ABSENT: abnormal movements, abnormal speech, confusion, convu lsions, focal weakness, frequent falls Hematologic/Lymphatic: ABSENT: easy bruising, lymphadenopathy Physical Exam Vital Signs: Temp Pulse Resp BP Pulse Ox 98.0 F 109 H 16 110/54 L 97 07/31/19 13:47 07/31/19 14:00 07/31/19 13:47 07/31/19 13:47 07/31/19 13:47 Intake & Output 07/30/19 07/31/19 08/01/19 06:59 06:59 06:59 Intake Total 350 Output Total 810 Balance -460 Weight 101.8 kg Exam: Looks rather very sick and weak Eye exam: PRESENT: EOMI, PERRLA. ABSENT: scleral icterus Ear exam: PRESENT: normal external ear exam Mouth exam: PRESENT: neck supple. ABSENT: moist Neck exam: ABSENT: lymphadenopathy, meningismus, tenderness, thyromegaly, tracheal deviation Respiratory exam: PRESENT: clear to auscultation conor, decreased breath sounds. ABSENT: crackles Cardiovascular exam: PRESENT: +S1, +S2 GI/Abdominal exam: PRESENT: normal bowel sounds, soft. ABSENT: organomegaly, tenderness Extremities exam: PRESENT: pedal edema - She is got dry gangrene of both legs with bad open ulcer on her left leg. Partially healed ulcer though open is also seen on the right leg. Neurological exam: PRESENT: alert, awake Psychiatric exam: PRESENT: depressed Results Laboratory Results: 07/31/19 15:40 07/31/19 01:01 07/31/19 07/31/19 07/31/19 01:01 01:01 11:10 WBC 8.4 RBC 3.30 L Hgb 10.6 L Hct 31.4 L MCV 95 MCH 32.0 MCHC 33.7 RDW 24.6 H Plt Count 297 Seg Neutrophils % 83.5 H Sodium 137.2 Potassium 3.8 Chloride 103 Carbon Dioxide 26 Anion Gap 8 BUN 18 Creatinine 3.11 H Est GFR ( Amer) 18 L Glucose 132 H Lactic Acid Calcium 7.7 L Total Bilirubin 1.8 H AST 34 Alkaline Phosphatase 96 Total Protein 6.9 Albumin 2.6 L Urine Color CED Urine Appearance CLOUDY Urine pH 5.0 Ur Specific [place] 1.017 Urine Protein 100 H Urine Glucose (UA) NEGATIVE Urine Ketones NEGATIVE Urine Blood MODERATE H Urine Nitrite NEGATIVE Ur Leukocyte Esterase LARGE H Ur Squamous Epith Cells RARE 07/31/19 07/31/19 15:40 15:40 WBC 9.6 RBC 3.22 L Hgb 9.9 L Hct 30.9 L MCV 96 MCH 30.8 MCHC 32.0 RDW 24.7 H Plt Count 254 Seg Neutrophils % 84.1 H Sodium Potassium Chloride Carbon Dioxide Anion Gap BUN Creatinine Est GFR ( Amer) Glucose Lactic Acid 1.3 Calcium Total Bilirubin AST Alkaline Phosphatase Total Protein Albumin Urine Color Urine Appearance Urine pH Ur Specific [place] Urine Protein Urine Glucose (UA) Urine Ketones Urine Blood Urine Nitrite Ur Leukocyte Esterase Ur Squamous Epith Cells 07/31/19 01:01 Troponin I 0.037 Impressions: Chest X-Ray 07/31/19 00:00 IMPRESSION: No pneumothorax. Catheter has artery been retracted compared to the intraoperative film. Guidance Fluoroscopy 07/31/19 00:00 IMPRESSION: IMAGE(S) OBTAINED DURING PROCEDURE. Assessment & Plan - Diagnosis (1) End stage renal disease on dialysis Is this a current diagnosis for this admission?: Yes Plan: Patient seen on dialysis. She is undergoing dialysis but we do have difficulty in extracting fluid given the fact that she is rather hypotensive. We will plan to remove between 0--100 cc of fluid given the fact that she looks like she is septic. Dialysis orders were reviewed at length with the treating dialysis nurse. (2) Ischemia of left lower extremity Is this a current diagnosis for this admission?: Yes Plan: She has what looks like bad peripheral vascular disease with gangrene and open ulcer on the left leg. Looks like she might need amputation. She has been evaluated by the surgeons. She is on antibiotics. (3) Problem with dialysis access Qualifiers: Encounter type: initial encounter Qualified Code(s): T82.898A - Other specified complication of vascular prosthetic devices, implants and grafts, initial encounter Is this a current diagnosis for this admission?: Yes Plan: Her IJ catheter fell off and she has had a new IJ catheter placed by Dr. Curran. It had some initial difficulty with functioning but on readjustment and positioning she is doing well now. (4) Rapid atrial fibrillation Is this a current diagnosis for this admission?: Yes Plan: Presently rate controlled. (5) Diabetic foot ulcers Qualifiers: Diabetic foot ulcer location: unspecified part of foot Diabetes mellitus type: type 2 Is this a current diagnosis for this admission?: Yes Plan: In the background of severe peripheral vascular disease with gangrene. Patient being evaluated by surgeons. (6) Hypotension Plan: Probably she is in the process of becoming septic. Therefore we will be cautious with fluid extraction. Plan to remove 0-500 cc. Note patient is currently on on Midodrin.
[2019-07-31] MEDS ORDERED: METOPROLOL TARTRATE 25 MG TABLET PO ONE (19:00)
[2019-07-31] MEDS ORDERED: DILTIAZEM HCL INJ 25 MG/5 ML VIAL ONE (19:37)
[2019-07-31 20:43] VITALS: BP 135/91
[2019-07-31] MEDS ORDERED: LISINOPRIL 5 MG TABLET PO SCH (22:00)
[2019-07-31] MEDS ORDERED: INSULIN GLARGINE,HUM.REC.ANLOG 1,000 UNIT/10 ML VIAL SUBCUT SCH (22:00)
[2019-08-01] MEDS ORDERED: PANTOPRAZOLE SODIUM 20 MG TABLET.DR PO SCH (06:00)
--- NOTE | 2019-08-01 08:03 | RADIOLOGY REPORT (SQ) ---
EXAM DESCRIPTION: ARTERIAL LOWER EXTREM UNILAT IMAGES COMPLETED DATE/TIME: 07/31/2019 4:34 pm REASON FOR STUDY: LLE ULCER COMPARISON: None. TECHNIQUE: Dynamic and static rausch scale and color images acquired of the left lower extremity arter ies. Additional selected spectral images recorded. ABIs were not recorded. Unable to obtain right ABIs. Bandages on the left leg. LIMITATIONS: None. FINDINGS: RIGHT LEG: ABIS: Unable to obtain INFLOW ARTERIES: Normal, no obstruction evident. LEFT LEG: ABIS: Unable to obtain INFLOW ARTERIES: Normal, no obstruction evident. FEMORAL ARTERIES:Multiphasic waveforms. Normal, no velocity elevation to suggest focal stenosis. Norm al color Doppler evaluation. No aneurysm. POPLITEAL ARTERY:Limited visualization, multiphasic waveforms with normal velocities Normal color Dop pler evaluation. No aneurysm. PATENT TIBIOPERONEAL TRUNK AND 3 VESSEL RUNOFF: Limited calf runoff, tibioperoneal trunk and anterior tibial artery has monophasic waveforms with normal velocity. Unable to obtain Doppler flow in left the dorsalis pedis artery. Proximal posterior tibial artery demonstrates monophasic waveforms. Unab le to obtain Doppler flow in the mid and distal posterior tibial artery. Unable to obtain Doppler fl ow throughout the peritoneal are TBI: Not performed. OTHER: This report was provided to Dr. Ornelas at the time of scanning by the surgical technologist IMPRESSION: Infrapopliteal disease left lower extremity as above COMMENT: [facility] NORMAL: Greater than 1.0 MINIMAL DISEASE: 0.9 to 1.0 CLAUDICATION: 0.5 to 0.9 SEVERE ARTERIAL DISEASE: Less than 0.5 [facility] NORMAL: Greater than 1.0 (1.2 If Heavy Calcifications) NORMAL TO MILD ISCHEMIA: 0.8 to 1.0 MODERATE ISCHEMIA: 0.4 to 0.8 SEVERE ISCHEMIA: Less than 0.4 TECHNICAL DOCUMENTATION: JOB ID: [id number] 2010 [employer]- All Rights Reserved Reading location - IP/workstation name: [id number]
[2019-08-01] MEDS ORDERED: SODIUM POLYSTYRENE SULFONATE 15 GM/60 ML PO SCH (10:00)
== END 2019-07-31 22:18 | disposition short-term general hospital (02) | DRG 314 ==
LOC: ER 00:38 → EH 01:42 → 3S 03:00
PROVIDERS: ADMIT Family Medicine; ATTEND Family Medicine
PROC: 0JH63XZ Insertion of Tunneled Vascular Access Device into Chest Subcutaneous Tissue and Fascia, Percutaneous Approach (ICD-10-PCS; 2019-07-31)
PROC: 02HV33Z Insertion of Infusion Device into Superior Vena Cava, Percutaneous Approach (ICD-10-PCS; 2019-07-31)
PROC: 5A1D70Z Performance of Urinary Filtration, Intermittent, Less than 6 Hours Per Day (ICD-10-PCS; principal; 2019-07-31 12:15)
DX: T82.42XA Displacement of vascular dialysis catheter, initial encounter (principal); N18.6 End stage renal disease; I50.43 Acute on chronic combined systolic (congestive) and diastolic (congestive) heart failure; I13.2 Hypertensive heart and chronic kidney disease with heart failure and with stage 5 chronic kidney disease, or end stage renal disease; E11.52 Type 2 diabetes mellitus with diabetic peripheral angiopathy with gangrene; I96 Gangrene, not elsewhere classified; N25.81 Secondary hyperparathyroidism of renal origin; D63.1 Anemia in chronic kidney disease; S81.802A Unspecified open wound, left lower leg, initial encounter; S81.801A Unspecified open wound, right lower leg, initial encounter; E11.22 Type 2 diabetes mellitus with diabetic chronic kidney disease; E11.621 Type 2 diabetes mellitus with foot ulcer; E11.42 Type 2 diabetes mellitus with diabetic polyneuropathy; I48.91 Unspecified atrial fibrillation; E78.5 Hyperlipidemia, unspecified; I25.10 Atherosclerotic heart disease of native coronary artery without angina pectoris; M19.90 Unspecified osteoarthritis, unspecified site; F41.9 Anxiety disorder, unspecified; Z99.2 Dependence on renal dialysis; Z79.4 Long term (current) use of insulin; Z79.01 Long term (current) use of anticoagulants; Z86.14 Personal history of Methicillin resistant Staphylococcus aureus infection; Z79.899 Other long term (current) drug therapy
CPT/HCPCS: 00532; 36415; 71045; 77001; 80053; 81001; 82803; 82962; 83605; 84484; 85025; 87040; 87086; 87088; 87186; 93005; 93010; 93926; 96374; 96375; 99285; J0690; J0692; J1642; J1644; J2270; J2405; J2704; J3010; J3370; J3490; J7060; Q5105; Q9967

== ENCOUNTER 2019-11-02 00:29 | Inpatient (IN) | payer MEDICARE ==
[2019-11-02] MEDS ORDERED: DEXTROSE 10%-WATER 1,000 ML IV ONE (01:43)
[2019-11-02] MEDS ORDERED: DILTIAZEM HCL INJ 25 MG/5 ML VIAL IV ONE (01:49)
--- NOTE | 2019-11-02 01:53 | ER Document Report ---
Entered by ALICIA MURDOCK SCRIBE 11/02/19 0145 Acting as scribe for:VIRAL GODFREY IV, MD ED General - General Chief Complaint: Low Blood Sugar Stated Complaint: AMS Time Seen by Provider: 11/02/19 01:28 Mode of Arrival: Medic Information source: Emergency Med Personnel Notes: This 74 year old female patient with a history of diabetes, ESRD on dialysis, and A fib brought in by EMS from home presents to the ED today with complaints of hypoglycemia and altered mental status that occurred just prior to arrival. Per ED nurse, the patient's son called due to the patients AMS. Upon arrival, EMS reports that the patient's BGL was 43, so they administered 250 mg D10, which increased the BGL to 109. TRAVEL OUTSIDE OF THE [place] IN LAST 30 DAYS: No - Related Data Allergies/Adverse Reactions: No Known Allergies Allergy (Verified 11/02/19 01:15) Past Medical History - General Information source: Emergency Med Personnel, [facility] Records - Social History Smoking Status: Never Smoker Cigarette use (# per day): No Chew tobacco use (# tins/day): No Smoking Education Provided: No Lives with: Family Family History: Reviewed & Not Pertinent Patient has suicidal ideation: No Patient has homicidal ideation: No - Past Medical History Cardiac Medical History: Reports: Hx Atrial Fibrillation, Hx Congestive Heart Failure, Hx Coronary Artery Disease, Hx Hypercholesterolemia, Hx Hypertension Pulmonary Medical History: Reports: Hx Pneumonia Neurological Medical History: Endocrine Medical History: Reports: Hx Diabetes Mellitus Type 2 Renal/ Medical History: Reports: Hx End Stage Renal Disease, Hx Hemodialysis, Hx Renal Insufficiency GI Medical History: Reports: Hx Colonoscopy Musculoskeletal Medical History: Reports Hx Arthritis Skin Medical History: Reports Hx Cellulitis Psychiatric Medical History: Reports: Hx Anxiety Infectious Medical History: Reports: Hx MRSA Past Surgical History: Reports: Hx Appendectomy, Hx Hysterectomy - Immunizations Hx Diphtheria, Pertussis, Tetanus Vaccination: Yes Hx Pneumococcal Vaccination: 02/03/10 Review of Systems - Review of Systems -: Yes ROS unobtainable due to patient's medical condition Physical Exam - Vital signs Vitals: Resp 21 H 11/02/19 00:36 - General General appearance: Other - Somnolent In distress: None - HEENT Head: Normocephalic, Atraumatic Eyes: Normal Pupils: PERRL - Respiratory Respiratory status: No respiratory distress Chest status: Nontender Breath sounds: Normal Chest palpation: Normal - Cardiovascular Rhythm: Regular Heart sounds: Normal auscultation Murmur: No Friction rub: No Gallop: None auscultated - Abdominal Inspection: Normal Distension: No distension Bowel sounds: Normal Tenderness: Nontender - Abdomen soft Organomegaly: No organomegaly - Back Back: Normal, Nontender - Extremities General upper extremity: Normal inspection General lower extremity: Edema - RLE edema, dressing applied to area, Other - Left AKA with wound VAC in place - Neurological Neuro grossly intact: Yes - Psychological Associated symptoms: Other - Unable to assess due to patient's medical condition - Skin Skin Temperature: Warm Skin Moisture: Dry Skin Color: Normal Course - Re-evaluation Re-evalutation: 11/02/19 06:40 Patient was noted by this MD to become more tachypneic, and on sensible speech as well as non-purposeful movement and eyes closed and would not open to voice. Patient's GCS had improved initially after warming with bear hugger and giving the patient D10W. Improving the patient's GCS from approximately 5 to 12. Around 0640 hours, pt's GCS declined to 5 but FSBS was in the 190s range. Given the decline in GCS status and tachypnea, this MD made the decision to intubate the patient for airway protection given her declining GCS status. - Vital Signs Vital signs: Temp Pulse Resp BP Pulse Ox 26 H 113/42 L 27 L 11/02/19 08:20 11/02/19 08:20 11/02/19 07:06 - Laboratory Result Diagrams: 11/02/19 03:33 11/02/19 02:04 Laboratory results interpreted by me: 11/02/19 11/02/19 11/02/19 02:04 02:04 02:04 WBC Seg Neuts % (Manual) Lymphocytes % (Manual) Monocytes % (Manual) Abs Neuts (Manual) Carbonic Acid ABG pH ABG pCO2 ABG pO2 ABG HCO3 ABG Total CO2 VBG pH 7.06 L* VBG pCO2 22.8 L VBG HCO3 6.3 L Sodium 131.9 L Chloride 93 L Carbon Dioxide 5 L* Anion Gap 34 H BUN 33 H Creatinine 4.14 H Est GFR ( Amer) 13 L Est GFR (MDRD) Non-Af 11 L Glucose 161 H POC Glucose Lactic Acid 17.0 H Calcium 8.1 L Total Bilirubin 4.2 H Direct Bilirubin 3.6 H AST 1616 H ALT 377 H Alkaline Phosphatase 168 H Albumin 3.2 L Urine Protein Urine Blood Leukocyte Esterase Rfl 11/02/19 11/02/19 11/02/19 02:27 03:12 03:33 WBC 17.5 H Seg Neuts % (Manual) 93 H Lymphocytes % (Manual) 6 L Monocytes % (Manual) 1 L Abs Neuts (Manual) 16.3 H Carbonic Acid ABG pH ABG pCO2 ABG pO2 ABG HCO3 ABG Total CO2 VBG pH VBG pCO2 VBG HCO3 Sodium Chloride Carbon Dioxide Anion Gap BUN Creatinine Est GFR ( Amer) Est GFR (MDRD) Non-Af Glucose POC Glucose 173 H Lactic Acid Calcium Total Bilirubin Direct Bilirubin AST ALT Alkaline Phosphatase Albumin Urine Protein 100 H Urine Blood MODERATE H Leukocyte Esterase Rfl SMALL H 11/02/19 11/02/19 05:00 05:07 WBC Seg Neuts % (Manual) Lymphocytes % (Manual) Monocytes % (Manual) Abs Neuts (Manual) Carbonic Acid 0.53 L ABG pH 7.06 L* ABG pCO2 17.6 L* ABG pO2 145.5 H ABG HCO3 4.8 L ABG Total CO2 5.4 L VBG pH VBG pCO2 VBG HCO3 Sodium Chloride Carbon Dioxide Anion Gap BUN Creatinine Est GFR ( Amer) Est GFR (MDRD) Non-Af Glucose POC Glucose 195 H Lactic Acid Calcium Total Bilirubin Direct Bilirubin AST ALT Alkaline Phosphatase Albumin Urine Protein Urine Blood Leukocyte Esterase Rfl - Diagnostic Test Radiology reviewed: Reports reviewed - EKG Interpretation by Me Additional EKG results interpreted by me: 11/02/19 08:55 EKG obtained on 11/02/2019 at 00 48 hours was interpreted by this MD. Findings atrial fibrillation, rate 140, ST segments are nonspecific. Impression: Atrial fibrillation with rapid ventricular response. - Consults damian gama np, powder blender and pourer service Time consulted: 04:30 - sruthi gama agreed to see pt in ed Reason for consultation: 11/02/19 08:58 septic shock in a renal dialysis pt Consulted provider: will come to ER Procedures - Intubation Orotracheal Time of Intubation: 06:50 - gcs decline from 12 to 5 Airway evaluation: Normal anatomy Mallampati Classification: Class 2 Medications: Etomidate, Succinylcholine Intubation method: Orotracheal Blade type: [place] Blade size: 3 Equipment used: Glidescope ETT size: 7.5 ETT secured at: Lips ETT secured at (cm): 24 Breath Sounds after Intubation: Equal End tidal CO2 confirmed: Yes Ventilator settings: SIMV Post Intubation Xray: Yes Intubation Complications: No complications Critical Care Note - Critical Care Note Total time excluding time spent on procedures (mins): 120 - septic shock management Discharge - Discharge Clinical Impression: Hypoglycemia Sepsis Qualifiers: Sepsis type: sepsis due to unspecified organism Sepsis acute organ dysfunction status: unspecified Qualified Code(s): A41.9 - Sepsis, unspecified organism Hypothermia Qualifiers: Encounter type: initial encounter Qualified Code(s): T68.XXXA - Hypothermia, initial encounter Urinary tract infection Qualifiers: Urinary tract infection type: site unspecified Hematuria presence: with hematuria Qualified Code(s): N39.0 - Urinary tract infection, site not specified; R31.9 - Hematuria, unspecified Condition: Critical Disposition: ADMITTED INPATIENT Admitting Provider: Dinesh (Maintenance Technician 2Nd Shift) Unit Admitted: ICU I personally performed the services described in the documentation, reviewed and edited the documentation which was dictated to the scribe in my presence, and it accurately records my words and actions.
--- NOTE | 2019-11-02 02:26 | RADIOLOGY REPORT (SQ) ---
EXAM DESCRIPTION: RadLex: XR CHEST 1 VIEW CLINICAL HISTORY: 74 years Female; ams; COMPARISON: 07/31/2019 FINDINGS: Lungs: Lungs are clear, with no focal infiltrate, pneumothorax, or pleural effusion. Mediastinum: Mediastinum is within normal limits for this positioning. Left IJ line remains in place with tip in the SVC. Bones: Bony structures are unremarkable. IMPRESSION: 1. No acute pulmonary findings. 2. Left IJ line in place
[2019-11-02] MEDS ORDERED: CEFTRIAXONE INJ 1000 MG VIAL IV ONE (02:29)
[2019-11-02 02:37] LABS: VENOUS BLOOD BASE EXCESS -22.5 mmol/L; VENOUS BLOOD HCO3 6.3 mmol/L (20-32); VENOUS BLOOD PCO2 22.8 mmHg (35-63)
[2019-11-02 02:39] LABS: VENOUS BLOOD PH 7.06 (7.30-7.42)
[2019-11-02] MEDS ORDERED: NORMAL SALINE IV ONE (03:05)
[2019-11-02] MEDS ORDERED: PIPERACILLIN/TAZOBACTAM 3.375 GM VIAL IV ONE (03:06)
[2019-11-02 03:22] LABS: ALBUMIN 3.2 g/dL (3.5-5.0); ALKALINE PHOSPHATASE 168 U/L (38-126); BILIRUBIN,DIRECT 3.6 mg/dL (0.0-0.4); BILIRUBIN,TOTAL 4.2 mg/dL (0.2-1.3); BLOOD UREA NITROGEN 33 mg/dL (7-20); CALCIUM 8.1 mg/dL (8.4-10.2); GLUCOSE 161 mg/dL (75-110); POTASSIUM 4.8 mmol/L (3.6-5.0); TOTAL PROTEIN 7.9 g/dL (6.3-8.2)
[2019-11-02] MEDS ORDERED: PIPERACILLIN/TAZOBACTAM 4.5 GM VIAL IV ONE (03:25)
[2019-11-02 03:27] LABS: CHLORIDE 93 mmol/L (98-107)
[2019-11-02 03:40] LABS: ANION GAP 34 (5-19)
[2019-11-02 03:45] LABS: PLATELET COUNT 186 10^3/uL (150-450); WHITE BLOOD COUNT 17.5 10^3/uL (4.0-10.5)
[2019-11-02 03:54] LABS: ASPARTATE AMINO TRANSFERASE 1616 U/L (14-36)
[2019-11-02 03:56] LABS: CARBON DIOXIDE 5 mmol/L (22-30)
[2019-11-02] MEDS ORDERED: LORAZEPAM INJ 2 MG/1 ML VIAL IV ONE ×2 (03:56→06:50)
[2019-11-02] MEDS ORDERED: SODIUM BICARBONATE 8.4% INJ 50 MEQ/50 ML DISP.SYRIN IV ONE ×4 (03:57→13:00)
[2019-11-02 04:10] LABS: ABSOLUTE LYMPHOCYTES# (MANUAL) 1.1 10^3/uL (0.5-4.7); ABSOLUTE MONOCYTES # (MANUAL) 0.2 10^3/uL (0.1-1.4); BASOPHILS % (MANUAL) 0 % (0-2); EOSINOPHILS % (MANUAL) 0 % (0-6); LYMPHOCYTES % (MANUAL) 6 % (13-45); MONOCYTES % (MANUAL) 1 % (3-13); NUCLEATED RED BLOOD CELLS 1 /100 WBC (0); SEGMENTED NEUTROPHILS % (MAN) 93 % (42-78); TOTAL CELLS COUNTED 100
[2019-11-02 04:12] LABS: ANISOCYTOSIS 3+; HYPOCHROMASIA 1+; POIKILOCYTOSIS 3+; TOXIC GRANULATION 1+
[2019-11-02 04:13] LABS: BURR CELLS 3+; OVALOCYTES 1+; PLATELET COMMENT ADEQUATE; TEAR DROP CELLS 1+
[2019-11-02] MEDS ORDERED: NOREPINEPHRINE BITARTRATE INJ/PF 4 MG/4 ML SDV IV ONE (04:14)
[2019-11-02 04:20] LABS: APPEARANCE,URINE TURBID; BILIRUBIN,URINE NEGATIVE (NEGATIVE); COLOR,URINE YELLOW; GLUCOSE, URINE NEGATIVE (NEGATIVE); KETONES,URINE NEGATIVE (NEGATIVE); PROTEIN,URINE 100 mg/dL (NEGATIVE); URINE SPECIFIC GRAVITY 1.021; UROBILINOGEN,URINE NEGATIVE mg/dL (<2.0)
[2019-11-02 04:25] LABS: TOXIC VACUOLATION PRESENT
[2019-11-02] MEDS ORDERED: VASOPRESSIN INJ 20 UNIT/1 ML VIAL ONE (05:47)
[2019-11-02] MEDS ORDERED: VECURONIUM BROMIDE INJ 10 MG VIAL IV ONE ×2 (06:50→10:42)
[2019-11-02] MEDS: NORMAL SALINE 1000 ML 2,000 ML IV ONE ×2 (06:52→07:15)
[2019-11-02] MEDS ORDERED: PHENYLEPHRINE HCL INJ/PF 10 MG/1 ML SDV ONE ×3 (07:12→18:41)
[2019-11-02 08:00] LABS: ARTERIAL BLOOD BASE EXCESS -23.8 mmol/L; ARTERIAL BLOOD H2CO3 0.53 mmol/L (1.05-1.35); ARTERIAL BLOOD HCO3 4.8 mmol/L (20-24); ARTERIAL BLOOD O2 SATURATION 97.9 % (94-98); ARTERIAL BLOOD PO2 145.5 mmHg (80-100); ARTERIAL BLOOD TOTAL CO2 5.4 mmol/L (21-25)
[2019-11-02 08:01] LABS: ARTERIAL BLOOD FIO2 10L
[2019-11-02 08:02] LABS: ARTERIAL BLOOD PH 7.06 (7.35-7.45)
[2019-11-02 08:03] LABS: ARTERIAL BLOOD PCO2 17.6 mmHg (35-45)
[2019-11-02] MEDS: MILRINONE LACTATE/D5W 20 MG/100 ML RTUINJ IV PRN (08:09)
[2019-11-02 08:11] LABS: ARTERIAL BLOOD BASE EXCESS -26.9 mmol/L; ARTERIAL BLOOD H2CO3 0.58 mmol/L (1.05-1.35); ARTERIAL BLOOD O2 SATURATION 99.8 % (94-98); ARTERIAL BLOOD PO2 593.1 mmHg (80-100); ARTERIAL BLOOD TOTAL CO2 4.6 mmol/L (21-25)
[2019-11-02 08:15] LABS: ARTERIAL BLOOD FIO2 100%
[2019-11-02 08:16] LABS: ARTERIAL BLOOD PCO2 19.4 mmHg (35-45); ARTERIAL BLOOD PH 6.93 (7.35-7.45)
[2019-11-02] MEDS ORDERED: DEXTROSE 5%-WATER 250 ML with NOREPINEPHRINE BITARTRATE 4 MG IV PRN ×2 (08:19)
[2019-11-02] MEDS ORDERED: SODIUM BICARBONATE 8.4% INJ 50 MEQ/50 ML DISP.SYRIN ONE ×5 (08:19→12:17)
--- NOTE | 2019-11-02 08:26 | RADIOLOGY REPORT (SQ) ---
EXAM DESCRIPTION: CHEST SINGLE VIEW IMAGES COMPLETED DATE/TIME: 11/02/2019 7:57 am REASON FOR STUDY: post intubation COMPARISON: Earlier the same day. EXAM PARAMETERS: NUMBER OF VIEWS: One view. TECHNIQUE: Single frontal radiographic view of the chest acquired. RADIATION DOSE: NA LIMITATIONS: None. FINDINGS: LUNGS AND PLEURA: Endotracheal tube is been placed. Catheter tip lies approximately 1.9 c m above the josue. Dialysis catheter remains in place. Lung remain clear. No effusions. N o pneumothorax. MEDIASTINUM AND HILAR STRUCTURES: No masses. Contour normal. HEART AND VASCULAR STRUCTURES: Stable in appearance. BONES: No acute findings. HARDWARE: None in the chest. OTHER: No other significant finding. IMPRESSION: Endotracheal tube has been placed as described. No other interval change. TECHNICAL DOCUMENTATION: JOB ID: [id number] 2010 [email or web address]- All Rights Reserved Reading location - IP/workstation name: [email or web address]
[2019-11-02] MEDS ORDERED: DEXTROSE 5%-WATER 250 ML with VASOPRESSIN 100 UNIT IV PRN ×4 (08:54→08:57)
[2019-11-02] MEDS ORDERED: DEXTROSE 5%-WATER 250 ML with PHENYLEPHRINE HCL 40 MG IV PRN ×2 (09:07)
[2019-11-02] MEDS ORDERED: ETOMIDATE INJ/PF 20 MG/10 ML SDV IV ONE ×2 (09:21→10:42)
[2019-11-02] MEDS ORDERED: SUCCINYLCHOLINE CHLORIDE INJ 200 MG/10 ML VIAL IV ONE (09:22)
[2019-11-02] MEDS ORDERED: NORMAL SALINE 1000 ML 500 ML IV PRN (09:23)
[2019-11-02] MEDS: DEXTROSE 5%-WATER 1000 ML 1,000 ML with SODIUM BICARBONATE 150 MEQ IV PRN ×4 (09:40→22:32)
[2019-11-02] MEDS: DEXTROSE 5%-WATER 250 ML with VASOPRESSIN 100 UNIT IV PRN ×4 (10:00→18:57)
[2019-11-02] MEDS: DEXTROSE 5%-WATER 250 ML with PHENYLEPHRINE HCL 40 MG IV PRN ×6 (10:00→22:32)
[2019-11-02 10:27] LABS: ARTERIAL BLOOD BASE EXCESS -20.8 mmol/L; ARTERIAL BLOOD H2CO3 0.58 mmol/L (1.05-1.35); ARTERIAL BLOOD HCO3 6.4 mmol/L (20-24); ARTERIAL BLOOD O2 SATURATION 96.9 % (94-98); ARTERIAL BLOOD PO2 113.8 mmHg (80-100)
[2019-11-02 10:28] LABS: ARTERIAL BLOOD FIO2 30%
[2019-11-02 10:31] LABS: ARTERIAL BLOOD PCO2 19.3 mmHg (35-45); ARTERIAL BLOOD PH 7.14 (7.35-7.45)
--- NOTE | 2019-11-02 10:32 | PDOC CONSULTATION ---
Consultation Consult Date: 11/02/19 Attending physician:: FANG ESCAMILLA Provider Consulted: NITIN SALDIVAR Consult reason:: Shock History of Present Illness Admission Date/PCP: 11/02/19 06:46 LISA BARON MD Patient complains of: Intubated. Nonverbal. History of Present Illness: NISH NOLAND is a 74 year old female With the following active problems 1. Dilated cardiomyopathy-mixed etiology 2. Chronic systolic congestive heart failure 3. Left ventricular dysfunction with ejection fraction 35 to 40% (02/20/2018) 4. LV apical thrombus-resolved 5. Diabetes mellitus 6. Systemic hypertension 7. Dyslipidemia 8. End-stage renal disease on hemodialysis 9. Atrial fibrillation-permanent 10. Systemic anticoagulation 11. Chronic cellulitis 12. Left AKA-wound VAC Patient known to me from office visits. In terms of coronary status she had evidence of LAD infarct-transmural nonviable tissue. Based on this he was not revascularized and has been continued on medical therapy alone. Although she had dilated cardiomyopathy with congestive heart failure ejection fraction usually was around 40% and she did not qualify for ICD placement. Over the last year she declined and developed probable cardiorenal syndrome and was placed on hemodialysis with some improvement. She also had recurrent cellulitis episodes required admission to the hospital for intravenous antibiotics. Apparently she is presented with altered mental status and was found to be in shock. She is requiring multiple pressors at this time. She is intubated. Bedside imaging showed profound biventricular dysfunction. Cardiology consultation is requested. No family at bedside. Family history cannot be obtained Tobacco status not ascertained Past Medical History Cardiac Medical History: Reports: Atrial Fibrillation, Congestive Heart Failure, Coronary Artery Disease, Hyperlipidema, Hypertension Pulmonary Medical History: Reports: Pneumonia Endocrine Medical History: Reports: Diabetes Mellitus Type 2 Renal/ Medical History: Reports: End Stage Renal Disease Musculoskeltal Medical History: Reports: Arthritis Psychiatric Medical History: Denies: Depression Hematology: Reports: Anemia Infectious Medical History: Reports: Methicillin-Resistant Staph Aureus Past Surgical History Past Surgical History: Reports: Appendectomy, Hysterectomy Social History Lives with: Family Smoking Status: Never Smoker Frequency of Alcohol Use: None Hx Recreational Drug Use: No Drugs: None Hx Prescription Drug Abuse: No Family History Family History: Reviewed & Not Pertinent Parental Family History Reviewed: No - Unable to obtain Children Family History Reviewed: NA Sibling(s) Family History Reviewed.: NA Medication/Allergy Home Medications: Apixaban [Eliquis 2.5 mg Tablet] 2.5 mg PO BID 11/02/19 Atorvastatin Calcium [Lipitor 40 mg Tablet] 40 mg PO QHS 11/02/19 Insulin Glargine,Hum.rec.anlog [Lantus Insulin 100 Unit/1 ml 10 ml] 20 units SQ QHS 11/02/19 Insulin Lispro [Humalog Insulin (Lispro) 100 unit/mL] 8 unit SQ MEALS 11/02/19 Metoprolol Succinate [Toprol Xl 25 mg Tab.sr] 25 mg PO Q12 11/02/19 Midodrine HCl [Proamatine 5 mg Tablet] 5 mg PO TID 11/02/19 Oxycodone HCl [Oxy-Ir 5 mg Tablet] 5 mg PO BIDP PRN 11/02/19 Allergies/Adverse Reactions: No Known Allergies Allergy (Verified 11/02/19 01:15) Review of Systems ROS unobtainable: Due to endotracheal tube Physical Exam Vital Signs: Temp Pulse Resp BP Pulse Ox 97.2 F 141 H 24 H 109/92 H 89 L 11/02/19 10:15 11/02/19 10:15 11/02/19 10:15 11/02/19 10:15 11/02/19 10:15 Intake & Output 11/01/19 11/02/19 11/03/19 06:59 06:59 06:59 Intake Total 784 2161 Balance 784 2161 Weight 81.3 kg General appearance: PRESENT: no acute distress, other - Intubated sedated Head exam: PRESENT: atraumatic, normocephalic Respiratory exam: PRESENT: other - Ventilator assisted breath sounds which are fairly clear. Decreased breath sounds at the bases. ET tube noted. Cardiovascular exam: PRESENT: irregular rhythm - Tachycardia. Left chest wall permacath noted, +S1, +S2 Rectal exam: PRESENT: deferred Musculoskeletal exam: PRESENT: other - Left AKA with wound VAC. Edema noted. Neurological exam: PRESENT: other - Sedated Skin exam: PRESENT: dry, pallor Results Laboratory Results: 11/02/19 03:33 11/02/19 02:04 11/02/19 11/02/19 11/02/19 02:04 02:04 02:04 WBC Cancelled RBC Cancelled Hgb Cancelled Hct Cancelled MCV Cancelled MCH Cancelled MCHC Cancelled RDW Cancelled Plt Count Cancelled Seg Neutrophils % Cancelled Carbonic Acid HCO3/H2CO3 Ratio ABG pH ABG pCO2 ABG pO2 ABG HCO3 ABG O2 Saturation ABG Base Excess VBG pH VBG pCO2 VBG HCO3 VBG Base Excess FiO2 Sodium 131.9 L Potassium 4.8 Chloride 93 L Carbon Dioxide 5 L* Anion Gap 34 H BUN 33 H Creatinine 4.14 H Est GFR ( Amer) 13 L Glucose 161 H Lactic Acid 17.0 H Calcium 8.1 L Total Bilirubin 4.2 H AST 1616 H Alkaline Phosphatase 168 H Total Protein 7.9 Albumin 3.2 L Urine Color Urine Appearance Urine pH Ur Specific Marshall Urine Protein Urine Glucose (UA) Urine Ketones Urine Blood Urine RBC (Auto) 11/02/19 11/02/19 11/02/19 02:04 02:27 03:33 WBC 17.5 H RBC Hgb Hct MCV MCH MCHC RDW Plt Count 186 Seg Neutrophils % Not Reportable Carbonic Acid HCO3/H2CO3 Ratio ABG pH ABG pCO2 ABG pO2 ABG HCO3 ABG O2 Saturation ABG Base Excess VBG pH 7.06 L* VBG pCO2 22.8 L VBG HCO3 6.3 L VBG Base Excess -22.5 FiO2 Sodium Potassium Chloride Carbon Dioxide Anion Gap BUN Creatinine Est GFR ( Amer) Glucose Lactic Acid Calcium Total Bilirubin AST Alkaline Phosphatase Total Protein Albumin Urine Color YELLOW Urine Appearance TURBID Urine pH 5.0 Ur Specific Marshall 1.021 Urine Protein 100 H Urine Glucose (UA) NEGATIVE Urine Ketones NEGATIVE Urine Blood MODERATE H Urine RBC (Auto) 144 11/02/19 11/02/19 05:00 07:59 WBC RBC Hgb Hct MCV MCH MCHC RDW Plt Count Seg Neutrophils % Carbonic Acid 0.53 L 0.58 L HCO3/H2CO3 Ratio 9:1 6:1 ABG pH 7.06 L* 6.93 L* ABG pCO2 17.6 L* 19.4 L* ABG pO2 145.5 H 593.1 H ABG HCO3 4.8 L 4.0 L ABG O2 Saturation 97.9 99.8 H ABG Base Excess -23.8 -26.9 VBG pH VBG pCO2 VBG HCO3 VBG Base Excess FiO2 10L 100% Sodium Potassium Chloride Carbon Dioxide Anion Gap BUN Creatinine Est GFR ( Amer) Glucose Lactic Acid Calcium Total Bilirubin AST Alkaline Phosphatase Total Protein Albumin Urine Color Urine Appearance Urine pH Ur Specific Marshall Urine Protein Urine Glucose (UA) Urine Ketones Urine Blood Urine RBC (Auto) 11/02/19 02:04 Troponin I 0.264 Impressions: Chest X-Ray 11/02/19 07:50 IMPRESSION: Endotracheal tube has been placed as described. No other interval change. Assessment & Plan - Diagnosis (1) Congestive heart failure Qualifiers: Heart failure type: combined systolic and diastolic Heart failure chronicity: acute on chronic Qualified Code(s): I50.43 - Acute on chronic combined systolic (congestive) and diastolic (congestive) heart failure Is this a current diagnosis for this admission?: Yes Plan: Chronic systolic congestive heart failure Mixed etiology dilated cardiomyopathy with evidence of prior infarct and pred ominately nonischemic etiology that is been followed. Have to hold off on medical therapy for congestive heart failure given ongoing shock which is likely multifactorial. I suspect that there is a component of septic shock together with underlying LV dysfunction which is compounded the issue. Watch volume status Pressor support for dialysis as needed. (2) UTI (urinary tract infection) Qualifiers: Urinary tract infection type: site unspecified Hematuria presence: with hematuria Qualified Code(s): N39.0 - Urinary tract infection, site not specified; R31.9 - Hematuria, unspecified Is this a current diagnosis for this admission?: Yes Plan: Urinary tract infection with sepsis Perfusion is profoundly ill Antibiotic broad-spectrum Supportive care Pressors Inotropes (3) Chronic atrial fibrillation Is this a current diagnosis for this admission?: Yes Plan: Tachycardic on account of probably stimulant effect of inotropes. Probable component of sepsis as well Rate control measures only Continue systemic anticoagulation due to increased risk of stroke if feasible. (4) Chronic anticoagulation Is this a current diagnosis for this admission?: Yes Plan: Increased risk of stroke. Continue systemic anticoagulation if feasible (5) Hypotension Is this a current diagnosis for this admission?: Yes Plan: Likely multifactorial Probable sepsis with shock together with cardiogenic shock as well given pre- existing LV dysfunction and extra demands presently with ongoing sepsis. - Notes Notes: Overall patient's prognosis is poor due to age and comorbidities. Presentation is suggestive of infection with sepsis superimposed on pre-existing LV dysfunction. I suspect that we can continue the present regimen of medications No family present at bedside.
[2019-11-02] MEDS ORDERED: SUCCINYLCHOLINE CHLORIDE INJ 200 MG/10 ML VIAL ONE (10:41)
[2019-11-02] MEDS ORDERED: HEPARIN SOD (PORCINE) 1,000 UNIT/ML 10 ML VIAL IV PRN (11:07)
[2019-11-02] MEDS ORDERED: ONDANSETRON HCL INJ/PF 4 MG/2 ML SDV IV PRN (11:45)
[2019-11-02] MEDS ORDERED: ALBUTEROL SULFATE 0.083% NEB 2.5 MG/3 ML AMPUL NEB PRN (11:45)
[2019-11-02] MEDS ORDERED: RINGERS SOLUTION,LACTATED 1,000 ML IV PRN (11:45)
[2019-11-02 11:55] LABS: WHITE BLOOD COUNT 18.2 10^3/uL (4.0-10.5)
[2019-11-02 11:58] LABS: PLATELET COUNT 168 10^3/uL (150-450)
[2019-11-02] MEDS ORDERED: NORMAL SALINE 250 ML IV PRN ×2 (12:02)
[2019-11-02 12:04] LABS: ARTERIAL BLOOD BASE EXCESS -16.2 mmol/L; ARTERIAL BLOOD FIO2 30%; ARTERIAL BLOOD H2CO3 0.59 mmol/L (1.05-1.35); ARTERIAL BLOOD HCO3 8.8 mmol/L (20-24); ARTERIAL BLOOD O2 SATURATION 97.3 % (94-98); ARTERIAL BLOOD PH 7.27 (7.35-7.45); ARTERIAL BLOOD PO2 104.8 mmHg (80-100); ARTERIAL BLOOD TOTAL CO2 9.4 mmol/L (21-25)
[2019-11-02 12:05] LABS: ARTERIAL BLOOD PCO2 19.7 mmHg (35-45)
--- NOTE | 2019-11-02 12:48 | RADIOLOGY REPORT (SQ) ---
EXAM DESCRIPTION: KUB/ABDOMEN (SINGLE VIEW) IMAGES COMPLETED DATE/TIME: 11/02/2019 12:40 pm REASON FOR STUDY: severe lactic acidosis; GI bleed COMPARISON: None. NUMBER OF VIEWS: One view. TECHNIQUE: Supine radiographic image of the abdomen acquired. LIMITATIONS: None. FINDINGS: BOWEL GAS PATTERN: Normal bowel gas pattern. No dilated loops. CALCIFICATIONS: No suspicious calcifications. SOFT TISSUES: No gross mass or suggestion of organomegaly. HARDWARE: NG tube is in place. Tip lies in the left upper quadrant most likely within the stomach. BONES: No acute fracture. No worrisome bone lesions. OTHER: No other significant finding. IMPRESSION: NG tube is in place as described. Gas pattern is nonspecific. TECHNICAL DOCUMENTATION: JOB ID: [id number] 2010 [employer]- All Rights Reserved Reading location - IP/workstation name: [email or web address]
--- NOTE | 2019-11-02 13:40 | Operative Report ---
Bedside Procedure - History of Present Illness History of Present Illness: This 74 year old female preseted the [facility] with altered mental status and hypoglycemia. EMS was apparently called for altered mental status. On arrival in the ER, she was found to have glucose 43. At the time of clinical interview, the patient is intubated and on phenylephrine, vasopressing and milrinone infusions. There is no documentation of events leading up to transfer to the ICU. Discussion of the case with the nighttime ICU provider reveals that the patient was referred to him after intubation. She was hypotensive. She was found to have a severe anion gap metabolic acidosis. Bedside echocardiography suggested severe biventricular failure, prompting initiation of milrinone. The patient was started on bicarbonate infusion. She has had a large bout of melena in the interim. Lactate was 17+. Urgent consultations were requested from Cardiology and Nephrology. Indication for Procedure: assessment of fluid status; frequent blood draws; v asopressors Date: 11/02/19 Provider: FANG ESCAMILLA - Central Line Right Subclavian Time completed: 13:38 Consent obtained: No - emergent conditions Central line pre-insertion: Sterile PPE donned, Chloraprep applied, Sterile drapes applied Central line lumen type: Triple Anesthetic type: 1% Lidocaine Ultrasound guided: No CM at insertion site: 20 Line secured with sutures: Yes Central line post-insertion: Blood return from lumens, Biopatch applied, Sutured, Sterile dressing applied, Position confirmed w/ CXR Number of attempts: 1 Complications: No
--- NOTE | 2019-11-02 14:29 | RADIOLOGY REPORT (SQ) ---
EXAM DESCRIPTION: CHEST SINGLE VIEW IMAGES COMPLETED DATE/TIME: 11/02/2019 2:14 pm REASON FOR STUDY: central line COMPARISON: Earlier the same day. NUMBER OF VIEWS: One view. TECHNIQUE: Single frontal radiographic image of the chest acquired. LIMITATIONS: None. FINDINGS: LUNGS AND PLEURA: Stable appearance. No pneumothorax following right-sided central line p lacement. MEDIASTINUM AND HILAR STRUCTURES: Stable heart size and mediastinal structures. HEART AND VASCULAR STRUCTURES: Stable appearance. SUPPORT DEVICES: Endotracheal tube and dialysis catheter remain in place. A right-sided central line has been added. Catheter tip overlies the SVC right atrial junction. BONES: No acute findings. OTHER: No other significant finding. IMPRESSION: Central line has been added. No pneumothorax. No other interval change. TECHNICAL DOCUMENTATION: JOB ID: [id number] 2010 [employer]- All Rights Reserved Reading location - IP/workstation name: [email or web address]
[2019-11-02 14:43] LABS: VENOUS BLOOD BASE EXCESS -11.2 mmol/L; VENOUS BLOOD HCO3 14.2 mmol/L (20-32); VENOUS BLOOD PCO2 29.9 mmHg (35-63); VENOUS BLOOD PH 7.29 (7.30-7.42)
[2019-11-02] MEDS ORDERED: DIGOXIN INJ 0.5 MG/2 ML AMPULE ONE (14:50)
[2019-11-02] MEDS ORDERED: DIGOXIN INJ 0.5 MG/2 ML AMPULE IV ONE ×2 (14:52→16:43)
[2019-11-02] MEDS ORDERED: DEXMEDETOMIDINE IN 0.9 % NACL 400 MCG/100 ML RTUPB IV PRN (15:22)
[2019-11-02] MEDS: NORMAL SALINE 100 ML with PANTOPRAZOLE SODIUM 80 MG IV PRN ×2 (15:26)
[2019-11-02] MEDS ORDERED: DEXMEDETOMIDINE IN 0.9 % NACL 400 MCG/100 ML RTUPB IV ONE (15:35)
[2019-11-02] MEDS ORDERED: NORMAL SALINE INJ/PF 0.9% 10 ML SDV IV PRN (16:19)
[2019-11-02 17:19] LABS: ARTERIAL BLOOD BASE EXCESS -7.1 mmol/L; ARTERIAL BLOOD FIO2 30%; ARTERIAL BLOOD H2CO3 0.98 mmol/L (1.05-1.35); ARTERIAL BLOOD HCO3 17.6 mmol/L (20-24); ARTERIAL BLOOD O2 SATURATION 50.5 % (94-98); ARTERIAL BLOOD PCO2 32.4 mmHg (35-45); ARTERIAL BLOOD PH 7.35 (7.35-7.45); ARTERIAL BLOOD TOTAL CO2 18.6 mmol/L (21-25)
--- NOTE | 2019-11-02 17:27 | CRITICAL CARE ADMISSION REPORT ---
HPI Date:: 11/02/19 Time:: 11:28 Reason for ICU Reason:: endotracheal intubation Admission Date/Time & PCP: Admission Date/Time: 11/02/19 06:46 Primary Care Provider: LISA BARON MD HPI: This 74 year old female preseted the [facility] Emergency Department with altered mental status and hypoglycemia. EMS was apparently called for altered mental status. On arrival in the ER, she was found to have glucose 43. At the time of clinical interview, the patient is intubated and on phenylephrine, vasopressing and milrinone infusions. There is no documentation of events leading up to transfer to the ICU. Discussion of the case with the nighttime ICU provider reveals that the patient was referred to him after intubation. She was hypotensive. She was found to have a severe ani on gap metabolic acidosis. Bedside echocardiography suggested severe biventricular failure, prompting initiation of milrinone. The patient was started on bicarbonate infusion. She has had a large bout of melena in the interim. Lactate was 17+. Urgent consultations were requested from Cardiology and Nephrology. History obtained from:: review of the chart - Diagnosis/Plan (1) Shock Is this a current diagnosis for this admission?: Yes Plan: CVC placement CVP monitoring check SvO2 Currently, on phenylephrine, vasopressin and milrinone. Titrate for MAP 65+. (2) Hypoglycemia Is this a current diagnosis for this admission?: Yes Plan: likely secondary to acute worsening of renal failure Accuchecks q 1 hr x 12 hours. (3) Acute kidney injury superimposed on chronic kidney disease Is this a current diagnosis for this admission?: Yes Plan: Nephrology consult re: hemodialysis. (4) Anemia in chronic kidney disease (CKD) Qualifiers: Chronic kidney disease stage: on chronic dialysis Qualified Code(s): N18.6 - End stage renal disease; D63.1 - Anemia in chronic kidney disease; Z99.2 - Dependence on renal dialysis Is this a current diagnosis for this admission?: Yes (5) Chronic anticoagulation Is this a current diagnosis for this admission?: Yes Plan: Transfuse FFP in the absence of reversal agent for Eliquis. (6) Congestive heart failure Qualifiers: Heart failure type: combined systolic and diastolic Heart failure c hronicity: acute on chronic Qualified Code(s): I50.43 - Acute on chronic combined systolic (congestive) and diastolic (congestive) heart failure Is this a current diagnosis for this admission?: Yes (7) Diabetic foot ulcers Qualifiers: Diabetic foot ulcer location: unspecified part of foot Diabetes mellitus type: type 2 Is this a current diagnosis for this admission?: Yes (8) Type 2 diabetes mellitus Qualifiers: Diabetes mellitus business development specialist insulin use: with business development specialist use Diabetes mellitus complication status: with kidney complications Diabetes mellitus complication detail: with chronic kidney disease Chronic kidney disease stage: stage 4 (severe) Qualified Code(s): E11.22 - Type 2 diabetes mellitus with diabetic chronic kidney disease; N18.4 - Chronic kidney disease, stage 4 (severe); Z79.4 - MCFP (current) use of insulin Is this a current diagnosis for this admission?: Yes Plan: with worsening renal failure, will need to watch for repeat episodes of hypoglycemia. (9) Gastrointestinal hemorrhage with melena Is this a current diagnosis for this admission?: Yes Plan: Type and screen. Transfuse 2 units FFP. Trend Hgb. NPO for now. Start Protonix infusion. (10) Elevated troponin Is this a current diagnosis for this admission?: Yes Plan: With ongoing GI bleeding, cannot start heparin gtt. (11) Lactic acidosis Is this a current diagnosis for this admission?: Yes Plan: if the patient is hemodynaimcally stable after HD today, will plan to get CT abdomen/pelvis without contrast to evaluate for possible bowel perforation/ischemia. (12) Atrial fibrillation with rapid ventricular response Is this a current diagnosis for this admission?: Yes Plan: Trial of digoxin 250 mcg IV single dose. May need to repeat. Past Medical History Cardiac Medical History: Reports: Atrial Fibrillation, Congestive Heart Failure, Coronary Artery Disease, Hyperlipidema, Hypertension Pulmonary Medical History: Reports: Pneumonia Endocrine Medical History: Reports: Diabetes Mellitus Type 2 Renal/ Medical History: Reports: End Stage Renal Disease Musculoskeltal Medical History: Reports: Arthritis Psychiatric Medical History: Denies: Depression Hematology: Reports: Anemia Infectious Medical History: Reports: Methicillin-Resistant Staph Aureus Past Surgical History Past Surgical History: Reports: Appendectomy, Hysterectomy Social/Family History - Social History Lives with: Family Smoking Status: Never Smoker Frequency of Alcohol Use: None Hx Recreational Drug Use: No Drugs: None Hx Prescription Drug Abuse: No - Medication/Allergies Home Medications: Apixaban [Eliquis 2.5 mg Tablet] 2.5 mg PO BID 11/02/19 Atorvastatin Calcium [Lipitor 40 mg Tablet] 40 mg PO QHS 11/02/19 Insulin Glargine,Hum.rec.anlog [Lantus Insulin 100 Unit/1 ml 10 ml] 20 units SQ QHS 11/02/19 Insulin Lispro [Humalog Insulin (Lispro) 100 unit/mL] 8 unit SQ MEALS 11/02/19 Metoprolol Succinate [Toprol Xl 25 mg Tab.sr] 25 mg PO Q12 11/02/19 Midodrine HCl [Proamatine 5 mg Tablet] 5 mg PO TID 11/02/19 Oxycodone HCl [Oxy-Ir 5 mg Tablet] 5 mg PO BIDP PRN 11/02/19 Allergies/Adverse Reactions: No Known Allergies Allergy (Verified 11/02/19 01:15) Review of Systems ROS unobtainable: Due to endotracheal tube Physical Exam Vital Signs: Temp Pulse Resp BP Pulse Ox 97.2 F 141 H 24 H 109/92 H 89 L 11/02/19 10:15 11/02/19 10:15 11/02/19 10:15 11/02/19 10:15 11/02/19 10:15 Intake & Output 11/01/19 11/02/19 11/03/19 06:59 06:59 06:59 Intake Total 784 2209 Balance 784 2209 Weight 81.3 kg Weight/Height Weight 81.3 kg Height 1.68 m General appearance: PRESENT: no acute distress Eye exam: PRESENT: conjunctiva pink, PERRLA. ABSENT: conjunctival injection, nystagmus, periorbital swelling, scleral icterus Neck exam: ABSENT: carotid bruit, JVD, thyromegaly, tracheal deviation Respiratory exam: PRESENT: clear to auscultation conor Cardiovascular exam: PRESENT: tachycardia. ABSENT: gallop, rubs, systolic murmur Pulses: PRESENT: normal carotid pulses GI/Abdominal exam: PRESENT: normal bowel sounds, soft. ABSENT: distended, guarding, mass, organolmegaly, rebound, tenderness Extremities exam: PRESENT: other - R AKA. ABSENT: pedal edema Neurological exam: PRESENT: other - comatose. no response to noxious stimuli. spontaneous respirations intact. Skin exam: PRESENT: other - dry ulcer at base of R hallux Laboratory/Radiographs Laboratory Results: 11/02/19 02:04 11/02/19 11/02/19 11/02/19 02:04 02:04 02:04 WBC Cancelled RBC Cancelled Hgb Cancelled Hct Cancelled MCV Cancelled MCH Cancelled MCHC Cancelled RDW Cancelled Plt Count Cancelled Seg Neutrophils % Cancelled Carbonic Acid HCO3/H2CO3 Ratio ABG pH ABG pCO2 ABG pO2 ABG HCO3 ABG O2 Saturation ABG Base Excess VBG pH VBG pCO2 VBG HCO3 VBG Base Excess FiO2 Sodium 131.9 L Potassium 4.8 Chloride 93 L Carbon Dioxide 5 L* Anion Gap 34 H BUN 33 H Creatinine 4.14 H Est GFR ( Amer) 13 L Glucose 161 H Lactic Acid 17.0 H Calcium 8.1 L Total Bilirubin 4.2 H AST 1616 H Alkaline Phosphatase 168 H Total Protein 7.9 Albumin 3.2 L Urine Color Urine Appearance Urine pH Ur Specific [place] Urine Protein Urine Glucose (UA) Urine Ketones Urine Blood Urine RBC (Auto) 11/02/19 11/02/19 11/02/19 02:04 02:27 03:33 WBC 17.5 H RBC Hgb Hct MCV MCH MCHC RDW Plt Count 186 Seg Neutrophils % Not Reportable Carbonic Acid HCO3/H2CO3 Ratio ABG pH ABG pCO2 ABG pO2 ABG HCO3 ABG O2 Saturation ABG Base Excess VBG pH 7.06 L* VBG pCO2 22.8 L VBG HCO3 6.3 L VBG Base Excess -22.5 FiO2 Sodium Potassium Chloride Carbon Dioxide Anion Gap BUN Creatinine Est GFR ( Amer) Glucose Lactic Acid Calcium Total Bilirubin AST Alkaline Phosphatase Total Protein Albumin Urine Color YELLOW Urine Appearance TURBID Urine pH 5.0 Ur Specific [place] 1.021 Urine Protein 100 H Urine Glucose (UA) NEGATIVE Urine Ketones NEGATIVE Urine Blood MODERATE H Urine RBC (Auto) 144 11/02/19 11/02/19 11/02/19 05:00 07:59 10:20 WBC RBC Hgb Hct MCV MCH MCHC RDW Plt Count Seg Neutrophils % Carbonic Acid 0.53 L 0.58 L 0.58 L HCO3/H2CO3 Ratio 9:1 6:1 11:1 ABG pH 7.06 L* 6.93 L* 7.14 L* ABG pCO2 17.6 L* 19.4 L* 19.3 L* ABG pO2 145.5 H 593.1 H 113.8 H ABG HCO3 4.8 L 4.0 L 6.4 L ABG O2 Saturation 97.9 99.8 H 96.9 ABG Base Excess -23.8 -26.9 -20.8 VBG pH VBG pCO2 VBG HCO3 VBG Base Excess FiO2 10L 100% 30% Sodium Potassium Chloride Carbon Dioxide Anion Gap BUN Creatinine Est GFR ( Amer) Glucose Lactic Acid Calcium Total Bilirubin AST Alkaline Phosphatase Total Protein Albumin Urine Color Urine Appearance Urine pH Ur Specific [place] Urine Protein Urine Glucose (UA) Urine Ketones Urine Blood Urine RBC (Auto) 11/02/19 02:04 Troponin I 0.264 Impressions: Chest X-Ray 11/02/19 07:50 IMPRESSION: Endotracheal tube has been placed as described. No other interval change. All labs, radiographs, diagnostic studies and EKGs were personally reviewed: Yes In addition, reports of radiographic and diagnostic studies were read: Yes Critical Time Critical Time (minutes): 120 -: The care of a critically ill patient is dynamic. This note represents a static moment in the admission process. Orders and treatments may be given simultaneously and urgently, and time is not technical sales representative of the treatment process. This patient requires Critical Care secondary to life threatening organ or limb dysfunction. Without Critical Care services, the patient is at risk for increased mortality and morbidity.
--- NOTE | 2019-11-02 17:36 | EKG REPORT ---
SEVERITY:- ABNORMAL ECG - ATRIAL FIBRILLATION, V-RATE 132-150 INFERIOR INFARCT, OLD LATERAL INFARCT, OLD ANTERIOR INFARCT, OLD PROLONGED QT INTERVAL : Confirmed by: Donna Castrejon MD 02-Nov-2019 17:35:20
--- NOTE | 2019-11-02 17:36 | EKG REPORT ---
SEVERITY:- ABNORMAL ECG - ATRIAL FIBRILLATION, V-RATE 97-167 LAD, CONSIDER LEFT ANTERIOR FASCICULAR BLOCK ANTEROLATERAL INFARCT, OLD PROLONGED QT INTERVAL : Confirmed by: Donna Castrejon MD 02-Nov-2019 17:35:15
--- NOTE | 2019-11-02 17:46 | XCELERA REPORT ---
[address] [address] Transthoracic Echocardiogram Report Name: NISH NOLAND Age: 74 yrs Gender: Female : 1945 Patient Status: Inpatient Patient Location: ICU^[id number]^A Study Date: 11/02/2019 03:07 PM History: Shock CHF Atrial fibrillation Height: 66 in Weight: 165 lb BSA: 1.8 m2 Procedure: A complete two-dimensional transthoracic echocardiogram was performed (2D, M-mode, spectral and color flow Doppler). The study was technically difficult with many images being suboptimal in quality. Very tachycardic througout study. Reason For Study: CHF; Dr Rudy salazar read History: CAD. CHF. Vascular surgeries/interventions: AKA L. HTN. Diabetes. Atrial fibrillation ESRD on HD. Ordering Physician: BALDO RANKIN Performed By: Celeste Emery Interpretation Summary The study was technically difficult with many images being suboptimal in quality. Left ventricular systolic function is severely reduced. Due to the poor quality of the echocardiogram, an assessment of left ventricular ejection fraction cannot be made. Best estimate is 15%-20%. The right ventricular systolic function is moderate to severely reduced. There is no aortic valve stenosis There is a mild amount of tricuspid regurgitation Best estimated RVSP is approximately 25-30 mm Hg mm/Hg. Small pericardial effusion. There are no echocardiographic or Doppler indications for cardiac tamponade MMode/2D Measurements & Calculations RVDd: 2.9 cm LVIDd: 3.8 cm FS: 21.3 % Ao root diam: 2.7 cm IVSd: 1.4 cm LVIDs: 3.0 cm EDV(Teich): 62.1 ml Ao root area: 5.8 cm2 LVPWd: 1.2 cm ESV(Teich): 34.8 ml LA dimension: 3.4 cm EF(Teich): 44.0 % Doppler Measurements & Calculations MV E max mode: MV P1/2t max mode: Ao V2 max: LV V1 max P.7 cm/sec 49.1 cm/sec 119.5 cm/sec 3.0 mmHg MV P1/2t: 45.7 msec Ao max PG: LV V1 max: MVA(P1/2t): 4.8 cm2 5.7 mmHg 86.1 cm/sec MV dec slope: 314.6 cm/sec2 MV dec time: 0.14 sec PA V2 max: PI end-d mode: TR max mode: MV P1/2t-pr_phl: 60.2 cm/sec 147.4 cm/sec 248.2 cm/sec 45.7 msec PA max PG: TR max P.4 mmHg 24.6 mmHg Left Ventricle The left ventricle is grossly normal size. There is moderate concentric left ventricular hypertrophy. [place] is thinned out and echogenic. [place] looks aneurysmal. Spontaneous echo contrast noted at apex. Left ventricular systolic function is severely reduced. Due to the poor quality of the echocardiogram, an assessment of left ventricular ejection fraction cannot be made. Best estimate is 15%- 20%. LV diastolic function not assessed. There is severe global hypokinesis of the left ventricle. There is apical wall akinesis. Right Ventricle The right ventricle is borderline dilated. The right ventricular systolic function is moderate to severely reduced. Atria The right atrium is mild to moderately dilated. The left atrium is mildly dilated. Mitral Valve The mitral valve leaflets are sclerotic, but show no functional abnormalities. Calcified mitral apparatus. There is no mitral valve stenosis. There is a trace amount of mitral regurgitation. Aortic Valve The aortic valve is sclerotic, but shows no functional abnormality. The aortic valve opens well. The aortic valve is trileaflet. There is no aortic valve stenosis. No aortic regurgitation is present. Tricuspid Valve The tricuspid valve is not well visualized, but is grossly normal. There is a mild amount of tricuspid regurgitation. Best estimated RVSP is approximately 25-30 mm Hg mm/Hg. Pulmonic Valve The pulmonic valve is not well seen, but is grossly normal. There is a mild amount of pulmonic regurgitation. Great Vessels The aortic root is normal size. Effusions Small pericardial effusion. There are no echocardiographic or Doppler indications for cardiac tamponade. : BALDO RANKIN Anil
[2019-11-02] MEDS ORDERED: VANCOMYCIN HCL 0 MG in DEXTROSE 5%-WATER 250 ML IV NR (18:15)
[2019-11-02 18:40] LABS: HEMATOCRIT 30.3 % (36.0-47.0); HEMOGLOBIN 9.1 g/dL (12.0-15.5); MEAN CORPUSCULAR HEMOGLOBIN 30.1 pg (27.0-33.4); MEAN CORPUSCULAR HGB CONC 30.1 g/dL (32.0-36.0); MEAN CORPUSCULAR VOLUME 100 fl (80-97); PLATELET COUNT 175 10^3/uL (150-450); RED BLOOD COUNT 3.03 10^6/uL (3.72-5.28); RED CELL DISTRIBUTION WIDTH 20.7 % (11.5-14.0); WHITE BLOOD COUNT 16.5 10^3/uL (4.0-10.5)
[2019-11-02 18:54] LABS: BLOOD UREA NITROGEN 19 mg/dL (7-20); CHLORIDE 94 mmol/L (98-107)
[2019-11-02 19:08] LABS: GLUCOSE 139 mg/dL (75-110); PHOSPHORUS 4.2 mg/dL (2.5-4.5)
[2019-11-02 19:10] LABS: ANION GAP 23 (5-19); CARBON DIOXIDE 16 mmol/L (22-30); POTASSIUM 3.3 mmol/L (3.6-5.0)
[2019-11-02 19:14] LABS: CALCIUM 6.8 mg/dL (8.4-10.2)
[2019-11-02] MEDS ORDERED: POTASSI CL 20 MEQ/50 ML RIDER 20 MEQ/50 ML RTUPB IV ONE (19:34)
[2019-11-02] MEDS ORDERED: MAGNESIUM SULFATE/D5W 1 GM/100 ML RTUPB IV SCH (19:45)
[2019-11-02] MEDS: POTASSI CL 20 MEQ/50 ML RIDER 20 MEQ/50 ML RTUPB IV SCH ×2 (20:01→21:08)
[2019-11-02 20:04] LABS: ARTERIAL BLOOD BASE EXCESS -11.4 mmol/L; ARTERIAL BLOOD H2CO3 0.57 mmol/L (1.05-1.35); ARTERIAL BLOOD HCO3 11.5 mmol/L (20-24); ARTERIAL BLOOD O2 SATURATION 97.8 % (94-98); ARTERIAL BLOOD PO2 100.8 mmHg (80-100); ARTERIAL BLOOD TOTAL CO2 12.1 mmol/L (21-25)
[2019-11-02 20:11] LABS: ARTERIAL BLOOD FIO2 30%; ARTERIAL BLOOD PCO2 18.9 mmHg (35-45)
[2019-11-02] MEDS ORDERED: CALCIUM GLUCONATE 1000 MG/10 ML INJ IV ONE ×3 (20:53→22:10)
--- NOTE | 2019-11-02 20:53 | PDOC CONSULTATION ---
Consultation Consult Date: 11/02/19 Provider Consulted: CAROLINE SINGH Consult reason:: ESRD, Severe Metabolic Acidosis History of Present Illness Admission Date/PCP: 11/02/19 06:46 LISA BARON MD History of Present Illness: NISH NOLAND is a 74 year old -[place] lady known to me with history of end-stage renal disease on maintenance hemodialysis, known biventricular congestive heart failure, coronary artery disease, paroxysmal atrial fibrillation on chronic anticoagulation, diabetes mellitus type 2, and peripheral vascular disease who was brought in by the EMS this morning from home due to altered mental status, hypoglycemia with blood sugar of 43 and hypothermia. Initial evaluation in the emergency room revealed that the patient is very hypotensive with recorded blood pressure as low as 80/53, tachycardic with heart rate between 130-150 and hypothermic with temperature to as low as 94-95 initially. Patient was also found to be very acidotic with initial ABG pH of 7.06, bicarbonate of 4.8, PCO2 of 17.6 with oxygen saturation of 97.9 on oxygen at 10 L. Initial chemistry showed a low sodium of 131.9, a very low bicarbonate of 5 with anion gap of 34, lactic acid of 17, elevated liver enzymes with AST of 1616, ALT of 377 and alk phos of 168. Her NT BNP was also elevated at 49,500 with troponin of 0.264. Her urine was reportedly appeared to be just pus. Her urinalysis showed moderate blood, small leukocyte esterase, negative nitrite, protein of 100, RBC of 144 with WBC of greater than 182 and many WBC clumps. In the emergency room patient was given initial IV fluids with a bolus of 500 mL and was started on vasopressors due to severe hypertension. She was initially on Levophed and subsequently started on vasopressin. She was also started on D10 water because of the hypoglycemia. She was given a dose of IV ceftriaxone and IV Zosyn. Patient remained to be tachycardic. At that point emergency room provider has given me a call for consultation. [employer] Stewardess, Dr. Grant and network internship were also called in for consultation. Subsequently the patient got intubated. Her pressors were changed starting her on Aleksandar-Synephrine and continuing the vasopressin. Dr. Grant also started the patient on milrinone drip. Patient was then transferred to the intensive care unit. In the ICU patient was noted to have melena. Her blood pressure remains to be on the low side despite those pressors. She was also started on sodium bicarbonate drip because of severe acidosis. When I saw the patient this morning, she is already intubated. I was able to talk to the patient's son, Hao who lives with her. He said that last night the patient just complained of whole body ache and urinary urgency although she does not really make much urine anymore . He is not aware of any fever nor any other complaints. Due to severe metabolic acidosis in a patient who has end-stage renal disease due for dialysis today I decided to do dialysis treatment this afternoon. I am seeing the patient around 2:10 PM on initiation of dialysis. Patient was still somewhat hypotensive with continuous vasopressors. We will monitor the patient continuously throughout dialysis treatment and adjust treatment accordingly. Past Medical History Cardiac Medical History: Reports: Atrial Fibrillation, CHF-Diastolic, CHF-Systolic, Coronary Artery Disease, Hyperlipidemia, Hypertension-primary, Peripheral Vascular Disease Pulmonary Medical History: Reports: Pneumonia Endocrine Medical History: Reports: Diabetes Mellitus Type 2 Complications of Diabetes: Reports: Nephropathy Renal/ Medical History: Reports: End Stage Renal Disease Musculoskeltal Medical History: Reports: Arthritis Infectious Medical History: Reports: Methicillin-resist Staph Aureus Hematology Medical History: Reports Anemia of Chronic Kidney Disease Past Surgical History Past Surgical History: Reports: Appendectomy, Hysterectomy, Vascular Surgery - Dialysis PermCath placement Social History Information Source: [facility] Records Lives with: Family Smoking Status: Never Smoker Frequency of Alcohol Use: None Hx Recreational Drug Use: No Drugs: None Hx Prescription Drug Abuse: No Family History Family History: Unable to be obtained due to the patient being intubated. Parental Family History Reviewed: No Children Family History Reviewed: No Sibling(s) Family History Reviewed.: No Medication/Allergy Home Medications: Apixaban [Eliquis 2.5 mg Tablet] 2.5 mg PO BID 11/02/19 Atorvastatin Calcium [Lipitor 40 mg Tablet] 40 mg PO QHS 11/02/19 Insulin Glargine,Hum.rec.anlog [Lantus Insulin 100 Unit/1 ml 10 ml] 20 units SQ QHS 11/02/19 Insulin Lispro [Humalog Insulin (Lispro) 100 unit/mL] 8 unit SQ MEALS 11/02/19 Metoprolol Succinate [Toprol Xl 25 mg Tab.sr] 25 mg PO Q12 11/02/19 Midodrine HCl [Proamatine 5 mg Tablet] 5 mg PO TID 11/02/19 Oxycodone HCl [Oxy-Ir 5 mg Tablet] 5 mg PO BIDP PRN 11/02/19 Allergies/Adverse Reactions: No Known Allergies Allergy (Verified 11/02/19 01:15) Review of Systems ROS unobtainable: Due to endotracheal tube, Due to mental status Physical Exam Vital Signs: Temp Pulse Resp BP Pulse Ox 97.2 F 141 H 24 H 109/92 H 89 L 11/02/19 10:15 11/02/19 10:15 11/02/19 10:15 11/02/19 10:15 11/02/19 10:15 Intake & Output 11/01/19 11/02/19 11/03/19 06:59 06:59 06:59 Intake Total 784 2209 Balance 784 2209 Weight 81.3 kg Vitals during initiation of dialysis: Blood pressure 113/73, heart rate of 158, respiratory rate of 27, oxygen saturation of 90% with FiO2 of 30%, blood flow r ate of 250 mL/min and dialysate flow rate of 600 mL/min. Exam: General appearance: Intubated Head exam: PRESENT: atraumatic, normocephalic Eye exam: PRESENT: Eyes are closed Mouth exam: PRESENT: moist, neck supple, tongue midline Neck exam: PRESENT: full ROM. ABSENT: carotid bruit, JVD, lymphadenopathy, thyromegaly Respiratory exam: PRESENT: Diminished to auscultation bilaterally. ABSENT: rales, rhonchi, stridor, wheezes Cardiovascular exam: PRESENT: RRR, +S1, +S2. Tachycardic ABSENT: systolic murmur Pulses: PRESENT: normal radial pulses, normal dorsalis pedis pulses GI/Abdominal exam: PRESENT: normal bowel sounds, soft. ABSENT: guarding, mass, tenderness Rectal exam: Deferred Extremities exam: PRESENT: Left AKA with a wound VAC in place. There is a skin ulcer on the right lower leg ABSENT: calf tenderness, pedal edema Musculoskeletal: PRESENT: Left AKA Neurological exam: PRESENT: Intubated he has no response Psychiatric exam: PRESENT: Cannot be assessed at this time Skin exam: PRESENT: intact, dry, warm. ABSENT: rash Results Laboratory Results: 11/02/19 02:04 11/02/19 11/02/19 11/02/19 02:04 02:04 02:04 WBC Cancelled RBC Cancelled Hgb Cancelled Hct Cancelled MCV Cancelled MCH Cancelled MCHC Cancelled RDW Cancelled Plt Count Cancelled Seg Neutrophils % Cancelled Carbonic Acid HCO3/H2CO3 Ratio ABG pH ABG pCO2 ABG pO2 ABG HCO3 ABG O2 Saturation ABG Base Excess VBG pH VBG pCO2 VBG HCO3 VBG Base Excess FiO2 Sodium 131.9 L Potassium 4.8 Chloride 93 L Carbon Dioxide 5 L* Anion Gap 34 H BUN 33 H Creatinine 4.14 H Est GFR ( Amer) 13 L Glucose 161 H Lactic Acid 17.0 H Calcium 8.1 L Total Bilirubin 4.2 H AST 1616 H Alkaline Phosphatase 168 H Total Protein 7.9 Albumin 3.2 L Urine Color Urine Appearance Urine pH Ur Specific [place] Urine Protein Urine Glucose (UA) Urine Ketones Urine Blood Urine RBC (Auto) 11/02/19 11/02/19 11/02/19 02:04 02:27 03:33 WBC 17.5 H RBC Hgb Hct MCV MCH MCHC RDW Plt Count 186 Seg Neutrophils % Not Reportable Carbonic Acid HCO3/H2CO3 Ratio ABG pH ABG pCO2 ABG pO2 ABG HCO3 ABG O2 Saturation ABG Base Excess VBG pH 7.06 L* VBG pCO2 22.8 L VBG HCO3 6.3 L VBG Base Excess -22.5 FiO2 Sodium Potassium Chloride Carbon Dioxide Anion Gap BUN Creatinine Est GFR ( Amer) Glucose Lactic Acid Calcium Total Bilirubin AST Alkaline Phosphatase Total Protein Albumin Urine Color YELLOW Urine Appearance TURBID Urine pH 5.0 Ur Specific [place] 1.021 Urine Protein 100 H Urine Glucose (UA) NEGATIVE Urine Ketones NEGATIVE Urine Blood MODERATE H Urine RBC (Auto) 144 11/02/19 11/02/19 11/02/19 05:00 07:59 10:20 WBC RBC Hgb Hct MCV MCH MCHC RDW Plt Count Seg Neutrophils % Carbonic Acid 0.53 L 0.58 L 0.58 L HCO3/H2CO3 Ratio 9:1 6:1 11:1 ABG pH 7.06 L* 6.93 L* 7.14 L* ABG pCO2 17.6 L* 19.4 L* 19.3 L* ABG pO2 145.5 H 593.1 H 113.8 H ABG HCO3 4.8 L 4.0 L 6.4 L ABG O2 Saturation 97.9 99.8 H 96.9 ABG Base Excess -23.8 -26.9 -20.8 VBG pH VBG pCO2 VBG HCO3 VBG Base Excess FiO2 10L 100% 30% Sodium Potassium Chloride Carbon Dioxide Anion Gap BUN Creatinine Est GFR ( Amer) Glucose Lactic Acid Calcium Total Bilirubin AST Alkaline Phosphatase Total Protein Albumin Urine Color Urine Appearance Urine pH Ur Specific [place] Urine Protein Urine Glucose (UA) Urine Ketones Urine Blood Urine RBC (Auto) 11/02/19 02:04 Troponin I 0.264 Impressions: Chest X-Ray 11/02/19 07:50 IMPRESSION: Endotracheal tube has been placed as described. No other interval change. Assessment & Plan - Diagnosis (1) Shock Is this a current diagnosis for this admission?: Yes Plan: Likely to be a combination of septic shock and possibly cardiogenic shock. Currently on vasopressors. Management per network internship. (2) Sepsis Qualifiers: Sepsis type: sepsis due to unspecified organism Sepsis acute organ dysfunction status: unspecified Qualified Code(s): A41.9 - Sepsis, unspecified organism Is this a current diagnosis for this admission?: Yes Plan: Secondary to urinary tract infection. On antibiotics. (3) End stage renal disease on dialysis Is this a current diagnosis for this admission?: Yes Plan: We will do dialysis today for 3 hours, using the patient's PermCath, with 2 potassium bath, blood flow rate of 250-350 mL per minute, dialysate flow rate of 600-800 mL per minute, ultrafiltration 1 to 2 L as tolerated, no heparin and no Retacrit. Ultrafiltration will be obtained only as tolerated depending on her blood pressure. Discussed plan with her dialysis nurse. (4) Metabolic acidosis Is this a current diagnosis for this admission?: Yes Plan: Severe. Likely due to a combination of lactic acidosis and acidosis due to kidney disease. Hopefully dialysis would help. May continue sodium bicarbonate drip for now. (5) UTI (urinary tract infection) Qualifiers: Urinary tract infection type: site unspecified Hematuria presence: with hematuria Qualified Code(s): N39.0 - Urinary tract infection, site not specified; R31.9 - Hematuria, unspecified Is this a current diagnosis for this admission?: Yes Plan: On IV antibiotics. (6) Hyponatremia Is this a current diagnosis for this admission?: Yes Plan: Due to CHF. (7) Elevated liver enzymes Is this a current diagnosis for this admission?: Yes Plan: Possibly due to shock liver. (8) Atrial fibrillation with rapid ventricular response Is this a current diagnosis for this admission?: Yes (9) Congestive heart failure Qualifiers: Heart failure type: combined systolic and diastolic Heart failure chronicity: acute on chronic Qualified Code(s): I50.43 - Acute on chronic combined systolic (congestive) and diastolic (congestive) heart failure Is this a current diagnosis for this admission?: Yes Plan: Biventricular with left ventricular ejection fraction is less than 20 and reduced right ventricular systolic function. [employer] Stewardess, Dr. Grant on board. 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 (13) Diabetic foot ulcers Qualifiers: Diabetic foot ulcer location: unspecified part of foot Diabetes mellitus type: type 2 Is this a current diagnosis for this admission?: Yes - Notes Notes: The very much for this consultation. Discussed the case with our network internship, Dr. Montiel. I also discussed the patient's clinical condition with her daughter and 2 sons. - Time Time Spent: Greater than 70 Minutes
[2019-11-02] MEDS ORDERED: MAGNESIUM SULFATE 4 GM/100 ML RTUPB IV ONE (21:00)
[2019-11-02 21:38] LABS: ARTERIAL BLOOD BASE EXCESS -11.6 mmol/L; ARTERIAL BLOOD H2CO3 0.65 mmol/L (1.05-1.35); ARTERIAL BLOOD HCO3 12.1 mmol/L (20-24); ARTERIAL BLOOD O2 SATURATION 74.4 % (94-98); ARTERIAL BLOOD PCO2 21.5 mmHg (35-45); ARTERIAL BLOOD PH 7.37 (7.35-7.45); ARTERIAL BLOOD TOTAL CO2 12.8 mmol/L (21-25)
[2019-11-02 21:45] LABS: ARTERIAL BLOOD FIO2 30
[2019-11-02 21:46] LABS: ARTERIAL BLOOD PO2 39.5 mmHg (80-100)
[2019-11-02] MEDS ORDERED: PANTOPRAZOLE SODIUM 40 MG VIAL IV SCH (22:00)
[2019-11-02] MEDS: PIPERACILLIN SODIUM/TAZOBACTAM 2.25 GM in NORMAL SALINE 50 ML IV SCH (22:18)
[2019-11-02] MEDS: VANCOMYCIN HCL 500 MG in DEXTROSE 5%-WATER 100 ML IV SCH (23:21)
[2019-11-02] MEDS ORDERED: CALCIUM GLUC IN NACL ISO OSM IV ONE (23:49)
[2019-11-03] MEDS: MILRINONE LACTATE/D5W 20 MG/100 ML RTUINJ IV PRN ×2 (00:02→17:32)
[2019-11-03] MEDS: NORMAL SALINE 100 ML with PANTOPRAZOLE SODIUM 80 MG IV PRN ×6 (00:21→17:26)
[2019-11-03] MEDS ORDERED: CALCIUM GLUCONATE 1000 MG/10 ML INJ IV ONE ×5 (00:22→21:00)
--- NOTE | 2019-11-03 01:19 | Operative Report ---
Bedside Procedure - History of Present Illness History of Present Illness: NISH NOLAND is a 74 year old female with ESRD on hemodialysis, known biventricular congestive heart failure, CAD, paroxysmal atrial fibrillation on Eliquis, DM II, and PVD who was brought in by the admitted with altered mental status, hypoglycemia, and hypothermia. Found to have leukocytosis with significant pyuria on urena placement, chronic RLE wounds which at least have some localized wound infected tissue, and decompensated heart failure with an LVEF <10% on my bedside sonogram performed in the ED for which she is on vasopressor therapy as well as renal-dose Milrinone. She continues to require Vasopressin, Phenylephrine, and Milrinone for shock and it is necessary to place an arterial line for frequent ABG analysis given how difficult it is to obtain specimens and would be ideal for titration of the aforementioned infusions. Consent in the chart. PROCEDURE: ARTERIAL LINE INSERTION PROCEDURALIST: MONTSERRAT VEGA ANESTHESIA: 5 ML 1% LIDOCAINE for attempt #1, 5 ML 1% LIDOCAINE for attempt #2 COMPLICATIONS: NONE, THOUGH TWO ATTEMPTS MADE DUE TO GUIDE WIRE NOT ADVANCING ON FIRST ATTEMPT IN RIGHT AXILLARY ARTERY SITE SELECTION REASON: Bilateral radial arteries severely vasoconstricted due to peripheral vascular disease as well as acute decompensated heart failure and shock. Two attempts made for radial artery access earlier today without success. History of bad lower extremity PVD requiring recent amputation of LLE due to ischemia and infected arterial ulcer. Reviewed most recent CT abd/pelvis and see bilateral iliacs have atherosclerotic plaque present, left greater than right. The flow to the right foot is already somewhat compromised, therefore, I felt it best not to risk femoral artery puncture due to the risk of embolizing plaque or simply narrowing the vessel more, thus reducing flow the distal limb. Therefore, I decided to attempt the right axillary artery after scouting with the ultrasound since it was the most superficial of the axillary arteries. Patient was prepped and draped in usual sterile fashion. Utilizing ultrasound guidance with a sterile probe cover, a 20-gauge introducer needle attached to a syringe under negative pressure was visualized entering the right axillary artery for which a brisk return of blood was achieved. The syringe was disconnected from the needle, noting strong pulsatile blood coming from the needle. A guidewire was advanced through the tail of the needle proximally and went into the right axillary artery a few centimeters but then kept getting hung up on the vascular wall deeper than I could see with the ultrasound and would not thread any further. The wire was slightly retracted and rotated taking into account the J- tip as well as manipulation of the arm from a positioning standpoint, however, none of the latter interventions assisted in advancing the wire farther. Since the wire was at least in the vessel, I attempted to advance the catheter over the wire after making a small skin stab incision on top of the wire to facilitate passage, but the catheter also got hung up and the procedure ended up being aborted at this site. Upon evaluation of the catheter following removal, the catheter was significantly bent and the tip had been slightly frayed but was still intact. Manual pressure was held for 10 minutes given the patient's prolonged bleeding. Hemostasis was achieved and the nurse was instructed not to check her blood pressure on that upper arm for a couple hours. Attempt #2: The left axillary artery was scouted and visualized as deep as I could with the ultrasound without noting any tortuosity in the vessel so the decision was made to proceed with cannulation of the left axillary artery. The patient was placed in proper procedural position followed by prepping and draping in usual sterile fashion. Utilizing ultrasound guidance with a sterile probe cover, a 20-gauge introducer needle attached to a syringe under negative pressure was visualized entering the left axillary artery for which a brisk return of blood was achieved. The syringe was disconnected from the needle, noting strong pulsatile blood coming from the needle. A guidewire was advanced through the tail of the needle into the left axillary artery and the needle was subsequently removed. The guidewire was confirmed to be in the left axillary artery via ultrasound in 2 views. A small skin stab incision was made on top of the wire to facilitate passage of the catheter. A 18-gauge 16 cm catheter was advanced over the guidewire into the left axillary artery without any resistance and the guidewire was subsequently removed, again noting pulsatile blood from the distal end of the catheter. The catheter was attached to transducer tubing in usual fashion, the catheter was sutured into place with 2 sutures, a sterile 4 x 4 was folded and placed on top of the site as the patient is oozing from the 2 suture sites as well as the cannula insertion site despite holding gentle pressure for 5 minutes, and a sterile transparent occlusive dressing was applied. No further bleeding noted on the gauze 4 x 4 underneath the occlusive dressing. Good arterial waveform on the monitor. No complications. Indication for Procedure: Shock, serial ABG analysis Date: 11/02/19 Provider: BALDO RANKIN
[2019-11-03] MEDS: DEXTROSE 5%-WATER 250 ML with PHENYLEPHRINE HCL 40 MG IV PRN ×18 (01:21→23:50)
[2019-11-03] MEDS ORDERED: AMIODARONE HCL INJ 150 MG/3 ML VIAL IV ONE (01:26)
[2019-11-03] MEDS: DEXTROSE 5%-WATER 500 ML with AMIODARONE HCL 900 MG IV PRN ×2 (01:36)
[2019-11-03 01:38] LABS: ARTERIAL BLOOD BASE EXCESS -15.4 mmol/L; ARTERIAL BLOOD H2CO3 0.63 mmol/L (1.05-1.35); ARTERIAL BLOOD HCO3 9.7 mmol/L (20-24); ARTERIAL BLOOD O2 SATURATION 73.5 % (94-98); ARTERIAL BLOOD PH 7.29 (7.35-7.45); ARTERIAL BLOOD PO2 42.2 mmHg (80-100); ARTERIAL BLOOD TOTAL CO2 10.3 mmol/L (21-25)
[2019-11-03 01:42] LABS: ARTERIAL BLOOD FIO2 30%
[2019-11-03 01:43] LABS: ARTERIAL BLOOD PCO2 20.8 mmHg (35-45)
[2019-11-03] MEDS ORDERED: FENTANYL CITRATE INJ/PF 100 MCG/2 ML AMPUL ONE (02:35)
[2019-11-03 02:50] LABS: ARTERIAL BLOOD BASE EXCESS -16.5 mmol/L; ARTERIAL BLOOD H2CO3 0.48 mmol/L (1.05-1.35); ARTERIAL BLOOD HCO3 7.9 mmol/L (20-24); ARTERIAL BLOOD PH 7.31 (7.35-7.45); ARTERIAL BLOOD PO2 115.6 mmHg (80-100); ARTERIAL BLOOD TOTAL CO2 8.4 mmol/L (21-25)
[2019-11-03 02:53] LABS: ARTERIAL BLOOD FIO2 30%
[2019-11-03 03:01] LABS: HEMATOCRIT 24.1 % (36.0-47.0); MEAN CORPUSCULAR HEMOGLOBIN 30.6 pg (27.0-33.4); MEAN CORPUSCULAR HGB CONC 29.8 g/dL (32.0-36.0); MEAN CORPUSCULAR VOLUME 103 fl (80-97); PLATELET COUNT 139 10^3/uL (150-450); RED BLOOD COUNT 2.34 10^6/uL (3.72-5.28); RED CELL DISTRIBUTION WIDTH 21.3 % (11.5-14.0); WHITE BLOOD COUNT 20.8 10^3/uL (4.0-10.5)
[2019-11-03 03:02] LABS: FIBRINOGEN 178 mg/dL (209-497)
[2019-11-03] MEDS ORDERED: NORMAL SALINE 250 ML IV PRN ×8 (03:12→20:36)
[2019-11-03] MEDS ORDERED: FENTANYL CITRATE INJ/PF 100 MCG/2 ML AMPUL IV ONE ×2 (03:15→03:30)
[2019-11-03 03:23] LABS: INTERNATIONAL RATION (INR) 5.68; PROTHROMBIN TIME 52.9 SEC (11.4-15.4)
[2019-11-03 03:24] LABS: ABSOLUTE LYMPHOCYTES# (MANUAL) 2.1 10^3/uL (0.5-4.7); ABSOLUTE MONOCYTES # (MANUAL) 2.1 10^3/uL (0.1-1.4); BAND NEUTROPHILS % (MANUAL) 5 % (3-5); BASOPHILS % (MANUAL) 0 % (0-2); EOSINOPHILS % (MANUAL) 0 % (0-6); LYMPHOCYTES % (MANUAL) 10 % (13-45); MONOCYTES % (MANUAL) 10 % (3-13); NUCLEATED RED BLOOD CELLS 4 /100 WBC (0); SEGMENTED NEUTROPHILS % (MAN) 75 % (42-78); TOTAL CELLS COUNTED 100
--- NOTE | 2019-11-03 03:24 | RADIOLOGY REPORT (SQ) ---
CLINICAL INDICATION: r/o intra-abdominal perforation/infectious process. . TECHNIQUE: Noncontrast spiral axial CT imaging was obtained of the abdomen and pelvis with multiplanar reconstructions. This exam was performed according to our departmental dose-optimization program, which includes automated exposure control, adjustment of the mA and/or kV according to patient size and/or use of iterative reconstruction techniques. COMPARISON: May 22, 2019. CORRELATION: None. FINDINGS: Abdomen: The lung bases demonstrate dependent airspace disease. The heart is enlarged. Trace pleural fluid. No pericardial fluid. The liver is homogeneous. The gallbladder is nondistended without inflammatory change. The pancreas is of grossly normal contour on this noncontrast examination. The spleen is unremarkable. The adrenals are unremarkable. The kidneys appear grossly normal without evidence of urolithiasis or hydronephrosis. There is no evidence of free air. No free fluid. No bulky adenopathy. Abdominal aorta is calcified but nonaneurysmal. Pelvis: The bowel is nonobstructed. The bowel is unopacified with oral contrast. Pelvic contents demonstrate urinary bladder decompressed with a Contreras catheter. The appendix is not seen. Mild thickening distal transverse colon through splenic flexure into left hemicolon. Nasogastric tube in good position. Visualized bones demonstrate age-appropriate osteoporosis arthritis. IMPRESSION: Artifact from the patient's arms. Imaging is degraded by patient motion, with resultant artifact. The best possible images were obtained. Findings are suspicious for colitis..
[2019-11-03 03:25] LABS: POLYCHROMASIA SLIGHT; TOXIC GRANULATION 1+
[2019-11-03 03:26] LABS: ANISOCYTOSIS 3+; BURR CELLS 2+; HEMOGLOBIN 7.2 g/dL (12.0-15.5); OVALOCYTES SLIGHT; PLATELET COMMENT DECREASED; POIKILOCYTOSIS SLIGHT; SCHISTOCYTES 1+
[2019-11-03] MEDS: PIPERACILLIN SODIUM/TAZOBACTAM 2.25 GM in NORMAL SALINE 50 ML IV SCH ×4 (03:35→21:00)
[2019-11-03 03:56] LABS: ALBUMIN 1.8 g/dL (3.5-5.0); ALKALINE PHOSPHATASE 168 U/L (38-126); BILIRUBIN,DIRECT 2.8 mg/dL (0.0-0.4); BILIRUBIN,TOTAL 3.5 mg/dL (0.2-1.3); BLOOD UREA NITROGEN 21 mg/dL (7-20); CALCIUM 7.6 mg/dL (8.4-10.2); GLUCOSE 188 mg/dL (75-110); PHOSPHORUS 5.4 mg/dL (2.5-4.5); TOTAL PROTEIN 4.7 g/dL (6.3-8.2)
[2019-11-03 04:01] LABS: CHLORIDE 93 mmol/L (98-107)
[2019-11-03 04:32] LABS: ASPARTATE AMINO TRANSFERASE 1907 U/L (14-36); POTASSIUM 4.4 mmol/L (3.6-5.0)
[2019-11-03 04:34] LABS: CARBON DIOXIDE 9 mmol/L (22-30)
[2019-11-03 04:38] LABS: ANION GAP 30 (5-19)
[2019-11-03 06:11] LABS: FREE T3 2.47 pg/mL (2.77-5.27); FREE T4 (FREE THYROXINE) 1.29 ng/dL (0.78-2.19)
[2019-11-03 06:25] LABS: THYROID STIMULATING HORMONE 2.28 uIU/mL (0.47-4.68)
--- NOTE | 2019-11-03 07:51 | Progress Note ---
Provider Note Provider Note: On 11/02/2019 at 08:45 am, I spoke to Hao Vaughn listed as next of kin and informed him of his mother's current condition as well as prognosis which is extremely poor. We then had an extensive conversation about code status for which he decided to make his mother, Audra Vaughn, a [id number] code status. I made her a DNR in the computer and notified the nursing staff. Dr Grant with Cardiology was consulted and has seen the patient. Formal echocardiogram pending. Dr Sparks with Nephrology has also been consulted and I spoke to her [id number]. Discussed the above with Game Engineer Dr Montiel.
[2019-11-03 08:13] LABS: ARTERIAL BLOOD BASE EXCESS -20.6 mmol/L; ARTERIAL BLOOD H2CO3 0.47 mmol/L (1.05-1.35); ARTERIAL BLOOD HCO3 5.7 mmol/L (20-24); ARTERIAL BLOOD O2 SATURATION 96.5 % (94-98); ARTERIAL BLOOD TOTAL CO2 6.2 mmol/L (21-25)
[2019-11-03 08:25] LABS: ARTERIAL BLOOD FIO2 30%
[2019-11-03 08:26] LABS: ARTERIAL BLOOD PCO2 15.6 mmHg (35-45); ARTERIAL BLOOD PH 7.18 (7.35-7.45)
[2019-11-03 08:30] LABS: FIBRINOGEN 169 mg/dL (209-497)
[2019-11-03 08:31] LABS: HEMATOCRIT 26.6 % (36.0-47.0); MEAN CORPUSCULAR HGB CONC 29.5 g/dL (32.0-36.0); MEAN CORPUSCULAR VOLUME 105 fl (80-97); PLATELET COUNT 117 10^3/uL (150-450); RED BLOOD COUNT 2.53 10^6/uL (3.72-5.28); RED CELL DISTRIBUTION WIDTH 19.3 % (11.5-14.0)
[2019-11-03 08:33] LABS: D-DIMER 3.41 ug/mL (0.00-0.50)
[2019-11-03 08:37] LABS: BLOOD UREA NITROGEN 21 mg/dL (7-20); CHLORIDE 88 mmol/L (98-107); GLUCOSE 218 mg/dL (75-110); POTASSIUM 4.7 mmol/L (3.6-5.0)
[2019-11-03 08:49] LABS: INTERNATIONAL RATION (INR) 5.02
[2019-11-03] MEDS ORDERED: HEPARIN SOD (PORCINE) 1,000 UNIT/ML 10 ML VIAL IV PRN (09:13)
[2019-11-03 09:15] LABS: ANION GAP 34 (5-19); CARBON DIOXIDE 7 mmol/L (22-30)
[2019-11-03] MEDS: ALBUMIN HUMAN 12.5 GM/50 ML RTUINJ IV SCH ×4 (09:36→11:59)
[2019-11-03] MEDS: DEXTROSE 5%-WATER 1000 ML 1,000 ML with SODIUM BICARBONATE 150 MEQ IV PRN ×4 (09:46→21:40)
[2019-11-03] MEDS ORDERED: SODIUM BICARBONATE 8.4% INJ 50 MEQ/50 ML DISP.SYRIN IV ONE (10:00)
[2019-11-03] MEDS ORDERED: NOREPINEPHRINE BITARTRATE INJ/PF 4 MG/4 ML SDV IV ONE (10:16)
[2019-11-03] MEDS: DEXTROSE 5%-WATER 250 ML with NOREPINEPHRINE BITARTRATE 4 MG IV PRN ×6 (10:20→23:50)
[2019-11-03 12:35] LABS: BLOOD UREA NITROGEN 19 mg/dL (7-20); CALCIUM 7.4 mg/dL (8.4-10.2); GLUCOSE 239 mg/dL (75-110); POTASSIUM 4.6 mmol/L (3.6-5.0)
[2019-11-03 12:41] LABS: CHLORIDE 88 mmol/L (98-107)
[2019-11-03 12:45] LABS: ANION GAP 37 (5-19); CARBON DIOXIDE 6 mmol/L (22-30)
--- NOTE | 2019-11-03 13:07 | PDOC PROGRESS REPORT ---
Subjective Progress Note for:: 11/03/19 Subjective:: Continues to do very poorly. Patient continues to be on pressors and inotrope. She continues to be on milrinone, phenylephrine, vasopressin. She was started on intravenous amiodarone for better rate control for atrial fibrillation. This seems to have helped. She remains intubated on ventilator. She appears to have ongoing GI bleed and also there is bleeding from the wound VAC. CT scan of the chest abdomen and pelvis was performed. Possible colitis. Reason For Visit: SHOCK Physical Exam Vital Signs: Temp Pulse Resp BP Pulse Ox 95.7 F L 94 25 H 83/39 L 99 11/03/19 10:20 11/03/19 10:00 11/03/19 10:20 11/03/19 09:00 11/03/19 03:25 Intake & Output 11/02/19 11/03/19 11/04/19 06:59 06:59 06:59 Intake Total 784 5610 3043 Output Total 1765 0 Balance 784 3845 3043 Weight 81.3 kg 82.6 kg 82.6 kg General appearance: PRESENT: other - Sedated. Intubated. Wound VAC noted. Endotracheal tube noted. Dialysis catheter noted. Other lines noted. Head exam: PRESENT: atraumatic, normocephalic Eye exam: PRESENT: conjunctiva pale Mouth exam: PRESENT: moist Respiratory exam: PRESENT: crackles, decreased breath sounds, symmetrical - Ventilator assisted breath sounds. These are coarse. Basal rales are heard. Cardiovascular exam: PRESENT: irregular rhythm, +S1, +S2, other - Hemodialysis catheter left upper chest wall GI/Abdominal exam: PRESENT: soft Rectal exam: PRESENT: deferred Musculoskeletal exam: PRESENT: other - AKA left. Wound VAC with bleeding Neurological exam: PRESENT: other - Sedated. Unable to assess Skin exam: PRESENT: intact Results Laboratory Results: 11/03/19 08:00 11/03/19 08:00 11/02/19 11/02/19 11/02/19 02:04 02:04 10:30 WBC RBC Hgb Hct MCV MCH MCHC RDW Plt Count Seg Neutrophils % Carbonic Acid HCO3/H2CO3 Ratio ABG pH ABG pCO2 ABG pO2 ABG HCO3 ABG O2 Saturation ABG Base Excess VBG pH VBG pCO2 VBG HCO3 VBG Base Excess FiO2 Sodium Potassium Chloride Carbon Dioxide Anion Gap BUN Creatinine Est GFR ( Amer) Glucose Lactic Acid Calcium Ionized Calcium Ayse Phosphorus Magnesium Total Bilirubin AST Alkaline Phosphatase Total Protein Albumin Amylase Lipase 2357.1 H TSH 3.37 Free T4 Free T3 pg/mL PTH Intact Blood Type A POSITIVE Antibody Screen NEGATIVE 11/02/19 11/02/19 11/02/19 10:45 11:58 14:23 WBC 18.2 H RBC Hgb Hct MCV MCH MCHC RDW Plt Count 168 Seg Neutrophils % Carbonic Acid 0.59 L HCO3/H2CO3 Ratio 14:1 ABG pH 7.27 L ABG pCO2 19.7 L* ABG pO2 104.8 H ABG HCO3 8.8 L ABG O2 Saturation 97.3 ABG Base Excess -16.2 VBG pH 7.29 L VBG pCO2 29.9 L VBG HCO3 14.2 L VBG Base Excess -11.2 FiO2 30% Sodium Potassium Chloride Carbon Dioxide Anion Gap BUN Creatinine Est GFR ( Amer) Glucose Lactic Acid Calcium Ionized Calcium Ayse Phosphorus Magnesium Total Bilirubin AST Alkaline Phosphatase Total Protein Albumin Amylase Lipase TSH Free T4 Free T3 pg/mL PTH Intact Blood Type Antibody Screen 11/02/19 11/02/19 11/02/19 17:00 18:05 18:05 WBC 16.5 H RBC 3.03 L Hgb 9.1 L Hct 30.3 L MCV 100 H MCH 30.1 MCHC 30.1 L RDW 20.7 H Plt Count 175 Seg Neutrophils % Carbonic Acid 0.98 L HCO3/H2CO3 Ratio 17:1 ABG pH 7.35 ABG pCO2 32.4 L ABG pO2 28.0 L* ABG HCO3 17.6 L ABG O2 Saturation 50.5 L ABG Base Excess -7.1 VBG pH VBG pCO2 VBG HCO3 VBG Base Excess FiO2 30% Sodium 133.2 L Potassium 3.3 L D Chloride 94 L Carbon Dioxide 16 L D Anion Gap 23 H BUN 19 Creatinine 2.10 H Est GFR ( Amer) 28 L Glucose 139 H Lactic Acid Calcium 6.8 L* Ionized Calcium Ayse Phosphorus 4.2 Magnesium 1.9 Total Bilirubin AST Alkaline Phosphatase Total Protein Albumin Amylase Lipase TSH Free T4 Free T3 pg/mL PTH Intact Blood Type Antibody Screen 11/02/19 11/02/19 11/02/19 18:05 19:45 21:17 WBC RBC Hgb Hct MCV MCH MCHC RDW Plt Count Seg Neutrophils % Carbonic Acid 0.57 L 0.65 L HCO3/H2CO3 Ratio 20:1 18:1 ABG pH 7.40 7.37 ABG pCO2 18.9 L* 21.5 L ABG pO2 100.8 H 39.5 L* ABG HCO3 11.5 L 12.1 L ABG O2 Saturation 97.8 74.4 L ABG Base Excess -11.4 -11.6 VBG pH VBG pCO2 VBG HCO3 VBG Base Excess FiO2 30% 30 Sodium Potassium Chloride Carbon Dioxide Anion Gap BUN Creatinine Est GFR ( Amer) Glucose Lactic Acid Calcium Ionized Calcium Ayse 0.81 L Phosphorus Magnesium Total Bilirubin AST Alkaline Phosphatase Total Protein Albumin Amylase Lipase TSH Free T4 Free T3 pg/mL PTH Intact Blood Type Antibody Screen 11/03/19 11/03/19 11/03/19 01:30 02:28 02:28 WBC RBC Hgb Hct MCV MCH MCHC RDW Plt Count Seg Neutrophils % Carbonic Acid 0.63 L 0.48 L HCO3/H2CO3 Ratio 15:1 16:1 ABG pH 7.29 L 7.31 L ABG pCO2 20.8 L* 16.0 L* ABG pO2 42.2 L 115.6 H ABG HCO3 9.7 L 7.9 L ABG O2 Saturation 73.5 L 98.0 ABG Base Excess -15.4 -16.5 VBG pH VBG pCO2 VBG HCO3 VBG Base Excess FiO2 30% 30% Sodium 131.8 L Potassium 4.4 D Chloride 93 L Carbon Dioxide 9 L* Anion Gap 30 H BUN 21 H Creatinine 2.47 H Est GFR ( Amer) 23 L Glucose 188 H Lactic Acid Calcium 7.6 L Ionized Calcium Ayse 0.92 L Phosphorus 5.4 H Magnesium 2.2 Total Bilirubin 3.5 H AST 1907 H Alkaline Phosphatase 168 H Total Protein 4.7 L Albumin 1.8 L Amylase Lipase TSH Free T4 Free T3 pg/mL PTH Intact Blood Type Antibody Screen 11/03/19 11/03/19 11/03/19 02:28 02:28 04:47 WBC 20.8 H RBC 2.34 L Hgb 7.2 L Hct 24.1 L MCV 103 H MCH 30.6 MCHC 29.8 L RDW 21.3 H Plt Count 139 L Seg Neutrophils % Not Reportable Carbonic Acid HCO3/H2CO3 Ratio ABG pH ABG pCO2 ABG pO2 ABG HCO3 ABG O2 Saturation ABG Base Excess VBG pH VBG pCO2 VBG HCO3 VBG Base Excess FiO2 Sodium Potassium Chloride Carbon Dioxide Anion Gap BUN Creatinine Est GFR ( Amer) Glucose Lactic Acid 20.2 H Calcium Ionized Calcium Ayse Phosphorus Magnesium Total Bilirubin AST Alkaline Phosphatase Total Protein Albumin Amylase Lipase TSH Free T4 Free T3 pg/mL PTH Intact 488.9 H Blood Type Antibody Screen 11/03/19 11/03/19 11/03/19 04:47 04:47 08:00 WBC RBC Hgb Hct MCV MCH MCHC RDW Plt Count Seg Neutrophils % Carbonic Acid 0.47 L HCO3/H2CO3 Ratio 12:1 ABG pH 7.18 L* ABG pCO2 15.6 L* ABG pO2 102.0 H ABG HCO3 5.7 L ABG O2 Saturation 96.5 ABG Base Excess -20.6 VBG pH VBG pCO2 VBG HCO3 VBG Base Excess FiO2 30% Sodium Potassium Chloride Carbon Dioxide Anion Gap BUN Creatinine Est GFR ( Amer) Glucose Lactic Acid Calcium Ionized Calcium Ayse 0.94 L Phosphorus Magnesium Total Bilirubin AST Alkaline Phosphatase Total Protein Albumin Amylase 403 H Lipase 8504.2 H TSH 2.28 Free T4 1.29 Free T3 pg/mL 2.47 L PTH Intact Blood Type Antibody Screen 11/03/19 11/03/19 11/03/19 08:00 08:00 08:00 WBC 21.0 H RBC 2.53 L Hgb 7.8 L Hct 26.6 L MCV 105 H MCH 31.0 MCHC 29.5 L RDW 19.3 H Plt Count 117 L Seg Neutrophils % Carbonic Acid HCO3/H2CO3 Ratio ABG pH ABG pCO2 ABG pO2 ABG HCO3 ABG O2 Saturation ABG Base Excess VBG pH VBG pCO2 VBG HCO3 VBG Base Excess FiO2 Sodium 129.1 L Potassium 4.7 Chloride 88 L Carbon Dioxide 7 L* Anion Gap 34 H BUN 21 H Creatinine 2.63 H Est GFR ( Amer) 21 L Glucose 218 H Lactic Acid 26.7 H Calcium 8.0 L Ionized Calcium Ayse Phosphorus Magnesium Total Bilirubin AST Alkaline Phosphatase Total Protein Albumin Amylase Lipase TSH Free T4 Free T3 pg/mL PTH Intact Blood Type Antibody Screen 11/02/19 03:29 Blood Blood Culture (PCR) - Final Staphylococcus Species 06/11/02/19 11/02/19 02:04 02:04 14:20 Troponin I 0.264 0.341 NT-Pro-B Natriuret Pep 96700 H 11/02/19 11/03/19 11/03/19 18:05 02:28 08:00 Troponin I 0.466 0.778 0.968 NT-Pro-B Natriuret Pep Impressions: KUB X-Ray 11/02/19 00:00 IMPRESSION: NG tube is in place as described. Gas pattern is nonspecific. Chest X-Ray 11/02/19 13:40 IMPRESSION: Central line has been added. No pneumothorax. No other interval change. Abdomen/Pelvis CT 11/03/19 02:30 IMPRESSION: Artifact from the patient's arms. Imaging is degraded by patient motion, with resultant artifact. The best possible images were obtained. Findings are suspicious for colitis.. Assessment & Plan - Diagnosis (1) Congestive heart failure Qualifiers: Heart failure type: combined systolic and diastolic Heart failure chronicity: acute on chronic Qualified Code(s): I50.43 - Acute on chronic combined systolic (congestive) and diastolic (congestive) heart failure Is this a current diagnosis for this admission?: Yes Plan: Dilated cardiomyopathy Left ventricular dysfunction which is much worse in the current setting with sepsis and shock. Given multiple comorbidities and critical illness only supportive care is possible Presently she does not appear to be volume overloaded. Continue dialysis as feasible with pressure support (2) UTI (urinary tract infection) Qualifiers: Urinary tract infection type: site unspecified Hematuria presence: with hematuria Qualified Code(s): N39.0 - Urinary tract infection, site not specified; R31.9 - Hematuria, unspecified Is this a current diagnosis for this admission?: Yes Plan: UTI with sepsis. Broad-spectrum antibiotic coverage and supportive care. Critically ill. (3) Chronic atrial fibrillation Is this a current diagnosis for this admission?: Yes Plan: Atrial fibrillation rapid ventricular response in the setting of shock and sepsis. Rate is better controlled with intravenous amiodarone. Hopefully she will perfuse better. High risk of stroke. However patient is bleeding. (4) Chronic anticoagulation Is this a current diagnosis for this admission?: Yes Plan: Ongoing bleeding makes it difficult to pursue therapeutic anticoagulation. (5) Hypotension Is this a current diagnosis for this admission?: Yes Plan: Shock. Multifactorial. Cardiogenic together with component of sepsis likely. 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 No significant valve lesion which is unchanged from before. Continue pressor support-vasopressin, phenylephrine Continue milrinone infusion
--- NOTE | 2019-11-03 13:28 | PDOC PROGRESS REPORT ---
Subjective Progress Note for:: 11/03/19 Subjective:: Patient continues to be very critically ill involving multisystem organ issues. She continues to be intubated. She is still on vasopressors including Aleksandar- Synephrine, vasopressin on high doses with continued hypotension despite that. She is also continuously being given the milrinone and was started on amiodarone drip for the atrial fibrillation with rapid ventricular response which controlled the heart rate for now. She was started on Protonix drip as well for her GI bleed. She is being given blood transfusions and FFP's to reverse the anticoagulation given the GI bleed. Patient's lipase was found to be also elevated consistent with acute pancreatitis. Blood tests are also indicative of DIC. Patient has been getting a lot of volume and during dialysis yesterday we were only able to get 1700 mL of ultrafiltration. Discussed the case with intake counselor, Dr. Montiel and we agreed to try to do ultrafiltration again today using intermittent hemodialysis as we do not have CRRT in this hospital which should have been ideally what the patient would need. Patient is too unstable to be transferred for CRRT at this point. Due to persistent metabolic acidosis we will also do hemodialysis today. So I arranged hemodialysis and ultrafiltration to be done today. 12:30 PM. I am seeing the patient during dialysis treatment. We are doing ultrafiltration first for 1 hour followed by hemodialysis. So far she seems to be tolerating the procedure with addition of another pressor, Levoped. Her blood pressure so far has been holding. She will be monitored very closely and adjust accordingly. Reason For Visit: SHOCK Physical Exam Vital Signs: Temp Pulse Resp BP Pulse Ox 96.3 F L 97 22 H 88/38 L 99 11/03/19 08:10 11/03/19 08:00 11/03/19 08:10 11/03/19 08:00 11/03/19 03:25 Intake & Output 11/02/19 11/03/19 11/04/19 06:59 06:59 06:59 Intake Total 784 5610 859 Output Total 1765 0 Balance 784 3845 859 Weight 81.3 kg 82.6 kg Vitals during dialysis: Blood pressure 106/33, heart rate of 90, respiration of 22, blood flow rate 300 mL/min and dialysate flow rate of 600 mL/min. Exam: General appearance: PRESENT: Intubated and unresponsive Head exam: PRESENT: atraumatic, normocephalic Eye exam: PRESENT: Eyes are closed Neck exam: ABSENT: JVD Respiratory exam: PRESENT: Diminished breath sounds. ABSENT: crackles, rales, rhonchi, unlabored, wheezes Cardiovascular exam: PRESENT: Irregularly irregular rate rhythm -+S1, +S2. ABSENT: diastolic murmur, systolic murmur GI/Abdominal exam: PRESENT: normal bowel sounds, soft. ABSENT: guarding, mass, tenderness Extremities exam: Positive upper extremity bilateral edema and grade 1 bilateral lower extremity pitting edema Neurological exam: PRESENT: Unresponsive. Skin exam: PRESENT: dry, warm, diabetic ulcers on the right lower leg and the left AKA stump on wound VAC. Results Laboratory Results: 11/02/19 11/02/19 11/02/19 02:04 02:04 10:20 WBC RBC Hgb Hct MCV MCH MCHC RDW Plt Count Seg Neutrophils % Carbonic Acid 0.58 L HCO3/H2CO3 Ratio 11:1 ABG pH 7.14 L* ABG pCO2 19.3 L* ABG pO2 113.8 H ABG HCO3 6.4 L ABG O2 Saturation 96.9 ABG Base Excess -20.8 VBG pH VBG pCO2 VBG HCO3 VBG Base Excess FiO2 30% Sodium Potassium Chloride Carbon Dioxide Anion Gap BUN Creatinine Est GFR ( Amer) Glucose Lactic Acid Calcium Ionized Calcium Ayse Phosphorus Magnesium Total Bilirubin AST Alkaline Phosphatase Total Protein Albumin Amylase Lipase 2357.1 H TSH 3.37 Free T4 Free T3 pg/mL PTH Intact Blood Type Antibody Screen 11/02/19 11/02/19 11/02/19 10:30 10:45 11:58 WBC 18.2 H RBC Hgb Hct MCV MCH MCHC RDW Plt Count 168 Seg Neutrophils % Carbonic Acid 0.59 L HCO3/H2CO3 Ratio 14:1 ABG pH 7.27 L ABG pCO2 19.7 L* ABG pO2 104.8 H ABG HCO3 8.8 L ABG O2 Saturation 97.3 ABG Base Excess -16.2 VBG pH VBG pCO2 VBG HCO3 VBG Base Excess FiO2 30% Sodium Potassium Chloride Carbon Dioxide Anion Gap BUN Creatinine Est GFR ( Amer) Glucose Lactic Acid Calcium Ionized Calcium Ayse Phosphorus Magnesium Total Bilirubin AST Alkaline Phosphatase Total Protein Albumin Amylase Lipase TSH Free T4 Free T3 pg/mL PTH Intact Blood Type A POSITIVE Antibody Screen NEGATIVE 11/02/19 11/02/19 11/02/19 14:23 17:00 18:05 WBC 16.5 H RBC 3.03 L Hgb 9.1 L Hct 30.3 L MCV 100 H MCH 30.1 MCHC 30.1 L RDW 20.7 H Plt Count 175 Seg Neutrophils % Carbonic Acid 0.98 L HCO3/H2CO3 Ratio 17:1 ABG pH 7.35 ABG pCO2 32.4 L ABG pO2 28.0 L* ABG HCO3 17.6 L ABG O2 Saturation 50.5 L ABG Base Excess -7.1 VBG pH 7.29 L VBG pCO2 29.9 L VBG HCO3 14.2 L VBG Base Excess -11.2 FiO2 30% Sodium Potassium Chloride Carbon Dioxide Anion Gap BUN Creatinine Est GFR ( Amer) Glucose Lactic Acid Calcium Ionized Calcium Ayse Phosphorus Magnesium Total Bilirubin AST Alkaline Phosphatase Total Protein Albumin Amylase Lipase TSH Free T4 Free T3 pg/mL PTH Intact Blood Type Antibody Screen 11/02/19 11/02/19 11/02/19 18:05 18:05 19:45 WBC RBC Hgb Hct MCV MCH MCHC RDW Plt Count Seg Neutrophils % Carbonic Acid 0.57 L HCO3/H2CO3 Ratio 20:1 ABG pH 7.40 ABG pCO2 18.9 L* ABG pO2 100.8 H ABG HCO3 11.5 L ABG O2 Saturation 97.8 ABG Base Excess -11.4 VBG pH VBG pCO2 VBG HCO3 VBG Base Excess FiO2 30% Sodium 133.2 L Potassium 3.3 L D Chloride 94 L Carbon Dioxide 16 L D Anion Gap 23 H BUN 19 Creatinine 2.10 H Est GFR ( Amer) 28 L Glucose 139 H Lactic Acid Calcium 6.8 L* Ionized Calcium Ayse 0.81 L Phosphorus 4.2 Magnesium 1.9 Total Bilirubin AST Alkaline Phosphatase Total Protein Albumin Amylase Lipase TSH Free T4 Free T3 pg/mL PTH Intact Blood Type Antibody Screen 11/02/19 11/03/19 11/03/19 21:17 01:30 02:28 WBC RBC Hgb Hct MCV MCH MCHC RDW Plt Count Seg Neutrophils % Carbonic Acid 0.65 L 0.63 L 0.48 L HCO3/H2CO3 Ratio 18:1 15:1 16:1 ABG pH 7.37 7.29 L 7.31 L ABG pCO2 21.5 L 20.8 L* 16.0 L* ABG pO2 39.5 L* 42.2 L 115.6 H ABG HCO3 12.1 L 9.7 L 7.9 L ABG O2 Saturation 74.4 L 73.5 L 98.0 ABG Base Excess -11.6 -15.4 -16.5 VBG pH VBG pCO2 VBG HCO3 VBG Base Excess FiO2 30 30% 30% Sodium Potassium Chloride Carbon Dioxide Anion Gap BUN Creatinine Est GFR ( Amer) Glucose Lactic Acid Calcium Ionized Calcium Ayse 0.92 L Phosphorus Magnesium Total Bilirubin AST Alkaline Phosphatase Total Protein Albumin Amylase Lipase TSH Free T4 Free T3 pg/mL PTH Intact Blood Type Antibody Screen 11/03/19 11/03/19 11/03/19 02:28 02:28 02:28 WBC 20.8 H RBC 2.34 L Hgb 7.2 L Hct 24.1 L MCV 103 H MCH 30.6 MCHC 29.8 L RDW 21.3 H Plt Count 139 L Seg Neutrophils % Not Reportable Carbonic Acid HCO3/H2CO3 Ratio ABG pH ABG pCO2 ABG pO2 ABG HCO3 ABG O2 Saturation ABG Base Excess VBG pH VBG pCO2 VBG HCO3 VBG Base Excess FiO2 Sodium 131.8 L Potassium 4.4 D Chloride 93 L Carbon Dioxide 9 L* Anion Gap 30 H BUN 21 H Creatinine 2.47 H Est GFR ( Amer) 23 L Glucose 188 H Lactic Acid 20.2 H Calcium 7.6 L Ionized Calcium Ayse Phosphorus 5.4 H Magnesium 2.2 Total Bilirubin 3.5 H AST 1907 H Alkaline Phosphatase 168 H Total Protein 4.7 L Albumin 1.8 L Amylase Lipase TSH Free T4 Free T3 pg/mL PTH Intact Blood Type Antibody Screen 11/03/19 11/03/19 11/03/19 04:47 04:47 04:47 WBC RBC Hgb Hct MCV MCH MCHC RDW Plt Count Seg Neutrophils % Carbonic Acid HCO3/H2CO3 Ratio ABG pH ABG pCO2 ABG pO2 ABG HCO3 ABG O2 Saturation ABG Base Excess VBG pH VBG pCO2 VBG HCO3 VBG Base Excess FiO2 Sodium Potassium Chloride Carbon Dioxide Anion Gap BUN Creatinine Est GFR ( Amer) Glucose Lactic Acid Calcium Ionized Calcium Ayse Phosphorus Magnesium Total Bilirubin AST Alkaline Phosphatase Total Protein Albumin Amylase 403 H Lipase 8504.2 H TSH 2.28 Free T4 1.29 Free T3 pg/mL 2.47 L PTH Intact 488.9 H Blood Type Antibody Screen 11/03/19 08:00 WBC RBC Hgb Hct MCV MCH MCHC RDW Plt Count Seg Neutrophils % Carbonic Acid 0.47 L HCO3/H2CO3 Ratio 12:1 ABG pH 7.18 L* ABG pCO2 15.6 L* ABG pO2 102.0 H ABG HCO3 5.7 L ABG O2 Saturation 96.5 ABG Base Excess -20.6 VBG pH VBG pCO2 VBG HCO3 VBG Base Excess FiO2 30% Sodium Potassium Chloride Carbon Dioxide Anion Gap BUN Creatinine Est GFR ( Amer) Glucose Lactic Acid Calcium Ionized Calcium Ayse 0.94 L Phosphorus Magnesium Total Bilirubin AST Alkaline Phosphatase Total Protein Albumin Amylase Lipase TSH Free T4 Free T3 pg/mL PTH Intact Blood Type Antibody Screen 11/02/19 11/02/19 11/02/19 02:04 02:04 14:20 Troponin I 0.264 0.341 NT-Pro-B Natriuret Pep 25047 H 11/02/19 11/03/19 18:05 02:28 Troponin I 0.466 0.778 NT-Pro-B Natriuret Pep Impressions: KUB X-Ray 11/02/19 00:00 IMPRESSION: NG tube is in place as described. Gas pattern is nonspecific. Chest X-Ray 11/02/19 13:40 IMPRESSION: Central line has been added. No pneumothorax. No other interval change. Abdomen/Pelvis CT 11/03/19 02:30 IMPRESSION: Artifact from the patient's arms. Imaging is degraded by patient motion, with resultant artifact. The best possible images were obtained. Findings are suspicious for colitis.. Assessment & Plan - Diagnosis (1) Shock Is this a current diagnosis for this admission?: Yes Plan: Likely combination of septic shock and cardiogenic shock. Still requiring a lot of pressors. (2) Sepsis Qualifiers: Sepsis type: sepsis due to unspecified organism Sepsis acute organ dysfunction status: unspecified Qualified Code(s): A41.9 - Sepsis, unspecified organism Is this a current diagnosis for this admission?: Yes Plan: Blood cultures positive for staph species. Patient is currently on IV Zosyn and vancomycin. (3) End stage renal disease on dialysis Is this a current diagnosis for this admission?: Yes Plan: Due to persistent metabolic acidosis and volume overload with all of her drips I will do ultrafiltration/hemodialysis today. We will do dialysis today for 4 hours with the first hour as isolated ultrafiltration only in the 3 hours of hemodialysis, using the patient's PermCath, with 2 potassium/sodium 140/bicarbonate of 40 bath, blood flow rate of 250-350 mL per minute, dialysate flow rate of 600-800 mL per minute, ultrafiltration 2 to 3 L as tolerated, no heparin and no Procrit. Treatment plan discussed with our dialysis nurse. Patient will be monitored toward closely during dialysis and will adjust accordingly. (4) Metabolic acidosis Is this a current diagnosis for this admission?: Yes Plan: Combination of lactic acidosis due to sepsis and kidney disease. Dialysis as above. (5) UTI (urinary tract infection) Qualifiers: Urinary tract infection type: site unspecified Hematuria presence: with hematuria Qualified Code(s): N39.0 - Urinary tract infection, site not specified; R31.9 - Hematuria, unspecified Is this a current diagnosis for this admission?: Yes (6) Hyponatremia Is this a current diagnosis for this admission?: Yes Plan: Unchanged. (7) Elevated liver enzymes Is this a current diagnosis for this admission?: Yes Plan: Likely due to shock liver. (8) Atrial fibrillation with rapid ventricular response Is this a current diagnosis for this admission?: Yes Plan: Rate controlled with amiodarone. (9) Congestive heart failure Qualifiers: Heart failure type: combined systolic and diastolic Heart failure chronicity: acute on chronic Qualified Code(s): I50.43 - Acute on chronic combined systolic (congestive) and diastolic (congestive) heart failure Is this a current diagnosis for this admission?: Yes Plan: Severe and biventricular with LVEF less than 20% and reduced right ventricular function. (10) Elevated troponin Is this a current diagnosis for this admission?: Yes Plan: House Cleaner Supervisor, Dr. Grant on board. (11) Gastrointestinal hemorrhage with melena Is this a current diagnosis for this admission?: Yes Plan: Anticoagulation being reversed with FFP's and blood transfusions. (12) DIC (disseminated intravascular coagulation) Is this a current diagnosis for this admission?: Yes Plan: Due to sepsis. Patient being given FFP's. 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 (15) Diabetic foot ulcers Qualifiers: Diabetic foot ulcer location: unspecified part of foot Diabetes mellitus type: type 2 Is this a current diagnosis for this admission?: Yes - Notes Notes: Prognosis is very poor. I think if the patient does not show any improvement for the next 24 hours, might need to consider comfort care measures only. - Time Time with patient: Greater than 35 minutes
[2019-11-03 17:11] LABS: VENOUS BLOOD BASE EXCESS -8.8 mmol/L; VENOUS BLOOD HCO3 14.8 mmol/L (20-32); VENOUS BLOOD PCO2 24.8 mmHg (35-63); VENOUS BLOOD PH 7.39 (7.30-7.42)
[2019-11-03] MEDS: DEXTROSE 5%-WATER 250 ML with VASOPRESSIN 100 UNIT IV PRN ×2 (17:26)
[2019-11-03 19:05] LABS: ARTERIAL BLOOD BASE EXCESS -11.8 mmol/L; ARTERIAL BLOOD H2CO3 0.59 mmol/L (1.05-1.35); ARTERIAL BLOOD HCO3 11.4 mmol/L (20-24); ARTERIAL BLOOD O2 SATURATION 96.9 % (94-98); ARTERIAL BLOOD PH 7.39 (7.35-7.45); ARTERIAL BLOOD PO2 88.8 mmHg (80-100)
[2019-11-03 19:09] LABS: MEAN CORPUSCULAR HEMOGLOBIN 30.7 pg (27.0-33.4); MEAN CORPUSCULAR HGB CONC 31.3 g/dL (32.0-36.0); RED BLOOD COUNT 2.55 10^6/uL (3.72-5.28); RED CELL DISTRIBUTION WIDTH 18.6 % (11.5-14.0); WHITE BLOOD COUNT 18.1 10^3/uL (4.0-10.5)
[2019-11-03 19:10] LABS: PARTIAL THROMBOPLASTIN TIME 84.1 SEC (23.5-35.8)
[2019-11-03 19:25] LABS: ARTERIAL BLOOD FIO2 30
[2019-11-03 19:26] LABS: ARTERIAL BLOOD PCO2 19.5 mmHg (35-45); D-DIMER 4.36 ug/mL (0.00-0.50)
[2019-11-03 19:27] LABS: PLATELET COUNT 98 10^3/uL (150-450)
[2019-11-03 19:29] LABS: ALBUMIN 2.3 g/dL (3.5-5.0); ALKALINE PHOSPHATASE 222 U/L (38-126); BILIRUBIN,DIRECT 3.3 mg/dL (0.0-0.4); BILIRUBIN,TOTAL 4.4 mg/dL (0.2-1.3); BLOOD UREA NITROGEN 13 mg/dL (7-20); CALCIUM 7.1 mg/dL (8.4-10.2); GLUCOSE 239 mg/dL (75-110); POTASSIUM 3.9 mmol/L (3.6-5.0); TOTAL PROTEIN 5.1 g/dL (6.3-8.2)
[2019-11-03 19:33] LABS: MEAN CORPUSCULAR VOLUME 98 fl (80-97)
[2019-11-03 19:34] LABS: CARBON DIOXIDE 13 mmol/L (22-30); CHLORIDE 87 mmol/L (98-107)
[2019-11-03 19:42] LABS: ABSOLUTE LYMPHOCYTES# (MANUAL) 0.2 10^3/uL (0.5-4.7); ABSOLUTE MONOCYTES # (MANUAL) 0.7 10^3/uL (0.1-1.4); BASOPHILS % (MANUAL) 0 % (0-2); EOSINOPHILS % (MANUAL) 0 % (0-6); LYMPHOCYTES % (MANUAL) 1 % (13-45); MONOCYTES % (MANUAL) 4 % (3-13); NUCLEATED RED BLOOD CELLS 5 /100 WBC (0); SEGMENTED NEUTROPHILS % (MAN) 75 % (42-78); TOTAL CELLS COUNTED 100
[2019-11-03 19:47] LABS: ANISOCYTOSIS 1+; BURR CELLS 1+; OVALOCYTES 1+; PLATELET COMMENT DECREASED; POIKILOCYTOSIS 1+; SCHISTOCYTES SLIGHT; TOXIC GRANULATION 1+; TOXIC VACUOLATION PRESENT
[2019-11-03 19:48] LABS: TARGET CELLS SLIGHT
[2019-11-03 19:50] LABS: HEMOGLOBIN 7.8 g/dL (12.0-15.5)
[2019-11-03 19:51] LABS: BAND NEUTROPHILS % (MANUAL) 12 % (3-5); METAMYELOCYTES % (MANUAL) 8 % (0-1)
[2019-11-03] MEDS ORDERED: PHYTONADIONE 5 MG TABLET NG ONE (20:00)
[2019-11-03 20:09] LABS: INTERNATIONAL RATION (INR) 3.78; PROTHROMBIN TIME 38.3 SEC (11.4-15.4)
[2019-11-03] MEDS ORDERED: DESMOPRESSIN ACETATE IV ONE (20:14)
[2019-11-03] MEDS ORDERED: NORMAL SALINE IV ONE (20:14)
[2019-11-03 20:43] LABS: ARTERIAL BLOOD BASE EXCESS -13.8 mmol/L; ARTERIAL BLOOD HCO3 11.2 mmol/L (20-24); ARTERIAL BLOOD O2 SATURATION 73.7 % (94-98); ARTERIAL BLOOD PCO2 23.1 mmHg (35-45); ARTERIAL BLOOD PO2 41.7 mmHg (80-100); ARTERIAL BLOOD TOTAL CO2 11.9 mmol/L (21-25)
[2019-11-03 20:48] LABS: ARTERIAL BLOOD FIO2 30%
[2019-11-03] MEDS ORDERED: DESMOPRESSIN ACETATE INJ 4 MCG/1 ML AMPULE IV ONE ×2 (21:00)
[2019-11-03 21:30] LABS: ASPARTATE AMINO TRANSFERASE 2054 U/L (14-36)
[2019-11-03 21:31] LABS: ANION GAP 29 (5-19)
[2019-11-03] MEDS: VANCOMYCIN HCL 500 MG in DEXTROSE 5%-WATER 100 ML IV SCH (21:44)
[2019-11-03] MEDS ORDERED: CALCIUM GLUCONATE IV ONE (22:00)
[2019-11-03] MEDS ORDERED: DEXTROSE 5% IV ONE (22:00)
[2019-11-03] MEDS ORDERED: WATER IV ONE (22:00)
[2019-11-04] MEDS: DEXTROSE 5%-WATER 250 ML with PHENYLEPHRINE HCL 40 MG IV PRN ×6 (02:10→06:48)
[2019-11-04] MEDS: DEXTROSE 5%-WATER 500 ML with AMIODARONE HCL 900 MG IV PRN ×2 (02:11)
[2019-11-04] MEDS: PIPERACILLIN SODIUM/TAZOBACTAM 2.25 GM in NORMAL SALINE 50 ML IV SCH ×4 (02:13→21:05)
[2019-11-04] MEDS: NORMAL SALINE 100 ML with PANTOPRAZOLE SODIUM 80 MG IV PRN ×4 (03:00→12:59)
[2019-11-04 03:04] LABS: ARTERIAL BLOOD BASE EXCESS -17.8 mmol/L; ARTERIAL BLOOD H2CO3 0.51 mmol/L (1.05-1.35); ARTERIAL BLOOD HCO3 7.3 mmol/L (20-24); ARTERIAL BLOOD O2 SATURATION 94.4 % (94-98); ARTERIAL BLOOD PH 7.26 (7.35-7.45); ARTERIAL BLOOD PO2 79.7 mmHg (80-100); ARTERIAL BLOOD TOTAL CO2 7.8 mmol/L (21-25)
[2019-11-04 03:06] LABS: ARTERIAL BLOOD FIO2 30%; ARTERIAL BLOOD PCO2 16.8 mmHg (35-45)
[2019-11-04 03:09] LABS: HEMATOCRIT 29.5 % (36.0-47.0); HEMOGLOBIN 9.3 g/dL (12.0-15.5); MEAN CORPUSCULAR HEMOGLOBIN 31.1 pg (27.0-33.4); MEAN CORPUSCULAR HGB CONC 31.6 g/dL (32.0-36.0); MEAN CORPUSCULAR VOLUME 98 fl (80-97); RED CELL DISTRIBUTION WIDTH 17.5 % (11.5-14.0); WHITE BLOOD COUNT 17.9 10^3/uL (4.0-10.5)
[2019-11-04 03:11] LABS: FIBRINOGEN 205 mg/dL (209-497); INTERNATIONAL RATION (INR) 3.38
[2019-11-04] MEDS ORDERED: NORMAL SALINE 250 ML IV PRN ×4 (03:17→23:57)
[2019-11-04 03:24] LABS: BLOOD UREA NITROGEN 13 mg/dL (7-20); CALCIUM 8.2 mg/dL (8.4-10.2); GLUCOSE 300 mg/dL (75-110); PHOSPHORUS 5.1 mg/dL (2.5-4.5); POTASSIUM 4.3 mmol/L (3.6-5.0)
[2019-11-04 03:29] LABS: CHLORIDE 84 mmol/L (98-107)
[2019-11-04 03:37] LABS: ANION GAP 34 (5-19)
[2019-11-04 03:39] LABS: CARBON DIOXIDE 8 mmol/L (22-30)
[2019-11-04] MEDS ORDERED: INSULIN REG, HUMAN 100 UNIT/ML 3 ML VIAL (PYX) SUBCUT ONE (03:44)
[2019-11-04 03:50] LABS: PLATELET COUNT 75 10^3/uL (150-450)
[2019-11-04 03:56] LABS: ABSOLUTE LYMPHOCYTES# (MANUAL) 0.5 10^3/uL (0.5-4.7); ABSOLUTE MONOCYTES # (MANUAL) 1.1 10^3/uL (0.1-1.4); BAND NEUTROPHILS % (MANUAL) 5 % (3-5); BASOPHILS % (MANUAL) 0 % (0-2); EOSINOPHILS % (MANUAL) 0 % (0-6); LYMPHOCYTES % (MANUAL) 3 % (13-45); METAMYELOCYTES % (MANUAL) 1 % (0-1); MONOCYTES % (MANUAL) 6 % (3-13); NUCLEATED RED BLOOD CELLS 4 /100 WBC (0); SEGMENTED NEUTROPHILS % (MAN) 85 % (42-78); TOTAL CELLS COUNTED 100
[2019-11-04 04:02] LABS: ANISOCYTOSIS 1+; PLATELET COMMENT DECREASED; TOXIC GRANULATION 1+; TOXIC VACUOLATION PRESENT
[2019-11-04 04:04] LABS: BURR CELLS 1+
[2019-11-04 04:05] LABS: OVALOCYTES SLIGHT
[2019-11-04] MEDS: MAGNESIUM SULFATE/D5W 1 GM/100 ML RTUPB IV SCH ×4 (04:34→13:53)
[2019-11-04] MEDS ORDERED: EPOETIN ALFA-EPBX 2,000 UNIT, EPOETIN ALFA-EPBX 3,000 UNIT, EPOETIN ALFA-EPBX 20,000 UN... IV PRN ×4 (05:00)
[2019-11-04] MEDS ORDERED: HEPARIN SOD (PORCINE) 1,000 UNIT/ML 10 ML VIAL IV PRN (05:00)
[2019-11-04] MEDS: DEXTROSE 5%-WATER 250 ML with NOREPINEPHRINE BITARTRATE 4 MG IV PRN ×2 (05:29)
[2019-11-04 06:39] LABS: ARTERIAL BLOOD BASE EXCESS -15.8 mmol/L; ARTERIAL BLOOD FIO2 30%; ARTERIAL BLOOD H2CO3 0.78 mmol/L (1.05-1.35); ARTERIAL BLOOD HCO3 10.4 mmol/L (20-24); ARTERIAL BLOOD O2 SATURATION 61.3 % (94-98); ARTERIAL BLOOD PH 7.22 (7.35-7.45); ARTERIAL BLOOD TOTAL CO2 11.2 mmol/L (21-25); HEMATOCRIT 27.1 % (36.0-47.0); HEMOGLOBIN 8.7 g/dL (12.0-15.5); MEAN CORPUSCULAR HEMOGLOBIN 31.4 pg (27.0-33.4); MEAN CORPUSCULAR VOLUME 98 fl (80-97); RED BLOOD COUNT 2.76 10^6/uL (3.72-5.28); RED CELL DISTRIBUTION WIDTH 17.5 % (11.5-14.0)
[2019-11-04 06:40] LABS: ARTERIAL BLOOD PO2 37.2 mmHg (80-100)
[2019-11-04 06:41] LABS: INTERNATIONAL RATION (INR) 2.75; PROTHROMBIN TIME 29.6 SEC (11.4-15.4)
[2019-11-04 07:24] LABS: WHITE BLOOD COUNT 15.9 10^3/uL (4.0-10.5)
[2019-11-04 07:25] LABS: PLATELET COUNT 66 10^3/uL (150-450)
[2019-11-04] MEDS ORDERED: SODIUM BICARBONATE 8.4% INJ 50 MEQ/50 ML DISP.SYRIN ONE ×5 (07:59→22:52)
[2019-11-04] MEDS ORDERED: NOREPINEPHRINE BITARTRATE INJ/PF 4 MG/4 ML SDV IV ONE (08:16)
[2019-11-04] MEDS ORDERED: SODIUM BICARBONATE 8.4% INJ 50 MEQ/50 ML DISP.SYRIN IV ONE ×4 (08:45→23:59)
[2019-11-04] MEDS: DEXTROSE 5%-WATER 1000 ML 1,000 ML with SODIUM BICARBONATE 150 MEQ IV PRN ×6 (09:06→23:06)
[2019-11-04] MEDS: DEXTROSE 5%-WATER 250 ML with VASOPRESSIN 100 UNIT IV PRN ×2 (09:08)
--- NOTE | 2019-11-04 10:15 | PDOC PROGRESS REPORT ---
Subjective Progress Note for:: 11/04/19 Subjective:: Continues to do very poorly. Patient continues to be on pressors and inotrope. She continues to be on milrinone, phenylephrine, vasopressin. Urine has been discontinued this seems to have helped. She remains intubated on ventilator. She appears to have ongoing GI bleed and also there is bleeding from the wound VAC. CT scan of the chest abdomen and pelvis was performed. Continues to have GI bleeding Reason For Visit: SHOCK Physical Exam Vital Signs: Temp Pulse Resp BP Pulse Ox 97.0 F 109 H 25 H 90/32 L 92 11/04/19 08:00 11/04/19 08:00 11/04/19 08:00 11/04/19 08:00 11/04/19 04:02 Intake & Output 11/03/19 11/04/19 11/05/19 06:59 06:59 06:59 Intake Total 5610 9596 221 Output Total 1765 4568 0 Balance 3845 5028 221 Weight 82.6 kg 89.3 kg General appearance: PRESENT: other - Intubated. Sedated. Head exam: PRESENT: atraumatic, normocephalic - Endotracheal tube noted. Eye exam: PRESENT: conjunctiva pale Ear exam: PRESENT: TM's normal bilaterally Mouth exam: PRESENT: dry mucosa Respiratory exam: PRESENT: symmetrical, unlabored - Ventilator assisted breath sounds Cardiovascular exam: PRESENT: irregular rhythm, +S1, +S2 GI/Abdominal exam: PRESENT: soft Rectal exam: PRESENT: deferred Musculoskeletal exam: PRESENT: deformity Neurological exam: PRESENT: other - Sedated Skin exam: PRESENT: dry, intact Results Laboratory Results: 11/04/19 06:18 11/04/19 02:53 11/02/19 11/03/19 11/03/19 10:30 08:00 08:00 WBC 21.0 H RBC 2.53 L Hgb 7.8 L Hct 26.6 L MCV 105 H MCH 31.0 MCHC 29.5 L RDW 19.3 H Plt Count 117 L Seg Neutrophils % Carbonic Acid HCO3/H2CO3 Ratio ABG pH ABG pCO2 ABG pO2 ABG HCO3 ABG O2 Saturation ABG Base Excess VBG pH VBG pCO2 VBG HCO3 VBG Base Excess FiO2 Sodium 129.1 L Potassium 4.7 Chloride 88 L Carbon Dioxide 7 L* Anion Gap 34 H BUN 21 H Creatinine 2.63 H Est GFR ( Amer) 21 L Est GFR (Non-Af Amer) Glucose 218 H Lactic Acid Calcium 8.0 L Ionized Calcium Ayse Phosphorus Magnesium Total Bilirubin AST Alkaline Phosphatase Total Protein Albumin Blood Type A POSITIVE Antibody Screen NEGATIVE 11/03/19 11/03/19 11/03/19 08:00 11:28 17:00 WBC RBC Hgb Hct MCV MCH MCHC RDW Plt Count Seg Neutrophils % Carbonic Acid HCO3/H2CO3 Ratio ABG pH ABG pCO2 ABG pO2 ABG HCO3 ABG O2 Saturation ABG Base Excess VBG pH 7.39 VBG pCO2 24.8 L VBG HCO3 14.8 L VBG Base Excess -8.8 FiO2 Sodium 130.6 L Potassium 4.6 Chloride 88 L Carbon Dioxide 6 L* Anion Gap 37 H BUN 19 Creatinine 2.39 H Est GFR ( Amer) 24 L Est GFR (Non-Af Amer) Glucose 239 H Lactic Acid 26.7 H Calcium 7.4 L Ionized Calcium Ayse Phosphorus Magnesium 2.1 Total Bilirubin AST Alkaline Phosphatase Total Protein Albumin Blood Type Antibody Screen 11/03/19 11/03/19 11/03/19 18:40 18:40 18:40 WBC RBC Hgb Hct MCV MCH MCHC RDW Plt Count Seg Neutrophils % Carbonic Acid 0.59 L HCO3/H2CO3 Ratio 19:1 ABG pH 7.39 ABG pCO2 19.5 L* ABG pO2 88.8 ABG HCO3 11.4 L ABG O2 Saturation 96.9 ABG Base Excess -11.8 VBG pH VBG pCO2 VBG HCO3 VBG Base Excess FiO2 30 Sodium 128.7 L Potassium 3.9 Chloride 87 L Carbon Dioxide 13 L Anion Gap 29 H BUN 13 Creatinine 1.69 H Est GFR ( Amer) 36 L Est GFR (Non-Af Amer) Glucose 239 H Lactic Acid 23.8 H Calcium 7.1 L Ionized Calcium Ayse Phosphorus Magnesium 1.9 Total Bilirubin 4.4 H AST 2054 H Alkaline Phosphatase 222 H Total Protein 5.1 L Albumin 2.3 L Blood Type Antibody Screen 11/03/19 11/03/19 11/03/19 18:40 18:40 18:50 WBC 18.1 H RBC 2.55 L Hgb 7.8 L Hct 25.0 L MCV 98 H D MCH 30.7 MCHC 31.3 L RDW 18.6 H Plt Count 98 L Seg Neutrophils % Not Reportable Carbonic Acid HCO3/H2CO3 Ratio ABG pH ABG pCO2 ABG pO2 ABG HCO3 ABG O2 Saturation ABG Base Excess VBG pH VBG pCO2 VBG HCO3 VBG Base Excess FiO2 Sodium Cancelled Potassium Cancelled Chloride Cancelled Carbon Dioxide Cancelled Anion Gap Cancelled BUN Cancelled Creatinine Cancelled Est GFR ( Amer) Cancelled Est GFR (Non-Af Amer) Cancelled Glucose Cancelled Lactic Acid Calcium Cancelled Ionized Calcium Ayse 0.86 L Phosphorus Magnesium Total Bilirubin AST Alkaline Phosphatase Total Protein Albumin Blood Type Antibody Screen 11/03/19 11/04/19 11/04/19 20:32 02:53 02:53 WBC RBC Hgb Hct MCV MCH MCHC RDW Plt Count Seg Neutrophils % Carbonic Acid 0.70 L 0.51 L HCO3/H2CO3 Ratio 16:1 14:1 ABG pH 7.30 L 7.26 L ABG pCO2 23.1 L 16.8 L* ABG pO2 41.7 L 79.7 L ABG HCO3 11.2 L 7.3 L ABG O2 Saturation 73.7 L 94.4 ABG Base Excess -13.8 -17.8 VBG pH VBG pCO2 VBG HCO3 VBG Base Excess FiO2 30% 30% Sodium 125.6 L Potassium 4.3 Chloride 84 L Carbon Dioxide 8 L* Anion Gap 34 H BUN 13 Creatinine 2.00 H Est GFR ( Amer) 29 L Est GFR (Non-Af Amer) Glucose 300 H Lactic Acid Calcium 8.2 L Ionized Calcium Ayse 0.97 L Phosphorus 5.1 H Magnesium 1.8 Total Bilirubin AST Alkaline Phosphatase Total Protein Albumin Blood Type Antibody Screen 11/04/19 11/04/19 11/04/19 02:53 06:18 06:18 WBC 17.9 H 15.9 H RBC 3.00 L 2.76 L Hgb 9.3 L 8.7 L Hct 29.5 L 27.1 L MCV 98 H 98 H MCH 31.1 31.4 MCHC 31.6 L 32.0 RDW 17.5 H 17.5 H Plt Count 75 L 66 L Seg Neutrophils % Not Reportable Carbonic Acid 0.78 L HCO3/H2CO3 Ratio 13:1 ABG pH 7.22 L ABG pCO2 26.0 L ABG pO2 37.2 L* ABG HCO3 10.4 L ABG O2 Saturation 61.3 L ABG Base Excess -15.8 VBG pH VBG pCO2 VBG HCO3 VBG Base Excess FiO2 30% Sodium Potassium Chloride Carbon Dioxide Anion Gap BUN Creatinine Est GFR ( Amer) Est GFR (Non-Af Amer) Glucose Lactic Acid Calcium Ionized Calcium Ayse 0.92 L Phosphorus Magnesium Total Bilirubin AST Alkaline Phosphatase Total Protein Albumin Blood Type Antibody Screen 11/02/19 02:04 Blood Blood Culture (PCR) - Final Staphylococcus Species 11/02/19 03:29 Blood Blood Culture (PCR) - Final Staphylococcus Species 11/02/19 11/02/19 11/02/19 02:04 02:04 14:20 Troponin I 0.264 0.341 NT-Pro-B Natriuret Pep 82212 H 11/02/19 11/03/19 11/03/19 18:05 02:28 08:00 Troponin I 0.466 0.778 0.968 NT-Pro-B Natriuret Pep 11/03/19 11/04/19 18:40 02:53 Troponin I 1.700 NT-Pro-B Natriuret Pep 26585 H Impressions: KUB X-Ray 11/02/19 00:00 IMPRESSION: NG tube is in place as described. Gas pattern is nonspecific. Chest X-Ray 11/02/19 13:40 IMPRESSION: Central line has been added. No pneumothorax. No other interval change. Abdomen/Pelvis CT 11/03/19 02:30 IMPRESSION: Artifact from the patient's arms. Imaging is degraded by patient motion, with resultant artifact. The best possible images were obtained. Findings are suspicious for colitis.. Assessment & Plan - Diagnosis (1) Congestive heart failure Qualifiers: Heart failure type: combined systolic and diastolic Heart failure chron icity: acute on chronic Qualified Code(s): I50.43 - Acute on chronic combined systolic (congestive) and diastolic (congestive) heart failure Is this a current diagnosis for this admission?: Yes Plan: Dilated cardiomyopathy Left ventricular dysfunction which is much worse in the current setting with sepsis and shock. Given multiple comorbidities and critical illness only supportive care is possible Presently she does not appear to be volume overloaded. Continue dialysis as feasible with pressure support (2) UTI (urinary tract infection) Qualifiers: Urinary tract infection type: site unspecified Hematuria presence: with hematuria Qualified Code(s): N39.0 - Urinary tract infection, site not specified; R31.9 - Hematuria, unspecified Is this a current diagnosis for this admission?: Yes Plan: UTI with sepsis. Broad-spectrum antibiotic coverage and supportive care. Critically ill. (3) Chronic atrial fibrillation Is this a current diagnosis for this admission?: Yes Plan: Atrial fibrillation rapid ventricular response in the setting of shock and sepsis. Rate is better controlled with intravenous amiodarone. Hopefully she will perfuse better. High risk of stroke. However patient is bleeding. (4) Chronic anticoagulation Is this a current diagnosis for this admission?: Yes (5) Hypotension Is this a current diagnosis for this admission?: Yes Plan: Shock. Multifactorial. Cardiogenic together with component of sepsis likely. 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 No significant valve lesion which is unchanged from before. Continue pressor support-vasopressin, phenylephrine Continue milrinone infusion - Notes Notes: Overall patient's condition is continued to decline She has evidence of multiorgan dysfunction. Active GI bleeding is also evidence Continue supportive measures. Doubt that she is going to improve significantly. Prognosis is very poor
[2019-11-04] MEDS: DEXTROSE 5% IV PRN ×4 (10:43→19:04)
[2019-11-04] MEDS: WATER IV PRN ×4 (10:43→19:04)
[2019-11-04] MEDS: NOREPINEPHRINE BITARTRATE IV PRN ×4 (10:43→19:04)
[2019-11-04 10:52] LABS: HEMOGLOBIN 7.8 g/dL (12.0-15.5)
[2019-11-04 11:01] LABS: PATH REVIEW PATHOLOGIST REVIEWED
[2019-11-04] MEDS: DEXTROSE 5%-WATER 250 ML with PHENYLEPHRINE HCL 80 MG IV PRN ×6 (11:30→22:18)
--- NOTE | 2019-11-04 11:44 | PDOC PROGRESS REPORT ---
Subjective Progress Note for:: 11/04/19 Subjective:: I am seeing the patient during dialysis this morning. Her clinical condition has not really changed. She remains to be critically ill. She is still intubated with FiO2 of only 30% but remains to be unresponsive. She remains to be on vasopressors including vasopressin, Aleksandar-Synephrine and Levoped. She also continues to be on milrinone but amiodarone was discontinued for now. She has received more blood products last night after dialysis with 4 units of packed RBC and 2 units of FFP. She continues to have blood from the wound VAC from her left stump, blood from NG tube and blood from the stool. Her blood pressure remains to be on the low side although acceptable and has been holding on. We did dialysis yesterday for 4 hours and was able to take off 3900 mL of ultrafiltration but this morning she still she still came up +4762 mL so we are doing a combination ultrafiltration/hemodialysis again for 4 hours this morning. Patient is being closely monitored toward. Reason For Visit: SHOCK Physical Exam Vital Signs: Temp Pulse Resp BP Pulse Ox 97.0 F 109 H 25 H 90/32 L 92 11/04/19 08:00 11/04/19 08:00 11/04/19 08:00 11/04/19 08:00 11/04/19 04:02 Intake & Output 11/03/19 11/04/19 11/05/19 06:59 06:59 06:59 Intake Total 5610 9596 221 Output Total 1765 4568 0 Balance 3845 5028 221 Weight 82.6 kg 89.3 kg Vitals during dialysis: Blood pressure 82/33, heart rate of 105, respiration of 24, blood flow rate of 250 mL/min and dialysate flow rate of 600 mL/min Exam: General appearance: PRESENT: Intubated and unresponsive Head exam: PRESENT: atraumatic, normocephalic Eye exam: PRESENT: Eyes are closed but she has anisocoria when checked Neck exam: ABSENT: JVD Respiratory exam: PRESENT: Diminished breath sounds breath sounds. ABSENT: crackles, rales, rhonchi, unlabored, wheezes Cardiovascular exam: PRESENT: Regular rate rhythm -+S1, +S2. ABSENT: diastolic murmur, systolic murmur GI/Abdominal exam: PRESENT: Hypoactive bowel sounds, soft. ABSENT: guarding, mass, tenderness Extremities exam: Grade 1 lower extremity pitting edema in the right lower extremity and the left AKA stump, wound VAC in place Neurological exam: PRESENT: Unresponsive Skin exam: PRESENT: dry, warm, Results Laboratory Results: 11/04/19 06:18 11/04/19 02:53 11/02/19 11/03/19 11/03/19 10:30 08:00 08:00 WBC 21.0 H RBC 2.53 L Hgb 7.8 L Hct 26.6 L MCV 105 H MCH 31.0 MCHC 29.5 L RDW 19.3 H Plt Count 117 L Seg Neutrophils % Carbonic Acid HCO3/H2CO3 Ratio ABG pH ABG pCO2 ABG pO2 ABG HCO3 ABG O2 Saturation ABG Base Excess VBG pH VBG pCO2 VBG HCO3 VBG Base Excess FiO2 Sodium 129.1 L Potassium 4.7 Chloride 88 L Carbon Dioxide 7 L* Anion Gap 34 H BUN 21 H Creatinine 2.63 H Est GFR ( Amer) 21 L Est GFR (Non-Af Amer) Glucose 218 H Lactic Acid Calcium 8.0 L Ionized Calcium Ayse Phosphorus Magnesium Total Bilirubin AST Alkaline Phosphatase Total Protein Albumin Blood Type A POSITIVE Antibody Screen NEGATIVE 11/03/19 11/03/19 11/03/19 08:00 11:28 17:00 WBC RBC Hgb Hct MCV MCH MCHC RDW Plt Count Seg Neutrophils % Carbonic Acid HCO3/H2CO3 Ratio ABG pH ABG pCO2 ABG pO2 ABG HCO3 ABG O2 Saturation ABG Base Excess VBG pH 7.39 VBG pCO2 24.8 L VBG HCO3 14.8 L VBG Base Excess -8.8 FiO2 Sodium 130.6 L Potassium 4.6 Chloride 88 L Carbon Dioxide 6 L* Anion Gap 37 H BUN 19 Creatinine 2.39 H Est GFR ( Amer) 24 L Est GFR (Non-Af Amer) Glucose 239 H Lactic Acid 26.7 H Calcium 7.4 L Ionized Calcium Ayse Phosphorus Magnesium 2.1 Total Bilirubin AST Alkaline Phosphatase Total Protein Albumin Blood Type Antibody Screen 11/03/19 11/03/19 11/03/19 18:40 18:40 18:40 WBC RBC Hgb Hct MCV MCH MCHC RDW Plt Count Seg Neutrophils % Carbonic Acid 0.59 L HCO3/H2CO3 Ratio 19:1 ABG pH 7.39 ABG pCO2 19.5 L* ABG pO2 88.8 ABG HCO3 11.4 L ABG O2 Saturation 96.9 ABG Base Excess -11.8 VBG pH VBG pCO2 VBG HCO3 VBG Base Excess FiO2 30 Sodium 128.7 L Potassium 3.9 Chloride 87 L Carbon Dioxide 13 L Anion Gap 29 H BUN 13 Creatinine 1.69 H Est GFR ( Amer) 36 L Est GFR (Non-Af Amer) Glucose 239 H Lactic Acid 23.8 H Calcium 7.1 L Ionized Calcium Ayse Phosphorus Magnesium 1.9 Total Bilirubin 4.4 H AST 2054 H Alkaline Phosphatase 222 H Total Protein 5.1 L Albumin 2.3 L Blood Type Antibody Screen 11/03/19 11/03/19 11/03/19 18:40 18:40 18:50 WBC 18.1 H RBC 2.55 L Hgb 7.8 L Hct 25.0 L MCV 98 H D MCH 30.7 MCHC 31.3 L RDW 18.6 H Plt Count 98 L Seg Neutrophils % Not Reportable Carbonic Acid HCO3/H2CO3 Ratio ABG pH ABG pCO2 ABG pO2 ABG HCO3 ABG O2 Saturation ABG Base Excess VBG pH VBG pCO2 VBG HCO3 VBG Base Excess FiO2 Sodium Cancelled Potassium Cancelled Chloride Cancelled Carbon Dioxide Cancelled Anion Gap Cancelled BUN Cancelled Creatinine Cancelled Est GFR ( Amer) Cancelled Est GFR (Non-Af Amer) Cancelled Glucose Cancelled Lactic Acid Calcium Cancelled Ionized Calcium Ayse 0.86 L Phosphorus Magnesium Total Bilirubin AST Alkaline Phosphatase Total Protein Albumin Blood Type Antibody Screen 11/03/19 11/04/19 11/04/19 20:32 02:53 02:53 WBC RBC Hgb Hct MCV MCH MCHC RDW Plt Count Seg Neutrophils % Carbonic Acid 0.70 L 0.51 L HCO3/H2CO3 Ratio 16:1 14:1 ABG pH 7.30 L 7.26 L ABG pCO2 23.1 L 16.8 L* ABG pO2 41.7 L 79.7 L ABG HCO3 11.2 L 7.3 L ABG O2 Saturation 73.7 L 94.4 ABG Base Excess -13.8 -17.8 VBG pH VBG pCO2 VBG HCO3 VBG Base Excess FiO2 30% 30% Sodium 125.6 L Potassium 4.3 Chloride 84 L Carbon Dioxide 8 L* Anion Gap 34 H BUN 13 Creatinine 2.00 H Est GFR ( Amer) 29 L Est GFR (Non-Af Amer) Glucose 300 H Lactic Acid Calcium 8.2 L Ionized Calcium Ayse 0.97 L Phosphorus 5.1 H Magnesium 1.8 Total Bilirubin AST Alkaline Phosphatase Total Protein Albumin Blood Type Antibody Screen 11/04/19 11/04/19 11/04/19 02:53 06:18 06:18 WBC 17.9 H 15.9 H RBC 3.00 L 2.76 L Hgb 9.3 L 8.7 L Hct 29.5 L 27.1 L MCV 98 H 98 H MCH 31.1 31.4 MCHC 31.6 L 32.0 RDW 17.5 H 17.5 H Plt Count 75 L 66 L Seg Neutrophils % Not Reportable Carbonic Acid 0.78 L HCO3/H2CO3 Ratio 13:1 ABG pH 7.22 L ABG pCO2 26.0 L ABG pO2 37.2 L* ABG HCO3 10.4 L ABG O2 Saturation 61.3 L ABG Base Excess -15.8 VBG pH VBG pCO2 VBG HCO3 VBG Base Excess FiO2 30% Sodium Potassium Chloride Carbon Dioxide Anion Gap BUN Creatinine Est GFR ( Amer) Est GFR (Non-Af Amer) Glucose Lactic Acid Calcium Ionized Calcium Ayse 0.92 L Phosphorus Magnesium Total Bilirubin AST Alkaline Phosphatase Total Protein Albumin Blood Type Antibody Screen 11/02/19 02:04 Blood Blood Culture (PCR) - Final Staphylococcus Species 11/02/19 03:29 Blood Blood Culture (PCR) - Final Staphylococcus Species 11/02/19 11/02/19 11/02/19 02:04 02:04 14:20 Troponin I 0.264 0.341 NT-Pro-B Natriuret Pep 10635 H 11/02/19 11/03/19 11/03/19 18:05 02:28 08:00 Troponin I 0.466 0.778 0.968 NT-Pro-B Natriuret Pep 11/03/19 11/04/19 18:40 02:53 Troponin I 1.700 NT-Pro-B Natriuret Pep 07817 H Impressions: KUB X-Ray 11/02/19 00:00 IMPRESSION: NG tube is in place as described. Gas pattern is nonspecific. Chest X-Ray 11/02/19 13:40 IMPRESSION: Central line has been added. No pneumothorax. No other interval change. Abdomen/Pelvis CT 11/03/19 02:30 IMPRESSION: Artifact from the patient's arms. Imaging is degraded by patient motion, with resultant artifact. The best possible images were obtained. Findings are suspicious for colitis.. Assessment & Plan - Diagnosis (1) Shock Is this a current diagnosis for this admission?: Yes Plan: Due to combination of septic shock and cardiogenic shock. Still requiring a lot of pressors. (2) Sepsis Qualifiers: Sepsis type: sepsis due to unspecified organism Sepsis acute organ dysfunction status: unspecified Qualified Code(s): A41.9 - Sepsis, unspecified organism Is this a current diagnosis for this admission?: Yes Plan: Blood cultures positive for staph species. Patient is currently on IV Zosyn and vancomycin. (3) End stage renal disease on dialysis Is this a current diagnosis for this admission?: Yes Plan: Due to persistent metabolic acidosis and volume overload with all of her drips I will do ultrafiltration/hemodialysis today. We will do dialysis today for 4 hours with the first hour as isolated ultrafiltration only in the 3 hours of hemodialysis, using the patient's PermCath, with 2 potassium/sodium 140/bicarbonate of 40 bath, blood flow rate of 250-350 mL per minute, dialysate flow rate of 600-800 mL per minute, ultrafiltration 4 L as tolerated, no heparin and no Procrit. Treatment plan discussed with our dialysis nurse. Patient will be monitored toward closely during dialysis and will adjust accordingly. If the patient's family continue medical management, short of CRRT which we do not have available in this facility, I think he might just need to do hemodialysis/ultrafiltration every day. However at this point I do not see any improvement with everything that they are doing. I have discussed the possibility of making the patient comfort care couple of days ago with by search manager. Meanwhile I will continue to monitor and treat the patient as needed. (4) Metabolic acidosis Is this a current diagnosis for this admission?: Yes Plan: Combination of lactic acidosis due to sepsis and kidney disease. Dialysis as above. (5) UTI (urinary tract infection) Qualifiers: Urinary tract infection type: site unspecified Hematuria presence: with hematuria Qualified Code(s): N39.0 - Urinary tract infection, site not specified; R31.9 - Hematuria, unspecified Is this a current diagnosis for this admission?: Yes (6) Hyponatremia Is this a current diagnosis for this admission?: Yes Plan: Due to hypervolemic state all the fluids and drips being given to the patient. Level is a little worse today. (7) Elevated liver enzymes Is this a current diagnosis for this admission?: Yes Plan: Likely due to shock liver. (8) Atrial fibrillation with rapid ventricular response Is this a current diagnosis for this admission?: Yes Plan: Rate controlled. Off amiodarone at this time. (9) Congestive heart failure Qualifiers: Heart failure type: combined systolic and diastolic Heart failure chronicity: acute on chronic Qualified Code(s): I50.43 - Acute on chronic combined systolic (congestive) and diastolic (congestive) heart failure Is this a current diagnosis for this admission?: Yes Plan: Severe and biventricular with LVEF less than 20% and reduced right ventricular function. (10) Elevated troponin Is this a current diagnosis for this admission?: Yes Plan: Ecd, Dr. Grant on board. (11) Gastrointestinal hemorrhage with melena Is this a current diagnosis for this admission?: Yes Plan: Anticoagulation being reversed with FFP's and blood transfusions. (12) DIC (disseminated intravascular coagulation) Is this a current diagnosis for this admission?: Yes Plan: Due to sepsis. Patient being given FFP's. 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: Diabetes mellitus longterm insulin use: with longterm use Diabetes mellitus complication status: with kidney complications Diabetes mellitus complication detail: with chronic kidney disease Chronic kidney disease stage: stage 4 (severe) Qualified Code(s): E11.22 - Type 2 diabetes mellitus with diabetic chronic kidney disease; N18.4 - Chronic kidney disease, stage 4 (severe); Z79.4 - skilled nursing (current) use of insulin Is this a current diagnosis for this admission?: Yes Plan: Initially presented with hypoglycemia. (15) Diabetic foot ulcers Qualifiers: Diabetic foot ulcer location: unspecified part of foot Diabetes mellitus type: type 2 Is this a current diagnosis for this admission?: Yes - Notes Notes: Prognosis is very poor. - Time Time with patient: 15-25 minutes
--- NOTE | 2019-11-04 11:52 | PDOC CRITICAL CARE PROG REPORT ---
General Date:: 11/03/19 ICU Day:: 2 Ventilator Day:: 2 Hospital Day:: 2 Resuscitation Status: Do Not Resuscitate Events in the past 12 to 24 Hours:: 11/02: This 74-year-old -[place] female presented [facility] emergency department with altered mental status and hypoglycemia. She was intubated in the emergency department. In the interim, discussion with 1 of the patient's sons (Hao) reveals that the patient has been experiencing abdominal pain for the past several days prior to presentation. She had a large melanotic stool yesterday. She has steadily increased her vasopressor requirements. At present, she is on phenylephrine, vasopressin and norepinephrine infusions. She is also on milrinone infusion for severe cardiomyopathy, estimated LVEF 15%. She was started on amiodarone infusion yesterday evening for atrial fibrillation with rapid ventricular response. She is currently rate controlled. She was found to have severe lactic acidosis, now with lactate greater than 20. She underwent hemodialysis yesterday. She is undergoing another attempted ultrafiltration today. For all, her clinical presentation is 1 of shock and multiorgan system failure. Decreased SvO2 has been consistent with hemorrhagic and cardiogenic shock. However, the patient also has diabetic ulcers and positive (GPC) blood cultures raising suspicion for a septic component. She has abnormal LFTs with both transaminitis and coagulopathy. She has acute on chronic renal failure. Lipase is over 8000. Reason for ICU Addmission:: endotracheal intubation - Medications: Medications reviewed and adjusted accordingly: Yes Vasopressors:: Norepinephrine, phenylephrine, vasopressin. Also on milrinone. Sedation:: Precedex. Physical Exam Vital Signs: Temp Pulse Resp BP Pulse Ox 95.0 F L 96 24 H 92/37 L 96 11/03/19 12:00 11/03/19 12:00 11/03/19 12:00 11/03/19 12:00 11/03/19 12:00 Intake & Output 11/02/19 11/03/19 11/04/19 06:59 06:59 06:59 Intake Total 784 5610 3631 Output Total 1765 0 Balance 784 3845 3631 Weight 81.3 kg 82.6 kg 82.6 kg Weight/Height Weight 82.6 kg Height 1.68 m General appearance: PRESENT: no acute distress, well-developed, well-nourished Head exam: PRESENT: atraumatic, normocephalic Mouth exam: PRESENT: moist, tongue midline Neck exam: PRESENT: JVD. ABSENT: carotid bruit, lymphadenopathy, thyromegaly Respiratory exam: PRESENT: crackles, rales. ABSENT: rhonchi, wheezes Cardiovascular exam: PRESENT: irregular rhythm, tachycardia. ABSENT: gallop, rubs, systolic murmur Pulses: PRESENT: normal carotid pulses GI/Abdominal exam: PRESENT: hypoactive bowel sounds, soft. 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 Left wound VAC (left AKA stump) Laboratory/Radiographs Laboratory Results: 11/03/19 08:00 11/03/19 11:28 11/02/19 11/02/19 11/02/19 10:30 14:23 17:00 WBC RBC Hgb Hct MCV MCH MCHC RDW Plt Count Seg Neutrophils % Carbonic Acid 0.98 L HCO3/H2CO3 Ratio 17:1 ABG pH 7.35 ABG pCO2 32.4 L ABG pO2 28.0 L* ABG HCO3 17.6 L ABG O2 Saturation 50.5 L ABG Base Excess -7.1 VBG pH 7.29 L VBG pCO2 29.9 L VBG HCO3 14.2 L VBG Base Excess -11.2 FiO2 30% Sodium Potassium Chloride Carbon Dioxide Anion Gap BUN Creatinine Est GFR ( Amer) Glucose Lactic Acid Calcium Ionized Calcium Ayse Phosphorus Magnesium Total Bilirubin AST Alkaline Phosphatase Total Protein Albumin Amylase Lipase TSH Free T4 Free T3 pg/mL PTH Intact Blood Type A POSITIVE Antibody Screen NEGATIVE 11/02/19 11/02/19 11/02/19 18:05 18:05 18:05 WBC 16.5 H RBC 3.03 L Hgb 9.1 L Hct 30.3 L MCV 100 H MCH 30.1 MCHC 30.1 L RDW 20.7 H Plt Count 175 Seg Neutrophils % Carbonic Acid HCO3/H2CO3 Ratio ABG pH ABG pCO2 ABG pO2 ABG HCO3 ABG O2 Saturation ABG Base Excess VBG pH VBG pCO2 VBG HCO3 VBG Base Excess FiO2 Sodium 133.2 L Potassium 3.3 L D Chloride 94 L Carbon Dioxide 16 L D Anion Gap 23 H BUN 19 Creatinine 2.10 H Est GFR ( Amer) 28 L Glucose 139 H Lactic Acid Calcium 6.8 L* Ionized Calcium Ayse 0.81 L Phosphorus 4.2 Magnesium 1.9 Total Bilirubin AST Alkaline Phosphatase Total Protein Albumin Amylase Lipase TSH Free T4 Free T3 pg/mL PTH Intact Blood Type Antibody Screen 11/02/19 11/02/19 11/03/19 19:45 21:17 01:30 WBC RBC Hgb Hct MCV MCH MCHC RDW Plt Count Seg Neutrophils % Carbonic Acid 0.57 L 0.65 L 0.63 L HCO3/H2CO3 Ratio 20:1 18:1 15:1 ABG pH 7.40 7.37 7.29 L ABG pCO2 18.9 L* 21.5 L 20.8 L* ABG pO2 100.8 H 39.5 L* 42.2 L ABG HCO3 11.5 L 12.1 L 9.7 L ABG O2 Saturation 97.8 74.4 L 73.5 L ABG Base Excess -11.4 -11.6 -15.4 VBG pH VBG pCO2 VBG HCO3 VBG Base Excess FiO2 30% 30 30% Sodium Potassium Chloride Carbon Dioxide Anion Gap BUN Creatinine Est GFR ( Amer) Glucose Lactic Acid Calcium Ionized Calcium Ayse Phosphorus Magnesium Total Bilirubin AST Alkaline Phosphatase Total Protein Albumin Amylase Lipase TSH Free T4 Free T3 pg/mL PTH Intact Blood Type Antibody Screen 11/03/19 11/03/19 11/03/19 02:28 02:28 02:28 WBC 20.8 H RBC 2.34 L Hgb 7.2 L Hct 24.1 L MCV 103 H MCH 30.6 MCHC 29.8 L RDW 21.3 H Plt Count 139 L Seg Neutrophils % Not Reportable Carbonic Acid 0.48 L HCO3/H2CO3 Ratio 16:1 ABG pH 7.31 L ABG pCO2 16.0 L* ABG pO2 115.6 H ABG HCO3 7.9 L ABG O2 Saturation 98.0 ABG Base Excess -16.5 VBG pH VBG pCO2 VBG HCO3 VBG Base Excess FiO2 30% Sodium 131.8 L Potassium 4.4 D Chloride 93 L Carbon Dioxide 9 L* Anion Gap 30 H BUN 21 H Creatinine 2.47 H Est GFR ( Amer) 23 L Glucose 188 H Lactic Acid Calcium 7.6 L Ionized Calcium Ayse 0.92 L Phosphorus 5.4 H Magnesium 2.2 Total Bilirubin 3.5 H AST 1907 H Alkaline Phosphatase 168 H Total Protein 4.7 L Albumin 1.8 L Amylase Lipase TSH Free T4 Free T3 pg/mL PTH Intact Blood Type Antibody Screen 11/03/19 11/03/19 11/03/19 02:28 04:47 04:47 WBC RBC Hgb Hct MCV MCH MCHC RDW Plt Count Seg Neutrophils % Carbonic Acid HCO3/H2CO3 Ratio ABG pH ABG pCO2 ABG pO2 ABG HCO3 ABG O2 Saturation ABG Base Excess VBG pH VBG pCO2 VBG HCO3 VBG Base Excess FiO2 Sodium Potassium Chloride Carbon Dioxide Anion Gap BUN Creatinine Est GFR ( Amer) Glucose Lactic Acid 20.2 H Calcium Ionized Calcium Ayse Phosphorus Magnesium Total Bilirubin AST Alkaline Phosphatase Total Protein Albumin Amylase 403 H Lipase 8504.2 H TSH Free T4 Free T3 pg/mL PTH Intact 488.9 H Blood Type Antibody Screen 11/03/19 11/03/19 11/03/19 04:47 08:00 08:00 WBC RBC Hgb Hct MCV MCH MCHC RDW Plt Count Seg Neutrophils % Carbonic Acid 0.47 L HCO3/H2CO3 Ratio 12:1 ABG pH 7.18 L* ABG pCO2 15.6 L* ABG pO2 102.0 H ABG HCO3 5.7 L ABG O2 Saturation 96.5 ABG Base Excess -20.6 VBG pH VBG pCO2 VBG HCO3 VBG Base Excess FiO2 30% Sodium 129.1 L Potassium 4.7 Chloride 88 L Carbon Dioxide 7 L* Anion Gap 34 H BUN 21 H Creatinine 2.63 H Est GFR ( Amer) 21 L Glucose 218 H Lactic Acid Calcium 8.0 L Ionized Calcium Ayse 0.94 L Phosphorus Magnesium Total Bilirubin AST Alkaline Phosphatase Total Protein Albumin Amylase Lipase TSH 2.28 Free T4 1.29 Free T3 pg/mL 2.47 L PTH Intact Blood Type Antibody Screen 11/03/19 11/03/19 11/03/19 08:00 08:00 11:28 WBC 21.0 H RBC 2.53 L Hgb 7.8 L Hct 26.6 L MCV 105 H MCH 31.0 MCHC 29.5 L RDW 19.3 H Plt Count 117 L Seg Neutrophils % Carbonic Acid HCO3/H2CO3 Ratio ABG pH ABG pCO2 ABG pO2 ABG HCO3 ABG O2 Saturation ABG Base Excess VBG pH VBG pCO2 VBG HCO3 VBG Base Excess FiO2 Sodium 130.6 L Potassium 4.6 Chloride 88 L Carbon Dioxide 6 L* Anion Gap 37 H BUN 19 Creatinine 2.39 H Est GFR ( Amer) 24 L Glucose 239 H Lactic Acid 26.7 H Calcium 7.4 L Ionized Calcium Ayse Phosphorus Magnesium 2.1 Total Bilirubin AST Alkaline Phosphatase Total Protein Albumin Amylase Lipase TSH Free T4 Free T3 pg/mL PTH Intact Blood Type Antibody Screen 11/02/19 03:29 Blood Blood Culture (PCR) - Final Staphylococcus Species 11/02/19 11/02/19 11/02/19 02:04 02:04 14:20 Troponin I 0.264 0.341 NT-Pro-B Natriuret Pep 68702 H 11/02/19 11/03/19 11/03/19 18:05 02:28 08:00 Troponin I 0.466 0.778 0.968 NT-Pro-B Natriuret Pep Impressions: KUB X-Ray 11/02/19 00:00 IMPRESSION: NG tube is in place as described. Gas pattern is nonspecific. Chest X-Ray 11/02/19 13:40 IMPRESSION: Central line has been added. No pneumothorax. No other interval change. Abdomen/Pelvis CT 11/03/19 02:30 IMPRESSION: Artifact from the patient's arms. Imaging is degraded by patient motion, with resultant artifact. The best possible images were obtained. Findings are suspicious for colitis.. All labs, radiographs, diagnostic studies and EKGs were personally reviewed: Yes In addition, reports of radiographic and diagnostic studies were read: Yes Assessment and Plan - Diagnosis (1) Shock Is this a current diagnosis for this admission?: Yes Plan: Titrate vasopressors for MAP 65. Continue bicarbonate infusion. Continue milrinone infusion (renally dosed). (2) Multi-organ failure with heart failure Is this a current diagnosis for this admission?: Yes (3) DIC (disseminated intravascular coagulation) Is this a current diagnosis for this admission?: Yes Plan: Transfusions: 4 units FFP, 2 units PRBC today. Totals: FFP (6), PRBC (2). May need cryoprecipitate. (4) Acute kidney injury superimposed on chronic kidney disease Is this a current diagnosis for this admission?: Yes Plan: Currently on hemodialysis. Nephrology help appreciated. (5) Anemia in chronic kidney disease (CKD) Qualifiers: Chronic kidney disease stage: on chronic dialysis Qualified Code(s): N18.6 - End stage renal disease; D63.1 - Anemia in chronic kidney disease; Z99.2 - Dependence on renal dialysis Is this a current diagnosis for this admission?: Yes (6) Hypoglycemia Is this a current diagnosis for this admission?: Yes (7) Chronic anticoagulation Is this a current diagnosis for this admission?: Yes (8) Congestive heart failure Qualifiers: Heart failure type: combined systolic and diastolic Heart failure chronicity: acute on chronic Qualified Code(s): I50.43 - Acute on chronic combined systolic (congestive) and diastolic (congestive) heart failure Is this a current diagnosis for this admission?: Yes (9) Diabetic foot ulcers Qualifiers: Diabetic foot ulcer location: unspecified part of foot Diabetes mellitus type: type 2 Is this a current diagnosis for this admission?: Yes (10) Type 2 diabetes mellitus Qualifiers: 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 mellitus 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 treater insulin use: with senior living use Diabetes [place] complication status: with kidney complications Diabetes mellitus comp lication detail: with chronic kidney disease Chronic kidney disease stage: stage 4 (severe) Qualified Code(s): E11.22 - Type 2 diabetes mellitus with diabetic chronic kidney disease; N18.4 - Chronic kidney disease, stage 4 (severe); Z79.4 - nursing home (current) use of insulin Is this a current diagnosis for this admission?: Yes (11) Atrial fibrillation with rapid ventricular response Is this a current diagnosis for this admission?: Yes Plan: Continue amiodarone infusion. (12) Gastrointestinal hemorrhage with melena Is this a current diagnosis for this admission?: Yes Plan: On Protonix infusion. (13) Elevated troponin Is this a current diagnosis for this admission?: Yes Plan: Anticoagulation is contraindicated with ongoing GI bleed. (14) Lactic acidosis Is this a current diagnosis for this admission?: Yes Critical Time Critical Time (minutes): 120 Level of Care: ICU -: 1. The care of a critical patient is a dynamic process. This note is a automobile sales representative synopsis but static in nature. The timeframe for treatments given in order is not necessarily the actual time these treatments may have been done. 2. This patient requires critical care secondary to ongoing requirements for therapy not offered or safe outside the critical care environment. Transfer to a lower level of care will result in altered life or limb morbidity and mortality. 3. Multidisciplinary rounds completed. 4. ABCDE bundle addressed.
[2019-11-04 12:38] LABS: ARTERIAL BLOOD BASE EXCESS -12.2 mmol/L; ARTERIAL BLOOD H2CO3 0.65 mmol/L (1.05-1.35); ARTERIAL BLOOD HCO3 11.7 mmol/L (20-24); ARTERIAL BLOOD O2 SATURATION 94.9 % (94-98); ARTERIAL BLOOD PCO2 21.7 mmHg (35-45); ARTERIAL BLOOD PH 7.35 (7.35-7.45); ARTERIAL BLOOD PO2 75.5 mmHg (80-100); ARTERIAL BLOOD TOTAL CO2 12.3 mmol/L (21-25)
[2019-11-04 12:39] LABS: ARTERIAL BLOOD FIO2 30%
[2019-11-04] MEDS: MILRINONE LACTATE/D5W 20 MG/100 ML RTUINJ IV PRN (12:39)
[2019-11-04] MEDS: AMIODARONE HCL 200 MG TABLET NG SCH ×2 (12:40→21:32)
[2019-11-04 12:55] LABS: INTERNATIONAL RATION (INR) 2.86; PROTHROMBIN TIME 30.6 SEC (11.4-15.4)
[2019-11-04 12:56] LABS: FIBRINOGEN 235 mg/dL (209-497)
[2019-11-04 12:57] LABS: PARTIAL THROMBOPLASTIN TIME 92.3 SEC (23.5-35.8)
[2019-11-04 13:14] LABS: D-DIMER 7.62 ug/mL (0.00-0.50)
[2019-11-04 13:38] LABS: BLOOD UREA NITROGEN 8 mg/dL (7-20); CALCIUM 7.3 mg/dL (8.4-10.2); CARBON DIOXIDE 12 mmol/L (22-30); CHLORIDE 86 mmol/L (98-107); GLUCOSE 238 mg/dL (75-110); POTASSIUM 3.6 mmol/L (3.6-5.0)
[2019-11-04 13:45] LABS: HEMATOCRIT 29.9 % (36.0-47.0); HEMOGLOBIN 9.6 g/dL (12.0-15.5); MEAN CORPUSCULAR HEMOGLOBIN 30.5 pg (27.0-33.4); MEAN CORPUSCULAR VOLUME 95 fl (80-97); RED BLOOD COUNT 3.14 10^6/uL (3.72-5.28); RED CELL DISTRIBUTION WIDTH 17.2 % (11.5-14.0); WHITE BLOOD COUNT 16.7 10^3/uL (4.0-10.5)
[2019-11-04 14:14] LABS: ANION GAP 29 (5-19)
[2019-11-04] MEDS ORDERED: PHYTONADIONE 5 MG TABLET NG ONE (14:53)
[2019-11-04] MEDS ORDERED: POTASSIUM CHLORIDE 20 MEQ PACKET NG ONE (14:54)
[2019-11-04] MEDS ORDERED: MAGNESIUM SULFATE/D5W 1 GM/100 ML RTUPB IV ONE (14:54)
[2019-11-04 14:57] LABS: PLATELET COUNT 71 10^3/uL (150-450)
[2019-11-04 14:58] LABS: ABSOLUTE MONOCYTES # (MANUAL) 2.7 10^3/uL (0.1-1.4); BAND NEUTROPHILS % (MANUAL) 11 % (3-5); BASOPHILS % (MANUAL) 0 % (0-2); EOSINOPHILS % (MANUAL) 1 % (0-6); LYMPHOCYTES % (MANUAL) 6 % (13-45); METAMYELOCYTES % (MANUAL) 6 % (0-1); MONOCYTES % (MANUAL) 16 % (3-13); MYELOCYTES % (MANUAL) 3 % (0); NUCLEATED RED BLOOD CELLS 6 /100 WBC (0); SEGMENTED NEUTROPHILS % (MAN) 57 % (42-78); TOTAL CELLS COUNTED 100
[2019-11-04 14:59] LABS: ANISOCYTOSIS 1+; BURR CELLS SLIGHT; PLATELET COMMENT DECREASED; POLYCHROMASIA SLIGHT; SCHISTOCYTES SLIGHT; TOXIC GRANULATION 1+; TOXIC VACUOLATION PRESENT
[2019-11-04 16:07] LABS: ARTERIAL BLOOD BASE EXCESS -14.4 mmol/L; ARTERIAL BLOOD HCO3 10.7 mmol/L (20-24); ARTERIAL BLOOD PCO2 23.4 mmHg (35-45); ARTERIAL BLOOD PH 7.28 (7.35-7.45); ARTERIAL BLOOD PO2 72.1 mmHg (80-100); ARTERIAL BLOOD TOTAL CO2 11.4 mmol/L (21-25)
[2019-11-04 16:08] LABS: ARTERIAL BLOOD FIO2 30%
--- NOTE | 2019-11-04 16:08 | PDOC CRITICAL CARE PROG REPORT ---
General Date:: 11/04/19 ICU Day:: 3 Ventilator Day:: 3 Hospital Day:: 3 Resuscitation Status: Do Not Resuscitate Events in the past 12 to 24 Hours:: 11/02: This 74-year-old -[place] female presented [facility] emergency department with altered mental status and hypoglycemia. She was intubated in the emergency department. In the interim, discussion with 1 of the patient's sons (Hao) reveals that the patient has been experiencing abdominal pain for the past several days prior to presentation. She had a large melanotic stool yesterday. She has steadily increased her vasopressor requirements. At present, she is on phenylephrine, vasopressin and norepinephrine infusions. She is also on milrinone infusion for severe cardiomyopathy, estimated LVEF 15%. She was started on amiodarone infusion yesterday evening for atrial fibrillation with rapid ventricular response. She is currently rate controlled. She was found to have severe lactic acidosis, now with lactate greater than 20. She underwent hemodialysis yesterday. She is undergoing another attempted ultrafiltration today. For all, her clinical presentation is 1 of shock and multiorgan system failure. Decreased SvO2 has been consistent with hemorrhagic and cardiogenic shock. However, the patient also has diabetic ulcers and positive (GPC) blood cultures raising suspicion for a septic component. She has abnormal LFTs with both transaminitis and coagulopathy. She has acute on chronic renal failure. Lipase is over 8000. 11/03: Again on hemodialysis. INR down to 2.7 10:05 units FFP over the past 24 hours. Also was given vitamin K 10 mg. Hemoglobin 9.3>8.7. WBC 21>15.9. Nurses report that the patient did have one melanotic stool in the interim. On norepinephrine, phenylephrine and vasopressin. Still on bicarbonate infusion. Atrial fibrillation, rate controlled with amiodarone infusion. Still on milrin one. Review of systems relevant to events:: Cardiovascular: Cardiogenic shock with multiorgan failure Renal: Acute on chronic stage IV kidney disease Gastrointestinal: Abdominal pain, GI bleed, pancreatitis Endocrine: Hypoglycemia Neurologic: Altered mental status Reason for ICU Addmission:: endotracheal intubation - Medications: Medications reviewed and adjusted accordingly: Yes Vasopressors:: Norepinephrine, phenylephrine, vasopressin. Also on milrinone, amiodarone. Physical Exam Vital Signs: Temp Pulse Resp BP Pulse Ox 96.6 F L 102 H 24 H 90/32 L 92 11/04/19 10:20 11/04/19 10:00 11/04/19 10:20 11/04/19 08:00 11/04/19 04:02 Intake & Output 11/03/19 11/04/19 11/05/19 06:59 06:59 06:59 Intake Total 5610 9596 2857 Output Total 1765 4568 5580 Balance 7542 0398 -5795 Weight 82.6 kg 89.3 kg Weight/Height Weight 89.3 kg Height 1.68 m General appearance: PRESENT: no acute distress, well-developed, well-nourished Head exam: PRESENT: atraumatic, normocephalic Eye exam: PRESENT: conjunctiva pink, EOMI, PERRLA. ABSENT: scleral icterus Mouth exam: PRESENT: moist, tongue midline Respiratory exam: PRESENT: clear to auscultation conor. ABSENT: rales, rhonchi, wheezes Cardiovascular exam: PRESENT: irregular rhythm. ABSENT: diastolic murmur, rubs, systolic murmur Pulses: PRESENT: normal dorsalis pedis pul GI/Abdominal exam: PRESENT: normal bowel sounds, soft. ABSENT: distended, guarding, mass, organolmegaly, rebound, tenderness Rectal exam: PRESENT: heme (+) stool Gentrourinary exam: PRESENT: indwelling catheter Extremities exam: PRESENT: pedal edema, +1 edema. ABSENT: clubbing Neurological exam: PRESENT: CN II-XII grossly intact, other Skin exam: PRESENT: other - Right dry diabetic ulcers. Perineal ulcer. Tubes/Lines: PRESENT: Endotracheal Tube, Central Line - Right subclavian, Arterial Catheter - Left axillary, Other - OG tube. Left wound VAC (left AKA stump) Laboratory/Radiographs Laboratory Results: 11/04/19 06:18 11/04/19 02:53 11/02/19 11/03/19 11/03/19 10:30 08:00 11:28 WBC RBC Hgb 7.8 L Hct MCV MCH MCHC RDW Plt Count Seg Neutrophils % Carbonic Acid HCO3/H2CO3 Ratio ABG pH ABG pCO2 ABG pO2 ABG HCO3 ABG O2 Saturation ABG Base Excess VBG pH VBG pCO2 VBG HCO3 VBG Base Excess FiO2 Sodium 130.6 L Potassium 4.6 Chloride 88 L Carbon Dioxide 6 L* Anion Gap 37 H BUN 19 Creatinine 2.39 H Est GFR ( Amer) 24 L Est GFR (Non-Af Amer) Glucose 239 H Lactic Acid Calcium 7.4 L Ionized Calcium Ayse Phosphorus Magnesium 2.1 Total Bilirubin AST Alkaline Phosphatase Total Protein Albumin Blood Type A POSITIVE Antibody Screen NEGATIVE 11/03/19 11/03/19 11/03/19 17:00 18:40 18:40 WBC RBC Hgb Hct MCV MCH MCHC RDW Plt Count Seg Neutrophils % Carbonic Acid 0.59 L HCO3/H2CO3 Ratio 19:1 ABG pH 7.39 ABG pCO2 19.5 L* ABG pO2 88.8 ABG HCO3 11.4 L ABG O2 Saturation 96.9 ABG Base Excess -11.8 VBG pH 7.39 VBG pCO2 24.8 L VBG HCO3 14.8 L VBG Base Excess -8.8 FiO2 30 Sodium 128.7 L Potassium 3.9 Chloride 87 L Carbon Dioxide 13 L Anion Gap 29 H BUN 13 Creatinine 1.69 H Est GFR ( Amer) 36 L Est GFR (Non-Af Amer) Glucose 239 H Lactic Acid Calcium 7.1 L Ionized Calcium Ayse Phosphorus Magnesium 1.9 Total Bilirubin 4.4 H AST 2054 H Alkaline Phosphatase 222 H Total Protein 5.1 L Albumin 2.3 L Blood Type Antibody Screen 11/03/19 11/03/19 11/03/19 18:40 18:40 18:40 WBC 18.1 H RBC 2.55 L Hgb 7.8 L Hct 25.0 L MCV 98 H D MCH 30.7 MCHC 31.3 L RDW 18.6 H Plt Count 98 L Seg Neutrophils % Not Reportable Carbonic Acid HCO3/H2CO3 Ratio ABG pH ABG pCO2 ABG pO2 ABG HCO3 ABG O2 Saturation ABG Base Excess VBG pH VBG pCO2 VBG HCO3 VBG Base Excess FiO2 Sodium Cancelled Potassium Cancelled Chloride Cancelled Carbon Dioxide Cancelled Anion Gap Cancelled BUN Cancelled Creatinine Cancelled Est GFR ( Amer) Cancelled Est GFR (Non-Af Amer) Cancelled Glucose Cancelled Lactic Acid 23.8 H Calcium Cancelled Ionized Calcium Ayse Phosphorus Magnesium Total Bilirubin AST Alkaline Phosphatase Total Protein Albumin Blood Type Antibody Screen 11/03/19 11/03/19 11/04/19 18:50 20:32 02:53 WBC RBC Hgb Hct MCV MCH MCHC RDW Plt Count Seg Neutrophils % Carbonic Acid 0.70 L 0.51 L HCO3/H2CO3 Ratio 16:1 14:1 ABG pH 7.30 L 7.26 L ABG pCO2 23.1 L 16.8 L* ABG pO2 41.7 L 79.7 L ABG HCO3 11.2 L 7.3 L ABG O2 Saturation 73.7 L 94.4 ABG Base Excess -13.8 -17.8 VBG pH VBG pCO2 VBG HCO3 VBG Base Excess FiO2 30% 30% Sodium Potassium Chloride Carbon Dioxide Anion Gap BUN Creatinine Est GFR ( Amer) Est GFR (Non-Af Amer) Glucose Lactic Acid Calcium Ionized Calcium Ayse 0.86 L 0.97 L Phosphorus Magnesium Total Bilirubin AST Alkaline Phosphatase Total Protein Albumin Blood Type Antibody Screen 11/04/19 11/04/19 11/04/19 02:53 02:53 06:18 WBC 17.9 H RBC 3.00 L Hgb 9.3 L Hct 29.5 L MCV 98 H MCH 31.1 MCHC 31.6 L RDW 17.5 H Plt Count 75 L Seg Neutrophils % Not Reportable Carbonic Acid 0.78 L HCO3/H2CO3 Ratio 13:1 ABG pH 7.22 L ABG pCO2 26.0 L ABG pO2 37.2 L* ABG HCO3 10.4 L ABG O2 Saturation 61.3 L ABG Base Excess -15.8 VBG pH VBG pCO2 VBG HCO3 VBG Base Excess FiO2 30% Sodium 125.6 L Potassium 4.3 Chloride 84 L Carbon Dioxide 8 L* Anion Gap 34 H BUN 13 Creatinine 2.00 H Est GFR ( Amer) 29 L Est GFR (Non-Af Amer) Glucose 300 H Lactic Acid Calcium 8.2 L Ionized Calcium Ayse 0.92 L Phosphorus 5.1 H Magnesium 1.8 Total Bilirubin AST Alkaline Phosphatase Total Protein Albumin Blood Type Antibody Screen 11/04/19 06:18 WBC 15.9 H RBC 2.76 L Hgb 8.7 L Hct 27.1 L MCV 98 H MCH 31.4 MCHC 32.0 RDW 17.5 H Plt Count 66 L Seg Neutrophils % Carbonic Acid HCO3/H2CO3 Ratio ABG pH ABG pCO2 ABG pO2 ABG HCO3 ABG O2 Saturation ABG Base Excess VBG pH VBG pCO2 VBG HCO3 VBG Base Excess FiO2 Sodium Potassium Chloride Carbon Dioxide Anion Gap BUN Creatinine Est GFR ( Amer) Est GFR (Non-Af Amer) Glucose Lactic Acid Calcium Ionized Calcium Ayse Phosphorus Magnesium Total Bilirubin AST Alkaline Phosphatase Total Protein Albumin Blood Type Antibody Screen 11/02/19 03:29 Blood Blood Culture (PCR) - Final Staphylococcus Species 11/02/19 02:04 Blood Blood Culture (PCR) - Final Staphylococcus Species 11/02/19 11/02/19 11/02/19 02:04 02:04 14:20 Troponin I 0.264 0.341 NT-Pro-B Natriuret Pep 53201 H 11/02/19 11/03/19 11/03/19 18:05 02:28 08:00 Troponin I 0.466 0.778 0.968 NT-Pro-B Natriuret Pep 11/03/19 11/04/19 18:40 02:53 Troponin I 1.700 NT-Pro-B Natriuret Pep 21807 H Impressions: KUB X-Ray 11/02/19 00:00 IMPRESSION: NG tube is in place as described. Gas pattern is nonspecific. Chest X-Ray 11/02/19 13:40 IMPRESSION: Central line has been added. No pneumothorax. No other interval change. Abdomen/Pelvis CT 11/03/19 02:30 IMPRESSION: Artifact from the patient's arms. Imaging is degraded by patient motion, with resultant artifact. The best possible images were obtained. Findings are suspicious for colitis.. All labs, radiographs, diagnostic studies and EKGs were personally reviewed: Yes In addition, reports of radiographic and diagnostic studies were read: Yes Assessment and Plan - Diagnosis (1) Shock Is this a current diagnosis for this admission?: Yes Plan: Titrate vasopressors for MAP 65. Continue bicarbonate infusion. Continue milrinone infusion (renally dosed). (2) Multi-organ failure with heart failure Is this a current diagnosis for this admission?: Yes (3) DIC (disseminated intravascular coagulation) Is this a current diagnosis for this admission?: Yes Plan: Monitor PT, PTT, fibrinogen, d-dimer. (4) Gastrointestinal hemorrhage with melena Is this a current diagnosis for this admission?: Yes Plan: On Protonix infusion. Change Protonix to 40 mg IV twice daily. CT abdomen/pelvis findings are suspicious for colitis, likely ischemic colitis. This patient is too unstable to undergo surgical intervention at this time. Furthermore, given her severe cardiomyopathy, she is at very high risk of preoperative/perioperative . (5) Ischemic colitis Is this a current diagnosis for this admission?: Yes (6) Acute kidney injury superimposed on chronic kidney disease Is this a current diagnosis for this admission?: Yes Plan: Currently on hemodialysis. Nephrology help appreciated. (7) Anemia in chronic kidney disease (CKD) Qualifiers: Chronic kidney disease stage: on chronic dialysis Qualified Code(s): N18.6 - End stage renal disease; D63.1 - Anemia in chronic kidney disease; Z99.2 - Dependence on renal dialysis Is this a current diagnosis for this admission?: Yes (8) Hypoglycemia Is this a current diagnosis for this admission?: Yes (9) Chronic anticoagulation Is this a current diagnosis for this admission?: Yes Plan: Anticoagulation on hold with ongoing GI bleed. (10) Congestive heart failure Qualifiers: Heart failure type: combined systolic and diastolic Heart failure chronicity: acute on chronic Qualified Code(s): I50.43 - Acute on chronic combined systolic (congestive) and diastolic (congestive) heart failure Is this a current diagnosis for this admission?: Yes (11) Diabetic foot ulcers Qualifiers: Diabetic foot ulcer location: unspecified part of foot Diabetes mellitus type: type 2 Is this a current diagnosis for this admission?: Yes Plan: Continue Zosyn/vancomycin. (12) Type 2 diabetes mellitus Qualifiers: Diabetes mellitus [facility] insulin use: with [facility] use Diabetes mellitus complication status: with kidney complications Diabetes mellitus complication detail: with chronic kidney disease Chronic kidney disease stage: stage 4 (severe) Qualified Code(s): E11.22 - Type 2 diabetes mellitus with diabetic chronic kidney disease; N18.4 - Chronic kidney disease, stage 4 (severe); Z79.4 - lobsterman (current) use of insulin Is this a current diagnosis for this admission?: Yes (13) Atrial fibrillation with rapid ventricular response Is this a current diagnosis for this admission?: Yes Plan: Stop amiodarone infusion. Start amiodarone 200 mg NG tube twice daily. (14) Elevated troponin Is this a current diagnosis for this admission?: Yes Plan: Anticoagulation is contraindicated with ongoing GI bleed. (15) Lactic acidosis Is this a current diagnosis for this admission?: Yes Plan: Trend lactate. Critical Time Critical Time (minutes): 120 Level of Care: ICU -: 1. The care of a critical patient is a dynamic process. This note is a fundraising sale representative synopsis but static in nature. The timeframe for treatments given in order is not necessarily the actual time these treatments may have been done. 2. This patient requires critical care secondary to ongoing requirements for therapy not offered or safe outside the critical care environment. Transfer to a lower level of care will result in altered life or limb morbidity and mortality. 3. Multidisciplinary rounds completed. 4. ABCDE bundle addressed.
[2019-11-04] MEDS ORDERED: VANCOMYCIN HCL 750 MG in DEXTROSE 5%-WATER 250 ML IV SCH ×4 (18:00)
[2019-11-04 18:49] LABS: ARTERIAL BLOOD BASE EXCESS -17.9 mmol/L; ARTERIAL BLOOD H2CO3 0.72 mmol/L (1.05-1.35); ARTERIAL BLOOD HCO3 8.8 mmol/L (20-24); ARTERIAL BLOOD O2 SATURATION 87.2 % (94-98); ARTERIAL BLOOD PO2 63.2 mmHg (80-100); ARTERIAL BLOOD TOTAL CO2 9.6 mmol/L (21-25)
[2019-11-04 18:51] LABS: ARTERIAL BLOOD FIO2 30%
[2019-11-04 18:53] LABS: ARTERIAL BLOOD PH 7.18 (7.35-7.45)
[2019-11-04] MEDS ORDERED: CALCIUM GLUCONATE 1000 MG/10 ML INJ IV ONE ×4 (19:13→23:59)
[2019-11-04 19:31] LABS: ARTERIAL BLOOD H2CO3 0.76 mmol/L (1.05-1.35); ARTERIAL BLOOD HCO3 11.4 mmol/L (20-24); ARTERIAL BLOOD O2 SATURATION 90.1 % (94-98); ARTERIAL BLOOD PCO2 25.4 mmHg (35-45); ARTERIAL BLOOD PH 7.27 (7.35-7.45); ARTERIAL BLOOD PO2 63.9 mmHg (80-100); ARTERIAL BLOOD TOTAL CO2 12.2 mmol/L (21-25)
[2019-11-04 19:33] LABS: ARTERIAL BLOOD FIO2 30%
[2019-11-04 19:39] LABS: ARTERIAL BLOOD BASE EXCESS -14.6 mmol/L; ARTERIAL BLOOD H2CO3 0.95 mmol/L (1.05-1.35); ARTERIAL BLOOD HCO3 12.1 mmol/L (20-24); ARTERIAL BLOOD O2 SATURATION 57.4 % (94-98); ARTERIAL BLOOD PCO2 31.5 mmHg (35-45); ARTERIAL BLOOD TOTAL CO2 13.1 mmol/L (21-25)
[2019-11-04 19:41] LABS: ARTERIAL BLOOD PO2 35.8 mmHg (80-100)
[2019-11-04 19:42] LABS: ARTERIAL BLOOD FIO2 30%
[2019-11-04 21:44] LABS: FIBRINOGEN 187 mg/dL (209-497); PROTHROMBIN TIME 34.3 SEC (11.4-15.4)
[2019-11-04 21:45] LABS: PARTIAL THROMBOPLASTIN TIME 85.8 SEC (23.5-35.8)
[2019-11-04] MEDS ORDERED: PANTOPRAZOLE SODIUM 40 MG VIAL IV SCH (22:00)
[2019-11-04 22:04] LABS: D-DIMER 7.97 ug/mL (0.00-0.50)
[2019-11-04] MEDS ORDERED: METOPROLOL TARTRATE PF/INJ 5 MG/5 ML SDV IV ONE ×2 (22:21→23:00)
[2019-11-04] MEDS ORDERED: EPINEPHRINE INJ 1 MG/10 ML DISP.SYRIN ONE (22:26)
[2019-11-04] MEDS: DEXTROSE 5%-WATER 250 ML with EPINEPHRINE/PF 1 MG IV PRN ×2 (22:30)
[2019-11-04] MEDS ORDERED: EPINEPHRINE INJ/PF 1 MG/1 ML AMPULE ONE (22:30)
[2019-11-04] MEDS: ALBUMIN HUMAN 12.5 GM/50 ML RTUINJ IV SCH ×4 (23:00→23:15)
[2019-11-04] MEDS ORDERED: EPINEPHRINE INJ 1 MG/10 ML DISP.SYRIN IV ONE (23:00)
[2019-11-04] MEDS ORDERED: DEXTROSE 5%-WATER 1000 ML 1,000 ML with SODIUM BICARBONATE 150 MEQ IV PRN ×2 (23:34)
[2019-11-04 23:46] LABS: ARTERIAL BLOOD BASE EXCESS -11.2 mmol/L; ARTERIAL BLOOD H2CO3 0.71 mmol/L (1.05-1.35); ARTERIAL BLOOD O2 SATURATION 91.6 % (94-98); ARTERIAL BLOOD PCO2 23.6 mmHg (35-45); ARTERIAL BLOOD PH 7.36 (7.35-7.45); ARTERIAL BLOOD PO2 62.2 mmHg (80-100); ARTERIAL BLOOD TOTAL CO2 13.7 mmol/L (21-25)
[2019-11-04 23:47] LABS: ARTERIAL BLOOD FIO2 30%
[2019-11-05] MEDS ORDERED: EPINEPHRINE INJ/PF 1 MG/1 ML AMPULE ONE ×2 (00:06→01:27)
[2019-11-05 00:11] LABS: BLOOD UREA NITROGEN 9 mg/dL (7-20); CALCIUM 7.9 mg/dL (8.4-10.2); CARBON DIOXIDE 13 mmol/L (22-30); GLUCOSE 300 mg/dL (75-110); POTASSIUM 3.5 mmol/L (3.6-5.0)
[2019-11-05 00:12] LABS: ARTERIAL BLOOD BASE EXCESS -17.9 mmol/L; ARTERIAL BLOOD H2CO3 1.25 mmol/L (1.05-1.35); ARTERIAL BLOOD HCO3 11.3 mmol/L (20-24); ARTERIAL BLOOD PCO2 41.6 mmHg (35-45); ARTERIAL BLOOD TOTAL CO2 12.6 mmol/L (21-25)
[2019-11-05 00:15] LABS: ARTERIAL BLOOD FIO2 30%
[2019-11-05 00:17] LABS: ANION GAP 35 (5-19); CHLORIDE 78 mmol/L (98-107)
[2019-11-05 00:19] LABS: ARTERIAL BLOOD PH 7.05 (7.35-7.45); ARTERIAL BLOOD PO2 31.4 mmHg (80-100)
[2019-11-05] MEDS: DEXTROSE 5%-WATER 250 ML with EPINEPHRINE/PF 1 MG IV PRN ×2 (00:20)
[2019-11-05 00:40] LABS: HEMATOCRIT 24.4 % (36.0-47.0); MEAN CORPUSCULAR HEMOGLOBIN 30.6 pg (27.0-33.4); MEAN CORPUSCULAR HGB CONC 31.7 g/dL (32.0-36.0); MEAN CORPUSCULAR VOLUME 97 fl (80-97); RED BLOOD COUNT 2.52 10^6/uL (3.72-5.28); WHITE BLOOD COUNT 16.8 10^3/uL (4.0-10.5)
[2019-11-05] MEDS ORDERED: DEXTROSE 5% IV PRN ×2 (00:57)
[2019-11-05] MEDS ORDERED: EPINEPHRINE IV PRN ×2 (00:57)
[2019-11-05] MEDS ORDERED: WATER IV PRN ×2 (00:57)
[2019-11-05 01:08] LABS: HEMOGLOBIN 7.7 g/dL (12.0-15.5)
[2019-11-05 01:09] LABS: PLATELET COUNT 42 10^3/uL (150-450)
[2019-11-05] MEDS ORDERED: NORMAL SALINE 250 ML IV PRN ×4 (01:37→02:08)
[2019-11-05] MEDS ORDERED: CALCIUM GLUCONATE 1000 MG/10 ML INJ IV ONE ×5 (02:27→03:12)
[2019-11-05 02:35] LABS: ARTERIAL BLOOD BASE EXCESS -18.8 mmol/L; ARTERIAL BLOOD H2CO3 1.01 mmol/L (1.05-1.35); ARTERIAL BLOOD HCO3 9.8 mmol/L (20-24); ARTERIAL BLOOD O2 SATURATION 46.6 % (94-98); ARTERIAL BLOOD PCO2 33.5 mmHg (35-45); ARTERIAL BLOOD TOTAL CO2 10.8 mmol/L (21-25)
[2019-11-05 02:36] LABS: ARTERIAL BLOOD FIO2 30%
[2019-11-05 02:37] LABS: ARTERIAL BLOOD PH 7.08 (7.35-7.45); ARTERIAL BLOOD PO2 34.3 mmHg (80-100)
[2019-11-05] MEDS: DEXTROSE 5%-WATER 250 ML with PHENYLEPHRINE HCL 80 MG IV PRN ×2 (02:46)
[2019-11-05 02:48] LABS: ARTERIAL BLOOD BASE EXCESS -17.8 mmol/L; ARTERIAL BLOOD H2CO3 0.66 mmol/L (1.05-1.35); ARTERIAL BLOOD HCO3 8.5 mmol/L (20-24); ARTERIAL BLOOD O2 SATURATION 87.1 % (94-98); ARTERIAL BLOOD PCO2 21.9 mmHg (35-45); ARTERIAL BLOOD PH 7.21 (7.35-7.45); ARTERIAL BLOOD PO2 61.4 mmHg (80-100); ARTERIAL BLOOD TOTAL CO2 9.2 mmol/L (21-25)
[2019-11-05] MEDS: PIPERACILLIN SODIUM/TAZOBACTAM 2.25 GM in NORMAL SALINE 50 ML IV SCH (02:48)
[2019-11-05 02:49] LABS: ARTERIAL BLOOD FIO2 30%
[2019-11-05] MEDS ORDERED: NORMAL SALINE 1000 ML 1,000 ML IV PRN (05:00)
[2019-11-05 05:10] VITALS: BP 0/0
--- NOTE | 2019-11-05 07:40 | Death Summary ---
Summary Date : 11/05/19 Time of :: 00:42 Autopsy: No Resuscitation Status: Do Not Resuscitate Primary Care Provider: Dr Gisele Lopez [place] Hospital Course:: Ms Audra Vaughn is a 74 year-old female with past medical history significant for HLD, HTN, CAD, DM II, PAD, Stg IV CKD for which she intermittently receives hemodialysis, dilated cardiomyopathy with chronic systolic CHF with a previous EF of 35-40%, and A-fib on Eliquis who initially presented on 11/02/2019 with altered mental status and was found to have hypoglycemia for which she received a Dextrose infusion, resolving the hypoglycemia. She was also found to be hypothermic upon presentation for which she was rewarmed with a heating blanket. Her initial lab work revealed leukocytosis, anemia in CKD, profound lactic acidosis, hypocalcemia, protein calorie malnutrition, pancreatitis, elevated liver enzymes, a urinary tract infection, elevated brain natriuretic peptide as well as troponin I with a-fib RVR and multiple old infarcts on her electrocardiogram per cardiology. Within the first few hours of being in the emergency department, she became hypotensive receiving IV fluids as well as initiation of a Norepinephrine infusion for which critical care was consulted. She was intubated by the ER physician. 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 She remained in refractory shock in the ED for which [id number] ultrasound was performed demonstrating severe bi-ventricular failure for which she was placed on Milrinone at renal dosing as well as adding a Vasopressin infusion. She was then transferred to the ICU where she had her first bowel movement with melena and her orogastric tube was noted to also have a blood-tinged, coffee-ground appearance. It was then discovered that Ms Vaughn had been experiencing three days of abdominal pain prior to admission, which could explain the melenotic stool she had when she first arrived to ICU. She was started on a Pantoprazole infusion for gastrointestinal bleeding and coagulopathy workup revealed DIC due to sepsis for which she received multiple units of PRBC's as well as FFP, Platelets, Vitamin K, and DDAVP for uremic platelet dysfunction in the setting of acute ongoing hemorrhage. Though the INR improved, the syndrome did not resolve even with empiric Vancomycin and Zosyn for her UTI and chronic skin wounds. A CT was obtained demonstrating possible ischemic colitis for which the patient was too unstable for any form of operative intervention as well as had an extremely high risk of mortality from a cardiac standpoint, therefore, the plan was to not consult surgery until she became more hemodynamically stable. Dr Grant with Cardiology was consulted noting Ms Vaughn has dilated cardiomyopathy and a formal transthoracic echocardiogram was obtained demonstrating an LVEF of 15% on Milrinone. She received Amiodarone for rate controlling her atrial fibrillation, which was effective, Milrinone for inotropic support, and Epinephrine, Norepinephrine, Phenylephrine, and Vasopressin infusions for her cardiogenic shock. She also required many doses of IV Calcium for hypocalcemia due to secondary hyperparathyroidism due to Stg IV CKD. Dr Sparks with Nephrology was consulted and Ms Vaughn received daily hemodialysis with ultrafiltration due to CHF. She continued to require a Sodium Bicarbonate infusion as well as supplemental pushes to assist with augmenting her pH. For her diabetes, she received extremely judicious use of subcutaneous insulin given that she presented with hypoglycemia and previously required D10 in setting of elevated liver enzymes. Unfortunately, she was unable to recover from cardiogenic shock with multi-organ failure despite all of the above treatment modalities and subsequently on 11/05/2019 at 04:42 AM. Ms Vaughn's sons, Hao and Pankaj Vaughn, were notified and able to make it to her bedside before she succumbed to her illness. Dr Montiel, Dr Sparks, Dr Grant, and Dr Lopez have all been notified of her .
[2019-11-07 08:50] LABS: PROTEIN C ACTIVITY 23 % (73-180); PROTEIN C ANTIGEN 18 % (60-150)
== END 2019-11-05 04:42 | DRG 871 ==
LOC: ER 00:29 → EH 06:46 → ICU 09:51
PROVIDERS: ADMIT Internal Medicine Critical Care Medicine; ATTEND Internal Medicine Critical Care Medicine
PROC: 5A1945Z Respiratory Ventilation, 24-96 Consecutive Hours (ICD-10-PCS; principal; 2019-11-02)
PROC: 0BH17EZ Insertion of Endotracheal Airway into Trachea, Via Natural or Artificial Opening (ICD-10-PCS; 2019-11-02)
PROC: 30233L1 Transfusion of Nonautologous Fresh Plasma into Peripheral Vein, Percutaneous Approach (ICD-10-PCS; 2019-11-02)
PROC: 5A1D70Z Performance of Urinary Filtration, Intermittent, Less than 6 Hours Per Day (ICD-10-PCS; 2019-11-02)
PROC: 03HY32Z Insertion of Monitoring Device into Upper Artery, Percutaneous Approach (ICD-10-PCS; 2019-11-02)
PROC: 02HV33Z Insertion of Infusion Device into Superior Vena Cava, Percutaneous Approach (ICD-10-PCS; 2019-11-02)
PROC: B24BZZ4 Ultrasonography of Heart with Aorta, Transesophageal (ICD-10-PCS; 2019-11-02)
PROC: 30233N1 Transfusion of Nonautologous Red Blood Cells into Peripheral Vein, Percutaneous Approach (ICD-10-PCS; 2019-11-03)
PROC: 30233R1 Transfusion of Nonautologous Platelets into Peripheral Vein, Percutaneous Approach (ICD-10-PCS; 2019-11-05)
DX: A41.2 Sepsis due to unspecified staphylococcus (principal); N18.6 End stage renal disease; R65.21 Severe sepsis with septic shock; I50.43 Acute on chronic combined systolic (congestive) and diastolic (congestive) heart failure; D65 Disseminated intravascular coagulation [defibrination syndrome]; K85.90 Acute pancreatitis without necrosis or infection, unspecified; N39.0 Urinary tract infection, site not specified; I51.0 Cardiac septal defect, acquired; E87.2 Acidosis; E46 Unspecified protein-calorie malnutrition; K92.1 Melena; N25.81 Secondary hyperparathyroidism of renal origin; I13.2 Hypertensive heart and chronic kidney disease with heart failure and with stage 5 chronic kidney disease, or end stage renal disease; I42.0 Dilated cardiomyopathy; E87.1 Hypo-osmolality and hyponatremia; I48.21 Permanent atrial fibrillation; L03.90 Cellulitis, unspecified; N17.9 Acute kidney failure, unspecified; L97.919 Non-pressure chronic ulcer of unspecified part of right lower leg with unspecified severity; K55.9 Vascular disorder of intestine, unspecified; R57.0 Cardiogenic shock; Z78.1 Physical restraint status; Z66 Do not resuscitate; E78.5 Hyperlipidemia, unspecified; E11.51 Type 2 diabetes mellitus with diabetic peripheral angiopathy without gangrene; I50.82 Biventricular heart failure; I25.10 Atherosclerotic heart disease of native coronary artery without angina pectoris; I48.0 Paroxysmal atrial fibrillation; E11.22 Type 2 diabetes mellitus with diabetic chronic kidney disease; E11.649 Type 2 diabetes mellitus with hypoglycemia without coma; R68.0 Hypothermia, not associated with low environmental temperature; D63.1 Anemia in chronic kidney disease; E83.51 Hypocalcemia; R31.9 Hematuria, unspecified; E11.621 Type 2 diabetes mellitus with foot ulcer; E11.622 Type 2 diabetes mellitus with other skin ulcer; L97.519 Non-pressure chronic ulcer of other part of right foot with unspecified severity; E11.21 Type 2 diabetes mellitus with diabetic nephropathy; Z79.01 Long term (current) use of anticoagulants; Z86.73 Personal history of transient ischemic attack (TIA), and cerebral infarction without residual deficits; Z86.14 Personal history of Methicillin resistant Staphylococcus aureus infection; Z79.4 Long term (current) use of insulin; Z79.899 Other long term (current) drug therapy; Z89.612 Acquired absence of left leg above knee
CPT/HCPCS: 36415; 36430; 36556; 36620; 71045; 74018; 74176; 80048; 80053; 81001; 82150; 82330; 82533; 82803; 82962; 83036; 83605; 83690; 83735; 83880; 83970; 84100; 84439; 84443; 84481; 84484; 85025; 85302; 85379; 85384; 85610; 85730; 86850; 86900; 86901; 86920; 87040; 87070; 87077; 87150; 87186; 87205; 93005; 93010; 93306; 94002; 94003; 96361; 96365; 96367; 96375; 99291; 99292; C9113; J0171; J0282; J0330; J0610; J0696; J1160; J1644; J1815; J2060; J2260; J2370; J2543; J2597; J3010; J3370; J3475; J3480; J3490; J7030; J7050; J7060; P9016; P9017; P9035; P9047; Q5105